=== PATIENT | female | born 1945 | race Caucasian/White ===

== ENCOUNTER 2017-06-24 16:26 | Inpatient (IN) | payer MEDICARE, MEDICAID ==
--- OUTSIDE RECORDS SUMMARY | 2017-06-24 16:28 | XMS | Clinical Summary ---
:1945 Author Organization [facility] Address [address] [place] [address] Phone Care Team Providers Name Role Phone , Primary Care Provider Unavailable Allergies Not on File Current Medications Not on file Active Problems Not on file Social History Tobacco Use Types Packs/Day Years Used Date Never Assessed Sex Assigned at Date Recorded Not on file Last Filed Vital Signs Not on file Plan of Treatment Not on file Results Not on filefrom Last 3 Months
--- NOTE | 2017-06-24 17:13 | CT ---
CT OF HEAD NONCONTRAST: Indication: Fall with headache, pain. FINDINGS: There is parenchymal atrophy. No intracranial hemorrhage, mass effect, or midline shift. There is mi ld mucosal thickening of the paranasal sinuses. IMPRESSION: 1. No acute intracranial hemorrhage or mass effect. 2. Parenchymal volume loss. 3. No significant interval change from 02-15-11. POS: [facility]
--- NOTE | 2017-06-24 17:15 | CT ---
CERVICAL SPINE CT NONCONTRAST 06/24/17 INDICATION: Fall with neck injury and pain. FINDINGS: There is multilevel anterior metallic fusion spanning C4 through C7 segments. There is slight separa tion of the anterior metal plate from the anterior aspect of the vertebral column at the C4 and C5 l evels. No acute fracture or significant subluxation. No acute facet malalignment or craniocervical d istraction. Prominent degenerative change at the atlantodental articulation is present. IMPRESSION: Postoperative cervical spine with degenerative change. There is no acute fracture or subluxation dodie dent. POS: [facility]
[2017-06-24] MEDS ORDERED: Albuterol Sulfate 2.5 mg/0.5 ml Neb ONE (18:39)
[2017-06-24 19:03] LABS: #Lymphocytes 0.7 thou/uL (1.20-3.40); #Monocytes 0.3 thou/uL (0.11-0.59); #Neutrophils 7.8 thou/uL (1.40-6.50); %Basophils 0.4 % (0.0-1.0); %Eosinophils 0.3 % (0.0-10.0); %Lymphocytes 8.3 % (21.0-51.0); %Monocytes 3.1 % (0.0-10.0); Hematocrit 27.1 % (36.0-47.0); Mean Platelet Volume 7.8 fL (7.4-10.4); Red Blood Cell (RBC) Count 2.77 mill/uL (4.20-5.40); White Blood Cell (WBC) Count 8.9 thou/uL (4.8-10.8)
[2017-06-24 19:24] LABS: ALT (SGPT) Less than 7 U/L (8-55); AST (SGOT) 19 U/L (5-34); Alkaline Phosphatase 153 U/L (40-150); Anion Gap 17 mmol/L (10-20); BUN (Urea Nitrogen) 54 mg/dL (9.8-20.1); Bilirubin, Total 0.5 mg/dL (0.2-1.2); CK (CPK) 1004 U/L (29-168); Calc. Creatinine Clearance 0 mL/min (70-130); Calcium 9.1 mg/dL (7.8-10.44); Carbon Dioxide 25 mmol/L (23-31); Chloride 99 mmol/L (98-107); Estimated GFR-MDRD 15; Globulin 3.7 g/dL (2.4-3.5); Protein, Total 7.5 g/dL (6.0-8.3)
[2017-06-24 19:29] LABS: Troponin I 0.014 ng/mL (< 0.028)
--- NOTE | 2017-06-24 20:54 | RAD ---
LUMBAR SPINE THREE VIEWS: 06/24/17 HISTORY: 72-year-old female with fall and low back pain. COMPARISON: 01/15/13. FINDINGS: Extensive disc osteophytosis and facet arthrosis particularly at L2-3 and L1-2. Pedicle screw fixati on changes noted at L3, L4, and S1 with status post laminectomy changes and dorsal column stimulator leads in place. No evidence for an acute fracture. Minimal nonspecific pulmonary parenchymal gordon es in the right lower lobe. IMPRESSION: Extensive spondylosis, particularly at the L1-2 and L2-3. Postoperative pedicle screw placement manning ges at L3, L4, and S1. Little change from prior study other than placement of a dorsal column stimul ator leads. POS: [facility]
--- NOTE | 2017-06-24 20:58 | RAD ---
CHEST ONE VIEW: 06/24/17 HISTORY: 72-year-old female with mechanical fall hitting her head now with low back pain and wheezing. Dorsal column stimulator leads overlie the mid thoracic spine. Increased linear and interstitial mar kings bilaterally, particularly in the right lower lobe but these appear stable from prior study. Ol d granulomatous disease. No overt new process. IMPRESSION: Stable chronic parenchymal changes in the right lower lobe. Bilateral chronic lung changes. No overt new process. No pneumothorax. POS: [facility]
[2017-06-24] MEDS ORDERED: Acetaminophen 325 MG TAB PO PRN (22:47)
[2017-06-24] MEDS ORDERED: Mag-Al 1200 mg/1200 mg/30 ML UDCUP PO PRN (22:47)
[2017-06-24] MEDS: Cepastat Lozenges 1 LOZ PO PRN (23:50)
[2017-06-25 01:25] VITALS: BMI 37.0
--- NOTE | 2017-06-25 02:27 | HP ---
REASON FOR ADMISSION: Acute kidney injury, mild CHF exacerbation with diastolic dysfunction, acute rhabdomyolysis with a history of fall. HISTORY OF PRESENT ILLNESS: The patient was transferred from [facility] after she had a fall while she was trying to get up from her commode. She felt too weak and could not transfer herself to the wheelchair from her commode. She fell and hit her side of her back. She is complaining of back pain as well. No complaints of chest pain, palpitations, or PND. The patient has mild orthopnea. Her lumbar spine x-ray done in the ER shows extensive spondylosis with no acute fractures as such. No complaints of urinary frequency or urgency. No complaints of fever. The patient has shortness of breath and has orthopnea at present. No complaints of chest pain. PAST MEDICAL AND SURGICAL HISTORY: History of Parkinson disease and follows up with Dr. Viridiana Jain; chronic back pain and follows up with Dr. Hodge, pain specialist; diabetes mellitus type 2; hypertension; GERD; dyslipidemia; obesity ; bipolar disorder; irritable bowel syndrome; hysterectomy; multiple spine surgery; tubal ligation; tonsillectomy; cholecystectomy; appendectomy. CURRENT MEDICATIONS: Per the [facility] records, Depakote extended release 250 mg twice daily, Plaquenil 200 mg p.o. twice daily, Percocet p.r.n. for pain, amantadine 100 mg p.o. daily, Lamictal 75 mg p.o. daily, Stalevo 50 mg p.o. daily, Sinemet 25/100 mg p.o. 3 times daily, aspirin 81 mg p.o. daily, Florastor 250 mg p.o. daily, lisinopril 20 mg p.o. daily, hydrochlorothiazide 25 mg p.o. daily, Norvasc 10 mg p.o. daily, Coreg 25 mg p.o. twice daily, Protonix 40 mg p.o. daily, Colace 100 mg p.o. q.a.m., Lasix 20 mg p.o. twice daily, Zanaflex 4 mg p.o. twice daily, Requip 0.5 mg p.o. at bedtime, Neurontin 600 mg p.o. 3 times daily, Abilify 20 mg p.o. daily, Klonopin 0.5 mg half a tablet twice daily. ALLERGIES: LIPITOR, NALBUPHINE, and LYRICA. PERSONAL HISTORY: Quit smoking 10 years ago, prior to which has smoked one pack a day for nearly 20 years. Does not abuse alcohol or drugs. She is a senior care resident. FAMILY HISTORY: Mother of dementia and its complications at the age of 83 years. Father at the age of 68 years and has had a pneumothorax/lung rupture. REVIEW OF SYSTEMS: The following complete review of systems was negative, unless otherwise mentioned in the HPI or below: Constitutional: Weight loss or gain, ability to conduct usual activities. Skin: Rash, itching. Eyes: Double vision, pain. ENT/Mouth: Nose bleeding, neck stiffness, pain, tenderness. Cardiovascular: Palpitations, dyspnea on exertion, orthopnea. Respiratory: Shortness of breath, wheezing, cough, hemoptysis, fever or night sweats. Gastrointestinal: Poor appetite, abdominal pain, heartburn, nausea, vomiting, constipation, or diarrhea. Genitourinary: Urgency, frequency, dysuria, nocturia. Musculoskeletal: Pain, swelling. Neurologic/Psychiatric: Anxiety, depression. Allergy/Immunologic: Skin rash, bleeding tendency. PHYSICAL EXAMINATION: GENERAL: The patient is a 72-year-old female who is currently not in any acute distress. VITAL SIGNS: Blood pressure 154/90, pulse 98 per minute, respiratory rate 20 per minute, temperature 97.4 degrees Fahrenheit, saturating 95% on 2 liters nasal cannula. NECK: Supple. No elevated JVD. HEENT: Extraocular muscles intact. Pupils reacting to light. Oral cavity mucous membranes are moist. No exudates or congestion. CARDIOVASCULAR SYSTEM: S1, S2 heard. Regular rhythm. RESPIRATORY SYSTEM: Air entry 1+ bilateral. Scattered rhonchi plus rales plus in the infra-axillary area. ABDOMEN: Soft, bowel sounds heard. No tenderness, rigidity, or guarding. EXTREMITIES: Mild peripheral edema, no calf tenderness. VASCULAR SYSTEM: Peripheral pulses 1+ bilateral. No ischemic ulcerations or gangrene. CENTRAL NERVOUS SYSTEM: No gross focal deficits seen. The patient has resting tremor. No focal deficit seen. PSYCHIATRIC SYSTEM: The patient appears to be a bit depressed, otherwise, no hallucinations or delusions. LABORATORY DATA AND X-RAY FINDINGS: White count of 8.9, H\T\H 9 and 27, platelet count is 220, MCV is 97, with 87% neutrophils. Electrolytes are stable. BUN 54, creatinine 3.1, glucose 125. BNP is 293. CK level is 1004, CK -MB 7.8, troponin I is 0.01. Albumin is 3.8. EKG done shows normal sinus rhythm at 91 beats per minute. There are old Q-waves seen in inferior wall leads and overall has low voltage. Chest x-ray done shows chronic parenchymal changes in the right lower lobe, otherwise, no acute new process seen. Lumbar spine x-ray done shows extensive spondylosis, particularly at the L1-2 and L2-3 postop pedicle screw placement changes at the L3-4 and S1. There is also dorsal column stimulator leads seen. Cervical spine CAT scan done shows postop C-spine with degenerative changes seen, no acute fracture or subluxation seen. CT brain shows no acute hemorrhage or mass effect. There is parenchymal volume loss seen. CLINICAL IMPRESSION AND PLAN: The patient will be admitted to telemetry for acute kidney injury on top of chronic kidney disease likely stage 3, acute congestive heart failure exacerbation with diastolic dysfunction, generalized weakness from last 2 weeks, which has been progressively getting worse. She has become wheelchair bound from last 2 weeks. Prior to which the patient states she was able to walk with physical therapy for short distances at the senior care. We will continue her Parkinson medications as before including Sinemet and Stalevo. She will also be on aspirin and Protonix. Her Coreg will be reduced to 6.25 mg twice daily for now in view of the shortness of breath. We will place her on Lasix 40 mg IV q. 12 hourly for a total of 4 doses. Her renal function will be closely monitored. We will obtain an echo with 2D Doppler for left ventricular function. We will consult Dr. Cedeño, her manager council, during her stay here. The patient has multiple medical issues. She also has very poor functional status and is essentially wheelchair-bound. The patient had out of hospital DNR signed in 07/2015 and has revoked it at present. She would like to discuss with her son and make a decision about do not resuscitate. For now, she is a full code. Please note I have seen and examined patient on 06/24/2017. ZEE
[2017-06-25] MEDS ORDERED: Furosemide 40 MG/4 ML VIAL SLOW IVP SCH (06:00)
[2017-06-25 06:10] LABS: #Lymphocytes 0.4 thou/uL (1.20-3.40); #Monocytes 0.2 thou/uL (0.11-0.59); #Neutrophils 6.4 thou/uL (1.40-6.50); %Lymphocytes 5.8 % (21.0-51.0); %Monocytes 2.5 % (0.0-10.0); Hematocrit 24.6 % (36.0-47.0); Mean Platelet Volume 7.8 fL (7.4-10.4); Red Blood Cell (RBC) Count 2.52 mill/uL (4.20-5.40)
[2017-06-25 06:36] LABS: Anion Gap 15 mmol/L (10-20); BUN (Urea Nitrogen) 53 mg/dL (9.8-20.1); Calc. Creatinine Clearance 32 mL/min (70-130); Calcium 8.8 mg/dL (7.8-10.44); Carbon Dioxide 25 mmol/L (23-31); Chloride 100 mmol/L (98-107); Estimated GFR-MDRD 17
[2017-06-25] MEDS ORDERED: Carvedilol 6.25 MG TAB PO SCH (08:00)
[2017-06-25] MEDS ORDERED: Epoetin (ESRD) 20,000 UNITS/ML SC SCH (08:30)
[2017-06-25] MEDS ORDERED: FLU VACC TS2017-18 (>65YR) 0.5 ML SYRINGE IM ONE (09:00)
[2017-06-25] MEDS: Aripiprazole 10 MG TAB PO SCH (09:21)
[2017-06-25] MEDS: lamoTRIgine 25 MG TAB PO SCH (09:22)
[2017-06-25] MEDS: tiZANidine HCl 4 MG TAB PO SCH ×2 (09:22→20:59)
[2017-06-25] MEDS: Docusate 100 MG CAP PO SCH ×2 (09:22→20:59)
[2017-06-25] MEDS: Saccharomyces boulardii 250 MG CAP PO SCH (09:22)
[2017-06-25] MEDS: Famotidine 20 MG TAB PO SCH (09:22)
[2017-06-25] MEDS: Divalproex Sodium 250 MG (DR) TAB PO SCH ×2 (09:22→20:59)
[2017-06-25] MEDS: Calcium Carbonate 500 MG ChewTAB PO SCH ×2 (09:23→15:58)
[2017-06-25] MEDS: Polyethylene Glycol OPTH DROP 15 ML BOT EA EYE SCH ×2 (09:23→21:00)
[2017-06-25] MEDS: Amantadine HCl 100 mg Capsule PO SCH (09:23)
[2017-06-25] MEDS: Heparin 5,000 UNITS/ML VIAL SC SCH ×2 (09:23→21:00)
[2017-06-25] MEDS: Carbidopa/Levodopa CR 50-200 mg Tablet PO SCH ×3 (09:32→20:59)
--- NOTE | 2017-06-25 13:00 | PDOC.PN ---
- Subjective Encounter Start Date: 06/25/17 Encounter Start Time: 12:49 sleepy pain well controlled no f/c no n/v - Objective Resuscitation Status: Resuscitation Status FULL:Full Resuscitation MAR Reviewed: Yes Vital Signs & Weight: Vital Signs (12 hours) Temp Pulse Resp BP Pulse Ox 06/25/17 11:43 99.1 F 84 18 151/68 H 96 06/25/17 09:23 99 06/25/17 08:00 98.8 F 99 16 174/75 H 92 L 06/25/17 07:27 93 L 06/25/17 06:50 81 24 H 95 06/25/17 05:05 97.6 F 93 21 H 153/74 H Weight Weight 232 lb 9.6 oz I&O: 06/24/17 06/25/17 06/26/17 06:59 06:59 06:59 Intake Total 240 Balance 240 Result Diagrams: 06/25/17 05:27 06/25/17 05:27 Additional Labs: Accuchecks 06/25/17 04:01 POC Glucose 219 H Phys Exam - Physical Examination Constitutional: NAD HEENT: PERRLA Neck: no JVD Respiratory: no wheezing Cardiovascular: no significant murmur Gastrointestinal: soft, non-tender Musculoskeletal: pulses present Neurological: moves all 4 limbs Psychiatric: A&O x 3 Dx/Plan (1) Diastolic CHF Code(s): I50.30 - UNSPECIFIED DIASTOLIC (CONGESTIVE) HEART FAILURE Status: Acute Comment: ef 60% acute on chronic (2) Fall Code(s): W19.XXXA - UNSPECIFIED FALL, INITIAL ENCOUNTER Status: Acute (3) Rhabdomyolysis Code(s): M62.82 - RHABDOMYOLYSIS Status: Acute Comment: f/u ck (4) Renal failure (ARF), acute on chronic Code(s): N17.9 - ACUTE KIDNEY FAILURE, UNSPECIFIED; N18.9 - CHRONIC KIDNEY DISEASE, UNSPECIFIED Status: Acute (5) Obesity (BMI 35.0-39.9 without comorbidity) Code(s): E66.9 - OBESITY, UNSPECIFIED Status: Acute (6) Bipolar 1 disorder, depressed Status: Chronic (7) Chronic pain disorder Code(s): G89.4 - CHRONIC PAIN SYNDROME Status: Chronic (8) DM2 (diabetes mellitus, type 2) Status: Chronic Qualifiers: Diabetes mellitus complication status: with hyperglycemia Diabetes mellitus [facility] insulin use: without adjunct faculty for medical terminology use Qualified Code(s): E11.65 - Type 2 diabetes mellitus with hyperglycemia (9) GERD (gastroesophageal reflux disease) Code(s): K21.9 - GASTRO-ESOPHAGEAL REFLUX DISEASE WITHOUT ESOPHAGITIS Status: Chronic (10) Hypertension Code(s): I10 - ESSENTIAL (PRIMARY) HYPERTENSION Status: Chronic Qualifiers: Hypertension type: essential hypertension Qualified Code(s): I10 - Essential (primary) hypertension (11) Parkinson disease Code(s): G20 - PARKINSON'S DISEASE Status: Chronic - Plan * f/u renal plan * monitor labs * pt eval
--- NOTE | 2017-06-25 13:16 | CON ---
DATE OF CONSULTATION: 06/25/2017 RENAL MEDICINE HISTORY OF PRESENT ILLNESS: Ms. Holt is a 72-year-old white female who was admitted for a fall. S he was noted to have an elevated creatinine. She has an acute kidney injury on top of her chronic r enal failure. We are here to evaluate her acute kidney injury. I did review the lab work in last 2 4 hours and there is slight improvement with the kidney function. In addition, the chest x-ray did not show overt CHF. She has increased lung markings. She may have underlying COPD. In addition, a previous cardiac echo showed a normal EF. She has history of diastolic dysfunction. REVIEW OF SYSTEMS: Chronic low back pain. Positive for chronic resting tremors. No nausea, no vom iting, no syncopal episode, no diarrhea or constipation, no gross hematuria, no abdominal pain. No fever or chills. No new skin rash. No diplopia, no sore throat, no melena, no hematemesis, no guilherme s hematuria, no dysuria, no urinary frequency. MEDICATIONS: Currently on Lasix 40 mg IV q.12, [place] 5/325 q.4, DuoNeb q.6, Symmetrel 100 mg daily, Norvasc 10 mg daily, Abilify 20 mg daily, aspirin 81 mg tab once a day, Tums 1000 mg p.o. b.i.d., S inemet-CR 50/200 half a tablet 3 times a day, Coreg 6.25 mg b.i.d., Depakote 250 mg p.o. b.i.d., fam otidine 20 mg daily, Lamictal 75 mg once a day, morphine sulfate 2 mg IV q.4 p.r.n., tizanidine 4 mg p.o. b.i.d. PAST MEDICAL HISTORY: 1. COPD. 2. Chronic renal failure, status post acute kidney injury. 3. Parkinson's disease. 4. Morbid obesity. 5. Hypertension. 6. GERD. 7. Hyperlipidemia. 8. Irritable bowel syndrome. 9. Chronic low back pain/ DJD. 10. Status post CHF. 11. Diabetic nephropathy. 12. Type 2 diabetes mellitus? PAST SURGICAL HISTORY: Status post bilateral tubal ligation, status post appendectomy, status post cataract surgery, status post hysterectomy, status post diskectomy C4-C6, status post tonsillectomy, and status post appendectomy with cholecystectomy. FAMILY HISTORY: No family history of ESRD. SOCIAL HISTORY: Patient currently in a long-term at [facility] in [place]. She used to live in [place]. She has 2 children. She is a retired nurse, one daughter living in [place] and one son living in [place]. Education, nursing school. Smoked for 40 years, 1 pack a day. No I V drug abuse. Denies any blood transfusion. ALLERGIES: None. TRAUMA: None. IMMUNIZATIONS: Up to date. HOSPITALIZATIONS: Please see past medical history. PHYSICAL EXAMINATION: VITAL SIGNS: Blood pressure is 153/74, heart rate 81, respiratory rate 24, pulse ox 95% and tempera ture 97.6. GENERAL: She is noted to be awake, supine, comfortable, obese. SKIN: Adequate turgor. HEENT: Slightly pale conjunctivae, anicteric sclerae. NECK: No neck mass, no carotid bruits, no JVD. CHEST: No deformities. LUNGS: Decreased breath sounds. No wheezing, no crackles. HEART: Normal sinus rhythm. No murmur, no gallops or rubs. ABDOMEN: Globular, soft, nontender, no masses. EXTREMITIES: Trace edema. NEUROLOGIC: Awake and oriented to 3 spheres. Positive for resting tremors. LABORATORY DATA: Laboratories of 06/25/2017, white count 7, hemoglobin 8.2. Sodium 135, potassium 4.9, chloride 100, carbon dioxide 25. BUN 53, creatinine 2.72, glucose 173, calcium 8.8. Troponin I 0.014. On 06/24/2017, creatinine is 3.1. On 05/19/2017, creatinine 2.05. Urinalysis of 02/03/2017 showed protein. ASSESSMENT AND PLAN: 1. Acute kidney injury over chronic renal failure, superimposed prerenal azotemia. Please note the patient was on diuretics as part of her home medications. The plan is simply to continue to observ e her. There is already a slight improvement in the renal function. Please note she was also at [facility] lisinopril. Agreed to hold off the lisinopril temporarily. In addition, we could consider decre asing furosemide to once a day if renal function does not significantly improve or it worsens. For the moment, agree with current management. No indication for any dialytic intervention. 2. Shortness of breath - chest x-ray does not suggest overt congestive heart failure. This is more consistent with someone with chronic obstructive pulmonary disease. Please note she is currently o n DuoNeb q.6. 3. Anemia. Start weekly Epogen and ferrous sulfate 325 mg p.o. b.i.d. 4. Status post fall - stable. X-rays of the lumbar spine and cervical spine did not show any acute fracture. In addition, CT scan of the brain showed no acute intracranial abnormality. I agree with current management. Recheck basic metabolic panel and CBC in a.m.
[2017-06-25] MEDS: Furosemide 40 MG/4 ML VIAL SLOW IVP SCH (14:59)
[2017-06-25] MEDS: Ferrous Sulfate 325 MG TAB PO SCH (15:58)
[2017-06-25] MEDS: Carvedilol 25 MG TAB PO SCH (15:58)
[2017-06-25] MEDS: HYDROcodone/Acetaminophen 5/325 mg Tablet PO PRN ×2 (15:59→20:59)
[2017-06-25] MEDS: Guaifenesin DM 100-10/5 ML UDCUP PO PRN (21:11)
[2017-06-26] MEDS: HYDROcodone/Acetaminophen 5/325 mg Tablet PO PRN ×5 (01:01→20:17)
[2017-06-26] MEDS: Guaifenesin DM 100-10/5 ML UDCUP PO PRN ×3 (03:38→15:08)
[2017-06-26] MEDS: Furosemide 40 MG/4 ML VIAL SLOW IVP SCH ×2 (05:09→15:01)
[2017-06-26 05:32] LABS: #Lymphocytes 0.8 thou/uL (1.20-3.40); #Monocytes 0.8 thou/uL (0.11-0.59); #Neutrophils 6.8 thou/uL (1.40-6.50); %Basophils 0.1 % (0.0-1.0); %Eosinophils 0.4 % (0.0-10.0); %Lymphocytes 9.9 % (21.0-51.0); %Monocytes 9.2 % (0.0-10.0); Mean Platelet Volume 7.8 fL (7.4-10.4); Red Blood Cell (RBC) Count 2.66 mill/uL (4.20-5.40); White Blood Cell (WBC) Count 8.4 thou/uL (4.8-10.8)
[2017-06-26 05:52] LABS: Anion Gap 15 mmol/L (10-20); BUN (Urea Nitrogen) 51 mg/dL (9.8-20.1); CK (CPK) 479 U/L (29-168); Calc. Creatinine Clearance 36 mL/min (70-130); Calcium 9.1 mg/dL (7.8-10.44); Carbon Dioxide 28 mmol/L (23-31); Chloride 97 mmol/L (98-107); Estimated GFR-MDRD 20; Phosphorus 3.2 mg/dL (2.3-4.7)
[2017-06-26] MEDS: lamoTRIgine 25 MG TAB PO SCH (08:31)
[2017-06-26] MEDS: Polyethylene Glycol OPTH DROP 15 ML BOT EA EYE SCH ×2 (08:32→20:16)
[2017-06-26] MEDS: Divalproex Sodium 250 MG (DR) TAB PO SCH ×2 (08:32→20:16)
[2017-06-26] MEDS: Aripiprazole 10 MG TAB PO SCH (08:35)
[2017-06-26] MEDS: Carbidopa/Levodopa CR 50-200 mg Tablet PO SCH ×3 (08:35→20:16)
[2017-06-26] MEDS: Ferrous Sulfate 325 MG TAB PO SCH ×2 (08:35→17:26)
[2017-06-26] MEDS: Cepastat Lozenges 1 LOZ PO PRN ×3 (08:35→22:46)
[2017-06-26] MEDS: Calcium Carbonate 500 MG ChewTAB PO SCH ×2 (08:35→17:26)
[2017-06-26] MEDS: Docusate 100 MG CAP PO SCH ×2 (08:36→20:16)
[2017-06-26] MEDS: Amantadine HCl 100 mg Capsule PO SCH (08:36)
[2017-06-26] MEDS: tiZANidine HCl 4 MG TAB PO SCH ×2 (08:36→20:16)
[2017-06-26] MEDS: Heparin 5,000 UNITS/ML VIAL SC SCH ×2 (08:36→20:16)
[2017-06-26] MEDS: Carvedilol 25 MG TAB PO SCH ×2 (08:37→17:26)
[2017-06-26] MEDS: Saccharomyces boulardii 250 MG CAP PO SCH (08:37)
[2017-06-26] MEDS: Famotidine 20 MG TAB PO SCH (08:37)
--- NOTE | 2017-06-26 09:02 | PRG ---
DATE OF SERVICE: 06/26/2017 SUBJECTIVE: Ms. Holt is a 72-year-old white female, who was seen by the Renal Service for her acut e kidney injury on top of chronic renal failure. Please note, she was on TAWANA inhibitors outside the hospital. She has been started on a diuretic for the shortness of breath. She has had history of diastolic dysfunction in the past. Creatinine is slightly improved today. Denies any worsening kwesi rtness of breath. She continues to receive her DuoNeb q.i.d. The patient denies any chest pain. PHYSICAL EXAMINATION: VITAL SIGNS: Blood pressure is 173/79, heart rate 95, respiratory rate 22, and temperature 99.2, pu lse ox 93%. GENERAL: Awake, obese, sitting comfortable, not in distress. SKIN: Adequate turgor. HEENT: Slightly pale conjunctivae, anicteric sclerae. NECK: No neck mass, no carotid bruits, no JVD. CHEST: No deformities. LUNGS: Positive for wheezing. No crackles. HEART: Normal sinus rhythm. No murmur, no gallops, no rubs. ABDOMEN: Globular, soft, nontender. No masses. EXTREMITIES: Positive for edema, but no deformities. MEDICATIONS: 06/26/2017, reviewed. LABORATORY DATA: 06/26/2017, white count 8.4, hemoglobin 8.4, sodium 136, potassium 4.2, chloride 9 7, carbon dioxide 28, BUN 51, creatinine 2.4, glucose 247, phosphorus 3.2, magnesium 2.0, and CK 479 . ASSESSMENT AND PLAN: 1. Acute kidney injury on top of chronic renal failure -- superimposed hemodynamically mediated robyn al dysfunction, slowly improving renal function. Please note, she is off her TAWANA inhibitors/ARB. C urrently, on a diuretic regimen. Adjust diuretics as needed depending what the renal function is. Continue current management. There is no indication for any dialytic intervention. 2. Anemia -- stable. Continue weekly Epogen. The patient has been started yesterday. In addition , she is on iron supplementation. 3. Shortness of breath/chronic obstructive pulmonary disease, on DuoNeb. Continue supportive care.
--- NOTE | 2017-06-26 13:13 | PDOC.PN ---
- Subjective Encounter Start Date: 06/26/17 Encounter Start Time: 13:12 Patient seen and examined. No new complaints. No overnight events - Objective Resuscitation Status: Resuscitation Status FULL:Full Resuscitation MAR Reviewed: Yes Vital Signs & Weight: Vital Signs (12 hours) Temp Pulse Pulse Pulse Resp BP BP 06/26/17 09:40 83 89 144/67 H 06/26/17 08:36 95 173/79 H 06/26/17 07:15 99.2 F 95 22 H 06/26/17 06:37 90 18 06/26/17 04:00 99.3 F 87 22 H BP BP Pulse Ox Pulse Ox Pulse Ox 06/26/17 09:40 144/73 H 93 L 96 06/26/17 08:36 06/26/17 07:15 173/79 H 93 L 06/26/17 06:37 96 06/26/17 04:00 165/76 H 94 L Weight Weight 232 lb I&O: 06/25/17 06/26/17 06/27/17 06:59 06:59 06:59 Intake Total 240 1440 Balance 240 1440 Result Diagrams: 06/26/17 05:08 06/26/17 05:08 Phys Exam - Physical Examination Constitutional: NAD HEENT: PERRLA Neck: no JVD Respiratory: no wheezing Cardiovascular: no significant murmur Gastrointestinal: non-tender Musculoskeletal: pulses present Neurological: moves all 4 limbs Psychiatric: A&O x 3 Dx/Plan (1) Diastolic CHF Code(s): I50.30 - UNSPECIFIED DIASTOLIC (CONGESTIVE) HEART FAILURE Status: Acute Comment: ef 60% acute on chronic (2) Fall Code(s): W19.XXXA - UNSPECIFIED FALL, INITIAL ENCOUNTER Status: Acute (3) Rhabdomyolysis Code(s): M62.82 - RHABDOMYOLYSIS Status: Acute Comment: f/u ck (4) Renal failure (ARF), acute on chronic Code(s): N17.9 - ACUTE KIDNEY FAILURE, UNSPECIFIED; N18.9 - CHRONIC KIDNEY DISEASE, UNSPECIFIED Status: Acute (5) Obesity (BMI 35.0-39.9 without comorbidity) Code(s): E66.9 - OBESITY, UNSPECIFIED Status: Acute (6) Bipolar 1 disorder, depressed Status: Chronic (7) Chronic pain disorder Code(s): G89.4 - CHRONIC PAIN SYNDROME Status: Chronic (8) DM2 (diabetes mellitus, type 2) Status: Chronic Qualifiers: Diabetes mellitus complication status: with hyperglycemia Diabetes mellitus [facility] insulin use: without intermediate manager use Qualified Code(s): E11.65 - Type 2 diabetes mellitus with hyperglycemia (9) GERD (gastroesophageal reflux disease) Code(s): K21.9 - GASTRO-ESOPHAGEAL REFLUX DISEASE WITHOUT ESOPHAGITIS Status: Chronic (10) Hypertension Code(s): I10 - ESSENTIAL (PRIMARY) HYPERTENSION Status: Chronic Qualifiers: Hypertension type: essential hypertension Qualified Code(s): I10 - Essential (primary) hypertension (11) Parkinson disease Code(s): G20 - PARKINSON'S DISEASE Status: Chronic - Plan * monitor labs * f/u dr rock plan * pt/ot eval
[2017-06-26] MEDS ORDERED: HumaLOG 300 UNITS/3 ML VIAL SC PRN (13:14)
[2017-06-26] MEDS ORDERED: Dextrose 50% Abboject 50 ML SYRINGE SLOW IVP PRN (13:14)
[2017-06-26] MEDS ORDERED: Dextrose 5% in Water 1,000 ML IV PRN (13:14)
[2017-06-26] MEDS ORDERED: Entacapone 200 mg Tablet PO SCH (14:00)
[2017-06-26] MEDS ORDERED: Carbidopa/Levodopa 25-100 mg Tablet PO SCH (14:00)
[2017-06-26] MEDS: LEVODOPA PO SCH ×2 (15:25→15:26)
[2017-06-26] MEDS: CARBIDOPA PO SCH ×2 (15:25→15:26)
[2017-06-26] MEDS: ENTACAPONE PO SCH ×2 (15:25→15:26)
[2017-06-27] MEDS: HYDROcodone/Acetaminophen 5/325 mg Tablet PO PRN ×2 (00:20→09:19)
[2017-06-27 05:33] LABS: Anion Gap 15 mmol/L (10-20); BUN (Urea Nitrogen) 47 mg/dL (9.8-20.1); CK (CPK) 244 U/L (29-168); Calc. Creatinine Clearance 39 mL/min (70-130); Calcium 8.9 mg/dL (7.8-10.44); Carbon Dioxide 30 mmol/L (23-31); Chloride 92 mmol/L (98-107); Estimated GFR-MDRD 22; Magnesium 1.9 mg/dL (1.6-2.6); Phosphorus 3.5 mg/dL (2.3-4.7)
[2017-06-27] MEDS ORDERED: Carbidopa/Levodopa 25-100 mg Tablet PO SCH (09:00)
[2017-06-27] MEDS ORDERED: Entacapone 200 mg Tablet PO SCH (09:00)
[2017-06-27] MEDS: Polyethylene Glycol OPTH DROP 15 ML BOT EA EYE SCH (09:16)
[2017-06-27] MEDS: Calcium Carbonate 500 MG ChewTAB PO SCH (09:17)
[2017-06-27] MEDS: Aripiprazole 10 MG TAB PO SCH (09:17)
[2017-06-27] MEDS: Cepastat Lozenges 1 LOZ PO PRN (09:17)
[2017-06-27] MEDS: Divalproex Sodium 250 MG (DR) TAB PO SCH (09:18)
[2017-06-27] MEDS: lamoTRIgine 25 MG TAB PO SCH (09:18)
[2017-06-27] MEDS: Ferrous Sulfate 325 MG TAB PO SCH (09:18)
[2017-06-27] MEDS: Saccharomyces boulardii 250 MG CAP PO SCH (09:19)
[2017-06-27] MEDS: Famotidine 20 MG TAB PO SCH (09:19)
[2017-06-27] MEDS: Carvedilol 25 MG TAB PO SCH (09:19)
[2017-06-27] MEDS: Amantadine HCl 100 mg Capsule PO SCH (09:19)
[2017-06-27] MEDS: tiZANidine HCl 4 MG TAB PO SCH (09:19)
[2017-06-27] MEDS: Carbidopa/Levodopa CR 50-200 mg Tablet PO SCH (09:21)
[2017-06-27] MEDS: Heparin 5,000 UNITS/ML VIAL SC SCH (09:22)
[2017-06-27] MEDS: Docusate 100 MG CAP PO SCH (09:23)
--- NOTE | 2017-06-27 09:49 | PRG ---
DATE OF SERVICE: 06/27/2017 SERVICE: Renal Medicine. SUBJECTIVE: Ms. Holt is a 72-year-old white female, who was seen for an acute kidney injury on top of her chronic renal failure. Adjustment with her medication was done. Please note, she is off AC E inhibitors/ARB. The patient used to be on a diuretic regimen and this has been discontinued. Slade al function is slowly improving. The acute kidney injury was most likely a hemodynamically mediated renal dysfunction. The patient h as no new complaints today. She still have some occasional shortness of breath. OBJECTIVE: VITAL SIGNS: Blood pressure is 173/81, heart rate 93, respiratory rate 18, temperature 99.9, pulse ox 93%. GENERAL: Noted to be awake, alert, comfortable, not in distress. SKIN: Adequate turgor. HEENT: Pinkish conjunctivae, anicteric sclerae. NECK: No neck mass, no carotid bruits, no JVD. CHEST: No deformities. LUNGS: Decreased breath sounds. Occasional wheezing. HEART: Normal sinus rhythm. No murmur, no gallops or rubs. ABDOMEN: Globular, soft, nontender, no masses. EXTREMITIES: No edema, no deformities. MEDICATIONS: Of 06/27/2017 was reviewed. LABORATORY DATA: Of 06/26/2017, hemoglobin 8.4. On 06/27/2017, sodium 133, potassium 3.9, chloride 92, carbon dioxide 30, BUN 47, creatinine 2.22, glucose 147, phosphorus 3.5, magnesium 1.9, calcium 8.9. ASSESSMENT AND PLAN: 1. Acute kidney injury on top of her chronic renal failure, much improved creatinine with adjustmen t of the medications. No indication for any dialytic intervention. I agree to hold off diuretics. 2. Shortness of breath most likely chronic obstructive pulmonary disease exacerbation. 3. Anemia - currently on weekly Epogen and iron supplementation. Overall, I agree with current man agement.
--- NOTE | 2017-06-27 10:12 | PDOC.PN ---
- Subjective Encounter Start Date: 06/27/17 Encounter Start Time: 10:07 Patient seen and examined. No new complaints. No overnight events - Objective Resuscitation Status: Resuscitation Status FULL:Full Resuscitation MAR Reviewed: Yes Vital Signs & Weight: Vital Signs (12 hours) Temp Pulse Resp BP Pulse Ox 06/27/17 07:29 99.9 F H 93 18 173/81 H 93 L 06/27/17 07:10 99.9 F H 93 18 93 L 06/27/17 06:11 93 18 94 L 06/27/17 04:05 98.3 F 85 20 176/83 H 93 L 06/27/17 00:50 96 Weight Weight 225 lb 3.2 oz I&O: 06/26/17 06/27/17 06/28/17 06:59 06:59 06:59 Intake Total 1440 1060 Balance 1440 1060 Result Diagrams: 06/26/17 05:08 06/27/17 04:08 Additional Labs: Accuchecks 06/26/17 06/26/17 20:43 18:05 POC Glucose 224 H 166 H Phys Exam - Physical Examination Constitutional: NAD HEENT: PERRLA Neck: no JVD Respiratory: no rales Cardiovascular: no significant murmur Gastrointestinal: non-tender Musculoskeletal: pulses present Neurological: moves all 4 limbs Psychiatric: A&O x 3 Dx/Plan (1) Diastolic CHF Code(s): I50.30 - UNSPECIFIED DIASTOLIC (CONGESTIVE) HEART FAILURE Status: Resolved Comment: ef 60% acute on chronic (2) Fall Code(s): W19.XXXA - UNSPECIFIED FALL, INITIAL ENCOUNTER Status: Acute (3) Rhabdomyolysis Code(s): M62.82 - RHABDOMYOLYSIS Status: Resolved (4) Renal failure (ARF), acute on chronic Code(s): N17.9 - ACUTE KIDNEY FAILURE, UNSPECIFIED; N18.9 - CHRONIC KIDNEY DISEASE, UNSPECIFIED Status: Acute (5) Obesity (BMI 35.0-39.9 without comorbidity) Code(s): E66.9 - OBESITY, UNSPECIFIED Status: Acute (6) Bipolar 1 disorder, depressed Status: Chronic (7) Chronic pain disorder Code(s): G89.4 - CHRONIC PAIN SYNDROME Status: Chronic (8) DM2 (diabetes mellitus, type 2) Status: Chronic Qualifiers: Diabetes mellitus complication status: with hyperglycemia Diabetes mellitus correction insulin use: without extermination supervisor use Qualified Code(s): E11.65 - Type 2 diabetes mellitus with hyperglycemia (9) GERD (gastroesophageal reflux disease) Code(s): K21.9 - GASTRO-ESOPHAGEAL REFLUX DISEASE WITHOUT ESOPHAGITIS Status: Chronic (10) Hypertension Code(s): I10 - ESSENTIAL (PRIMARY) HYPERTENSION Status: Chronic Qualifiers: Hypertension type: essential hypertension Qualified Code(s): I10 - Essential (primary) hypertension (11) Parkinson disease Code(s): G20 - PARKINSON'S DISEASE Status: Chronic - Plan * . add hydralazine prn d/w renal-- ok for d/c and out pt f/u with dr rock
--- NOTE | 2017-06-27 13:36 | DIS ---
DATE OF ADMISSION: 06/24/2017 DATE OF DISCHARGE: 06/27/2017 DISCHARGE DIAGNOSES: Acute on chronic diastolic congestive heart failure with an ejection fraction of 60%, resolved. History of fall, stable. Rhabdomyolysis, resolved. Renal failure, acute on [place], stable, improving. Obesity with a BMI between 35 and 39, stable. Bipolar 1 disorder, stable. Chronic pain disorder, stable. Diabetes, stable. Gastroesophageal reflux disease, stable. Hypert ension, stable. Parkinson disease, stable. DISCHARGE MEDICATIONS: Include all home medications except TAWANA inhibitor has been discontinued and Lasix dose has been changed to 40 mg p.o. daily and hydralazine 25 mg p.o. 4 times a day has been ad ded for systolic greater than 160. CONSULTANTS: The patient's application security consultant on the case is Dr. Cedeño. BRIEF HOSPITAL COURSE: Studies done this hospital stay was a brain CT, which showed no acute intrac ranial hemorrhage or mass. Cervical spine CT, which showed postoperative cervical spine with degene rative changes. No fracture or subluxation. Lumbar spine x-ray, which showed extensive spondylosis , particularly in the L1-L2, L2-L3 area. Postoperative pedicle screw placement changes in L3-L4 and S1 were seen too. BRIEF HOSPITAL COURSE: This is a 72-year-old pleasant lady who was apparently in usual state of [facility], came into the hospital and was admitted to the hospital with acute kidney injury, CHF exacerbat ion and acute rhabdomyolysis secondary to history of fall. The patient was transferred from [facility] after she had a fall when she was trying to go to the commode. Please refer to t he admitting physician's H\T\P for further details. As mentioned above, all the x-rays and imaging were all negative for any acute abnormalities. Patient was given IV Lasix for the treatment of acut e on chronic diastolic congestive heart failure. With this treatment, the patient improved. The pa danielle's kidney functions also improved. TAWANA inhibitor and potassium were stopped by Dr. Cedeño. At th e time of discharge, he changed the Lasix to 40 mg p.o. daily. The patient right now is breathing m uch better. Although, has recommended p.r.n. oxygen to keep her sats over 92. She is doing much be tter. She also did well with physical therapy and she right now is medically stable to be transferr ed back to the halfway with outpatient followup with Dr. Cedeño. We will further optimize the diu retic therapy for the congestive heart failure after following the kidney functions. As mentioned a jadon, echocardiogram was 60%. Her rhabdomyolysis improved with conservative management. She is med ically stable to be discharged with outpatient follow up with PCP and Dr. Cedeño. She is asked to come back to the emergency room in case symptoms recur. Total time for this discharge took 35 minutes.
[2017-06-27 15:11] VITALS: BP 148/70; TEMP 98.7
== END 2017-06-27 15:40 | DRG 291 ==
LOC: ERS 16:26 → 2NO 21:33 → OBSVTOIN 22:37
PROVIDERS: ADMIT Internal Medicine; ATTEND Internal Medicine
DX: I13.0 Hypertensive heart and chronic kidney disease with heart failure and stage 1 through stage 4 chronic kidney disease, or unspecified chronic kidney disease (principal); I50.33 Acute on chronic diastolic (congestive) heart failure; N17.9 Acute kidney failure, unspecified; E11.22 Type 2 diabetes mellitus with diabetic chronic kidney disease; E11.65 Type 2 diabetes mellitus with hyperglycemia; G20 Parkinson's disease; J44.9 Chronic obstructive pulmonary disease, unspecified; T79.6XXA Traumatic ischemia of muscle, initial encounter; D64.9 Anemia, unspecified; E66.9 Obesity, unspecified; M47.896 Other spondylosis, lumbar region; Z87.891 Personal history of nicotine dependence; N18.3 Chronic kidney disease, stage 3 (moderate); Z91.81 History of falling; Z90.710 Acquired absence of both cervix and uterus; Z90.49 Acquired absence of other specified parts of digestive tract; Z98.51 Tubal ligation status; Z98.49 Cataract extraction status, unspecified eye; Z99.3 Dependence on wheelchair; Z66 Do not resuscitate; Z68.36 Body mass index [BMI] 36.0-36.9, adult; F31.9 Bipolar disorder, unspecified; G89.4 Chronic pain syndrome; K21.9 Gastro-esophageal reflux disease without esophagitis; R09.02 Hypoxemia; Z88.6 Allergy status to analgesic agent; Z88.8 Allergy status to other drugs, medicaments and biological substances
CPT/HCPCS: 36415; 36416; 70450; 71010; 72100; 72125; 80048; 80053; 82550; 82553; 83735; 83880; 84100; 84484; 85025; 90471; 90682; 90732; 93005; 93306; 93798; 94640; 96361; 96374; G0008; G0009; G8981-GP-CL; G8982-GP-CJ; G8987-GO-CL; G8988-GO-CJ; J1644; J1940; J2270; J7611; J7620; Q2036; Q4081

== ENCOUNTER 2017-07-12 00:56 | Inpatient (IN) | payer MEDICARE, MEDICAID ==
[2017-07-12 02:54] LABS: #Eosinphils 0.1 thou/uL (0.0-0.7); #Lymphocytes 0.7 thou/uL (1.20-3.40); #Monocytes 0.8 thou/uL (0.11-0.59); #Neutrophils 5.5 thou/uL (1.40-6.50); %Basophils 0.4 % (0.0-1.0); %Eosinophils 1.3 % (0.0-10.0); %Monocytes 11.2 % (0.0-10.0); Mean Platelet Volume 6.5 fL (7.4-10.4); Red Blood Cell (RBC) Count 2.38 mill/uL (4.20-5.40); White Blood Cell (WBC) Count 7.2 thou/uL (4.8-10.8)
[2017-07-12 03:35] LABS: ALT (SGPT) Less than 7 U/L (8-55); AST (SGOT) 5 U/L (5-34); Alkaline Phosphatase 117 U/L (40-150); Anion Gap 11 mmol/L (10-20); BUN (Urea Nitrogen) 26 mg/dL (9.8-20.1); Bilirubin, Total 0.3 mg/dL (0.2-1.2); Calc. Creatinine Clearance 0 mL/min (70-130); Calcium 8.7 mg/dL (7.8-10.44); Carbon Dioxide 33 mmol/L (23-31); Chloride 103 mmol/L (98-107); Estimated GFR-MDRD 30; Globulin 3.7 g/dL (2.4-3.5); Protein, Total 6.9 g/dL (6.0-8.3)
[2017-07-12 03:37] LABS: Troponin I Less than 0.010 ng/mL (< 0.028)
[2017-07-12] MEDS ORDERED: Furosemide 40 MG/4 ML VIAL ONE (03:38)
[2017-07-12 04:14] LABS: Modified Allen's Test POSITIVE; Oxyhemoglobin 95.6 % (94.0-97.0); Sodium 142 mmol/L (135-148)
[2017-07-12 04:15] LABS: Mode BIPAP S/T; PIP 12 cmH2O; Vent YES
[2017-07-12] MEDS ORDERED: Ondansetron HCl/PF 4 MG/2 ML Vial IVP PRN (05:07)
[2017-07-12] MEDS ORDERED: hydrALAZINE 20 MG/ML VIAL SLOW IVP PRN (05:07)
[2017-07-12] MEDS ORDERED: Senokot 8.6 MG TAB PO PRN ×2 (05:07)
[2017-07-12] MEDS ORDERED: cloNIDine 0.1 MG TAB PO PRN (05:07)
[2017-07-12] MEDS ORDERED: Loratadine 10 MG TAB PO PRN (05:07)
[2017-07-12] MEDS ORDERED: Bisacodyl 5 MG TAB PO PRN ×2 (05:07)
[2017-07-12] MEDS ORDERED: Nitroglycerin 0.4 MG TAB (25 Tab Bottle) SL PRN (05:07)
[2017-07-12] MEDS ORDERED: Calcium Carbonate 500 MG ChewTAB PO PRN (05:07)
[2017-07-12] MEDS ORDERED: Benzonatate 100 MG CAP PO PRN (05:07)
[2017-07-12] MEDS ORDERED: Mag-Al 1200 mg/1200 mg/30 ML UDCUP PO PRN (05:07)
[2017-07-12] MEDS ORDERED: Dextrose 5% in Water 1,000 ML IV PRN (05:35)
[2017-07-12] MEDS ORDERED: Insulin Regular 300 UNITS/3 ML VIAL SC PRN ×2 (05:35)
[2017-07-12] MEDS ORDERED: Dextrose 50% Abboject 50 ML SYRINGE SLOW IVP PRN (05:35)
[2017-07-12 06:09] LABS: Troponin I Less than 0.010 ng/mL (< 0.028)
[2017-07-12 08:00] VITALS: BMI 37.6
[2017-07-12] MEDS ORDERED: Furosemide 40 MG/4 ML VIAL SLOW IVP SCH (09:00)
[2017-07-12 09:06] LABS: Troponin I Less than 0.010 ng/mL (< 0.028)
--- NOTE | 2017-07-12 09:32 | RAD ---
CHEST 1 VIEW: HISTORY: Shortness of breath and hypoxic. COMPARISON: Chest 1 view 06/24/17. FINDINGS: There are worsening peripheral opacities in the right middle lobe lingula as well as lower lobes. L ayering effusions are noted bilaterally. Heart size is enlarged. IMPRESSION: New small effusions and peripheral airspace opacity as well as prominence of the cardiac silhouette may represent decompensating congestive heart failure. Pneumonia is within the differential. POS: CHRISTINA
[2017-07-12] MEDS: Amantadine HCl 100 mg Capsule PO SCH (09:41)
[2017-07-12] MEDS: Amlodipine 10 MG TAB PO SCH (09:41)
[2017-07-12] MEDS: Aripiprazole 10 MG TAB PO SCH (09:48)
[2017-07-12] MEDS: Divalproex Sodium 250 MG (DR) TAB PO SCH ×2 (09:49→21:00)
[2017-07-12] MEDS: Carbidopa/Levodopa CR 50-200 mg Tablet PO SCH ×3 (09:49→21:00)
[2017-07-12] MEDS: guaiFENesin ER 600 MG TAB PO SCH ×2 (09:50→21:00)
[2017-07-12] MEDS: Famotidine 20 MG TAB PO SCH ×2 (09:50→21:00)
[2017-07-12] MEDS: Gabapentin 300 MG CAP PO SCH ×3 (09:50→21:00)
[2017-07-12] MEDS: lamoTRIgine 25 MG TAB PO SCH (09:52)
[2017-07-12] MEDS: Hydroxychloroquine Sulfate 200 MG TAB PO SCH ×2 (09:52→21:00)
[2017-07-12] MEDS: Saccharomyces boulardii 250 MG CAP PO SCH (09:53)
--- NOTE | 2017-07-12 09:56 | HP ---
DATE OF ADMISSION: 07/12/2017 PRIMARY CARE PHYSICIAN: Gurvinder Diop M.D. CHIEF COMPLAINT: Difficulty breathing. HISTORY OF PRESENT ILLNESS: Ms. Holt is a 72-year-old female with past medical history o f chronic congestive diastolic heart failure with recent hospitalization earlier this month follows acute kidney injury and rhabdomyolysis, who presented to the emergency room with the above-mentioned complaints. History is mainly obtained by the record review and discussion with the ER physician. The patient has a BiPAP mask on and is a difficult historian as it is hard to understand what she i s saying. She is also somewhat somnolent and is not able to provide accurate history. The patient is a resident at [facility] and was brought in for complaints of difficul ty breathing. prison reported the patient was very weak and was unable to catch her breath an d was incontinent. Reportedly, the patient uses 4 liters of oxygen at home, but her oxygen saturati on remained in the low 80s at [facility] despite supplemental oxygen. She does report some chills without fevers. She was brought into the emergency room where she was severely hypoxic despite oxy gen supplementation and an oxygen saturation went down to 69% according to the ER records. She was started on a nonrebreather mask, but her oxygen saturation did not improve and eventually she was pu t on a BiPAP machine. She reportedly has a DNR in the past which was resented. She told the emerge ncy room physician that she does not want to be intubated, but would like to undergo CPR if there is necessity. However, on my examination and asking the question again; the patient is unsure and vag ue. When I asked the patient the question again about the resuscitation status: She is awake and d oes not deny the intubation. I have asked her multiple times and she ultimately said that she can b e intubated if necessary, but at this time she would like to get the mask off. In the emergency room, a chest x-ray was done, which was consistent with fluid overload. She has re ceived 20 mg of Lasix IV x1 and is currently doing a little bit better. She was very obtunded when she was brought in but her mentation has much improved along with her oxygen saturation. ABG was do ne after her being on BiPAP for a few minutes, which showed a pH of 7.3, pCO2 of 64, and pO2 of 111. She is now being admitted to CCU for acute respiratory failure likely secondary to acute diastolic CHF. PAST MEDICAL HISTORY: 1. Parkinson's disease. 2. Back pain. 3. Diabetes mellitus. 4. Hypertension. 5. GERD. 6. Dyslipidemia. 7. Bipolar disorder. 8. Irritable bowel syndrome. PAST SURGICAL HISTORY: Hysterectomy, spinal surgery, tubal ligation, tonsillectomy, cholecystectomy , and appendectomy. ALLERGIES: Include LIPITOR, IBUPROFEN and LYRICA. PERSONAL HISTORY: Quit smoking 10 years ago, smoked 1 pack of cigarettes for nearly 20 years. No h istory of drug, tobacco or alcohol abuse. She is a permanent resident at the [facility]. FAMILY HISTORY: Mother at age of 83 and had dementia. Father at the age of 68 and had pn eumothorax/lung rupture. CURRENT MEDICATIONS: The patient was discharged earlier this month on the following medications: Z anaflex 4 mg p.o. b.i.d., Requip 0.5 mg at bedtime, Percocet as needed, Lamictal 75 mg a day, hydral azine 25 mg. Restart the home medication as listed in the ER records include Depakote 250 mg b.i.d. , Plaquenil 200 mg b.i.d., Percocet 10/325 one tablet every 3-5 hours, amantadine 100 mg daily, Lami ctal 75 mg daily, Stalevo 50 12.5/50/200 mg 1 tablet daily, aspirin 81 mg daily, Florastor 250 mg da margret, docusate sodium as needed daily, Lasix 20 mg b.i.d., Requip 0.5 mg daily, hydrochlorothiazide 2 5 mg daily, Norvasc 10 mg daily, carvedilol 25 mg b.i.d., Protonix 40 mg daily, Neurontin 600 mg 3 t imes a day, Sinemet 25/100 mg 3 times a day, Abilify 20 mg daily, Klonopin 0.5 mg b.i.d., Lisinopril 20 mg daily. Medications need to be confirmed. REVIEW OF SYSTEMS: Limited review of systems is unobtainable from the patient as she is on BiPAP an d still somewhat somnolent. She, however, reports improvement in her symptoms, but still feels very weak and short of breath with the conversation. She denies any chest pain but reported chills sher ier along with some cough. LABORATORY DATA: CBC shows WBCs 7.2 with 77% neutrophils, hemoglobin 7.5, and platelet count of 346 . ABG shows pH 7.3, pCO2 of 64, pO2 of 111. Serum chemistries show BUN 26, creatinine 1.70, otherw ise, unremarkable. Chest x-ray shows congestive heart failure findings by my review. Twelve-lead E KG shows normal sinus rhythm at 76 beats per minute with left axis deviation without any acute ST or T-wave changes. PHYSICAL EXAMINATION: VITAL SIGNS: Upon presentation include blood pressure 112/82 with a pulse of 78, oxygen saturation 97% on nonrebreather, respirations 24, temperature 98.6. GENERAL: She is currently on BiPAP and sitting upright in bed. She appears ill and uncomfortable. She is somnolent, but is awake, alert, and oriented x3 on discussion. HEENT: Mucous membrane is moist. Pupils equal, reactive to light. Head is normocephalic, atraumat ic. Oral examination cannot be done in detail due to the BiPAP mask. NECK: Supple without any lymphadenopathy, JVD or bruit. CHEST: Evaluation shows few bibasilar wheezes without any rales or rhonchi. Decreased breath sound s at bases. CARDIOVASCULAR: Rate and rhythm is regular without any murmurs, rubs, or gallops. GASTROINTESTINAL: Abdomen is obese, soft, nontender, nondistended with positive bowel sounds. No g uarding, rebound or rigidity. EXTREMITIES: Show edema to bilateral lower extremities. The patient reports that the edema has imp roved since the last time she was here. NEUROLOGIC: Somewhat somnolent but otherwise unremarkable and nonfocal. SKIN: Free of any rashes or bruises. Feels warm and dry to touch. VASCULAR: +2 pedal pulses felt bilaterally. IMPRESSION AND PLAN: 1. Acute respiratory failure. It is likely multifactorial but mostly due to acute diastolic conges tive heart failure exacerbation at this time. She has received 20 mg of Lasix in the emergency room and we will continue to diurese her with 40 mg of IV Lasix daily. She will be on a fluid restricte d diet with strict I's and O's monitoring. She will be admitted to intermediate care unit on BiPAP. We will also consult Pulmonary Medicine for further evaluation and recommendations in the morning. Heart Failure Clinic will be consulted at the time of discharge. We will continue to trend serial cardiac enzymes. The first set is negative at this time. She does not appear to have any pneumoni a or COPD component at this time. We will defer the antibiotics to the morning team. Blood culture s have been obtained. We will start her on nebulizers and add inhaled steroids as well. 2. Acute on chronic diastolic congestive heart failure exacerbation. Her last echocardiogram was d one earlier this month, which showed diastolic dysfunction with EF of 55-60%. We will resume her ho me medications as dictated above. 3. History of chronic kidney disease. Her kidney function has improved since her last hospitalizat ion. We will continue to monitor closely as the patient will be diuresed. Avoid any other nephroto xic medications at this time. 4. Code status. This will further need to be rediscussed with the patient once she is off of BiPAP and more awake. At this time, she will be a full code until further clarified. 5. Parkinson's. Continue with her home medication of Sinemet level. 6. Hypertension, currently controlled. We will resume her home medications once confirmed. 7. Diabetes mellitus type 2. We will start her insulin sliding scale and provide her with a diabet ic diet. 8. History of chronic normocytic anemia. We will continue her on ferrous sulfate on a daily basis. 9. Deep venous thrombosis and gastrointestinal prophylaxis. DISPOSITION: The patient is admitted to IM for acute respiratory distress, likely secondary to ac [place] congestive heart failure exacerbation. Further management will depend upon her clinical course. Estimated length of stay at this time is more than 2-3 midnights.
[2017-07-12] MEDS ORDERED: FLU VACC TS2017-18 (>65YR) 0.5 ML SYRINGE IM ONE (10:00)
[2017-07-12] MEDS: Mometasone/Formoterol 120 PUFF INHALER INH SCH ×2 (10:16→19:25)
[2017-07-12] MEDS: Heparin 5,000 UNITS/ML VIAL SC SCH ×2 (11:05→21:00)
[2017-07-12] MEDS ORDERED: cefTRIAXone\\ROCEPHIN 1 GM in Sodium Chloride 0.9% 100 ML IVPB SCH (12:00)
--- NOTE | 2017-07-12 12:03 | PDOC.PN ---
- Subjective Encounter Start Date: 07/12/17 Encounter Start Time: 11:00 Subjective: lethargic, awakens easily to touch, is on bipap - Objective Resuscitation Status: Resuscitation Status FULL:Full Resuscitation MAR Reviewed: Yes Vital Signs & Weight: Vital Signs (12 hours) Temp Pulse Resp BP Pulse Ox 07/12/17 11:39 98.6 F 87 24 H 159/71 H 91 L 07/12/17 09:41 84 07/12/17 07:59 99.3 F 84 20 110/63 100 Weight Weight 240 lb 4.8 oz Result Diagrams: 07/12/17 02:40 07/12/17 02:40 Additional Labs: Accuchecks 07/12/17 08:08 POC Glucose 125 H Phys Exam - Physical Examination HEENT: PERRLA, moist MMs Neck: no JVD, supple Respiratory: no wheezing rales++ Cardiovascular: RRR, gallop Gastrointestinal: soft, non-tender, positive bowel sounds Musculoskeletal: no edema, pulses present Neurological: non-focal, moves all 4 limbs Dx/Plan (1) Acute respiratory failure with hypoxia and hypercapnia Code(s): J96.01 - ACUTE RESPIRATORY FAILURE WITH HYPOXIA; J96.02 - ACUTE RESPIRATORY FAILURE WITH HYPERCAPNIA Status: Acute (2) CHF exacerbation Code(s): I50.9 - HEART FAILURE, UNSPECIFIED Status: Acute Qualifiers: Congestive heart failure type: diastolic Qualified Code(s): I50.33 - Acute on chronic diastolic (congestive) heart failure (3) ANNA (acute kidney injury) Code(s): N17.9 - ACUTE KIDNEY FAILURE, UNSPECIFIED Status: Acute (4) Anemia Code(s): D64.9 - ANEMIA, UNSPECIFIED Status: Chronic Qualifiers: Anemia type: unspecified type Qualified Code(s): D64.9 - Anemia, unspecified (5) Bipolar 1 disorder, depressed Status: Chronic (6) Chronic pain disorder Code(s): G89.4 - CHRONIC PAIN SYNDROME Status: Chronic (7) DM2 (diabetes mellitus, type 2) Status: Chronic Qualifiers: Diabetes mellitus complication status: with unspecified complications Diabetes mellitus predatory animal exterminator insulin use: with predatory animal exterminator use Qualified Code(s) : E11.8 - Type 2 diabetes mellitus with unspecified complications; Z79.4 - watermaster (current) use of insulin; Z79.4 - penitentiary (current) use of insulin; Z79.4 - watermaster (current) use of insulin; Z79.4 - watermaster (current) use of insulin (8) GERD (gastroesophageal reflux disease) Code(s): K21.9 - GASTRO-ESOPHAGEAL REFLUX DISEASE WITHOUT ESOPHAGITIS Status: Chronic (9) Hypertension Code(s): I10 - ESSENTIAL (PRIMARY) HYPERTENSION Status: Chronic Qualifiers: Hypertension type: essential hypertension (10) Parkinson disease Code(s): G20 - PARKINSON'S DISEASE Status: Chronic - Plan continue iv diuresis -: pulm consult -: watch for fatigue on bipap -: labs in am, transfuse 1 unit prbc if Hb is less than 7g -: serum hco3 is 33 likely has chronic compensation to resp acidosis * . Review of Systems - Medications/Allergies Allergies/Adverse Reactions: Allergies Allergy/AdvReac Type Severity Reaction Status Date / Time atorvastatin [From Lipitor] Allergy Verified 07/12/17 08:36 nalbuphine Allergy Verified 07/12/17 08:36 pregabalin [From Lyrica] Allergy Verified 07/12/17 08:36 Medications: Current Medications Acetaminophen (Tylenol) 650 mg PO Q4H PRN PRN Reason: Headache/Fever or Pain Al Hydroxide/Mg Hydroxide (Maalox) 30 ml PO Q6H PRN PRN Reason: Heartburn or Indigestion Albuterol/Ipratropium (Duoneb) 3 ml NEB Q6H PRN PRN Reason: SOB &/or Wheezing Albuterol/Ipratropium (Duoneb) 3 ml NEB [id number] [facility] Last Admin: 07/12/17 10:16 Dose: Not Given Amantadine HCl (Symmetrel) 100 mg PO DAILY [facility] Last Admin: 07/12/17 09:41 Dose: Not Given Amlodipine Besylate (Norvasc) 10 mg PO DAILY [facility] Last Admin: 07/12/17 09:41 Dose: Not Given Aripiprazole (Abilify) 20 mg PO DAILY [facility] Last Admin: 07/12/17 09:48 Dose: Not Given Aspirin (Aspirin Chewable) 81 mg PO DAILY [facility] Last Admin: 07/12/17 09:49 Dose: Not Given Benzonatate (Tessalon) 100 mg PO Q4H PRN PRN Reason: Cough Bisacodyl (Dulcolax) 10 mg PO DAILYPRN PRN PRN Reason: Constipation Bisacodyl (Dulcolax) 10 mg PO DAILYPRN PRN PRN Reason: Constipation Calcium Carbonate (Tums) 1,000 mg PO Q4H PRN PRN Reason: Heartburn or Indigestion Carbidopa/Levodopa (Sinemet Cr 50/200) 1 tab PO TID [facility] Last Admin: 07/12/17 09:49 Dose: Not Given Clonidine HCl (Catapres) 0.1 mg PO Q4H PRN PRN Reason: Systolic BP > 160 Dextrose/Water (Dextrose 50%) 25 gm SLOW IVP PRN PRN PRN Reason: Hypoglycemia Divalproex Sodium (Depakote) 250 mg PO BID [facility] Last Admin: 07/12/17 09:49 Dose: Not Given Famotidine (Pepcid) 20 mg PO BID [facility] Last Admin: 07/12/17 09:50 Dose: Not Given Furosemide (Lasix) 40 mg SLOW IVP 0600,1400 [facility] Gabapentin (Neurontin) 600 mg PO TID [facility] Last Admin: 07/12/17 09:50 Dose: Not Given Glucagon (Glucagon) 1 mg IM PRN PRN PRN Reason: Hypoglycemia Guaifenesin (Robitussin Sf) 200 mg PO Q4H PRN PRN Reason: Cough Guaifenesin (Mucinex) 600 mg PO Q12HR [facility] Last Admin: 07/12/17 09:50 Dose: Not Given Heparin Sodium (Porcine) (Heparin) 5,000 units SC BID [facility] Last Admin: 07/12/17 11:05 Dose: 5,000 units Hydralazine HCl (Apresoline) 10 mg SLOW IVP Q4H PRN PRN Reason: Systolic BP > 170 Hydroxychloroquine Sulfate (Plaquenil) 200 mg PO BID [facility] Last Admin: 07/12/17 09:52 Dose: Not Given Dextrose/Water (D5w) 1,000 mls @ 0 mls/hr IV .Q0M PRN; As Directed PRN Reason: Hypoglycemia Ceftriaxone Sodium 1 gm/Miscellaneous Medication 1 units/ Sodium Chloride 100 mls @ 200 mls/hr IVPB 1200 [place] Insulin Human Regular (Humulin R) 0 units SC .MODERATE SLIDING SC PRN PRN Reason: Moderate Correctional Scale Insulin Human Regular (Humulin R) 0 units SC .BEDTIME SLIDING SC PRN PRN Reason: Bedtime Correctional Scale Lamotrigine (Lamictal) 75 mg PO DAILY [facility] Last Admin: 07/12/17 09:52 Dose: Not Given Loratadine (Claritin) 10 mg PO DAILYPRN PRN PRN Reason: Sinus Symptoms Mometasone Furoate/Formoterol Fumar (Dulera 200 Mcg/5 Mcg Inhaler) 1 puff INH BID-RT [facility] Last Admin: 07/12/17 10:16 Dose: Not Given Nitroglycerin (Nitrostat) 0.4 mg SL Q5MIN PRN PRN Reason: Chest Pain Ondansetron HCl (Zofran) 4 mg IVP Q6H PRN PRN Reason: Nausea/Vomiting Pantoprazole Sodium (Protonix) 40 mg PO DAILY [facility] Last Admin: 07/12/17 09:52 Dose: Not Given Ropinirole HCl (Requip) 0.5 mg PO QPM [facility] Saccharomyces Boulardii (Florastor) 250 mg PO DAILY [facility] Last Admin: 07/12/17 09:53 Dose: Not Given Senna (Senokot) 2 tab PO HSPRN PRN PRN Reason: Constipation Senna (Senokot) 2 tab PO HSPRN PRN PRN Reason: Constipation
[2017-07-12] MEDS: cefTRIAXone\\ROCEPHIN 1 GM, IV Admixture Fee-Chemo 1 UNITS in Sodium Chloride 0.9% 100 ML IVPB SCH (12:05)
[2017-07-12] MEDS: Furosemide 40 MG/4 ML VIAL SLOW IVP SCH (15:10)
[2017-07-12] MEDS: Acetaminophen 325 MG TAB PO PRN (18:12)
[2017-07-12] MEDS: rOPINIRole HCl 0.5 MG TAB PO SCH (21:00)
--- NOTE | 2017-07-12 21:53 | CON ---
DATE OF CONSULTATION: 07/12/2017 REASON FOR CONSULTATION: Heart failure. HISTORY OF PRESENT ILLNESS: Ms. Holt is a 72-year-old white female who comes to the hospital for i ncreased shortness of breath. She is a resident at [facility] and was brought in as her difficulty breathing which is chronic suddenly became worse. She was brought in and ER records state that her O2 sats on admission were 69%. She was placed on BiPAP briefly and started diuresing . She is doing much better. She is currently on nasal cannula satting in the mid 90s. She has a h istory of diastolic dysfunction chronically. She has seen Dr. Day one time in the office. She has been compliant with the medications, she gets them in the long term, but she states that her blo od pressure has been a little bit higher than normal in the 150s-160s. Currently, she is better wit h diuresis. PAST MEDICAL HISTORY: 1. Diastolic dysfunction. 2. Parkinson's disease. 3. Back pain. 4. Type 2 diabetes. 5. Hypertension. 6. Gastroesophageal reflux disease. 7. Dyslipidemia. 8. Bipolar disorder. 9. Irritable bowel syndrome. PAST SURGICAL HISTORY: 1. Hysterectomy. 2. Spinal surgery. 3. Tubal ligation. 4. Tonsillectomy. 5. Cholecystectomy. 6. Appendectomy. OUTPATIENT MEDICATIONS: Include, 1. Zanaflex. 2. Requip. 3. Percocet as needed. 4. Lamictal. 5. Hydralazine 25 mg b.i.d. 6. Depakote 250 mg b.i.d. 7. Plaquenil. 8. Amantadine. 9. Stalevo. 10. Aspirin 81 daily. 11. Florastor. 12. Docusate. 13. Lasix 20 mg b.i.d. 14. Hydrochlorothiazide 25 mg a day. 15. Norvasc 10 mg a day. 16. Carvedilol 25 mg b.i.d. 17. Protonix 40 mg a day. 18. Neurontin. 19. Sinemet. 20. Abilify. 21. Klonopin. 22. Lisinopril 20 mg a day. ALLERGIES: 1. ATORVASTATIN. 2. IBUPROFEN. 3. LYRICA. SOCIAL HISTORY: Quit smoking 10 years ago. She was a pack a day smoker for about 20 years. No alc ohol or drug use. FAMILY HISTORY: No early coronary artery disease. REVIEW OF SYSTEMS: Twelve point review of systems was done and is all negative unless stated in the history of present illness. PHYSICAL EXAMINATION: VITAL SIGNS: Temperature 98.9, pulse 91, respiratory rate 26, satting 91% on 4 liters, blood pressu re 160/66. GENERAL: Awake, alert, oriented x3, in mild respiratory distress. HEENT: Normocephalic, atraumatic. NECK: Supple. LUNGS: Coarse bilateral with crackles at the bases CARDIOVASCULAR: S1, S2, no S3 or S4. No murmurs or rubs. ABDOMEN: Soft, positive bowel sounds. EXTREMITIES: 2+ edema. SKIN: Warm and dry. LABORATORY WORK: Reviewed. White count of 7.2, hemoglobin of 7.5, hematocrit 24, platelet count of 346. Coags were reviewed. ABG was reviewed, hypercapnic. Chemistries were reviewed. Troponin is negative x3. On admission, creatinine was 1.7 which is better than what it was the last time just a few weeks ago at 2.2, BUN of 26. GFR was 30. BNP was 565. Glucose 125, albumin of 3.2. UA was unremarkable. Toxicology: Valproic acid level was normal last check earlier this month. EKG was reviewed. ASSESSMENT AND PLAN: 1. Acute on chronic diastolic dysfunction. Last echocardiogram was done just 2 weeks ago showed an ejection fraction of 55-60% with grade 1 diastolic dysfunction and mild mitral regurgitation and mi ld tricuspid regurgitation. Continue IV diuresis. 2. Hypertensive and hypertensive cardiomyopathy. We will hold off on TAWANA inhibitor at this time gi awa her mild renal dysfunction. We will try to avoid blood pressure above 170 with p.r.n. clonidine . Continue p.r.n. for now. We will up titrate some of her medications in the next few days once sh e is more euvolemic. Thank you for care of your patient. We will follow.
--- NOTE | 2017-07-12 22:31 | CON ---
DATE OF CONSULTATION: 07/12/2017 The patient is a 72-year-old morbidly obese female, was in BiPAP last night for respiratory failure secondary to diffuse pulmonary infiltrates, probably from diastolic dysfunction. She has been here numerous times. In fact, she was here in January and saw Dr. Conde. The BiPAP was taken off this morning. She is still having difficulty breathing, but she is arousabl e, awake, more responsive. Denies any chest pain. Difficult to get significant history at this stage. PAST MEDICAL HISTORY: Pertinent for Parkinson's disease, chronic pain, diabetes, hypertension, refl ux, lipidemia, , obesity, apparently schizophrenia. PAST SURGICAL HISTORY: Include multiple, gallbladder, tonsil, tubal, spinal, hysterectomy, appendix . ALLERGIES: GABAPENTIN. MEDICATIONS: A list of medications from home includes Zanaflex, ReQuip 0.5, 75, Klonopin 0.2 5, Norvasc, lisinopril 20, magnesium, DuoNeb, insulin, Lasix 20, Depakote 250 mg, Zyrtec, carbidopa, amantadine. SOCIAL HISTORY: Remains to be apparently nonsmoker. REVIEW OF SYSTEMS: Otherwise negative. PHYSICAL EXAMINATION: GENERAL: Lethargic, arousable, whose code status apparently was revoked and replenished, supposed t o be a full code. She does not want to be intubated. During the last admission, she apparently was a DNR. VITAL SIGNS: Blood pressure 110/60, sats are 96%-97%, respirations 20, temperature is 99.3. CHEST: Bilateral crackles. CARDIAC: Normal S1, S2. No gallops. ABDOMEN: Soft, no masses. EXTREMITIES: A 2+ edema. LABORATORY DATA: White count 10,000, H\T\H is 7.5 and 24, platelet count 346, pO2 was 111, pCO2 was 64, pH 7.31 on BiPAP, creatinine 1.7. IMPRESSION: Multiorgan failure, respiratory failure, bilateral pleural effusion, pneumonia, congest ernestina heart failure, severe deconditioning, schizophrenia, renal failure. PLAN: I agree with increased doses of Lasix, neb treatments, supportive care, noninvasive ventilati on as needed. We will follow.
[2017-07-13 04:58] LABS: Anion Gap 12 mmol/L (10-20); BUN (Urea Nitrogen) 25 mg/dL (9.8-20.1); Calc. Creatinine Clearance 56 mL/min (70-130); Calcium 8.6 mg/dL (7.8-10.44); Carbon Dioxide 33 mmol/L (23-31); Chloride 100 mmol/L (98-107); Estimated GFR-MDRD 32
[2017-07-13] MEDS: Furosemide 40 MG/4 ML VIAL SLOW IVP SCH ×2 (05:02→14:43)
[2017-07-13 05:24] LABS: Hematocrit 20.6 % (36.0-47.0); Hypochromia SLIGHT = 6-15 cells (100X) (0-5/hpf); Mean Platelet Volume 6.7 fL (7.4-10.4); Neutrophil 71 % (42-75); Polychromasia SLIGHT = 2-3 cells (100X) (0-2/hpf); Reactive Lymphocytes 2 % (0-10); Red Blood Cell (RBC) Count 2.07 mill/uL (4.20-5.40); White Blood Cell (WBC) Count 5.5 thou/uL (4.8-10.8)
[2017-07-13] MEDS: Mometasone/Formoterol 120 PUFF INHALER INH SCH ×2 (06:13→18:59)
[2017-07-13] MEDS: Hydroxychloroquine Sulfate 200 MG TAB PO SCH ×2 (08:57→21:01)
[2017-07-13] MEDS: Divalproex Sodium 250 MG (DR) TAB PO SCH ×2 (08:58→21:01)
[2017-07-13] MEDS: Aripiprazole 10 MG TAB PO SCH (08:59)
[2017-07-13] MEDS: Saccharomyces boulardii 250 MG CAP PO SCH (08:59)
[2017-07-13] MEDS: guaiFENesin ER 600 MG TAB PO SCH ×2 (09:00→21:01)
[2017-07-13] MEDS: Famotidine 20 MG TAB PO SCH ×2 (09:00→21:01)
[2017-07-13] MEDS: Amlodipine 10 MG TAB PO SCH (09:00)
[2017-07-13] MEDS: Heparin 5,000 UNITS/ML VIAL SC SCH ×2 (09:01→21:02)
[2017-07-13] MEDS: Gabapentin 300 MG CAP PO SCH (09:01)
[2017-07-13] MEDS: Carbidopa/Levodopa CR 50-200 mg Tablet PO SCH ×4 (09:01→21:01)
[2017-07-13] MEDS: Amantadine HCl 100 mg Capsule PO SCH (10:12)
[2017-07-13] MEDS: lamoTRIgine 25 MG TAB PO SCH (10:12)
--- NOTE | 2017-07-13 10:22 | PDOC.PN ---
- Subjective Encounter Start Date: 07/13/17 Encounter Start Time: 10:10 Subjective: no sob, is sitting -: feels better -: no rectal bleeding, prior colonoscopy was yrs ago, no h/o peptic ulcers - Objective Resuscitation Status: Resuscitation Status DNI:No Intubation MAR Reviewed: Yes Vital Signs & Weight: Vital Signs (12 hours) Temp Pulse Pulse Resp BP BP BP 07/13/17 09:06 99.0 F 98 20 137/64 07/13/17 09:00 101 H 158/68 H 07/13/17 08:40 99.4 F 101 H 20 158/68 H 07/13/17 07:14 98.3 F 91 20 07/13/17 06:11 90 24 H 07/13/17 00:50 85 07/13/17 00:48 85 22 H 07/13/17 00:00 98.7 F 92 18 149/66 H BP Pulse Ox 07/13/17 09:06 94 L 07/13/17 09:00 07/13/17 08:40 93 L 07/13/17 07:14 135/56 L 96 07/13/17 06:11 96 07/13/17 00:50 07/13/17 00:48 100 07/13/17 00:00 100 Weight Weight 241 lb 9.6 oz I&O: 07/12/17 07/13/17 07/14/17 06:59 06:59 06:59 Intake Total 725 0 Output Total 2800 Balance -2075 0 Result Diagrams: 07/13/17 04:25 07/13/17 04:25 Additional Labs: Accuchecks 07/13/17 07/12/17 07/12/17 05:15 20:48 16:43 POC Glucose 89 162 H 121 H 07/12/17 11:21 POC Glucose 119 H Phys Exam - Physical Examination HEENT: PERRLA, moist MMs Neck: no JVD, supple Respiratory: no wheezing, no rales rhonchi+ Cardiovascular: RRR, no significant murmur Gastrointestinal: soft, non-tender, positive bowel sounds Musculoskeletal: pulses present Neurological: non-focal, moves all 4 limbs Dx/Plan (1) Acute respiratory failure with hypoxia and hypercapnia Code(s): J96.01 - ACUTE RESPIRATORY FAILURE WITH HYPOXIA; J96.02 - ACUTE RESPIRATORY FAILURE WITH HYPERCAPNIA Status: Acute (2) CHF exacerbation Code(s): I50.9 - HEART FAILURE, UNSPECIFIED Status: Acute Qualifiers: Congestive heart failure type: diastolic Qualified Code(s): I50.33 - Acute on chronic diastolic (congestive) heart failure (3) ANNA (acute kidney injury) Code(s): N17.9 - ACUTE KIDNEY FAILURE, UNSPECIFIED Status: Acute (4) Anemia Code(s): D64.9 - ANEMIA, UNSPECIFIED Status: Chronic Qualifiers: Anemia type: unspecified type Qualified Code(s): D64.9 - Anemia, unspecified (5) Bipolar 1 disorder, depressed Status: Chronic (6) Chronic pain disorder Code(s): G89.4 - CHRONIC PAIN SYNDROME Status: Chronic (7) DM2 (diabetes mellitus, type 2) Status: Chronic Qualifiers: Diabetes mellitus complication status: with unspecified complications Diabetes mellitus ornamental plasterer helper insulin use: with ornamental plasterer helper use Qualified Code(s) : E11.8 - Type 2 diabetes mellitus with unspecified complications; Z79.4 - corrective therapy aide teacher (current) use of insulin; Z79.4 - corrective therapy aide teacher (current) use of insulin; Z79.4 - corrective therapy aide teacher (current) use of insulin; Z79.4 - [facility] (current) use of insulin (8) GERD (gastroesophageal reflux disease) Code(s): K21.9 - GASTRO-ESOPHAGEAL REFLUX DISEASE WITHOUT ESOPHAGITIS Status: Chronic Qualifiers: Esophagitis presence: esophagitis presence not specified Qualified Code(s) : K21.9 - Gastro-esophageal reflux disease without esophagitis (9) Hypertension Code(s): I10 - ESSENTIAL (PRIMARY) HYPERTENSION Status: Chronic Qualifiers: Hypertension type: essential hypertension (10) Parkinson disease Code(s): G20 - PARKINSON'S DISEASE Status: Chronic - Plan continue lasix -: give one unit prbc, watch for overload -: gi consult -: still is sob, is off bipap, will need close monitoring -: hold aspirin, to amb in hallway * . Review of Systems - Medications/Allergies Allergies/Adverse Reactions: Allergies Allergy/AdvReac Type Severity Reaction Status Date / Time atorvastatin [From Lipitor] Allergy Verified 07/12/17 08:36 nalbuphine Allergy Verified 07/12/17 08:36 pregabalin [From Lyrica] Allergy Verified 07/12/17 08:36 Medications: Current Medications Acetaminophen (Tylenol) 650 mg PO Q4H PRN PRN Reason: Headache/Fever or Pain Last Admin: 07/12/17 18:12 Dose: 650 mg Al Hydroxide/Mg Hydroxide (Maalox) 30 ml PO Q6H PRN PRN Reason: Heartburn or Indigestion Albuterol/Ipratropium (Duoneb) 3 ml NEB Q6H PRN PRN Reason: SOB &/or Wheezing Albuterol/Ipratropium (Duoneb) 3 ml NEB [id number] [facility] Last Admin: 07/13/17 06:11 Dose: 3 ml Amantadine HCl (Symmetrel) 100 mg PO DAILY [facility] Last Admin: 07/13/17 10:12 Dose: 100 mg Amlodipine Besylate (Norvasc) 10 mg PO DAILY [facility] Last Admin: 07/13/17 09:00 Dose: 10 mg Aripiprazole (Abilify) 20 mg PO DAILY [facility] Last Admin: 07/13/17 08:59 Dose: 20 mg Aspirin (Aspirin Chewable) 81 mg PO DAILY [facility] Last Admin: 07/13/17 09:00 Dose: 81 mg Benzonatate (Tessalon) 100 mg PO Q4H PRN PRN Reason: Cough Bisacodyl (Dulcolax) 10 mg PO DAILYPRN PRN PRN Reason: Constipation Bisacodyl (Dulcolax) 10 mg PO DAILYPRN PRN PRN Reason: Constipation Calcium Carbonate (Tums) 1,000 mg PO Q4H PRN PRN Reason: Heartburn or Indigestion Carbidopa/Levodopa (Sinemet Cr 50/200) 0.5 tab PO TID [facility] Last Admin: 07/13/17 09:03 Dose: 0.5 tab Clonidine HCl (Catapres) 0.1 mg PO Q4H PRN PRN Reason: Systolic BP > 160 Dextrose/Water (Dextrose 50%) 25 gm SLOW IVP PRN PRN PRN Reason: Hypoglycemia Divalproex Sodium (Depakote) 250 mg PO BID [facility] Last Admin: 07/13/17 08:58 Dose: 250 mg Famotidine (Pepcid) 20 mg PO BID [facility] Last Admin: 07/13/17 09:00 Dose: 20 mg Furosemide (Lasix) 40 mg SLOW IVP 0600,1400 [facility] Last Admin: 07/13/17 05:02 Dose: 40 mg Gabapentin (Neurontin) 600 mg PO TID [facility] Last Admin: 07/13/17 09:01 Dose: Not Given Glucagon (Glucagon) 1 mg IM PRN PRN PRN Reason: Hypoglycemia Guaifenesin (Robitussin Sf) 200 mg PO Q4H PRN PRN Reason: Cough Guaifenesin (Mucinex) 600 mg PO Q12HR [facility] Last Admin: 07/13/17 09:00 Dose: 600 mg Heparin Sodium (Porcine) (Heparin) 5,000 units SC BID [facility] Last Admin: 07/13/17 09:01 Dose: Not Given Hydralazine HCl (Apresoline) 10 mg SLOW IVP Q4H PRN PRN Reason: Systolic BP > 170 Hydroxychloroquine Sulfate (Plaquenil) 200 mg PO BID [facility] Last Admin: 07/13/17 08:57 Dose: 200 mg Dextrose/Water (D5w) 1,000 mls @ 0 mls/hr IV .Q0M PRN; As Directed PRN Reason: Hypoglycemia Ceftriaxone Sodium 1 gm/Miscellaneous Medication 1 units/ Sodium Chloride 100 mls @ 200 mls/hr IVPB 1200 [facility] Last Admin: 07/12/17 12:05 Dose: 100 mls Insulin Human Regular (Humulin R) 0 units SC .MODERATE SLIDING SC PRN PRN Reason: Moderate Correctional Scale Insulin Human Regular (Humulin R) 0 units SC .BEDTIME SLIDING SC PRN PRN Reason: Bedtime Correctional Scale Lamotrigine (Lamictal) 75 mg PO DAILY [facility] Last Admin: 07/13/17 10:12 Dose: 75 mg Loratadine (Claritin) 10 mg PO DAILYPRN PRN PRN Reason: Sinus Symptoms Mometasone Furoate/Formoterol Fumar (Dulera 200 Mcg/5 Mcg Inhaler) 1 puff INH BID-RT [facility] Last Admin: 07/13/17 06:13 Dose: 1 puff Nitroglycerin (Nitrostat) 0.4 mg SL Q5MIN PRN PRN Reason: Chest Pain Ondansetron HCl (Zofran) 4 mg IVP Q6H PRN PRN Reason: Nausea/Vomiting Pantoprazole Sodium (Protonix) 40 mg PO DAILY [facility] Last Admin: 07/13/17 09:00 Dose: 40 mg Ropinirole HCl (Requip) 0.5 mg PO QPM [facility] Last Admin: 07/12/17 21:00 Dose: Not Given Saccharomyces Boulardii (Florastor) 250 mg PO DAILY [facility] Last Admin: 07/13/17 08:59 Dose: 250 mg Senna (Senokot) 2 tab PO HSPRN PRN PRN Reason: Constipation Senna (Senokot) 2 tab PO HSPRN PRN PRN Reason: Constipation Sodium Chloride (Flush - Normal Saline) 10 ml IVF PRN PRN PRN Reason: Saline Flush
[2017-07-13] MEDS: cefTRIAXone\\ROCEPHIN 1 GM, IV Admixture Fee-Chemo 1 UNITS in Sodium Chloride 0.9% 100 ML IVPB SCH (12:32)
--- NOTE | 2017-07-13 12:55 | PRG ---
DATE OF SERVICE: 07/13/2017 SUBJECTIVE: This morning, she is awake, alert, responsive. She looks better. She is less short of breath. H\T\H is 6.8 and 20. She received a unit of packed cells. PHYSICAL EXAMINATION: VITAL SIGNS: Blood pressure 137/64, pulse 101, temperature 99. I's and O's are 725 in and 28 out. CHEST: Bilateral rhonchi and crackles. CARDIAC: Normal S1, S2. ABDOMEN: Soft. No masses. LABORATORY DATA: Creatinine 1.6. X-ray yesterday shows extensive bilateral infiltrates. IMPRESSION: 1. Respiratory failure. 2. Bipolar. 3. Congestive heart failure. 4. Pneumonia. PLAN: She does not want to be intubated. Continue antibiotics, nebulizer treatments, supportive ca re. We will follow.
--- NOTE | 2017-07-13 16:59 | PDOC.CTH ---
Cardiology Progress Note - Subjective Her breathing is better. No other issues. - Objective Vital Signs Temp Pulse Pulse Resp BP BP BP 07/13/17 15:12 98.6 F 88 18 154/66 H 07/13/17 13:11 84 20 07/13/17 12:20 99.0 F 92 20 129/59 L 07/13/17 11:08 97.4 F L 95 20 137/64 07/13/17 09:06 99.0 F 98 20 137/64 07/13/17 09:00 101 H 158/68 H 07/13/17 08:40 99.4 F 101 H 20 158/68 H 07/13/17 08:00 98.3 F 91 20 07/13/17 07:14 98.3 F 91 20 135/56 L 07/13/17 06:11 90 24 H Pulse Ox 07/13/17 15:12 94 L 07/13/17 13:11 94 L 07/13/17 12:20 96 07/13/17 11:08 94 L 07/13/17 09:06 94 L 07/13/17 09:00 07/13/17 08:40 93 L 07/13/17 08:00 96 07/13/17 07:14 96 07/13/17 06:11 96 Weight 241 lb 9.6 oz 07/12/17 07/13/17 07/14/17 06:59 06:59 06:59 Intake Total 725 450 Output Total 2800 Balance -2075 450 - Physical Examination General/Neuro: alert & oriented x3, NAD Neck: no JVD present Lungs: unlabored respirations Heart: RRR Abdomen: NT/ND Extremities: + edema B (1+) - Telemetry Telemetry Rhythm: NSR - Labs Result Diagrams: 07/13/17 04:25 07/13/17 04:25 Troponin/CKMB CK-MB (CK-2) 1.2 ng/mL (0-6.6) 07/12/17 02:40 Troponin I Less than 0.010 ng/mL (< 0.028) 07/12/17 08:33 - Assessment/Plan 1. Acute on chronic diastolic heart failure. 2. Hypertensive cardiomyopathy. PLAN: - Continue IV lasix. - BP control.
[2017-07-13] MEDS: Acetaminophen 325 MG TAB PO PRN (17:15)
[2017-07-13] MEDS: rOPINIRole HCl 0.5 MG TAB PO SCH (21:01)
--- NOTE | 2017-07-13 23:37 | CON ---
DATE OF CONSULTATION: 07/13/2017 REFERRING PHYSICIAN: Fara Erickson M.D. REASON FOR CONSULTATION: Anemia with recent drop in blood count. HISTORY OF PRESENT ILLNESS: Ms. Nila Holt is a very pleasant 72-year-old female hospita lized with dyspnea and was found to be in heart failure. [facility] had [facility] Her regular travel cota is Dr. Gagandeep Day and he saw her a couple of month s ago. The patient lives in a long-term. The patient developed dyspnea which has been progressi ve for the last 2-3 days. Since she has been diuresed, she is actually feeling better at the presen t time. On admission, she was found to have anemia. Yesterday, her CBC showed WBC 7200, hemoglobin 7.5, hematocrit 24. Today, the hemoglobin was dropping down to 6.8, hematocrit 20.6. Going over t [facility] 05/04/2017, she had also anemia. At that time, her hemoglobin was 9.5, hematocrit 30.3. This has been drifting down slowly. On 06/25/2017, her hemoglobin was dropping to 8.2. The patie nt has no prior history of any ulcer disease. No history of any rectal bleeding, any melena. No hi story of hematuria, bleeding from the gums, or epistaxis. Her bowel movements are fairly regular. The anemia appears to be chronic in nature. Going on the [place], even in 2013, she had mild anemi a. In 01/2014, her blood count was 8.8, hematocrit 27.6. Apparently, the anemia has been going off upfront. The patient has no abdominal pain. There is no nausea or vomiting. No odynophagia or dys phagia. The patient had seen me in 2007, 9 years ago. At that time, she had an EGD which revealed hiatal hernia and also two small ulcers in the duodenal bulb. She had a colonoscopy and was found t o have sigmoid diverticulosis and also a small rectal polyp. The patient was [facility]. One of the admission, this was in 2014, was seen by Dr. Piotr Kebede and he performed EGD and colonoscopy. EGD was completely normal. The colonoscopy again was completely normal except fo r sigmoid diverticulosis. The anemia actually appears chronic than acute. She has no relevant hist ory. MEDICAL ILLNESSES: 1. Parkinson disease. 2. Chronic back pain. 3. Diabetes mellitus. 4. Hypertension. 5. Chronic acid reflux. 6. Dyslipidemia. 7. Bipolar disorder. 8. Irritable bowel syndrome. 9. Sigmoid diverticular disease. 10. Hiatal hernia. SURGERIES: 1. Status post hysterectomy. 2. Spinal surgery. 3. Tubal ligation. 4. Tonsillectomy. 5. Cholecystectomy. 6. Appendectomy. ALLERGIES: LIPITOR, IBUPROFEN, and LYRICA. SOCIAL HISTORY: The patient is a long-term resident. She quit smoking more than 10 years ago. No history of alcohol abuse. FAMILY HISTORY: Mother of dementia at age 83. Father had at the age of 68 and pneumothor ax, lung rupture. MEDICATIONS: List reviewed which includes multiple Zanaflex, Requip, Percocet, Lamictal, hydralazin e. She is also on Depakote, Plaquenil, Percocet, amantadine, Stalevo for Parkinson's. She is on as pirin, Florastor, Coreg, Sinemet, Abilify, Klonopin, Protonix, Neurontin. REVIEW OF SYSTEMS: Systems review is not accomplished. He is not a very good historian. Central N ervous System: Parkinson disease, impaired mobility, arthritis, and tremors. No chronic head ache, no syncope, no TIA. Respiratory System: History of cough and shortness of breath. Cardiovas cular System: Shortness of breath. No chest pain, no palpitation, no orthopnea or PND. Gastrointe stinal: No abdominal pain, nausea, vomiting, hematochezia, or melena. Genitourinary: No dysuria, hematuria, or frequency of urination. PHYSICAL EXAMINATION: GENERAL: The patient is awake. She is mildly short of breath. She is in no distress. VITAL SIGNS: Afebrile, pulse is 84, blood pressure 129/59. HEENT: Conjunctivae clear. NECK: Supple. No adenitis or thyromegaly noted. CARDIOVASCULAR SYSTEM: First and second heart sounds normal. LUNGS: Actually clear to auscultation. ABDOMEN: Soft and nontender. No organomegaly or masses. EXTREMITIES: Reveal no edema. LABORATORY DATA: Shows anemia as mentioned earlier. The anemia appears to be chronic. She has had the anemia over the last several years. The most recent WBC is 5500, hemoglobin 6.8, hematocrit 20 .6, MCV 99.7, platelet count is 289,000, polymorphs 71, lymphocytes 15, and monocytes 11. Serum parth mistries: Sodium 140, potassium 4.7, chloride 100, bicarb 33, BUN is 25, creatinine 1.61, glucose 8 2. CLINICAL IMPRESSION: A 72-year-old female with heart failure, anemia which appears chroni c. She did drop in blood count recently. However, she has no history of hematochezia or melena. S he had a colonoscopy and EGD in 05/18/2015 and both were negative except for sigmoid diverticular di sease. RECOMMENDATIONS: 1. Serial H\T\H. 2. Transfuse p.r.n. 3. Obtain stool for occult blood. If the stool comes positive for occult blood, we may consider do ing an EGD. She had a colonoscopy two years ago, I see no reason for a repeat colonoscopy.
[2017-07-14 05:23] LABS: #Eosinphils 0.2 thou/uL (0.0-0.7); #Lymphocytes 0.8 thou/uL (1.20-3.40); #Monocytes 0.7 thou/uL (0.11-0.59); #Neutrophils 5.5 thou/uL (1.40-6.50); %Basophils 0.2 % (0.0-1.0); %Eosinophils 2.3 % (0.0-10.0); %Lymphocytes 11.2 % (21.0-51.0); %Monocytes 9.6 % (0.0-10.0); Hematocrit 25.2 % (36.0-47.0); Mean Platelet Volume 6.6 fL (7.4-10.4); Red Blood Cell (RBC) Count 2.59 mill/uL (4.20-5.40); White Blood Cell (WBC) Count 7.2 thou/uL (4.8-10.8)
[2017-07-14 05:35] LABS: Anion Gap 11 mmol/L (10-20); BUN (Urea Nitrogen) 19 mg/dL (9.8-20.1); Calc. Creatinine Clearance 53 mL/min (70-130); Calcium 8.7 mg/dL (7.8-10.44); Carbon Dioxide 31 mmol/L (23-31); Chloride 100 mmol/L (98-107); Estimated GFR-MDRD 30
[2017-07-14] MEDS: Acetaminophen 325 MG TAB PO PRN (05:44)
[2017-07-14] MEDS: Furosemide 40 MG/4 ML VIAL SLOW IVP SCH ×2 (05:44→14:07)
[2017-07-14] MEDS: Mometasone/Formoterol 120 PUFF INHALER INH SCH ×2 (07:06→18:20)
[2017-07-14] MEDS: Aripiprazole 10 MG TAB PO SCH (08:17)
[2017-07-14] MEDS: Famotidine 20 MG TAB PO SCH ×2 (08:18→21:13)
[2017-07-14] MEDS: Amlodipine 10 MG TAB PO SCH (08:18)
[2017-07-14] MEDS: Saccharomyces boulardii 250 MG CAP PO SCH (08:18)
[2017-07-14] MEDS: Carbidopa/Levodopa CR 50-200 mg Tablet PO SCH ×3 (08:19→21:12)
[2017-07-14] MEDS: guaiFENesin ER 600 MG TAB PO SCH ×2 (08:19→21:13)
[2017-07-14] MEDS: Amantadine HCl 100 mg Capsule PO SCH (08:19)
[2017-07-14] MEDS: Heparin 5,000 UNITS/ML VIAL SC SCH ×2 (08:19→21:13)
[2017-07-14] MEDS: lamoTRIgine 25 MG TAB PO SCH (08:20)
[2017-07-14] MEDS: Hydroxychloroquine Sulfate 200 MG TAB PO SCH ×2 (08:20→21:14)
[2017-07-14] MEDS: Divalproex Sodium 250 MG (DR) TAB PO SCH ×2 (08:24→21:12)
--- NOTE | 2017-07-14 08:56 | PRG ---
DATE OF SERVICE: 07/14/2017 The patient is feeling a little better. PHYSICAL EXAMINATION: VITAL SIGNS: Temperature is 98.0, pulse 86, respirations 16, O2 97% on 3 liters, blood pressure 149 /74. HEENT: Unremarkable. NECK: No JVD. LUNGS: She has diffuse crackles over the lower 1/2 in both lung kang anteriorly and posteriorly. CARDIAC: S1 and S2 regular. ABDOMEN: Soft, nontender. EXTREMITIES: No clubbing, cyanosis, or edema. LABORATORY DATA: White blood cell count 7.2, hemoglobin 8, hematocrit 25, platelet count 327. [place] um 137, potassium 4.6, chloride 100, CO2 31, BUN 19, creatinine 1.7, glucose 149. ASSESSMENT: 1. Congestive heart failure. 2. Acute respiratory failure relating to congestive heart failure. 3. Anemia. 4. Bipolar disorder. 5. Question of concurrent pneumonia. PLAN: 1. I would continue diuresis. 2. Increase activity as tolerated. 3. Following with you.
--- NOTE | 2017-07-14 10:44 | PDOC.PN ---
- Subjective Encounter Start Date: 07/14/17 Encounter Start Time: 10:30 Subjective: still sob, no chest pain or palp -: says she is wheel chair bound at snf from several months now - Objective Resuscitation Status: Resuscitation Status DNI:No Intubation MAR Reviewed: Yes Vital Signs & Weight: Vital Signs (12 hours) Temp Pulse Pulse Resp BP BP BP 07/14/17 09:22 89 161/69 H 07/14/17 08:18 94 149/74 H 07/14/17 08:00 98 F 94 18 07/14/17 07:07 07/14/17 07:05 86 16 07/14/17 06:57 98.0 F 92 20 07/14/17 04:00 98.7 F 90 18 160/69 H 07/14/17 00:31 91 16 07/14/17 00:00 98.9 F 86 12 135/55 L BP Pulse Ox Pulse Ox 07/14/17 09:22 96 07/14/17 08:18 07/14/17 08:00 94 L 07/14/17 07:07 97 07/14/17 07:05 97 07/14/17 06:57 149/74 H 97 07/14/17 04:00 95 07/14/17 00:31 92 L 07/14/17 00:00 93 L Weight Weight 235 lb 3.2 oz I&O: 07/13/17 07/14/17 07/15/17 06:59 06:59 06:59 Intake Total 725 1614 Output Total 2800 3025 Balance -4032 -7253 Result Diagrams: 07/14/17 04:34 07/14/17 04:34 Additional Labs: Accuchecks 07/14/17 07/13/17 07/13/17 05:47 19:59 16:10 POC Glucose 161 H 252 H 229 H 07/13/17 10:49 POC Glucose 265 H Phys Exam - Physical Examination HEENT: PERRLA, moist MMs Neck: no JVD, supple Respiratory: wheezing present rhonchi++ Cardiovascular: RRR, no significant murmur Gastrointestinal: soft, no distention, positive bowel sounds Musculoskeletal: no edema, pulses present Neurological: non-focal, moves all 4 limbs Psychiatric: A&O x 3 Dx/Plan (1) Acute respiratory failure with hypoxia and hypercapnia Code(s): J96.01 - ACUTE RESPIRATORY FAILURE WITH HYPOXIA; J96.02 - ACUTE RESPIRATORY FAILURE WITH HYPERCAPNIA Status: Acute Comment: off bipap, on nasal canula (2) CHF exacerbation Code(s): I50.9 - HEART FAILURE, UNSPECIFIED Status: Acute Qualifiers: Congestive heart failure type: diastolic Qualified Code(s): I50.33 - Acute on chronic diastolic (congestive) heart failure (3) ANNA (acute kidney injury) Code(s): N17.9 - ACUTE KIDNEY FAILURE, UNSPECIFIED Status: Resolved (4) Anemia Code(s): D64.9 - ANEMIA, UNSPECIFIED Status: Chronic Qualifiers: Anemia type: unspecified type Qualified Code(s): D64.9 - Anemia, unspecified (5) Bipolar 1 disorder, depressed Status: Chronic (6) Chronic pain disorder Code(s): G89.4 - CHRONIC PAIN SYNDROME Status: Chronic (7) DM2 (diabetes mellitus, type 2) Status: Chronic Qualifiers: Diabetes mellitus complication status: with unspecified complications Diabetes mellitus prison insulin use: with prison use Qualified Code(s) : E11.8 - Type 2 diabetes mellitus with unspecified complications; Z79.4 - detention (current) use of insulin; Z79.4 - detention (current) use of insulin; Z79.4 - detention (current) use of insulin; Z79.4 - termite technician (current) use of insulin (8) GERD (gastroesophageal reflux disease) Code(s): K21.9 - GASTRO-ESOPHAGEAL REFLUX DISEASE WITHOUT ESOPHAGITIS Status: Chronic Qualifiers: Esophagitis presence: esophagitis presence not specified Qualified Code(s) : K21.9 - Gastro-esophageal reflux disease without esophagitis (9) Hypertension Code(s): I10 - ESSENTIAL (PRIMARY) HYPERTENSION Status: Chronic Qualifiers: Hypertension type: essential hypertension (10) Parkinson disease Code(s): G20 - PARKINSON'S DISEASE Status: Chronic (11) CKD (chronic kidney disease) stage 3, GFR 30-59 ml/min Code(s): N18.3 - CHRONIC KIDNEY DISEASE, STAGE 3 (MODERATE) Status: Chronic - Plan likely has ckd -: gentle diuresis, last 24hr urine output around 3liters -: Hb has come up to 8g after 1 unit prbc -: on empiric rocephin -: PT/OT to ambulate/oob to chair as adalgisa, I.spirometer * . Review of Systems - Medications/Allergies Allergies/Adverse Reactions: Allergies Allergy/AdvReac Type Severity Reaction Status Date / Time atorvastatin [From Lipitor] Allergy Verified 07/12/17 08:36 nalbuphine Allergy Verified 07/12/17 08:36 pregabalin [From Lyrica] Allergy Verified 07/12/17 08:36 Medications: Current Medications Acetaminophen (Tylenol) 650 mg PO Q4H PRN PRN Reason: Headache/Fever or Pain Last Admin: 07/14/17 05:44 Dose: 650 mg Al Hydroxide/Mg Hydroxide (Maalox) 30 ml PO Q6H PRN PRN Reason: Heartburn or Indigestion Albuterol/Ipratropium (Duoneb) 3 ml NEB Q6H PRN PRN Reason: SOB &/or Wheezing Albuterol/Ipratropium (Duoneb) 3 ml NEB M4ST-OF [facility] Last Admin: 07/14/17 07:05 Dose: 3 ml Amantadine HCl (Symmetrel) 100 mg PO DAILY [facility] Last Admin: 07/14/17 08:19 Dose: 100 mg Amlodipine Besylate (Norvasc) 10 mg PO DAILY [facility] Last Admin: 07/14/17 08:18 Dose: 10 mg Aripiprazole (Abilify) 20 mg PO DAILY [facility] Last Admin: 07/14/17 08:17 Dose: 20 mg Benzonatate (Tessalon) 100 mg PO Q4H PRN PRN Reason: Cough Bisacodyl (Dulcolax) 10 mg PO DAILYPRN PRN PRN Reason: Constipation Bisacodyl (Dulcolax) 10 mg PO DAILYPRN PRN PRN Reason: Constipation Calcium Carbonate (Tums) 1,000 mg PO Q4H PRN PRN Reason: Heartburn or Indigestion Carbidopa/Levodopa (Sinemet Cr 50/200) 0.5 tab PO TID [facility] Last Admin: 07/14/17 08:19 Dose: 0.5 tab Clonidine HCl (Catapres) 0.1 mg PO Q4H PRN PRN Reason: Systolic BP > 160 Dextrose/Water (Dextrose 50%) 25 gm SLOW IVP PRN PRN PRN Reason: Hypoglycemia Divalproex Sodium (Depakote) 250 mg PO BID [facility] Last Admin: 07/14/17 08:24 Dose: 250 mg Famotidine (Pepcid) 20 mg PO BID [facility] Last Admin: 07/14/17 08:18 Dose: 20 mg Furosemide (Lasix) 40 mg SLOW IVP 0600,1400 [facility] Last Admin: 07/14/17 05:44 Dose: 40 mg Glucagon (Glucagon) 1 mg IM PRN PRN PRN Reason: Hypoglycemia Guaifenesin (Robitussin Sf) 200 mg PO Q4H PRN PRN Reason: Cough Guaifenesin (Mucinex) 600 mg PO Q12HR [facility] Last Admin: 07/14/17 08:19 Dose: 600 mg Heparin Sodium (Porcine) (Heparin) 5,000 units SC BID [facility] Last Admin: 07/14/17 08:19 Dose: 5,000 units Hydralazine HCl (Apresoline) 10 mg SLOW IVP Q4H PRN PRN Reason: Systolic BP > 170 Hydroxychloroquine Sulfate (Plaquenil) 200 mg PO BID [facility] Last Admin: 07/14/17 08:20 Dose: 200 mg Dextrose/Water (D5w) 1,000 mls @ 0 mls/hr IV .Q0M PRN; As Directed PRN Reason: Hypoglycemia Ceftriaxone Sodium 1 gm/Miscellaneous Medication 1 units/ Sodium Chloride 100 mls @ 200 mls/hr IVPB 1200 [facility] Last Admin: 07/13/17 12:32 Dose: 100 mls Insulin Human Regular (Humulin R) 0 units SC .MODERATE SLIDING SC PRN PRN Reason: Moderate Correctional Scale Insulin Human Regular (Humulin R) 0 units SC .BEDTIME SLIDING SC PRN PRN Reason: Bedtime Correctional Scale Lamotrigine (Lamictal) 75 mg PO DAILY [facility] Last Admin: 07/14/17 08:20 Dose: 75 mg Loratadine (Claritin) 10 mg PO DAILYPRN PRN PRN Reason: Sinus Symptoms Mometasone Furoate/Formoterol Fumar (Dulera 200 Mcg/5 Mcg Inhaler) 1 puff INH BID-RT [facility] Last Admin: 07/14/17 07:06 Dose: 1 puff Nitroglycerin (Nitrostat) 0.4 mg SL Q5MIN PRN PRN Reason: Chest Pain Ondansetron HCl (Zofran) 4 mg IVP Q6H PRN PRN Reason: Nausea/Vomiting Pantoprazole Sodium (Protonix) 40 mg PO DAILY [facility] Last Admin: 07/14/17 08:19 Dose: 40 mg Ropinirole HCl (Requip) 0.5 mg PO QPM [facility] Last Admin: 07/13/17 21:01 Dose: 0.5 mg Saccharomyces Boulardii (Florastor) 250 mg PO DAILY [facility] Last Admin: 07/14/17 08:18 Dose: 250 mg Senna (Senokot) 2 tab PO HSPRN PRN PRN Reason: Constipation Senna (Senokot) 2 tab PO HSPRN PRN PRN Reason: Constipation Sodium Chloride (Flush - Normal Saline) 10 ml IVF PRN PRN PRN Reason: Saline Flush Last Admin: 07/13/17 21:02 Dose: 10 ml
[2017-07-14] MEDS ORDERED: Lidocaine Patch Removal 1 EACH TOP SCH (11:15)
--- NOTE | 2017-07-14 12:14 | PQF ---
DATE: 07-14-17 ATTN: DR. DIVYA KIRKLAND Please exercise your independent, professional judgment in responding to the clarification form. Clinical indicators are provided on the bottom of this form for your review Please check appropriate box(s): [ x ] Acute On Chronic Respiratory Failure: [ x ] with Hypoxia [ ] with Hypercapnia [ ] Chronic Respiratory Failure [ ] with Hypoxia [ ] with Hypercapnia [ ] Other diagnosis [ ] Unable to determine In addition, please specify: Present on Admission (POA): [ x ] Yes [ ] No [ ] Unable to determine For continuity of documentation, please document condition throughout progress notes and discharge summary. Thank You. CLINICAL INDICATORS - SIGNS / SYMPTOMS / LABS ER DOCUMENTATION: ON NON REBREATHER, BIPAP, NURSE REPORTS SHE WAS UNABLE TO GET HER O2 SATS ABOVE 84% AT THE NM. H&P: *THE PATIENT USES 4 L OR OXYGEN AT HOME, *SHE WAS BROUGHT INTO THE ER WHERE SHE WAS SEVERELY HYPOXIC DESPITE OXYGEN SUPPLEMENTATION AND ON OXYGEN SAT WENT DOWN TO 69% ACCORDING TO ER RECORDS. RISK FACTORS: H&P: *THE PATIENT USES 4 L OR OXYGEN AT HOME, HX OF COPD TREATMENTS: BIPAP, O2 USE MONITORING SATS PULMONARY CONSULT (This form is maintained as a part of the permanent medical record) 2015 [employer]. All Rights Reserved BRIA [email or web address] Office: [phone] ZEE
[2017-07-14] MEDS: cefTRIAXone\\ROCEPHIN 1 GM, IV Admixture Fee-Chemo 1 UNITS in Sodium Chloride 0.9% 100 ML IVPB SCH (12:19)
[2017-07-14] MEDS ORDERED: Lidocaine 5% Patch TD SCH (12:30)
[2017-07-14] MEDS: oxyCODONE/Acetaminophen 5 mg/325 mg Tablet PO PRN ×2 (16:14→22:12)
[2017-07-14] MEDS: rOPINIRole HCl 0.5 MG TAB PO SCH (21:14)
[2017-07-15] MEDS: oxyCODONE/Acetaminophen 5 mg/325 mg Tablet PO PRN ×4 (04:08→21:58)
[2017-07-15 05:02] LABS: #Eosinphils 0.2 thou/uL (0.0-0.7); #Lymphocytes 0.8 thou/uL (1.20-3.40); #Monocytes 0.7 thou/uL (0.11-0.59); %Basophils 0.4 % (0.0-1.0); %Eosinophils 3.2 % (0.0-10.0); %Lymphocytes 14.6 % (21.0-51.0); %Monocytes 11.6 % (0.0-10.0); Hematocrit 24.9 % (36.0-47.0); Mean Platelet Volume 6.4 fL (7.4-10.4); Red Blood Cell (RBC) Count 2.64 mill/uL (4.20-5.40); White Blood Cell (WBC) Count 5.7 thou/uL (4.8-10.8)
[2017-07-15 05:19] LABS: Anion Gap 13 mmol/L (10-20); BUN (Urea Nitrogen) 18 mg/dL (9.8-20.1); Calc. Creatinine Clearance 51 mL/min (70-130); Calcium 8.6 mg/dL (7.8-10.44); Carbon Dioxide 30 mmol/L (23-31); Chloride 98 mmol/L (98-107); Estimated GFR-MDRD 29
[2017-07-15] MEDS: Furosemide 40 MG/4 ML VIAL SLOW IVP SCH ×2 (05:51→14:27)
[2017-07-15] MEDS: Mometasone/Formoterol 120 PUFF INHALER INH SCH ×2 (07:32→18:49)
--- NOTE | 2017-07-15 07:51 | PRG ---
DATE OF SERVICE: 07/15/2017 She feels better this morning. PHYSICAL EXAMINATION: VITAL SIGNS: Temperature 99.2, pulse 86, respirations 20, O2 sat 93% on 2 liters, blood pressure 16 9/72. HEENT: Unremarkable. NECK: No JVD. LUNGS: Fairly clear with a few crackles in the bases. CARDIAC: S1 and S2 regular. ABDOMEN: Soft, nontender. EXTREMITIES: No edema. LABORATORY DATA: White blood cell count 5.7, hematocrit 24.9, platelet count 357. Sodium 136, pota ssium 4.6, chloride 98, CO2 30, BUN 18, creatinine 1.7, glucose 132. ASSESSMENT: 1. Acute respiratory failure related to congestive heart failure. 2. Question of concurrent pneumonia. 3. Renal insufficiency. 4. Anemia. PLAN: This patient can be transferred to the medical floor. I will convert her antibiotics to oral medication. She is requesting some Robitussin. Increase physical activity as tolerated.
[2017-07-15] MEDS: Amantadine HCl 100 mg Capsule PO SCH (08:17)
[2017-07-15] MEDS: Docusate 100 MG CAP PO SCH (08:17)
[2017-07-15] MEDS: Lidocaine 5% Patch TD SCH (08:18)
[2017-07-15] MEDS: Aripiprazole 10 MG TAB PO SCH (08:20)
[2017-07-15] MEDS: guaiFENesin ER 600 MG TAB PO SCH ×2 (08:20→19:57)
[2017-07-15] MEDS: Saccharomyces boulardii 250 MG CAP PO SCH (08:20)
[2017-07-15] MEDS: Famotidine 20 MG TAB PO SCH ×2 (08:20→19:57)
[2017-07-15] MEDS: Carbidopa/Levodopa CR 50-200 mg Tablet PO SCH ×3 (08:21→19:58)
[2017-07-15] MEDS: Heparin 5,000 UNITS/ML VIAL SC SCH ×2 (08:21→19:56)
[2017-07-15] MEDS: lamoTRIgine 25 MG TAB PO SCH (08:22)
[2017-07-15] MEDS: Hydroxychloroquine Sulfate 200 MG TAB PO SCH ×2 (08:22→19:59)
[2017-07-15] MEDS: Divalproex Sodium 250 MG (DR) TAB PO SCH ×2 (08:23→19:57)
[2017-07-15] MEDS: Amlodipine 10 MG TAB PO SCH (08:27)
[2017-07-15] MEDS ORDERED: Non-Formulary Item 1 EACH (Docusate Sodium [Docusate Sodium] 100 MG) PO SCH (09:00)
[2017-07-15] MEDS: Diabetic Tussin 200 MG/10 ML UDCUP PO PRN ×2 (10:55→22:12)
--- NOTE | 2017-07-15 11:14 | PDOC.PN ---
- Subjective Encounter Start Date: 07/15/17 Encounter Start Time: 07:35 Subjective: breathing better -: has been oob to chair yesterday - Objective Resuscitation Status: Resuscitation Status DNI:No Intubation MAR Reviewed: Yes Vital Signs & Weight: Vital Signs (12 hours) Temp Pulse Resp BP BP Pulse Ox 07/15/17 08:30 98.9 F 93 24 H 92 L 07/15/17 08:27 93 169/72 H 07/15/17 08:21 98.9 F 90 20 169/72 H 90 L 07/15/17 07:35 93 L 07/15/17 07:33 88 20 93 L 07/15/17 03:32 99.2 F 86 20 169/72 H 93 L 07/15/17 00:08 92 20 92 L Weight Weight 234 lb I&O: 07/14/17 07/15/17 07/16/17 06:59 06:59 06:59 Intake Total 1614 690 Output Total 3025 2400 Balance -1411 -3890 Result Diagrams: 07/15/17 04:27 07/15/17 04:27 Additional Labs: Accuchecks 07/15/17 07/14/17 07/14/17 05:32 20:27 17:19 POC Glucose 154 H 193 H 165 H Phys Exam - Physical Examination HEENT: PERRLA, moist MMs Neck: no JVD, supple Respiratory: no wheezing, no rales rhonchi+ Cardiovascular: RRR, no significant murmur Gastrointestinal: soft, no distention, positive bowel sounds Musculoskeletal: no edema, pulses present Neurological: non-focal, moves all 4 limbs tremor+ Psychiatric: A&O x 3 Dx/Plan (1) Acute respiratory failure with hypoxia and hypercapnia Code(s): J96.01 - ACUTE RESPIRATORY FAILURE WITH HYPOXIA; J96.02 - ACUTE RESPIRATORY FAILURE WITH HYPERCAPNIA Status: Acute Comment: off bipap, on nasal canula (2) CHF exacerbation Code(s): I50.9 - HEART FAILURE, UNSPECIFIED Status: Acute Qualifiers: Congestive heart failure type: diastolic Qualified Code(s): I50.33 - Acute on chronic diastolic (congestive) heart failure (3) ANNA (acute kidney injury) Code(s): N17.9 - ACUTE KIDNEY FAILURE, UNSPECIFIED Status: Resolved (4) Anemia Code(s): D64.9 - ANEMIA, UNSPECIFIED Status: Chronic Qualifiers: Anemia type: unspecified type Qualified Code(s): D64.9 - Anemia, unspecified (5) Bipolar 1 disorder, depressed Status: Chronic (6) Chronic pain disorder Code(s): G89.4 - CHRONIC PAIN SYNDROME Status: Chronic (7) DM2 (diabetes mellitus, type 2) Status: Chronic Qualifiers: Diabetes mellitus complication status: with unspecified complications Diabetes mellitus custodial insulin use: with termite renewal inspector use Qualified Code(s) : E11.8 - Type 2 diabetes mellitus with unspecified complications; Z79.4 - long term care phlebotomist (current) use of insulin; Z79.4 - [facility] (current) use of insulin; Z79.4 - [facility] (current) use of insulin; Z79.4 - long term care phlebotomist (current) use of insulin (8) GERD (gastroesophageal reflux disease) Code(s): K21.9 - GASTRO-ESOPHAGEAL REFLUX DISEASE WITHOUT ESOPHAGITIS Status: Chronic Qualifiers: Esophagitis presence: esophagitis presence not specified Qualified Code(s) : K21.9 - Gastro-esophageal reflux disease without esophagitis (9) Hypertension Code(s): I10 - ESSENTIAL (PRIMARY) HYPERTENSION Status: Chronic Qualifiers: Hypertension type: essential hypertension (10) Parkinson disease Code(s): G20 - PARKINSON'S DISEASE Status: Chronic (11) CKD (chronic kidney disease) stage 3, GFR 30-59 ml/min Code(s): N18.3 - CHRONIC KIDNEY DISEASE, STAGE 3 (MODERATE) Status: Chronic - Plan has chronic deconditioning, needs to mobilize herself better with PT -: is on lasix -: urine output of 2400ml/24hrs -: Hb holding up around 8g -: renal function stable, may tx to med floor * . Review of Systems - Medications/Allergies Allergies/Adverse Reactions: Allergies Allergy/AdvReac Type Severity Reaction Status Date / Time atorvastatin [From Lipitor] Allergy Verified 07/12/17 08:36 nalbuphine Allergy Verified 07/12/17 08:36 pregabalin [From Lyrica] Allergy Verified 07/12/17 08:36 Medications: Current Medications Acetaminophen (Tylenol) 650 mg PO Q4H PRN PRN Reason: Headache/Fever or Pain Last Admin: 07/14/17 05:44 Dose: 650 mg Al Hydroxide/Mg Hydroxide (Maalox) 30 ml PO Q6H PRN PRN Reason: Heartburn or Indigestion Albuterol/Ipratropium (Duoneb) 3 ml NEB Q6H PRN PRN Reason: SOB &/or Wheezing Albuterol/Ipratropium (Duoneb) 3 ml NEB [id number]-DP [facility] Last Admin: 07/15/17 07:33 Dose: 3 ml Amantadine HCl (Symmetrel) 100 mg PO DAILY [facility] Last Admin: 07/15/17 08:17 Dose: 100 mg Amlodipine Besylate (Norvasc) 10 mg PO DAILY [facility] Last Admin: 07/15/17 08:27 Dose: 10 mg Aripiprazole (Abilify) 20 mg PO DAILY [facility] Last Admin: 07/15/17 08:20 Dose: 20 mg Benzonatate (Tessalon) 100 mg PO Q4H PRN PRN Reason: Cough Last Admin: 07/15/17 05:51 Dose: 100 mg Bisacodyl (Dulcolax) 10 mg PO DAILYPRN PRN PRN Reason: Constipation Bisacodyl (Dulcolax) 10 mg PO DAILYPRN PRN PRN Reason: Constipation Calcium Carbonate (Tums) 1,000 mg PO Q4H PRN PRN Reason: Heartburn or Indigestion Carbidopa/Levodopa (Sinemet Cr 50/200) 0.5 tab PO TID [facility] Last Admin: 07/15/17 08:21 Dose: 0.5 tab Clonidine HCl (Catapres) 0.1 mg PO Q4H PRN PRN Reason: Systolic BP > 160 Dextrose/Water (Dextrose 50%) 25 gm SLOW IVP PRN PRN PRN Reason: Hypoglycemia Divalproex Sodium (Depakote) 250 mg PO BID [facility] Last Admin: 07/15/17 08:23 Dose: 250 mg Docusate Sodium (Colace) 100 mg PO DAILY [facility] Last Admin: 07/15/17 08:17 Dose: Not Given Famotidine (Pepcid) 20 mg PO BID [facility] Last Admin: 07/15/17 08:20 Dose: 20 mg Furosemide (Lasix) 40 mg SLOW IVP 0600,1400 [facility] Last Admin: 07/15/17 05:51 Dose: 40 mg Glucagon (Glucagon) 1 mg IM PRN PRN PRN Reason: Hypoglycemia Guaifenesin (Robitussin Sf) 200 mg PO Q4H PRN PRN Reason: Cough Last Admin: 07/15/17 10:55 Dose: 200 mg Guaifenesin (Mucinex) 600 mg PO Q12HR [facility] Last Admin: 07/15/17 08:20 Dose: 600 mg Heparin Sodium (Porcine) (Heparin) 5,000 units SC BID [facility] Last Admin: 07/15/17 08:21 Dose: 5,000 units Hydralazine HCl (Apresoline) 10 mg SLOW IVP Q4H PRN PRN Reason: Systolic BP > 170 Hydroxychloroquine Sulfate (Plaquenil) 200 mg PO BID [facility] Last Admin: 07/15/17 08:22 Dose: 200 mg Dextrose/Water (D5w) 1,000 mls @ 0 mls/hr IV .Q0M PRN; As Directed PRN Reason: Hypoglycemia Ceftriaxone Sodium 1 gm/Miscellaneous Medication 1 units/ Sodium Chloride 100 mls @ 200 mls/hr IVPB 1200 [facility] Last Admin: 07/14/17 12:19 Dose: 100 mls Insulin Human Regular (Humulin R) 0 units SC .MODERATE SLIDING SC PRN PRN Reason: Moderate Correctional Scale Insulin Human Regular (Humulin R) 0 units SC .BEDTIME SLIDING SC PRN PRN Reason: Bedtime Correctional Scale Lamotrigine (Lamictal) 75 mg PO DAILY [facility] Last Admin: 07/15/17 08:22 Dose: 75 mg Lidocaine (Lidoderm 5% Patch) 1 patch TD DAILY [facility] Last Admin: 07/15/17 08:18 Dose: Not Given Loratadine (Claritin) 10 mg PO DAILYPRN PRN PRN Reason: Sinus Symptoms Miscellaneous Medication (Lidocaine Patch Removal) 1 each TOP ASDIR [facility] Mometasone Furoate/Formoterol Fumar (Dulera 200 Mcg/5 Mcg Inhaler) 1 puff INH BID-RT [facility] Last Admin: 07/15/17 07:32 Dose: 1 puff Nitroglycerin (Nitrostat) 0.4 mg SL Q5MIN PRN PRN Reason: Chest Pain Ondansetron HCl (Zofran) 4 mg IVP Q6H PRN PRN Reason: Nausea/Vomiting Oxycodone/Acetaminophen (Percocet 5/325) 1 tab PO Q6H PRN PRN Reason: Moderate to Severe Pain (6-10) Last Admin: 07/15/17 09:59 Dose: 1 tab Pantoprazole Sodium (Protonix) 40 mg PO DAILY [facility] Last Admin: 07/15/17 08:20 Dose: 40 mg Ropinirole HCl (Requip) 0.5 mg PO QPM [facility] Last Admin: 07/14/17 21:14 Dose: 0.5 mg Saccharomyces Boulardii (Florastor) 250 mg PO DAILY [facility] Last Admin: 07/15/17 08:20 Dose: 250 mg Senna (Senokot) 2 tab PO HSPRN PRN PRN Reason: Constipation Senna (Senokot) 2 tab PO HSPRN PRN PRN Reason: Constipation Sodium Chloride (Flush - Normal Saline) 10 ml IVF PRN PRN PRN Reason: Saline Flush Last Admin: 07/15/17 08:34 Dose: 10 ml
[2017-07-15] MEDS ORDERED: Cefdinir 300 MG CAP PO SCH ×2 (13:14→14:00)
[2017-07-15] MEDS: cefTRIAXone\\ROCEPHIN 1 GM, IV Admixture Fee-Chemo 1 UNITS in Sodium Chloride 0.9% 100 ML IVPB SCH (14:41)
[2017-07-15] MEDS: rOPINIRole HCl 0.5 MG TAB PO SCH (19:59)
[2017-07-16] MEDS: oxyCODONE/Acetaminophen 5 mg/325 mg Tablet PO PRN ×4 (04:18→22:12)
[2017-07-16] MEDS: Furosemide 40 MG/4 ML VIAL SLOW IVP SCH ×2 (05:47→14:21)
[2017-07-16] MEDS: Mometasone/Formoterol 120 PUFF INHALER INH SCH ×2 (06:34→18:57)
[2017-07-16] MEDS: Saccharomyces boulardii 250 MG CAP PO SCH (09:32)
[2017-07-16] MEDS: Amlodipine 10 MG TAB PO SCH (09:32)
[2017-07-16] MEDS: guaiFENesin ER 600 MG TAB PO SCH ×2 (09:32→21:13)
[2017-07-16] MEDS: Cefdinir 300 MG CAP PO SCH (09:32)
[2017-07-16] MEDS: Docusate 100 MG CAP PO SCH (09:32)
--- NOTE | 2017-07-16 09:32 | PRG ---
DATE OF SERVICE: 07/16/2017 The patient is doing better. She [facility] to [facility]. PHYSICAL EXAMINATION: VITAL SIGNS: Temperature 98.0, pulse 87, respiration 18, O2 sat 93%, blood pressure 164/87. HEENT: Unremarkable. NECK: No JVD. LUNGS: Fairly clear with a few crackles at the bases. CARDIOVASCULAR: S1, S2 regular. ABDOMEN: Soft. EXTREMITIES: No edema. ASSESSMENT: 1. Acute respiratory failure related to congestive heart failure. 2. Question of concurrent pneumonia. 3. Renal insufficiency. 4. Anemia. PLAN: The patient is ready for discharge tomorrow. I believe the antibiotics can be stopped after 7 days of total therapy. Discussed with Dr. Erickson.
[2017-07-16] MEDS: Aripiprazole 10 MG TAB PO SCH (09:33)
[2017-07-16] MEDS: Amantadine HCl 100 mg Capsule PO SCH (09:33)
[2017-07-16] MEDS: Famotidine 20 MG TAB PO SCH ×2 (09:33→21:13)
--- OUTSIDE RECORDS SUMMARY | 2017-07-16 09:33 | XMS | Clinical Summary ---
:1945 Author Organization [facility] Address [address] [place] [address] Phone Care Team Providers Name Role Phone [...]
[2017-07-16] MEDS: Divalproex Sodium 250 MG (DR) TAB PO SCH ×2 (09:34→21:16)
[2017-07-16] MEDS: Hydroxychloroquine Sulfate 200 MG TAB PO SCH ×2 (09:34→21:16)
[2017-07-16] MEDS: lamoTRIgine 25 MG TAB PO SCH (09:35)
[2017-07-16] MEDS: Lidocaine 5% Patch TD SCH (09:36)
[2017-07-16] MEDS: Carbidopa/Levodopa CR 50-200 mg Tablet PO SCH ×3 (09:36→21:13)
[2017-07-16] MEDS: Heparin 5,000 UNITS/ML VIAL SC SCH ×2 (09:43→21:12)
--- NOTE | 2017-07-16 10:08 | PDOC.PN ---
- Subjective Encounter Start Date: 07/16/17 Encounter Start Time: 08:15 Subjective: breathing better -: no chest pain - Objective Resuscitation Status: Resuscitation Status DNI:No Intubation MAR Reviewed: Yes Vital Signs & Weight: Vital Signs (12 hours) Temp Pulse Resp BP Pulse Ox 07/16/17 09:32 87 07/16/17 07:50 98 F 87 18 164/87 H 92 L 07/16/17 06:33 98 20 95 07/16/17 03:00 98 F 80 20 161/72 H 94 L 07/16/17 00:10 100 22 H 94 L 07/16/17 00:00 98.2 F 92 20 193/74 H 92 L Weight Weight 223 lb I&O: 07/15/17 07/16/17 07/17/17 06:59 06:59 06:59 Intake Total 690 1420 Output Total 2400 3075 Balance -8834 -7987 Result Diagrams: 07/15/17 04:27 07/15/17 04:27 Additional Labs: Accuchecks 07/16/17 07/15/17 07/15/17 05:14 19:53 15:56 POC Glucose 120 H 172 H 153 H 07/15/17 11:53 POC Glucose 181 H Phys Exam - Physical Examination HEENT: PERRLA, moist MMs Neck: no JVD, supple Respiratory: no wheezing, no rales rhonchi+ Cardiovascular: RRR, no significant murmur Gastrointestinal: soft, non-tender, positive bowel sounds Musculoskeletal: no edema, pulses present Neurological: non-focal, moves all 4 limbs Psychiatric: A&O x 3 Dx/Plan (1) Acute respiratory failure with hypoxia and hypercapnia Code(s): J96.01 - ACUTE RESPIRATORY FAILURE WITH HYPOXIA; J96.02 - ACUTE RESPIRATORY FAILURE WITH HYPERCAPNIA Status: Resolved Comment: off bipap, on nasal canula (2) CHF exacerbation Code(s): I50.9 - HEART FAILURE, UNSPECIFIED Status: Acute Qualifiers: Congestive heart failure type: diastolic Qualified Code(s): I50.33 - Acute on chronic diastolic (congestive) heart failure Comment: resolving (3) ANNA (acute kidney injury) Code(s): N17.9 - ACUTE KIDNEY FAILURE, UNSPECIFIED Status: Resolved (4) Anemia Code(s): D64.9 - ANEMIA, UNSPECIFIED Status: Chronic Qualifiers: Anemia type: unspecified type Qualified Code(s): D64.9 - Anemia, unspecified (5) Bipolar 1 disorder, depressed Status: Chronic (6) Chronic pain disorder Code(s): G89.4 - CHRONIC PAIN SYNDROME Status: Chronic (7) DM2 (diabetes mellitus, type 2) Status: Chronic Qualifiers: Diabetes mellitus complication status: with unspecified complications Diabetes mellitus manager terminal insulin use: with manager terminal use Qualified Code(s) : E11.8 - Type 2 diabetes mellitus with unspecified complications; Z79.4 - exterminator (current) use of insulin; Z79.4 - shelter (current) use of insulin; Z79.4 - exterminator (current) use of insulin; Z79.4 - exterminator (current) use of insulin (8) GERD (gastroesophageal reflux disease) Code(s): K21.9 - GASTRO-ESOPHAGEAL REFLUX DISEASE WITHOUT ESOPHAGITIS Status: Chronic Qualifiers: Esophagitis presence: esophagitis presence not specified Qualified Code(s) : K21.9 - Gastro-esophageal reflux disease without esophagitis (9) Hypertension Code(s): I10 - ESSENTIAL (PRIMARY) HYPERTENSION Status: Chronic Qualifiers: Hypertension type: essential hypertension (10) Parkinson disease Code(s): G20 - PARKINSON'S DISEASE Status: Chronic (11) CKD (chronic kidney disease) stage 3, GFR 30-59 ml/min Code(s): N18.3 - CHRONIC KIDNEY DISEASE, STAGE 3 (MODERATE) Status: Chronic - Plan is on lasix q12h, switch to po in am -: omnicef for 4 more days, continue I.spirometry -: dc plan in am to [facility] -: PT to mobilize as tolerated, took 4-5 steps yesterday -: has been chronically bed bound at [facility] * . Review of Systems - Medications/Allergies Allergies/Adverse Reactions: Allergies Allergy/AdvReac Type Severity Reaction Status Date / Time atorvastatin [From Lipitor] Allergy Verified 07/12/17 08:36 nalbuphine Allergy Verified 07/12/17 08:36 pregabalin [From Lyrica] Allergy Verified 07/12/17 08:36 Medications: Current Medications Acetaminophen (Tylenol) 650 mg PO Q4H PRN PRN Reason: Headache/Fever or Pain Last Admin: 07/14/17 05:44 Dose: 650 mg Al Hydroxide/Mg Hydroxide (Maalox) 30 ml PO Q6H PRN PRN Reason: Heartburn or Indigestion Albuterol/Ipratropium (Duoneb) 3 ml NEB [id number] [facility] Last Admin: 07/16/17 06:33 Dose: 3 ml Amantadine HCl (Symmetrel) 100 mg PO DAILY [facility] Last Admin: 07/16/17 09:33 Dose: 100 mg Amlodipine Besylate (Norvasc) 10 mg PO DAILY [facility] Last Admin: 07/16/17 09:32 Dose: 10 mg Aripiprazole (Abilify) 20 mg PO DAILY [facility] Last Admin: 07/16/17 09:33 Dose: 20 mg Bisacodyl (Dulcolax) 10 mg PO DAILYPRN PRN PRN Reason: Constipation Bisacodyl (Dulcolax) 10 mg PO DAILYPRN PRN PRN Reason: Constipation Calcium Carbonate (Tums) 1,000 mg PO Q4H PRN PRN Reason: Heartburn or Indigestion Carbidopa/Levodopa (Sinemet Cr 50/200) 0.5 tab PO TID [facility] Last Admin: 07/16/17 09:36 Dose: 0.5 tab Cefdinir (Omnicef) 600 mg PO DAILY [facility] Last Admin: 07/16/17 09:32 Dose: 600 mg Clonidine HCl (Catapres) 0.1 mg PO Q4H PRN PRN Reason: Systolic BP > 160 Dextrose/Water (Dextrose 50%) 25 gm SLOW IVP PRN PRN PRN Reason: Hypoglycemia Divalproex Sodium (Depakote) 250 mg PO BID [facility] Last Admin: 07/16/17 09:34 Dose: 250 mg Docusate Sodium (Colace) 100 mg PO DAILY [facility] Last Admin: 07/16/17 09:32 Dose: 100 mg Famotidine (Pepcid) 20 mg PO BID [facility] Last Admin: 07/16/17 09:33 Dose: 20 mg Furosemide (Lasix) 40 mg SLOW IVP 0600,1400 [facility] Last Admin: 07/16/17 05:47 Dose: 40 mg Glucagon (Glucagon) 1 mg IM PRN PRN PRN Reason: Hypoglycemia Guaifenesin (Robitussin Sf) 200 mg PO Q4H PRN PRN Reason: Cough Last Admin: 07/15/17 22:12 Dose: 200 mg Guaifenesin (Mucinex) 600 mg PO Q12HR [facility] Last Admin: 07/16/17 09:32 Dose: 600 mg Heparin Sodium (Porcine) (Heparin) 5,000 units SC BID [facility] Last Admin: 07/16/17 09:43 Dose: 5,000 units Hydralazine HCl (Apresoline) 10 mg SLOW IVP Q4H PRN PRN Reason: Systolic BP > 170 Hydroxychloroquine Sulfate (Plaquenil) 200 mg PO BID [facility] Last Admin: 07/16/17 09:34 Dose: 200 mg Dextrose/Water (D5w) 1,000 mls @ 0 mls/hr IV .Q0M PRN; As Directed PRN Reason: Hypoglycemia Insulin Human Regular (Humulin R) 0 units SC .MODERATE SLIDING SC PRN PRN Reason: Moderate Correctional Scale Insulin Human Regular (Humulin R) 0 units SC .BEDTIME SLIDING SC PRN PRN Reason: Bedtime Correctional Scale Lamotrigine (Lamictal) 75 mg PO DAILY [facility] Last Admin: 07/16/17 09:35 Dose: 75 mg Lidocaine (Lidoderm 5% Patch) 1 patch TD DAILY [facility] Last Admin: 07/16/17 09:36 Dose: Not Given Loratadine (Claritin) 10 mg PO DAILYPRN PRN PRN Reason: Sinus Symptoms Miscellaneous Medication (Lidocaine Patch Removal) 1 each TOP ASDIR [facility] Mometasone Furoate/Formoterol Fumar (Dulera 200 Mcg/5 Mcg Inhaler) 1 puff INH BID-RT [facility] Last Admin: 07/16/17 06:34 Dose: 1 puff Nitroglycerin (Nitrostat) 0.4 mg SL Q5MIN PRN PRN Reason: Chest Pain Ondansetron HCl (Zofran) 4 mg IVP Q6H PRN PRN Reason: Nausea/Vomiting Oxycodone/Acetaminophen (Percocet 5/325) 1 tab PO Q6H PRN PRN Reason: Moderate to Severe Pain (6-10) Last Admin: 07/16/17 09:45 Dose: 1 tab Pantoprazole Sodium (Protonix) 40 mg PO DAILY [facility] Last Admin: 07/16/17 09:33 Dose: 40 mg Ropinirole HCl (Requip) 0.5 mg PO QPM [facility] Last Admin: 07/15/17 19:59 Dose: 0.5 mg Saccharomyces Boulardii (Florastor) 250 mg PO DAILY [facility] Last Admin: 07/16/17 09:32 Dose: 250 mg Senna (Senokot) 2 tab PO HSPRN PRN PRN Reason: Constipation Senna (Senokot) 2 tab PO HSPRN PRN PRN Reason: Constipation Sodium Chloride (Flush - Normal Saline) 10 ml IVF PRN PRN PRN Reason: Saline Flush Last Admin: 07/16/17 05:47 Dose: 10 ml
[2017-07-16] MEDS: rOPINIRole HCl 0.5 MG TAB PO SCH (21:14)
[2017-07-17] MEDS: oxyCODONE/Acetaminophen 5 mg/325 mg Tablet PO PRN ×3 (04:16→15:59)
[2017-07-17] MEDS: Furosemide 40 MG/4 ML VIAL SLOW IVP SCH ×2 (05:48→14:18)
[2017-07-17] MEDS: Mometasone/Formoterol 120 PUFF INHALER INH SCH (07:52)
[2017-07-17 07:54] VITALS: BP 167/74; TEMP 98
[2017-07-17] MEDS: Famotidine 20 MG TAB PO SCH (08:51)
[2017-07-17] MEDS: Cefdinir 300 MG CAP PO SCH (08:51)
[2017-07-17] MEDS: Aripiprazole 10 MG TAB PO SCH (08:52)
[2017-07-17] MEDS: guaiFENesin ER 600 MG TAB PO SCH (08:52)
[2017-07-17] MEDS: Saccharomyces boulardii 250 MG CAP PO SCH (08:52)
[2017-07-17] MEDS: Docusate 100 MG CAP PO SCH (08:52)
[2017-07-17] MEDS: Amlodipine 10 MG TAB PO SCH (08:52)
[2017-07-17] MEDS: lamoTRIgine 25 MG TAB PO SCH (08:54)
[2017-07-17] MEDS: Carbidopa/Levodopa CR 50-200 mg Tablet PO SCH ×2 (08:54→14:26)
[2017-07-17] MEDS: Hydroxychloroquine Sulfate 200 MG TAB PO SCH (08:55)
[2017-07-17] MEDS: Lidocaine 5% Patch TD SCH (08:56)
[2017-07-17] MEDS: Amantadine HCl 100 mg Capsule PO SCH (08:56)
[2017-07-17] MEDS: Divalproex Sodium 250 MG (DR) TAB PO SCH (08:56)
[2017-07-17] MEDS: Heparin 5,000 UNITS/ML VIAL SC SCH (08:57)
--- NOTE | 2017-07-17 09:48 | PDOC.PN ---
- Subjective Encounter Start Date: 07/17/17 Encounter Start Time: 08:00 Subjective: no sob, feels better -: has taken a few steps with PT - Objective Resuscitation Status: Resuscitation Status DNI:No Intubation MAR Reviewed: Yes Vital Signs & Weight: Vital Signs (12 hours) Temp Pulse Resp BP Pulse Ox 07/17/17 08:52 89 07/17/17 07:53 98 F 89 18 167/74 H 98 07/17/17 07:52 88 20 93 L 07/17/17 07:32 93 L 07/17/17 07:29 88 20 93 L 07/17/17 03:32 98.0 F 87 16 156/67 H 92 L 07/16/17 23:31 98.1 F 92 16 138/61 98 Weight Weight 217 lb 6.4 oz I&O: 07/16/17 07/17/17 07/18/17 06:59 06:59 06:59 Intake Total 1420 480 Output Total 3075 2950 Balance -1804 -3933 Result Diagrams: 07/15/17 04:27 07/15/17 04:27 Additional Labs: Accuchecks 07/17/17 07/16/17 07/16/17 05:47 20:28 16:00 POC Glucose 116 H 196 H 123 H 07/16/17 11:41 POC Glucose 124 H Phys Exam - Physical Examination HEENT: PERRLA, moist MMs Neck: no JVD, supple Respiratory: no wheezing, no rales Cardiovascular: RRR, no significant murmur Gastrointestinal: soft, non-tender, positive bowel sounds Musculoskeletal: no edema, pulses present Neurological: non-focal, moves all 4 limbs Psychiatric: A&O x 3 Dx/Plan (1) Acute respiratory failure with hypoxia and hypercapnia Code(s): J96.01 - ACUTE RESPIRATORY FAILURE WITH HYPOXIA; J96.02 - ACUTE RESPIRATORY FAILURE WITH HYPERCAPNIA Status: Resolved Comment: off bipap, on nasal canula (2) CHF exacerbation Code(s): I50.9 - HEART FAILURE, UNSPECIFIED Status: Acute Qualifiers: Congestive heart failure type: diastolic Qualified Code(s): I50.33 - Acute on chronic diastolic (congestive) heart failure Comment: resolving (3) ANNA (acute kidney injury) Code(s): N17.9 - ACUTE KIDNEY FAILURE, UNSPECIFIED Status: Resolved (4) Anemia Code(s): D64.9 - ANEMIA, UNSPECIFIED Status: Chronic Qualifiers: Anemia type: unspecified type Qualified Code(s): D64.9 - Anemia, unspecified (5) Bipolar 1 disorder, depressed Status: Chronic (6) Chronic pain disorder Code(s): G89.4 - CHRONIC PAIN SYNDROME Status: Chronic (7) DM2 (diabetes mellitus, type 2) Status: Chronic Qualifiers: Diabetes mellitus complication status: with unspecified complications Diabetes mellitus vermin exterminator insulin use: with vermin exterminator use Qualified Code(s) : E11.8 - Type 2 diabetes mellitus with unspecified complications; Z79.4 - half-way (current) use of insulin; Z79.4 - half-way (current) use of insulin; Z79.4 - half-way (current) use of insulin; Z79.4 - buttermilk drier operator (current) use of insulin (8) GERD (gastroesophageal reflux disease) Code(s): K21.9 - GASTRO-ESOPHAGEAL REFLUX DISEASE WITHOUT ESOPHAGITIS Status: Chronic Qualifiers: Esophagitis presence: esophagitis presence not specified Qualified Code(s) : K21.9 - Gastro-esophageal reflux disease without esophagitis (9) Hypertension Code(s): I10 - ESSENTIAL (PRIMARY) HYPERTENSION Status: Chronic Qualifiers: Hypertension type: essential hypertension (10) Parkinson disease Code(s): G20 - PARKINSON'S DISEASE Status: Chronic (11) CKD (chronic kidney disease) stage 3, GFR 30-59 ml/min Code(s): N18.3 - CHRONIC KIDNEY DISEASE, STAGE 3 (MODERATE) Status: Chronic - Plan hemostable -: dc pt to snf -: counselled to work with PT at [facility] -: continue to use I.spirometry, to f/u with for Parkinson's * .
--- NOTE | 2017-07-17 10:57 | PRG ---
DATE OF SERVICE: 07/17/2017 SUBJECTIVE: The patient states she had one episode of shortness of breath last night, which resolve d on its own. PHYSICAL EXAMINATION: VITAL SIGNS: Temperature 98.0, pulse 89, respirations 18, O2 saturation 98% on 3 liters, and blood pressure 167/74. HEENT: Unremarkable. NECK: No JVD. LUNGS: Without crackles or wheezes. CARDIAC: S1 and S2 regular. ABDOMEN: Soft. EXTREMITIES: Trace edema. ASSESSMENT: 1. Acute respiratory failure secondary to congestive heart failure. 2. There was a question of concurrent pneumonia. 3. Renal insufficiency. 4. Anemia. PLAN: I think she is stable for discharge. Antibiotics should be stopped after 7 days.
--- NOTE | 2017-07-17 19:42 | DIS ---
DATE OF ADMISSION: 07/12/2017 DATE OF DISCHARGE: 07/17/2017 DISCHARGE DISPOSITION: To senior living at [facility]. PRIMARY DISCHARGE DIAGNOSES: Acute respiratory failure with hypoxia and hypercapnia secondary to co ngestive heart failure exacerbation, resolved, acute kidney injury, resolved, chronic anemia, bipola r disorder, chronic pain syndrome, diabetes mellitus type 2, GERD, hypertension, Parkinson's disease with patient's progressive decline in her physical condition from last 1 year or so, chronic kidney disease stage 3. PROCEDURES DONE DURING HOSPITALIZATION: The patient has had a chest x-ray done on the day of admiss ion, which showed pulmonary vascular congestion with cardiomegaly. Blood cultures x2 no growth. In fluenza A and B antigens were negative. Urine culture no growth. Stool occult blood x1 was negativ e. H\T\H 8 and 24; on the day of discharge it had dropped down to 6.8 and 20. The patient received 1 unit of packed cell transfusion. Initial blood gas done showed a pH of 7.31, pCO2 64, pO2 111. Discharge BUN and creatinine is 18 and 1.7. Cardiac enzymes x3 were negative. BNP 565. DISCHARGE MEDICATIONS: Amantadine 100 mg p.o. daily, Norvasc 10 mg p.o. daily, aspirin 81 mg p.o. d aily, Sinemet 25/100 mg extended release 1 tab p.o. 3 times daily, Coreg 12.5 mg p.o. twice daily, O mnicef 600 mg p.o. daily for another 5 days and Depakote 250 mg p.o. twice daily, Colace 100 mg p.o. daily, Lasix 40 mg p.o. daily, Plaquenil 200 mg p.o. twice daily, Lantus 10 units subcu q.p.m., Duo Nebs q.i.d. p.r.n., lisinopril 10 mg p.o. daily, Protonix 40 mg p.o. daily, Florastor 250 mg p.o. da margret, clonazepam 0.25 mg p.o. twice daily, Lamictal 75 mg p.o. daily, ropinirole 0.5 mg p.o. q.p.m. ALLERGIES: ATORVASTATIN, NALBUPHINE, and LYRICA. INPATIENT CONSULTS: Dr. Mancia for Cardiology and Dr. Jamison for Gastroenterology, Dr. Purvis for Pulmonology. BRIEF COURSE DURING HOSPITALIZATION: Patient initially got admitted on the after she was sent from senior living for complaints of shortness of breath. She was placed on BiPAP due to hypoxia and hypercarbia with initial saturations of 69 per ER records. She was aggressively diuresed and has r esponded well. She came off BiPAP. She was later downgraded to medical floor. The patient has had history of diastolic dysfunction. There was also initial suspicion of possible underlying pneumoni a and she was on IV antibiotics, which has been transitioned to Omnicef. Patient is also severely d econditioned prior to arrival and had mentioned that she had not ambulated for almost a year now. S he has known history of Parkinson's and follows up with Dr. Viridiana Jain. She has ambulated nearly 8- 10 steps with a rolling walker and physical therapy prior to discharge. She is also eating well and has been counseled to participate with physical therapy, which she states she gets daily at the [employer] [employer] [facility]. She is otherwise hemodynamically stable and has been cleared by Dr. Conde for discharg e. Please see a face to face documentation on [facility] for the day of discharge. Total of 35 minutes was spent on discharge plan.
== END 2017-07-17 17:39 | DRG 291 ==
LOC: ERS 00:56 → IMCU/EMU 03:38 → ONC 07-15 12:56
PROVIDERS: ADMIT Internal Medicine; ATTEND Internal Medicine
PROC: 5A09357 Assistance with Respiratory Ventilation, Less than 24 Consecutive Hours, Continuous Positive Airway Pressure (ICD-10-PCS; principal; 2017-07-12)
PROC: 5A09357 Assistance with Respiratory Ventilation, Less than 24 Consecutive Hours, Continuous Positive Airway Pressure (ICD-10-PCS; 2017-07-13)
PROC: 30233N1 Transfusion of Nonautologous Red Blood Cells into Peripheral Vein, Percutaneous Approach (ICD-10-PCS; 2017-07-13)
DX: I13.0 Hypertensive heart and chronic kidney disease with heart failure and stage 1 through stage 4 chronic kidney disease, or unspecified chronic kidney disease (principal); I50.33 Acute on chronic diastolic (congestive) heart failure; J96.21 Acute and chronic respiratory failure with hypoxia; J96.02 Acute respiratory failure with hypercapnia; N17.9 Acute kidney failure, unspecified; J18.9 Pneumonia, unspecified organism; E87.2 Acidosis; E11.22 Type 2 diabetes mellitus with diabetic chronic kidney disease; N18.3 Chronic kidney disease, stage 3 (moderate); G20 Parkinson's disease; Z99.81 Dependence on supplemental oxygen; D64.9 Anemia, unspecified; Z66 Do not resuscitate; E66.01 Morbid (severe) obesity due to excess calories; Z68.37 Body mass index [BMI] 37.0-37.9, adult; F31.9 Bipolar disorder, unspecified; K21.9 Gastro-esophageal reflux disease without esophagitis; Z99.3 Dependence on wheelchair; G89.4 Chronic pain syndrome; R32 Unspecified urinary incontinence; Z87.891 Personal history of nicotine dependence; K57.30 Diverticulosis of large intestine without perforation or abscess without bleeding; K58.9 Irritable bowel syndrome, unspecified
CPT/HCPCS: 36415; 36416; 36430; 71010; 80048; 80053; 82274; 82553; 82805; 83880; 84484; 85025; 86850; 86900; 86901; 87040; 87086; 93005; 94640; 94660; 94760; 96374; G8978-GP-CL; G8979-GP-CJ; G8987-GO-CK; G8988-GO-CJ; J0696; J1644; J1940; J7050; J7620; P9016

== ENCOUNTER 2017-10-18 06:07 | Inpatient (IN) | payer MEDICARE, MEDICAID ==
[2017-10-18 06:25] LABS: CO2 Tension 49.6 mmHg (35.0-45.0); O2 Tension (PaO2) 74.9 mmHg (80.0-100.0)
[2017-10-18 06:26] LABS: Base Excess (BEa) -2.3 mEq/L (0 (+/-) 2.5); Hemoglobin (Hb) 7.5 g/dL (12.0-16.0)
[2017-10-18 06:27] LABS: Analyzer IN Cardio ER; Calcium, Ionized 1.2 mmol/L (1.12-1.30); Puncture Site LRA
[2017-10-18 07:20] LABS: #Eosinphils 0.1 thou/uL (0.0-0.7); #Lymphocytes 0.8 thou/uL (1.20-3.40); #Monocytes 0.6 thou/uL (0.11-0.59); #Neutrophils 10.1 thou/uL (1.40-6.50); %Basophils 0.2 % (0.0-1.0); %Eosinophils 0.9 % (0.0-10.0); %Lymphocytes 7.1 % (21.0-51.0); %Monocytes 5.1 % (0.0-10.0); %Neutrophils 86.8 % (42.0-75.0); Hemoglobin 7.7 g/dL (12.0-16.0); Mean Corpuscular HGB CONC 32.6 g/dL (32.0-36.0); Mean Corpuscular Hemoglobin 31.8 pg (27.0-31.0); Mean Corpuscular Volume 97.4 fl (81.0-99.0); Mean Platelet Volume 7.8 fL (7.4-10.4); Platelet Count 239 thou/uL (130-400); RBC Distribution Width 13.2 % (11.5-14.5); Red Blood Cell (RBC) Count 2.41 mill/uL (4.20-5.40); White Blood Cell (WBC) Count 11.7 thou/uL (4.8-10.8)
[2017-10-18 07:29] LABS: INR-International Normal Ratio 1.1; PTT 32.2 SEC (22.9-36.1); Prothrombin Time 14.4 SEC (12.0-14.7)
[2017-10-18 07:36] LABS: ALT (SGPT) 7 U/L (8-55); AST (SGOT) 9 U/L (5-34); Albumin 3.9 g/dL (3.4-4.8); Alkaline Phosphatase 130 U/L (40-150); Anion Gap 13 mmol/L (10-20); BUN (Urea Nitrogen) 42 mg/dL (9.8-20.1); Bilirubin, Total 0.4 mg/dL (0.2-1.2); CK (CPK) 91 U/L (29-168); Calc. Creatinine Clearance 0 mL/min (70-130); Calcium 8.8 mg/dL (7.8-10.44); Carbon Dioxide 25 mmol/L (23-31); Chloride 105 mmol/L (98-107); Estimated GFR-MDRD 17; Globulin 3.5 g/dL (2.4-3.5); Glucose 111 mg/dL (80-115); Potassium 5.6 mmol/L (3.5-5.1); Protein, Total 7.4 g/dL (6.0-8.3); Sodium 137 mmol/L (136-145)
[2017-10-18 07:41] LABS: CKMB 2.6 ng/mL (0-6.6); Troponin I 0.024 ng/mL (< 0.028)
[2017-10-18 08:02] LABS: Bilirubin Small (Negative); Blood, Urine Negative (Negative); Clarity CLEAR (Clear); Glucose, Urine (Dipstick) Negative (Negative); Leukocyte Negative (Negative); Nitrite Negative (Negative); Protein, Urine (Dipstick) 100 mg/dL (Neg-Trace); Specific Gravity, Urine 1.015 (1.002-1.036); Urobilinogen 0.2 mg/dL (0.2-1.0)
[2017-10-18 08:05] LABS: Bacteria/HPF None Seen HPF (None Seen); Hyaline Casts/LPF 0-3 HYALINE CAST LPF (0-3 Hyaline); RBC/HPF 0-3 HPF (0-3); Squamous Epithelial None Seen HPF (0-3); WBC/HPF None Seen HPF (0-3)
--- NOTE | 2017-10-18 08:35 | RAD ---
CHEST 1 VIEW: Date: 10/18/17 HISTORY: Dyspnea. COMPARISON: Chest 1 view dated 07/12/17. FINDINGS: Small effusions. Pulmonary venous congestion and mild edema. No pneumothorax. Cardiac silhouette and mediastinal contours are similar. IMPRESSION: Mild cardiomegaly with small effusions and pulmonary edema suggesting congestive heart failure. Follo w-up recommended. POS: [facility]
[2017-10-18 08:56] LABS: Actual Bicarbonate (HCO3a) 23.5 mEq/L (22-26); Base Excess (BEa) -3.3 mEq/L (0 (+/-) 2.5); CO2 Tension 52.4 mmHg (35.0-45.0); Hemoglobin (Hb) 7.4 g/dL (12.0-16.0); pH, Arterial 7.27 (7.35-7.45)
[2017-10-18 08:57] LABS: Analyzer IN Cardio ER; Calcium, Ionized 1.2 mmol/L (1.12-1.30); Puncture Site RRA
[2017-10-18] MEDS ORDERED: Fentanyl 100 MCG/2 ML VIAL ONE (09:13)
[2017-10-18 10:01] LABS: Troponin I 0.029 ng/mL (< 0.028)
[2017-10-18] MEDS ORDERED: Ondansetron HCl/PF 4 MG/2 ML Vial IVP PRN (10:54)
[2017-10-18] MEDS ORDERED: Albuterol Sulfate 2.5 mg/3 ml Neb NEB PRN (11:02)
--- NOTE | 2017-10-18 11:48 | HP ---
DATE OF ADMISSION: 10/18/2017 CHIEF COMPLAINT: Shortness of breath. HPI: This is a 72-year-old white female, morbidly obese. [facility] [place] She presented with acute onset of shortness of breath, it is worsening on sleeping flat, not feeling chest pain, no nausea, no vomiting, and she has been having this shortness of breath for the past 3-4 days, which progressively got worsened to this extent. The patient has a known past medical history of congestive heart failure and she sees a classics teacher in town. The patient was seen by the ER physician today and she was started on BiPAP, unable to get her off of the BiPAP. The patient was continued on the BiPAP. She has a persistent CO2 retention. It was decided to admit the patient to the IMCU. Patient denied having any chest pain, but she clearly stated she do not want to be intubated, but CPR was okay. PAST MEDICAL HISTORY: 1. Parkinson's disease. 2. Back pain. 3. Type 2 diabetes mellitus. 4. Hypertension. 5. GERD. 6. Dyslipidemia. 7. Bipolar disorder. 8. Irritable bowel syndrome. PAST SURGICAL HISTORY: 1. Hysterectomy. 2. Spinal surgery. 3. Tubal ligation. 4. Tonsillectomy. 5. Cholecystectomy. 6. Appendectomy. ALLERGIES: LIPITOR, IBUPROFEN, LYRICA, AND CIPRO. FAMILY HISTORY: Mother at age of 83 and dementia. Father at the age of 68. SOCIAL HISTORY: The patient is a previous smoker. No history of alcohol, no history of illicit drug use. REVIEW OF SYSTEMS: All 12 systems are reviewed with the patient thoroughly and found to be negative at this time except ones described in HPI. The following complete review of systems was negative, unless otherwise mentioned in the HPI or below: Constitutional: Weight loss or gain, sense of well-being, ability to conduct usual activities, exercise tolerance. Skin/Breast: Rash, itching, changes in hair growth or loss, nail changes, breast lumps, tenderness, swelling, nipple discharge. Eyes: Vision, double vision, tearing, blind spots, pain. ENT/Mouth : Headaches (location, time of onset, duration, precipitating factors), vertigo , lightheadedness, injury. Vision, double vision, tearing, blind spots, pain, nose bleeding, colds, obstruction, discharge, dental difficulties, gingival bleeding, dentures, neck stiffness, pain, tenderness, masses in thyroid or other areas. Cardiovascular: Precordial pain, substernal distress, palpitations, syncope, dyspnea on exertion, orthopnea, nocturnal paroxysmal dyspnea, edema, cyanosis, hypertension, heart murmurs, varicosities, phlebitis, claudication. Respiratory: Pain, shortness of breath, wheezing, stridor, cough , hemoptysis, fever or night sweats. Gastrointestinal: Poor appetite, dysphagia, indigestion, abdominal pain, heartburn, eructation, nausea, vomiting , hematemesis, jaundice, constipation, or diarrhea, abnormal stools (mayra- colored, tarry, bloody, greasy, foul smelling), flatulence, hemorrhoids, recent changes in bowel habits. Genitourinary: Urgency, frequency, dysuria, nocturia , hematuria, polyuria, oliguria, unusual (or change in) color of urine, stones, hesitancy, change in size of stream, dribbling, acute retention or incontinence , libido, potency. Musculoskeletal: Pain, swelling, redness or heat of muscles or joints, limitation, of motion, muscular weakness, atrophy, cramps. Neurologic/Psychiatric: Convulsions, paralyses, tremor, incoordination, paresthesias, difficulties with memory of speech, sensory or motor disturbances , or muscular coordination (ataxia, tremor), emotional problems, anxiety, depression, previous psychiatric care, unusual perceptions, hallucinations. Allergy/Immunologic: Skin rash, anemia, bleeding tendency, polydipsia, polyuria , intolerance to heat or cold. HOME MEDICATIONS: Home medications have been reconciled. Please see the medication list. PHYSICAL EXAMINATION: VITAL SIGNS: Blood pressures are 156/80, heart rate is 88, respirations 20, saturation is 93% on BiPAP 30% FiO2. GENERAL: The patient is seen sitting on the bed with severe respiratory distress. HEENT: Atraumatic, normocephalic. PERRLA. Extraocular movements were intact. Oral mucosa pink and moist. CARDIOVASCULAR: S1, S2 normal. No murmurs, rubs or gallops. LUNGS: Bilateral air entry was equal. Wheezing and crackles were noted in the lower bases. ABDOMEN: Distended, nontender, no guarding, no rebound tenderness. Bowel sounds are normal. MUSCULOSKELETAL: No calf tenderness. No pedal edema. EXTREMITIES: No joint redness, no joint swelling. SKIN: No cyanosis, no erythema, no rash, no pallor. NEUROLOGIC: Cranial nerve examination II-XII intact. No focal deficits were noted. LABORATORY DATA: WBC 11.7, hemoglobin 7.7, hematocrit 23.5, platelets are 239. Sodium 137, potassium 5.7, chloride is 105, bicarbonate is 25, BUN is 42, creatinine is 2.78. Troponin 0.029. UA. Negative for any urinary tract infection. Chest x-ray was seen showing evidence of bilateral infiltrate and bilateral pleural effusions with signs suggestive of congestive heart failure. ASSESSMENT AND PLAN: 1. Acute hypoxic and hypercapnic respiratory failure. 2. Acute chronic obstructive pulmonary disease exacerbation. 3. Acute congestive heart failure, likely diastolic dysfunction. 4. Acute hyperkalemia. 5. Acute kidney injury on chronic kidney disease. 6. Msk-UP-uneeesylh myocardial infarction. 7. Type 2 diabetes mellitus. 8. Hypertension. 9. Morbid obesity. PLAN: 1. The plan is to admit this patient to [facility]. We will continue the patient on the BiPAP at the current settings and will consult the Pulmonology. The patient has clear retention of the CO2 and will benefit from the BiPAP and the patient does not want to be intubated. She stated that very clearly. So we will closely monitor and continue with DuoNebs and albuterol nebulizer treatments. 2. The patient has evidence of congestive heart failure with elevated BNP and with the fluid on the chest x-ray, we will continue the Lasix 40 mg IV b.i.d. and start the patient on TAWANA inhibitors 2.5 mg lisinopril and spironolactone 12.5 mg daily and we will hold off of the Coreg at this time as the patient is acutely wheezing with the COPD. 3. The patient has elevated troponins were closely monitored. Most likely this could be related to her demand ischemia. We will consult Cardiology because of the new onset of congestive heart failure and will follow up with a 2D echo. 4. The patient has hypertension, well controlled. We will restart her home medications as needed. The patient has history of type 2 diabetes mellitus. We will restart the patient on her home medications and with sliding scale insulin. 5. Morbid obesity. Encouraged the patient to lose weight. 6. DVT prophylaxis. Lovenox 40 mg subcu daily. I spent 70 minutes with this patient. Of this, one hour is critical care time. DAVIDD
[2017-10-18 12:08] VITALS: BMI 36.8
[2017-10-18 13:45] LABS: Troponin I 0.032 ng/mL (< 0.028)
[2017-10-18] MEDS: Furosemide 40 MG/4 ML VIAL SLOW IVP SCH (15:37)
--- NOTE | 2017-10-18 15:55 | CON ---
DATE OF CONSULTATION: 10/18/2017 CONSULTING PHYSICIAN: Hospitalist group. REASON FOR CONSULTATION: Shortness of breath and respiratory failure. HISTORY OF PRESENT ILLNESS: Ms. Holt is a 72-year-old female who presented to the hospital earlier today with shortness of breath which started acutely this morning, but has been progressing over the last 3-4 days. She has a known history of congestive heart failure and has been hospitalized for similar reasons here in the past. She is currently on BiPAP and cannot give me much in the way of history. What I have is obtained from speaking with the patient, reviewing notes, and reviewing old records. PAST MEDICAL HISTORY: 1. Chronic diastolic heart failure. 2. Parkinson disease. 3. Back pain. 4. Diabetes mellitus type 2. 5. Obesity. 6. Hypertension. 7. Hyperlipidemia. 8. Irritable bowel syndrome. PAST SURGICAL HISTORY: 1. Hysterectomy. 2. Spinal surgery. 3. Appendectomy. 4. Cholecystectomy. 5. Lumbar laminectomy for cervical neck fusion. 6. Tonsillectomy. 7. Tubal ligation. 8. Cataract surgery. FAMILY MEDICAL HISTORY: Remarkable for supranuclear palsy in her father as well as colon cancer, dementia and hypertension. SOCIAL HISTORY: She quit smoking over 10 years ago. Does not use illicit drugs , does not consume alcohol. MEDICATIONS PRIOR TO ADMISSION: 1. Carbidopa/levodopa/entacapone. 2. Neurontin 600 mg t.i.d. 3. Lantus insulin 10 units q.p.m. 4. Plaquenil 200 mg b.i.d. 5. Requip 0.5 mg every evening. 6. Amantadine 100 mg daily. 7. Lamictal 75 mg daily. 8. Klonopin 0.25 mg b.i.d. 9. Propylene glycol eyedrops. 10. Flovent Diskus 50 mcg 1 puff daily. 11. Docusate sodium 100 mg daily. 12. Phenergan 50 mg every 6 hours as needed. 13. Percocet 5/325 one 5 times daily. 14. Protonix 40 mg daily. 15. Lasix 40 mg daily. 16. Florastor 250 mg daily. 17. Tums twice daily. 18. Zanaflex 4 mg b.i.d. 19. Carvedilol 12.5 mg b.i.d. 20. Loperamide 2 mg as needed. 21. Amlodipine 10 mg daily. 22. Breo one puff daily. 23. DuoNeb 4 times daily as needed. 24. Aspirin 81 mg daily. 25. Depakote 250 mg b.i.d. 26. Benadryl 25 mg every 6 hours. 27. Zyrtec 10 mg daily. ALLERGIES: ATORVASTATIN, NALBUPHINE, and LYRICA. REVIEW OF SYSTEMS: Twelve point review of systems otherwise negative. PHYSICAL EXAMINATION: VITAL SIGNS: Temperature 99.4, pulse 111, respirations 23, O2 sat 97%, and blood pressure 129/95. HEENT: Unremarkable for abnormalities. NECK: No JVD. LUNGS: Coarse breath sounds bilaterally. CARDIOVASCULAR: S1, S2 regular. ABDOMEN: Obese, soft, nontender, nondistended. EXTREMITIES: Trace edema. NEUROLOGIC: Moves all four extremities. PSYCHIATRIC: Alert but not oriented. SKIN: No rashes, bruising or jaundice. LABORATORY DATA: White blood cell count 11.7, hematocrit 23.5, platelet count 239. INR 1.1. pH 7.27, pCO2 of 52, pO2 of 101 on BiPAP 12/6. Sodium 137, potassium 5.6, chloride 105, CO2 of 25, BUN 42, creatinine 2.7, glucose 111. BNP is 334. A chest x-ray reviewed by myself shows diffuse bilateral infiltrates, predominantly at the bases. ASSESSMENT: 1. Acute respiratory failure related to acute diastolic congestive heart failure. 2. Renal insufficiency with elevated BUN and creatinine and hyperkalemia. 3. Acute respiratory failure requiring mechanical ventilation. 4. Medical noncompliance. 5. Chronic pain. RECOMMENDATIONS: 1. Continue BiPAP. 2. Diurese. 3. Monitor renal function. 4. Nebulization treatments. 5. Equivocal on steroids. We will follow with you. 50 minutes consult time. Of those 50 minutes, greater than 50% of time was spent on counseling and coordination of care. ZEE
[2017-10-18] MEDS: Famotidine/PF 20 mg/2ml Vial SLOW IVP SCH (20:03)
--- NOTE | 2017-10-18 20:50 | CON ---
DATE OF ADMISSION: 10/18/2017 DATE OF CONSULTATION: 10/18/2017 INDICATION FOR CONSULTATION: A 72-year-old female with CHF, diastolic dysfunction exacerbation and a lso COPD exacerbation. HISTORY OF PRESENT ILLNESS: This lady who [facility] in a prison, who has been complaining of inc reased shortness of breath for the last 3-4 days. She eventually was brought to the emergency room a nd required intubation and now she is on the CPAP mask, but has had long history of diastolic dysfunc tion as well as COPD. She has had history also of Parkinson's disease. Her O2 saturations were decr eased, she is now somewhat improved, O2 saturations have improved, they are now up to 95% with CPAP m ask. She also has a low grade temperature. She denies any chest pain. Her EKG does not show any ac pilot station changes. She has a sinus rhythm with no acute changes, indicate ischemia. Her BNP was slightly elevated at 334, which is more indicative for pulmonary problems and for cardiac, but she does have a history of diastolic dysfunction, also she was noted to be anemic with hemoglobin of 7.7. At this t linda, she denies any chest pain and appears to be relatively comfortable. PAST MEDICAL HISTORY: Significant for diastolic dysfunction, type 2 diabetes, hypertension, Parkinso n's disease, gastroesophageal reflux disease, bipolar disorder, dyslipidemia, irritable bowel syndrom e, chronic back pain. She has had a hysterectomy, tubal ligation, spinal surgery, tonsillectomy, rush endectomy and cholecystectomy. MEDICATIONS: Her medications prior to admission included Zanaflex, Requip, Lamictal, Percocet as nee ded, hydralazine, Depakote, Plaquenil, Stalevo, amantadine, aspirin, Florastor, docusate sodium, Lasi x, hydrochlorothiazide, carvedilol, Norvasc, Protonix, Neurontin, Abilify, Sinemet, Klonopin and mary nopril. ALLERGIES: She is allergic to LYRICA, ATORVASTATIN and IBUPROFEN. SOCIAL HISTORY: She smoked in the past, but stopped about 10 years ago. Previously, she smoked a pa ck a day for about 20 years. She denies any alcohol or drug use. FAMILY HISTORY: Noncontributory for any early heart disease. REVIEW OF SYSTEMS: Please refer to the notes already dictated, but the review of systems is somewhat difficult to obtain due to her being on the CPAP mask, but she denies anything except for the shortn ess of breath. She denies any chest pain. No GI or complaints. PHYSICAL EXAMINATION: GENERAL: Reveals an elderly female who is on a BiPAP mask. VITAL SIGNS: Blood pressure is 126/57, respiratory rate 16, O2 saturation 95%, heart rate is 100, te mperature is 100.2. HEENT: Shows head to be normocephalic, atraumatic. Carotid pulses are present. I do not hear any b ruits. There is increased airway noise. CARDIOVASCULAR: Reveals a regular rate and rhythm. Heart sounds are somewhat distant. I did not he ar any significant murmurs, heaves, thrills, bruits or rubs. ABDOMEN: Obese with positive bowel sounds. EXTREMITIES: Show 1-2+ lower extremity edema. Pedal pulses are difficult to palpate. SKIN: Warm and dry. NEUROLOGIC: She appears to be intact. LABORATORY DATA: As noted above and also with a creatinine of 2.78. Her baseline is usually less th an 2. Her potassium is 5.6, BUN was 42, blood sugar was 141. Her troponin I was 0.024 on admission, has now increased up to 0.032 with a BNP of 334. Her hemoglobin was 7.7 with hematocrit of 23.5. IMPRESSION: 1. Acute chronic obstructive pulmonary disease exacerbation, most likely also associated with her ch ronic diastolic dysfunction. She did have an echocardiogram last year, which showed an ejection frac tion of 55-60% with mild diastolic dysfunction with mitral valve regurgitation and mild tricuspid estrellita ve regurgitation with mild mitral and tricuspid valve regurgitation. At this time, I would agree wit h her present management with medications with IV diuretics. We will need to be careful not to over diurese this lady. Since being in the hospital, she has had no listing of her I's and O's thus far, but has been given IV Lasix. We will need to follow this tomorrow and see how she adapts to the diur etics. Her daughter actually admitted that the patient drinks unlimited amounts of diet cokes and boothe s not been monitoring her fluid intake. 2. History of hypertension. This is under good control at this time. 3. History of mild diastolic dysfunction. She will continue her medications at that time. There is no indication the patient has had any coronary artery disease in the past and she denies any chest p ain. 4. Diabetes, which will be dealt with by the primary care service. 5. Gastroesophageal reflux disease. She appears to be comfortable at this time. We will be more th an happy to continue to follow the patient with you.
--- NOTE | 2017-10-19 00:33 | ADD-CON ---
ADDENDUM Please note that her EKG shows a sinus tachycardia with decreased R-wave progression in V1 through V6 with what appears to be a left anterior fascicular block, but no acute ST segment changes were noted . Please note that her cardiac enzymes are still indeterminate, and do not appear to be due to ischemia . This may be demand ischemia, but does not appear to be due to a non-ST segment elevation myocardia l infarction with continued follow up.
[2017-10-19 04:33] LABS: #Lymphocytes 0.6 thou/uL (1.20-3.40); #Monocytes 0.3 thou/uL (0.11-0.59); #Neutrophils 10.1 thou/uL (1.40-6.50); %Lymphocytes 5.3 % (21.0-51.0); %Monocytes 2.9 % (0.0-10.0); %Neutrophils 91.8 % (42.0-75.0); Hemoglobin 6.6 g/dL (12.0-16.0); Mean Corpuscular HGB CONC 33.2 g/dL (32.0-36.0); Mean Corpuscular Hemoglobin 32.7 pg (27.0-31.0); Mean Corpuscular Volume 98.2 fl (81.0-99.0); Mean Platelet Volume 8.2 fL (7.4-10.4); Platelet Count 203 thou/uL (130-400); RBC Distribution Width 12.8 % (11.5-14.5); Red Blood Cell (RBC) Count 2.01 mill/uL (4.20-5.40)
[2017-10-19 04:47] LABS: Anion Gap 15 mmol/L (10-20); BUN (Urea Nitrogen) 48 mg/dL (9.8-20.1); Calc. Creatinine Clearance 33 mL/min (70-130); Calcium 8.6 mg/dL (7.8-10.44); Carbon Dioxide 21 mmol/L (23-31); Chloride 106 mmol/L (98-107); Estimated GFR-MDRD 17; Glucose 177 mg/dL (80-115); Potassium 5.3 mmol/L (3.5-5.1); Sodium 137 mmol/L (136-145)
[2017-10-19] MEDS: Furosemide 40 MG/4 ML VIAL SLOW IVP SCH ×2 (05:13→14:47)
[2017-10-19] MEDS ORDERED: Lisinopril 2.5 MG TAB PO SCH (09:00)
[2017-10-19] MEDS ORDERED: Spironolactone 25 MG TAB PO SCH (09:00)
[2017-10-19] MEDS ORDERED: Enoxaparin Sodium 40 MG/0.4 ML SYRINGE SC SCH ×2 (09:00)
[2017-10-19] MEDS: Enoxaparin Sodium 30 MG/0.3 ML SYRINGE SC SCH (09:29)
[2017-10-19] MEDS: Acetaminophen 325 MG TAB PO PRN (09:30)
[2017-10-19] MEDS: HYDROcodone/Acetaminophen 5/325 mg Tablet PO PRN ×2 (11:30→15:42)
--- NOTE | 2017-10-19 11:58 | PRG ---
DATE OF SERVICE: 10/19/2017 SUBJECTIVE: The patient is doing better. She has been off the BiPAP since early this morning. OBJECTIVE: VITAL SIGNS: Temperature is 98.5, pulse 100, respirations 17, O2 sat 99% on 2 liters and blood press ure 153/74. HEENT: Unremarkable. NECK: Without adenopathy or JVD. LUNGS: Coarse breath sounds. CARDIAC: S1, S2 regular. ABDOMEN: Soft. EXTREMITIES: No edema. LABORATORY DATA: White blood cell count 11, hematocrit 19.8 and platelet count 203. Sodium 137, pot assium 5.3, chloride 106, CO2 of 20, BUN 40, creatinine 2.7, glucose 177 and BNP 888. ASSESSMENT: 1. Congestive heart failure. 2. Status post acute respiratory failure. 3. Renal dysfunction. 4. Severe anemia. PLAN: The patient probably needs to be transfused 1 unit of blood and she should continue on IV Lasi x.
--- NOTE | 2017-10-19 14:55 | PDOC.PN ---
- Subjective Encounter Start Date: 10/19/17 Encounter Start Time: 14:00 Alysia is seen today, alert and oriented. She has h/o parkinson disease, Will restart her Home meds. No other concern noted. - Objective MAR Reviewed: Yes Vital Signs & Weight: Vital Signs (12 hours) Temp Pulse Pulse Pulse Pulse Resp BP 10/19/17 14:20 97.8 F 99 22 H 10/19/17 12:31 100 103 H 152/73 H 10/19/17 11:41 98.6 F 102 H 18 10/19/17 11:04 100 17 10/19/17 08:21 98.5 F 96 15 10/19/17 07:45 98.5 F 96 15 10/19/17 07:30 94 10/19/17 07:29 95 17 10/19/17 04:00 99.0 F 95 20 BP BP BP Pulse Ox Pulse Ox Pulse Ox 10/19/17 14:20 178/74 H 94 L 10/19/17 12:31 172/66 H 99 98 10/19/17 11:41 178/74 H 100 10/19/17 11:04 99 10/19/17 08:21 99 10/19/17 07:45 153/74 H 98 10/19/17 07:30 10/19/17 07:29 99 10/19/17 04:00 156/61 H 97 Weight Weight 230 lb 3.201 oz I&O: 10/18/17 10/19/17 10/20/17 06:59 06:59 06:59 Intake Total 0 Output Total 1705 Balance -1705 0 Result Diagrams: 10/19/17 03:53 10/19/17 03:53 Additional Labs: Accuchecks 10/19/17 10/19/17 10/18/17 11:12 05:30 20:23 POC Glucose 292 H 192 H 171 H 10/18/17 15:36 POC Glucose 141 H Radiology Reviewed by me: Yes EKG Reviewed by me: Yes Phys Exam - Physical Examination HEENT: PERRLA, moist MMs Neck: no nodes, no JVD Respiratory: no wheezing, no rales Cardiovascular: RRR, no significant murmur Gastrointestinal: soft, non-tender Musculoskeletal: no edema, pulses present Dx/Plan (1) CHF, acute Code(s): I50.9 - HEART FAILURE, UNSPECIFIED Status: Acute Qualifiers: Congestive heart failure type: diastolic Qualified Code(s): I50.31 - Acute diastolic (congestive) heart failure Comment: Will continue with IV diuresis. ACEI and spironlactone is held because of hyperkalemia, improvijg, Cardiology Following. Pt has Cardiorenal syndrome, Will need to continue to Diuresis with some renal dysfucntion. (2) Acute kidney failure Status: Acute Qualifiers: Acute renal failure type: unspecified Qualified Code(s): N17.9 - Acute kidney failure, unspecified Comment: Worsening Renal failure with CKD stage 3, will consult Dr. amezquita. (3) CKD (chronic kidney disease) stage 3, GFR 30-59 ml/min Code(s): N18.3 - CHRONIC KIDNEY DISEASE, STAGE 3 (MODERATE) Status: Chronic Comment: plan as above. (4) DM2 (diabetes mellitus, type 2) Status: Chronic Qualifiers: Diabetes mellitus complication status: with unspecified complications Diabetes mellitus terminologist insulin use: with long-term use Qualified Code(s) : E11.8 - Type 2 diabetes mellitus with unspecified complications; Z79.4 - prison (current) use of insulin; Z79.4 - prison (current) use of insulin; Z79.4 - prison (current) use of insulin; Z79.4 - prison (current) use of insulin Comment: Will restart her home emds. Will continue wiTH SSI. keep BG 140-180 (5) Hypertension Code(s): I10 - ESSENTIAL (PRIMARY) HYPERTENSION Status: Chronic Qualifiers: Hypertension type: essential hypertension (6) Parkinson disease Code(s): G20 - PARKINSON'S DISEASE Status: Chronic Comment: Restrt her home meds. (7) Acute respiratory failure with hypoxia and hypercapnia Code(s): J96.01 - ACUTE RESPIRATORY FAILURE WITH HYPOXIA; J96.02 - ACUTE RESPIRATORY FAILURE WITH HYPERCAPNIA Status: Resolved Comment: off bipap, on nasal canula - Plan cont current plan of care, plan discussed w/ family, respiratory therapy, incentive spirometry, DVT proph w/lovenox * . - Discharge Day Encounter end time: 14:35 Review of Systems - Review of Systems Constitutional: weakness Eyes: negative: Pain, Vision Change, Conjunctivae Inflammation, Eyelid Inflammation, Redness, Other ENT: negative: Ear Pain, Ear Discharge, Nose Pain, Nose Discharge, Nose Congestion, Mouth Pain, Mouth Swelling, Throat Pain, Throat Swelling, Other Respiratory: Cough, Shortness of Breath, Wheezing. negative: Dry, Hemoptysis, SOB with Excertion, Pleuritic Pain, Sputum Cardiovascular: orthopnea. negative: chest pain, palpitations, paroxysmal nocturnal dyspnea, edema, light headedness, other Gastrointestinal: negative: Nausea, Vomiting, Abdominal Pain, Diarrhea, Constipation, Melena, Hematochezia, Other Genitourinary: negative: Dysuria, Frequency, Incontinence, Hematuria, Retention , Other Neurological: Weakness, Numbness - Medications/Allergies Allergies/Adverse Reactions: Allergies Allergy/AdvReac Type Severity Reaction Status Date / Time atorvastatin [From Lipitor] Allergy Verified 07/12/17 08:36 nalbuphine Allergy Verified 07/12/17 08:36 pregabalin [From Lyrica] Allergy Verified 07/12/17 08:36 Medications: Current Medications Acetaminophen (Tylenol) 650 mg PO Q4H PRN PRN Reason: Headache/Fever or MILD Pain Last Admin: 10/19/17 09:30 Dose: 650 mg Hydrocodone Bitart/Acetaminophen ([place] 5/325) 1 tab PO Q4H PRN PRN Reason: Moderate Pain (4-6) Last Admin: 10/19/17 11:30 Dose: 1 tab Albuterol Sulfate (Ventolin) 2.5 mg NEB Q2H PRN PRN Reason: Wheezing Albuterol/Ipratropium (Duoneb) 3 ml NEB [id number] COUNTS INCLUDE 234 BEDS AT THE [facility] Last Admin: 10/19/17 11:04 Dose: 3 ml Aspirin (Aspirin Chewable) 81 mg PO DAILY COUNTS INCLUDE 234 BEDS AT THE [facility] Last Admin: 10/19/17 09:29 Dose: 81 mg Clonazepam (Klonopin) 0.25 mg PO BID COUNTS INCLUDE 234 BEDS AT THE [facility] Divalproex Sodium (Depakote) 250 mg PO BID COUNTS INCLUDE 234 BEDS AT THE [facility] Enoxaparin Sodium (Lovenox) 30 mg SC 0900 COUNTS INCLUDE 234 BEDS AT THE [facility] Last Admin: 10/19/17 09:29 Dose: 30 mg Famotidine (Pepcid) 20 mg SLOW IVP 2100 COUNTS INCLUDE 234 BEDS AT THE [facility] Last Admin: 10/18/17 20:03 Dose: 20 mg Furosemide (Lasix) 40 mg SLOW IVP 0600,1400 COUNTS INCLUDE 234 BEDS AT THE [facility] Last Admin: 10/19/17 14:47 Dose: 40 mg Hydroxychloroquine Sulfate (Plaquenil) 200 mg PO BID COUNTS INCLUDE 234 BEDS AT THE [facility] Lamotrigine (Lamictal) 75 mg PO DAILY COUNTS INCLUDE 234 BEDS AT THE [facility] Methylprednisolone Sodium Succinate (Solu-Medrol) 40 mg IVP 0400,1200,2000 COUNTS INCLUDE 234 BEDS AT THE [facility] Last Admin: 10/19/17 11:30 Dose: 40 mg Non-Formulary Medication (Amantadine Hcl [Amantadine]) 100 mg PO DAILY COUNTS INCLUDE 234 BEDS AT THE [facility] Non-Formulary Medication (Carbidopa/Levodopa/Entacapone [Stalevo 50]) 1 tablet PO TID COUNTS INCLUDE 234 BEDS AT THE [facility] Non-Formulary Medication (Docusate Sodium [Docusate Sodium]) 100 mg PO DAILY PRN PRN Reason: Constipation Non-Formulary Medication (Fluticasone Propionate [Flovent Diskus]) 50 mcg IH DAILY COUNTS INCLUDE 234 BEDS AT THE [facility] Non-Formulary Medication (Fluticasone/Vilanterol [Breo Ellipta]) 1 inh IH DAILY COUNTS INCLUDE 234 BEDS AT THE [facility] Non-Formulary Medication (Gabapentin [Neurontin]) 600 mg PO TID COUNTS INCLUDE 234 BEDS AT THE [facility] Non-Formulary Medication (Insulin Glargine,Hum.Rec.Anlog) 10 unit SQ QPM COUNTS INCLUDE 234 BEDS AT THE [facility] Non-Formulary Medication (Magnesium Oxide [Magnesium]) 400 mg PO DAILY COUNTS INCLUDE 234 BEDS AT THE [facility] Ondansetron HCl (Zofran) 4 mg IVP Q6H PRN PRN Reason: Nausea/Vomiting Ropinirole HCl (Requip) 0.5 mg PO QPM COUNTS INCLUDE 234 BEDS AT THE [facility] Tizanidine HCl (Zanaflex) 4 mg PO BID COUNTS INCLUDE 234 BEDS AT THE [facility]
[2017-10-19] MEDS: Entacapone 200 mg Tablet PO SCH ×2 (15:40→20:56)
[2017-10-19] MEDS: Carbidopa/Levodopa 25-100 mg Tablet PO SCH ×2 (15:40→20:54)
[2017-10-19] MEDS: Mometasone/Formoterol 120 PUFF INHALER INH SCH (19:22)
[2017-10-19] MEDS: Mometasone Furoate 120 PUFF 220 MCG INH SCH (19:23)
[2017-10-19] MEDS: Gabapentin 300 MG CAP PO SCH (20:53)
[2017-10-19] MEDS: Famotidine/PF 20 mg/2ml Vial SLOW IVP SCH (20:53)
[2017-10-19] MEDS: clonazePAM 0.5 MG TAB PO SCH (20:54)
[2017-10-19] MEDS: Hydroxychloroquine Sulfate 200 MG TAB PO SCH (20:55)
[2017-10-19] MEDS: tiZANidine HCl 4 MG TAB PO SCH (20:55)
[2017-10-19] MEDS: rOPINIRole HCl 0.5 MG TAB PO SCH (20:55)
[2017-10-19] MEDS: Divalproex Sodium 250 MG (DR) TAB PO SCH (20:56)
[2017-10-19] MEDS ORDERED: Non-Formulary Item 1 EACH (Insulin Glargine,Hum.Rec.Anlog 10 UNIT) SQ SCH (21:00)
[2017-10-19] MEDS: Insulin Detemir 100 UNITS/ML 10 UNITS in Pre-Filled Syringe 1 EACH SC SCH (21:00)
[2017-10-19] MEDS: oxyCODONE/Acetaminophen 5 mg/325 mg Tablet PO PRN (21:03)
--- NOTE | 2017-10-19 21:53 | CON ---
DATE OF CONSULTATION: 10/19/2017 CONSULTING PHYSICIAN: Samy Khanna MD REASON FOR CONSULTATION: Acute kidney injury. REASON FOR ADMISSION: Shortness of breath. HISTORY OF PRESENT ILLNESS: A 72-year-old female with history of Parkinson's disease, type 2 diabete s, CKD, CHF, came to the hospital with shortness of breath. No fever or chills. No nausea or vomiti ng. The patient is still having shortness of breath, being treated, with cardiorenal syndrome. No nausea or vomiting reported. PAST MEDICAL HISTORY: Positive for heart disease, type 2 diabetes, hypertension, GERD, hyperlipidemi a, bipolar disorder, irritable bowel syndrome. PAST SURGICAL HISTORY: Hysterectomy, spinal surgery, tubal ligation, tonsillectomy, cholecystectomy. HOME MEDICATIONS: , Stalevo, Neurontin, magnesium, Lantus, Plaquenil, amantadine, Lamictal, Klo nopin, , Flovent, docusate, Phenergan, Percocet, Protonix, Lasix, Prilosec, , Zanaflex, Imo dium, Breo, DuoNeb, aspirin, Depakote, . ALLERGIES: ATORVASTATIN, NALBUPHINE, and PREGABALIN. SOCIAL HISTORY: Previous smoker. No alcohol or illicit drug abuse. FAMILY HISTORY: Positive for heart disease and dementia. REVIEW OF SYSTEMS: The following complete review of systems was negative, unless otherwise mentioned in the HPI or below: Constitutional: Weight loss or gain, ability to conduct usual activities. Skin: Rash, itching. Eyes: Double vision, pain. ENT/Mouth: Nose bleeding, neck stiffness, pain, tenderness. Cardiovascular: Palpitations, dyspnea on exertion, orthopnea. Respiratory: Shortness of breath, wheezing, cough, hemoptysis, fever or night sweats. Gastrointestinal: Poor appetite, abdominal pain, heartburn, nausea, vomiting, constipation, or diarr hea. Genitourinary: Urgency, frequency, dysuria, nocturia. Musculoskeletal: Pain, swelling. Neurologic/Psychiatric: Anxiety, depression. Allergy/Immunologic: Skin rash, bleeding tendency. PHYSICAL EXAMINATION: GENERAL: This is an obese female, in mild distress. VITAL SIGNS: Temperature 98.2, pulse 100, respiratory rate 18, blood pressure 187/90. HEENT: Atraumatic, normocephalic. Oral mucosa is moist. NECK: Supple, no masses. CARDIOVASCULAR: S1 and S2 heard. Rate and rhythm regular. RESPIRATORY: Clear. MUSCULOSKELETAL: 1+ edema. DERMATOLOGIC: No skin rash. NEUROLOGIC: Alert and awake. PSYCHIATRIC: Mood and affect normal. LABORATORY DATA: Hemoglobin is 6.6, potassium is 5.3, BUN is 48, creatinine is 2.7. ASSESSMENT AND PLAN: 1. Acute kidney injury. Renal function is stable. No significant urine output. Agree with current management. No acute indication for dialysis. Mild hyperkalemia. 2. Anemia, rule out any bleed. 3. Edema. 4. Hypertension. 5. Continue on Lasix. If no significant urine output with worsening renal function, might need stephie l replacement therapy. No urgent indication currently. We will follow with you. Thank you for the consult.
[2017-10-20 03:44] LABS: #Lymphocytes 0.4 thou/uL (1.20-3.40); #Monocytes 0.3 thou/uL (0.11-0.59); %Eosinophils 0.2 % (0.0-10.0); %Lymphocytes 5.5 % (21.0-51.0); %Monocytes 3.5 % (0.0-10.0); %Neutrophils 90.8 % (42.0-75.0); Hemoglobin 7.8 g/dL (12.0-16.0); Mean Corpuscular HGB CONC 33.1 g/dL (32.0-36.0); Mean Corpuscular Hemoglobin 31.7 pg (27.0-31.0); Mean Corpuscular Volume 95.8 fl (81.0-99.0); Mean Platelet Volume 7.6 fL (7.4-10.4); Platelet Count 217 thou/uL (130-400); RBC Distribution Width 13.4 % (11.5-14.5); Red Blood Cell (RBC) Count 2.47 mill/uL (4.20-5.40); White Blood Cell (WBC) Count 7.7 thou/uL (4.8-10.8)
[2017-10-20 04:04] LABS: Anion Gap 12 mmol/L (10-20); BUN (Urea Nitrogen) 51 mg/dL (9.8-20.1); Calc. Creatinine Clearance 35 mL/min (70-130); Calcium 8.7 mg/dL (7.8-10.44); Carbon Dioxide 25 mmol/L (23-31); Chloride 103 mmol/L (98-107); Estimated GFR-MDRD 19; Glucose 263 mg/dL (80-115); Potassium 5.2 mmol/L (3.5-5.1); Sodium 135 mmol/L (136-145)
[2017-10-20] MEDS: oxyCODONE/Acetaminophen 5 mg/325 mg Tablet PO PRN ×4 (04:21→18:08)
[2017-10-20] MEDS: Furosemide 40 MG/4 ML VIAL SLOW IVP SCH ×2 (04:24→13:15)
[2017-10-20] MEDS: Mometasone/Formoterol 120 PUFF INHALER INH SCH ×2 (08:35→19:45)
[2017-10-20] MEDS: lamoTRIgine 25 MG TAB PO SCH (08:49)
[2017-10-20] MEDS: Entacapone 200 mg Tablet PO SCH ×3 (08:50→20:28)
[2017-10-20] MEDS: Amantadine HCl 100 mg Capsule PO SCH (08:50)
[2017-10-20] MEDS: Enoxaparin Sodium 30 MG/0.3 ML SYRINGE SC SCH (08:50)
[2017-10-20] MEDS: Hydroxychloroquine Sulfate 200 MG TAB PO SCH ×2 (08:50→20:28)
[2017-10-20] MEDS: clonazePAM 0.5 MG TAB PO SCH ×2 (08:50→20:27)
[2017-10-20] MEDS: Divalproex Sodium 250 MG (DR) TAB PO SCH ×2 (08:50→20:28)
[2017-10-20] MEDS: Gabapentin 300 MG CAP PO SCH ×3 (08:51→20:26)
[2017-10-20] MEDS: tiZANidine HCl 4 MG TAB PO SCH ×2 (08:51→20:27)
[2017-10-20] MEDS: Carbidopa/Levodopa 25-100 mg Tablet PO SCH ×3 (08:51→20:26)
[2017-10-20] MEDS: Magnesium Oxide 400 MG TAB PO SCH (08:51)
[2017-10-20] MEDS ORDERED: Docusate 100 MG CAP PO PRN (09:00)
--- NOTE | 2017-10-20 09:10 | PRG ---
DATE OF SERVICE: 10/20/2017 The patient is doing better, did not require BiPAP last night. PHYSICAL EXAMINATION: VITAL SIGNS: Temperature 98.0, pulse 99, respirations 20, O2 sat 100% on 3 liters, blood pressure wa s 107/84. HEENT: Unremarkable. NECK: No JVD. LUNGS: Mild expiratory wheezing. CARDIAC: S1 and S2 regular. ABDOMEN: Soft. EXTREMITIES: Tremor. LABORATORY DATA: White blood cell count 7.7, hematocrit 23.7, platelet count 217. Sodium 135, potas sium 5.2, chloride 103, CO2 25, BUN 51, creatinine 2.4, glucose 272. ASSESSMENT: 1. Congestive heart failure. 2. Status post acute respiratory failure requiring mechanical ventilation. 3. Renal dysfunction. 4. Anemia. PLAN: Transfer to the telemetry floor, continue diuresis, repeat labs tomorrow and watch potassium l evel closely.
[2017-10-20] MEDS ORDERED: Dextrose 5% in Water 1,000 ML IV PRN (12:25)
[2017-10-20] MEDS ORDERED: Dextrose 50% Abboject 50 ML SYRINGE SLOW IVP PRN (12:25)
--- NOTE | 2017-10-20 12:26 | PDOC.PN ---
- Subjective Encounter Start Date: 10/20/17 Encounter Start Time: 11:00 -: old records requested/rev Pt seen and examined, chart reviewed in its entirety, this is my first visit with this patient 10 point ROS performed and neg for all systems except as above - Objective MAR Reviewed: Yes Vital Signs & Weight: Vital Signs (12 hours) Temp Pulse Pulse Pulse Resp BP BP 10/20/17 11:27 97.7 F 84 20 10/20/17 11:22 85 20 10/20/17 09:16 98 96 178/75 H 178/81 H 10/20/17 08:35 99 20 10/20/17 08:06 98.0 F 91 18 10/20/17 08:00 97.6 F 91 20 10/20/17 04:20 98.0 F 91 18 10/20/17 02:28 91 16 10/20/17 02:02 90 18 BP Pulse Ox Pulse Ox Pulse Ox 10/20/17 11:27 161/75 H 98 10/20/17 11:22 98 10/20/17 09:16 96 98 10/20/17 08:35 100 10/20/17 08:06 98 10/20/17 08:00 171/84 H 100 10/20/17 04:20 157/72 H 99 10/20/17 02:28 99 10/20/17 02:02 172/75 H 99 Weight Weight 235 lb 1 oz I&O: 10/19/17 10/20/17 10/21/17 06:59 06:59 06:59 Intake Total 750 Output Total 1705 2400 Balance -1705 -1650 Result Diagrams: 10/20/17 03:21 10/20/17 03:21 Additional Labs: Accuchecks 10/20/17 10/20/17 10/19/17 10:56 05:25 21:01 POC Glucose 325 H 272 H 267 H 10/19/17 15:23 POC Glucose 255 H Radiology Reviewed by me: Yes EKG Reviewed by me: Yes Phys Exam - Physical Examination Constitutional: NAD HEENT: PERRLA, moist MMs, sclera anicteric, oral pharynx no lesions Neck: no nodes, no JVD, supple, full ROM Respiratory: no wheezing, no rhonchi bilateral fine crackles Cardiovascular: RRR, no rub 3/6 MARSHA RUSB Gastrointestinal: soft, non-tender, no distention, positive bowel sounds Musculoskeletal: pulses present, edema present Neurological: non-focal, normal sensation, moves all 4 limbs Lymphatic: no nodes Psychiatric: normal affect, A&O x 3 Skin: no rash, normal turgor, cap refill <2 seconds Dx/Plan (1) CHF exacerbation Code(s): I50.9 - HEART FAILURE, UNSPECIFIED Status: Acute Qualifiers: Congestive heart failure type: diastolic Qualified Code(s): I50.33 - Acute on chronic diastolic (congestive) heart failure Comment: acut altagracia chornic diastolic CHF: improved. continue diuresis. (2) DM2 (diabetes mellitus, type 2) Status: Chronic Qualifiers: Diabetes mellitus complication status: with unspecified complications Diabetes mellitus terminal supervisor insulin use: with terminal supervisor use Qualified Code(s) : E11.8 - Type 2 diabetes mellitus with unspecified complications; Z79.4 - prison (current) use of insulin; Z79.4 - prison (current) use of insulin; Z79.4 - buttermaker (current) use of insulin; Z79.4 - prison (current) use of insulin Comment: Will restart her home emds. Will continue wiTH SSI. keep BG 140-180 (3) Hypertension Code(s): I10 - ESSENTIAL (PRIMARY) HYPERTENSION Status: Chronic Qualifiers: Hypertension type: essential hypertension (4) Parkinson disease Code(s): G20 - PARKINSON'S DISEASE Status: Chronic Comment: Restrt her home meds. (5) Diastolic CHF Code(s): I50.30 - UNSPECIFIED DIASTOLIC (CONGESTIVE) HEART FAILURE Status: Resolved Qualifiers: Congestive heart failure chronicity: chronic Qualified Code(s): I50.32 - Chronic diastolic (congestive) heart failure Comment: ef 60-65% acute on chronic - Plan cont current plan of care, out of bed/ambulate, DVT proph w/lovenox * .
[2017-10-20] MEDS: HumaLOG 300 UNITS/3 ML VIAL SC PRN ×2 (13:15→20:21)
--- NOTE | 2017-10-20 14:02 | PRG ---
DATE OF SERVICE: 10/20/2017 SUBJECTIVE: This is a 72-year-old female being seen for acute kidney injury. The patient denies any nausea, vomiting or chest pain. PHYSICAL EXAMINATION: GENERAL: Patient is awake, alert. VITAL SIGNS: Afebrile, pulse 91, breathing at 18, blood pressure 157/72. HEAD/NECK: Normocephalic. Atraumatic. EYES: EOMI. No deformity. EARS: Clear. No ulcers. NOSE: Intact. No lesions. MOUTH: Clear. No discharge. THROAT: Clear. No exudate. LUNGS: Clear. No crackles. CARDIAC: S1, S2. No rub. ABDOMEN: Benign. BS+. GENITALIA/RECTUM: Benavidez absent. BACK/EXTREMITIES: Edema 0+ Ulcer- NEUROLOGICAL: Alert and motor intact. SKIN: Rash- Bruise- LYMPHATICS: Edema- Ulcer- LABORATORY DATA: Show hemoglobin 7.8 and creatinine 2.45. ASSESSMENT AND RECOMMENDATIONS: 1. Chronic kidney disease stage 4 with acute kidney injury, improved. 2. Hypertension, stable. 3. Anemia, stable. 4. Medications based on glomerular filtration rate are appropriate. Indication for dialysis at this time.
--- NOTE | 2017-10-20 17:04 | PDOC.CTH ---
Cardiology Progress Note - Subjective Her breathing is better than yesterday. No chest pain. - Objective Vital Signs Temp Pulse Pulse Pulse Resp BP BP 10/20/17 16:00 97.6 F 88 20 10/20/17 14:46 83 16 10/20/17 11:27 97.7 F 84 20 10/20/17 11:22 85 20 10/20/17 10:09 90 161/75 H 10/20/17 09:16 98 96 178/75 H 178/81 H 10/20/17 08:35 99 20 10/20/17 08:06 98.0 F 91 18 10/20/17 08:00 97.6 F 91 20 BP Pulse Ox Pulse Ox Pulse Ox 10/20/17 16:00 187/89 H 100 10/20/17 14:46 95 10/20/17 11:27 161/75 H 98 10/20/17 11:22 98 10/20/17 10:09 97 10/20/17 09:16 96 98 10/20/17 08:35 100 10/20/17 08:06 98 10/20/17 08:00 171/84 H 100 Weight 235 lb 1 oz 10/19/17 10/20/17 10/21/17 06:59 06:59 06:59 Intake Total 750 Output Total 1705 2400 Balance -1705 -1650 - Physical Examination General/Neuro: alert & oriented x3, NAD Neck: no JVD present Lungs: other: (Crackles at bases.) Heart: RRR Abdomen: NT/ND Extremities: + edema B (trace) - Telemetry Telemetry Rhythm: NSR - Labs Result Diagrams: 10/20/17 03:21 10/20/17 03:21 Troponin/CKMB CK-MB (CK-2) 2.6 ng/mL (0-6.6) 10/18/17 06:34 Troponin I 0.032 ng/mL (< 0.028) H 10/18/17 13:08 - Assessment/Plan 1. Acute on chronic diastolic heart failure 2. COPD exacerbation 3. HTN 4. Hyperkalemia. PLAN: - Continue IV lasix for now. - Will re start amlodipine.
[2017-10-20] MEDS ORDERED: Amlodipine 5 MG TAB PO SCH (17:15)
[2017-10-20] MEDS: Mometasone Furoate 120 PUFF 220 MCG INH SCH (19:45)
[2017-10-20] MEDS: Insulin Detemir 100 UNITS/ML 10 UNITS in Pre-Filled Syringe 1 EACH SC SCH (20:21)
[2017-10-20] MEDS: Famotidine/PF 20 mg/2ml Vial SLOW IVP SCH (20:23)
[2017-10-20] MEDS: rOPINIRole HCl 0.5 MG TAB PO SCH (20:27)
[2017-10-21] MEDS: Acetaminophen 325 MG TAB PO PRN (00:26)
[2017-10-21 04:47] LABS: #Lymphocytes 0.4 thou/uL (1.20-3.40); #Monocytes 0.3 thou/uL (0.11-0.59); #Neutrophils 6.2 thou/uL (1.40-6.50); %Eosinophils 0.3 % (0.0-10.0); %Lymphocytes 5.4 % (21.0-51.0); %Monocytes 4.8 % (0.0-10.0); %Neutrophils 89.5 % (42.0-75.0); Hemoglobin 9.9 g/dL (12.0-16.0); Mean Corpuscular HGB CONC 29.3 g/dL (32.0-36.0); Mean Corpuscular Hemoglobin 28.4 pg (27.0-31.0); Mean Corpuscular Volume 96.8 fl (81.0-99.0); Mean Platelet Volume 8.2 fL (7.4-10.4); Platelet Count 207 thou/uL (130-400); RBC Distribution Width 13.5 % (11.5-14.5); White Blood Cell (WBC) Count 6.9 thou/uL (4.8-10.8)
[2017-10-21 05:00] LABS: Anion Gap 14 mmol/L (10-20); BUN (Urea Nitrogen) 49 mg/dL (9.8-20.1); Calc. Creatinine Clearance 38 mL/min (70-130); Calcium 8.6 mg/dL (7.8-10.44); Carbon Dioxide 25 mmol/L (23-31); Chloride 102 mmol/L (98-107); Estimated GFR-MDRD 21; Glucose 251 mg/dL (80-115); Potassium 5.7 mmol/L (3.5-5.1); Sodium 135 mmol/L (136-145)
[2017-10-21] MEDS: Furosemide 40 MG/4 ML VIAL SLOW IVP SCH ×2 (05:16→15:55)
[2017-10-21] MEDS: HumaLOG 300 UNITS/3 ML VIAL SC PRN ×3 (05:20→17:03)
[2017-10-21] MEDS: Enoxaparin Sodium 30 MG/0.3 ML SYRINGE SC SCH (08:49)
[2017-10-21] MEDS: Gabapentin 300 MG CAP PO SCH ×3 (08:50→20:39)
[2017-10-21] MEDS: Carbidopa/Levodopa 25-100 mg Tablet PO SCH ×3 (08:50→20:38)
[2017-10-21] MEDS: Amantadine HCl 100 mg Capsule PO SCH (08:50)
[2017-10-21] MEDS: Amlodipine 10 MG TAB PO SCH (08:51)
[2017-10-21] MEDS: Magnesium Oxide 400 MG TAB PO SCH (08:51)
[2017-10-21] MEDS: Entacapone 200 mg Tablet PO SCH ×3 (08:52→20:38)
[2017-10-21] MEDS: clonazePAM 0.5 MG TAB PO SCH ×2 (08:52→20:38)
[2017-10-21] MEDS: lamoTRIgine 25 MG TAB PO SCH (08:52)
[2017-10-21] MEDS: Hydroxychloroquine Sulfate 200 MG TAB PO SCH ×2 (08:53→20:39)
[2017-10-21] MEDS: Divalproex Sodium 250 MG (DR) TAB PO SCH ×2 (08:53→20:39)
[2017-10-21] MEDS: tiZANidine HCl 4 MG TAB PO SCH ×2 (08:54→20:39)
[2017-10-21] MEDS: oxyCODONE/Acetaminophen 5 mg/325 mg Tablet PO PRN ×3 (08:54→20:56)
--- NOTE | 2017-10-21 09:55 | PRG ---
DATE OF SERVICE: 10/21/2017 SUBJECTIVE: The patient is feeling better and had no acute complaints. OBJECTIVE: VITAL SIGNS: Temperature 97.8, pulse 79, blood pressure 196/91, O2 sats 99% on 3 liters. HEENT: Unremarkable. NECK: No JVD. CHEST: Fairly clear. CARDIOVASCULAR: S1, S2 regular. ABDOMEN: Soft. EXTREMITIES: No edema. LABORATORY DATA: White blood cell count 6.9, hematocrit 33.8, platelet count 207. Sodium 135, potas sium 5.7, CO2 25, BUN 49, creatinine 2.3, glucose 251. ASSESSMENT: 1. Congestive heart failure with fluid overload, which is improved. 2. Hyperkalemia of unknown significance. PLAN: I believe Nephrology has been consulted for the hyperkalemia. She no longer needs BiPAP and I think can be transferred out to the floor.
[2017-10-21] MEDS: Mometasone/Formoterol 120 PUFF INHALER INH SCH ×2 (10:49→19:59)
[2017-10-21] MEDS: HYDROcodone/Acetaminophen 5/325 mg Tablet PO PRN (11:59)
--- NOTE | 2017-10-21 12:46 | PDOC.CTH ---
Cardiology Progress Note - Subjective No new issues or concerns. BP still high. Breathing is not at baseline . - Objective Vital Signs Temp Pulse Resp BP BP Pulse Ox 10/21/17 12:00 98.2 F 83 18 163/76 H 98 10/21/17 10:48 80 20 96 10/21/17 08:51 79 196/91 H 10/21/17 08:00 97.8 F 80 20 100 10/21/17 07:35 97.8 F 79 20 175/88 H 99 10/21/17 04:03 97.6 F 87 18 164/58 H 97 10/21/17 02:42 88 16 98 10/21/17 02:09 83 18 165/76 H 98 Weight 228 lb 9 oz 10/20/17 10/21/17 10/22/17 06:59 06:59 06:59 Intake Total 750 1420 Output Total 2400 3350 Balance -1650 -1930 - Physical Examination General/Neuro: alert & oriented x3, NAD Neck: no JVD present Lungs: other: (crackles at bases.) Heart: RRR Abdomen: NT/ND Extremities: + edema B (1+) - Telemetry Telemetry Rhythm: NSR - Labs Result Diagrams: 10/21/17 03:53 10/21/17 03:53 Troponin/CKMB CK-MB (CK-2) 2.6 ng/mL (0-6.6) 10/18/17 06:34 Troponin I 0.032 ng/mL (< 0.028) H 10/18/17 13:08 - Assessment/Plan 1. Acute on chronic diastolic heart failure 2. COPD exacerbation 3. HTN, poorly controlled. 4. Hyperkalemia. PLAN: - Continue IV Lasix. Likely to PO in the next 24 to 48 hrs . - Continue amlodipine. - Will restart Carvedilol. - A lot of her HTN is likely form steroids. I spoke with Dr. Conde and we will plan on stopping steroids today.
--- NOTE | 2017-10-21 14:24 | PDOC.PN ---
- Subjective Encounter Start Date: 10/21/17 Encounter Start Time: 10:00 Pt states she feels a little better, breathing is easier. No F/c, no n/V/d/c. Cr coming down, Cardiology hasn't seen today, notes from yestrday reviewed. Appreciate Renal and Cardiology input 10 point ROs performed and neg for all systems except as per hPI - Objective MAR Reviewed: Yes Vital Signs & Weight: Vital Signs (12 hours) Temp Pulse Pulse Pulse Resp BP BP 10/21/17 12:00 98.2 F 83 18 10/21/17 11:07 88 84 171/87 H 10/21/17 10:48 80 20 10/21/17 08:51 79 196/91 H 10/21/17 08:00 97.8 F 80 20 10/21/17 07:35 97.8 F 79 20 10/21/17 04:03 97.6 F 87 18 10/21/17 02:42 88 16 BP BP Pulse Ox Pulse Ox Pulse Ox 10/21/17 12:00 163/76 H 98 10/21/17 11:07 163/76 H 94 L 100 10/21/17 10:48 96 10/21/17 08:51 10/21/17 08:00 100 10/21/17 07:35 175/88 H 99 10/21/17 04:03 164/58 H 97 10/21/17 02:42 98 Weight Weight 228 lb 9 oz I&O: 10/20/17 10/21/17 10/22/17 06:59 06:59 06:59 Intake Total 750 1420 Output Total 2400 3350 Balance -1650 -1930 Result Diagrams: 10/21/17 03:53 10/21/17 03:53 Additional Labs: Accuchecks 10/21/17 10/21/17 10/20/17 11:18 05:21 20:22 POC Glucose 297 H 253 H 328 H 10/20/17 17:08 POC Glucose 241 H Radiology Reviewed by me: Yes EKG Reviewed by me: Yes Phys Exam - Physical Examination Constitutional: NAD HEENT: PERRLA, moist MMs, sclera anicteric, oral pharynx no lesions Neck: no nodes, no JVD, supple, full ROM coarse bibasilar crackles, no wheezes, no rhonchi Cardiovascular: RRR, no significant murmur, no rub Gastrointestinal: soft, non-tender, no distention, positive bowel sounds Musculoskeletal: pulses present, edema present trace pedal, improved Neurological: non-focal, normal sensation, moves all 4 limbs Lymphatic: no nodes Psychiatric: normal affect, A&O x 3 Skin: no rash, normal turgor, cap refill <2 seconds Dx/Plan (1) CHF exacerbation Code(s): I50.9 - HEART FAILURE, UNSPECIFIED Status: Acute Qualifiers: Congestive heart failure type: diastolic Qualified Code(s): I50.33 - Acute on chronic diastolic (congestive) heart failure Comment: acute on chronic diastolic CHF: improved. continue diuresis. (2) DM2 (diabetes mellitus, type 2) Status: Chronic Qualifiers: Diabetes mellitus complication status: with unspecified complications Diabetes mellitus buttermaker insulin use: with buttermaker use Qualified Code(s) : E11.8 - Type 2 diabetes mellitus with unspecified complications; Z79.4 - prison (current) use of insulin; Z79.4 - prison (current) use of insulin; Z79.4 - long term (current) use of insulin; Z79.4 - prison (current) use of insulin Comment: Will restart her home meds. Will continue with SSI. keep BG 140-180 (3) Hypertension Code(s): I10 - ESSENTIAL (PRIMARY) HYPERTENSION Status: Chronic Qualifiers: Hypertension type: essential hypertension (4) Parkinson disease Code(s): G20 - PARKINSON'S DISEASE Status: Chronic Comment: Restart her home meds. (5) Diastolic CHF Code(s): I50.30 - UNSPECIFIED DIASTOLIC (CONGESTIVE) HEART FAILURE Status: Resolved Qualifiers: Congestive heart failure chronicity: chronic Qualified Code(s): I50.32 - Chronic diastolic (congestive) heart failure Comment: ef 60-65% acute on chronic - Plan * . transfer to tele
[2017-10-21 14:52] LABS: Potassium 5.1 mmol/L (3.5-5.1)
[2017-10-21] MEDS ORDERED: Gabapentin 100 MG CAP PO SCH (15:00)
--- NOTE | 2017-10-21 15:04 | PRG ---
DATE OF SERVICE: 10/21/2017 SUBJECTIVE: A 72-year-old female being seen for acute kidney injury. The patient denies any nausea, vomiting or chest pain. PHYSICAL EXAMINATION: GENERAL: The patient is awake, alert. VITAL SIGNS: Pulse 79, breathing at 20, blood pressure 175/88. GENERAL APPEARANCE AND MENTAL STATUS: Fair. HEAD/NECK: Normocephalic. Atraumatic. EYES: EOMI. No deformity. EARS: Clear. No ulcers. NOSE: Intact. No lesions. MOUTH: Clear. No discharge. THROAT: Clear. No exudate. LUNGS: Clear. No crackles. CARDIAC: S1, S2. No rub. ABDOMEN: Benign. BS+. GENITALIA/RECTUM: Benavidez absent. BACK/EXTREMITIES: Edema 0+ Ulcer- NEUROLOGICAL: Alert and motor intact. SKIN: Rash- Bruise- LYMPHATICS: Edema- Ulcer- LABORATORY DATA: Hemoglobin 9.9, potassium is 5.7. ASSESSMENT AND RECOMMENDATIONS: 1. Acute kidney injury with chronic kidney disease, multifactorial. Renal function has improved. N o indication for dialysis. 2. Hyperkalemia. We will give Kayexalate and continue diuresis. If the potassium does not improve, we will consider dialysis. 3. Medications based on glomerular filtration rate: Decrease gabapenti n to 300 t.i.d. from 600 t.i.d. 4. Medications based on glomerular filtration rate: Stop the Lovenox as this can cause hyperkalemia . I would also stop magnesium. 5. We would recommend a low potassium diet.
[2017-10-21] MEDS: Mometasone Furoate 120 PUFF 220 MCG INH SCH (19:57)
[2017-10-21] MEDS: rOPINIRole HCl 0.5 MG TAB PO SCH (20:39)
[2017-10-21] MEDS: Insulin Detemir 100 UNITS/ML 10 UNITS in Pre-Filled Syringe 1 EACH SC SCH (20:39)
[2017-10-21] MEDS: Famotidine/PF 20 mg/2ml Vial SLOW IVP SCH (20:40)
[2017-10-22] MEDS: oxyCODONE/Acetaminophen 5 mg/325 mg Tablet PO PRN ×3 (00:58→11:28)
[2017-10-22] MEDS: Furosemide 40 MG/4 ML VIAL SLOW IVP SCH ×2 (07:12→14:38)
[2017-10-22] MEDS: Guaifenesin DM 100-10/5 ML UDCUP PO PRN ×2 (07:13→15:13)
[2017-10-22] MEDS: HumaLOG 300 UNITS/3 ML VIAL SC PRN ×2 (07:24→11:33)
[2017-10-22] MEDS: clonazePAM 0.5 MG TAB PO SCH (08:27)
[2017-10-22] MEDS: Carbidopa/Levodopa 25-100 mg Tablet PO SCH ×2 (08:27→14:38)
[2017-10-22] MEDS: Gabapentin 300 MG CAP PO SCH ×2 (08:27→14:38)
[2017-10-22] MEDS: Amlodipine 10 MG TAB PO SCH (08:27)
[2017-10-22] MEDS: lamoTRIgine 25 MG TAB PO SCH (08:27)
[2017-10-22] MEDS: Amantadine HCl 100 mg Capsule PO SCH (08:28)
[2017-10-22] MEDS: tiZANidine HCl 4 MG TAB PO SCH (08:28)
[2017-10-22] MEDS: Entacapone 200 mg Tablet PO SCH ×2 (08:28→14:38)
[2017-10-22] MEDS: Divalproex Sodium 250 MG (DR) TAB PO SCH (08:29)
[2017-10-22] MEDS: Hydroxychloroquine Sulfate 200 MG TAB PO SCH (08:29)
--- NOTE | 2017-10-22 08:37 | PDOC.PULPN ---
Progress Note: Subj/Obj - Subjective Date: 10/22/17 Time: 08:36 Narrative: c/o headache - Objective Allergies/Adverse Reactions: Allergies Allergy/AdvReac Type Severity Reaction Status Date / Time atorvastatin [From Lipitor] Allergy Verified 07/12/17 08:36 nalbuphine Allergy Verified 07/12/17 08:36 pregabalin [From Lyrica] Allergy Verified 07/12/17 08:36 Medications: Current Medications Acetaminophen (Tylenol) 650 mg PO Q4H PRN PRN Reason: Headache/Fever or MILD Pain Last Admin: 10/21/17 00:26 Dose: 650 mg Hydrocodone Bitart/Acetaminophen (Hext 5/325) 1 tab PO Q4H PRN PRN Reason: Moderate Pain (4-6) Last Admin: 10/21/17 11:59 Dose: 1 tab Albuterol Sulfate (Ventolin) 2.5 mg NEB Q2H PRN PRN Reason: Wheezing Albuterol/Ipratropium (Duoneb) 3 ml NEB [id number] Last Admin: 10/22/17 02:45 Dose: 3 ml Amantadine HCl (Symmetrel) 100 mg PO DAILY [facility] Last Admin: 10/22/17 08:28 Dose: 100 mg Amlodipine Besylate (Norvasc) 10 mg PO DAILY [facility] Last Admin: 10/22/17 08:27 Dose: 10 mg Aspirin (Aspirin Chewable) 81 mg PO DAILY [facility] Last Admin: 10/22/17 08:27 Dose: 81 mg Carbidopa/Levodopa (Sinemet 25-100) 0.5 tab PO TID [facility] Last Admin: 10/22/17 08:27 Dose: 0.5 tab Clonazepam (Klonopin) 0.25 mg PO BID [facility] Last Admin: 10/22/17 08:27 Dose: 0.25 mg Dextrose/Water (Dextrose 50%) 25 gm SLOW IVP PRN PRN PRN Reason: Hypoglycemia Divalproex Sodium (Depakote) 250 mg PO BID [facility] Last Admin: 10/22/17 08:29 Dose: 250 mg Docusate Sodium (Colace) 100 mg PO DAILY PRN PRN Reason: Constipation Entacapone (Comtan) 200 mg PO TID [facility] Last Admin: 10/22/17 08:28 Dose: 200 mg Famotidine (Pepcid) 20 mg SLOW IVP 2100 [facility] Last Admin: 10/21/17 20:40 Dose: 20 mg Furosemide (Lasix) 40 mg SLOW IVP 0600,1400 [facility] Last Admin: 10/22/17 07:12 Dose: 40 mg Gabapentin (Neurontin) 300 mg PO TID [facility] Last Admin: 10/22/17 08:27 Dose: 300 mg Glucagon (Glucagon) 1 mg IM PRN PRN PRN Reason: Hypoglycemia Guaifenesin/Dextromethorphan (Robitussin Dm) 15 ml PO Q4H PRN PRN Reason: Cough Last Admin: 10/22/17 07:13 Dose: 15 ml Hydroxychloroquine Sulfate (Plaquenil) 200 mg PO BID [facility] Last Admin: 10/22/17 08:29 Dose: 200 mg Insulin Detemir 10 units/ (Miscellaneous Medication) 0.1 mls @ 0 mls/hr SC HS [facility] Last Admin: 10/21/17 20:39 Dose: 0.1 mls Dextrose/Water (D5w) 1,000 mls @ 0 mls/hr IV .Q0M PRN; As Directed PRN Reason: Hypoglycemia Insulin Human Lispro (Humalog) 0 units SC .MODERATE SLIDING SC PRN PRN Reason: Moderate Correctional Scale Last Admin: 10/22/17 07:24 Dose: 2 unit Lamotrigine (Lamictal) 75 mg PO DAILY [facility] Last Admin: 10/22/17 08:27 Dose: 75 mg Mometasone Furoate (Asmanex Twisthaler) 1 puff INH 1830 [facility] Last Admin: 10/21/17 19:57 Dose: Not Given Mometasone Furoate/Formoterol Fumar (Dulera 100 Mcg/5 Mcg Inhaler) 2 puff INH BID-RT [facility] Last Admin: 10/21/17 19:59 Dose: 2 puff Ondansetron HCl (Zofran) 4 mg IVP Q6H PRN PRN Reason: Nausea/Vomiting Oxycodone/Acetaminophen (Percocet 5/325) 1 tab PO Q4H PRN PRN Reason: Pain Last Admin: 10/22/17 07:12 Dose: 1 tab Ropinirole HCl (Requip) 0.5 mg PO QPM [facility] Last Admin: 10/21/17 20:39 Dose: 0.5 mg Tizanidine HCl (Zanaflex) 4 mg PO BID [place] Last Admin: 10/22/17 08:28 Dose: 4 mg MAR Reviewed: Yes Vital Signs: Vital Signs Temp 97.6 F 10/22/17 07:00 Pulse 89 10/22/17 08:27 Resp 20 10/22/17 07:00 BP 166/71 H 10/22/17 08:27 Pulse Ox 99 10/22/17 07:00 Intake & Output 10/21/17 10/22/17 10/22/17 18:59 06:59 18:59 Intake Total 860 300 Output Total 1600 1750 Balance -740 -1450 Weight 228 lb 1.6 oz Intake: Oral 860 300 Output: Output, Benavidez 1600 1750 Other: Voiding Method Indwelling Catheter Indwelling Catheter # Bowel Movements 1 Progress Note: Exam - Physical Exam Constitutional: NAD HEENT: PERRLA, sclera anicteric Cardiovascular: RRR Respiratory: clear to auscultation bilaterally Gastrointestinal: soft, non-tender Musculoskeletal: no edema Neurological: non-focal, moves all 4 limbs Lymphatic: no nodes Psychiatric: normal affect, A&O x 3 Skin: no rash Progress Note: Data - Labs Result Diagrams: 10/21/17 03:53 10/21/17 14:04 Lab results: Laboratory Results 10/20/17 10/20/17 10/20/17 10:56 17:08 20:22 WBC RBC Hgb Hct MCV MCH MCHC RDW Plt Count MPV Neutrophils % Neutrophils % (Manual) Lymphocytes % Monocytes % Eosinophils % Basophils % Neutrophils # Lymphocytes # Monocytes # Eosinophils # Basophils # Sodium Potassium Chloride Carbon Dioxide Anion Gap BUN Creatinine Estimated GFR (MDRD) Glucose POC Glucose 325 H 241 H 328 H Calcium B-Natriuretic Peptide 10/21/17 10/21/17 10/21/17 03:53 03:53 03:53 WBC 6.9 RBC 3.50 L Hgb 9.9 L Hct 33.8 L MCV 96.8 MCH 28.4 MCHC 29.3 L RDW 13.5 Plt Count 207 MPV 8.2 Neutrophils % 89.5 H Neutrophils % (Manual) Not Reportable Lymphocytes % 5.4 L Monocytes % 4.8 Eosinophils % 0.3 Basophils % 0.0 Neutrophils # 6.2 Lymphocytes # 0.4 L Monocytes # 0.3 Eosinophils # 0.0 Basophils # 0.0 Sodium 135 L Potassium 5.7 H Chloride 102 Carbon Dioxide 25 Anion Gap 14 BUN 49 H Creatinine 2.27 H Estimated GFR (MDRD) 21 Glucose 251 H POC Glucose Calcium 8.6 B-Natriuretic Peptide 728.1 H 10/21/17 10/21/17 10/21/17 05:21 11:18 14:04 WBC RBC Hgb Hct MCV MCH MCHC RDW Plt Count MPV Neutrophils % Neutrophils % (Manual) Lymphocytes % Monocytes % Eosinophils % Basophils % Neutrophils # Lymphocytes # Monocytes # Eosinophils # Basophils # Sodium Potassium 5.1 Chloride Carbon Dioxide Anion Gap BUN Creatinine Estimated GFR (MDRD) Glucose POC Glucose 253 H 297 H Calcium B-Natriuretic Peptide 10/21/17 10/21/17 10/22/17 17:02 20:36 07:19 WBC RBC Hgb Hct MCV MCH MCHC RDW Plt Count MPV Neutrophils % Neutrophils % (Manual) Lymphocytes % Monocytes % Eosinophils % Basophils % Neutrophils # Lymphocytes # Monocytes # Eosinophils # Basophils # Sodium Potassium Chloride Carbon Dioxide Anion Gap BUN Creatinine Estimated GFR (MDRD) Glucose POC Glucose 318 H 365 H 172 H Calcium B-Natriuretic Peptide Progress Note: A/P - Problems (1) CHF exacerbation Current Visit: No Status: Acute Code(s): I50.9 - HEART FAILURE, UNSPECIFIED Qualifiers: Congestive heart failure type: diastolic Qualified Code(s): I50.33 - Acute on chronic diastolic (congestive) heart failure (2) Acute respiratory failure with hypoxia and hypercapnia Current Visit: No Status: Resolved Code(s): J96.01 - ACUTE RESPIRATORY FAILURE WITH HYPOXIA; J96.02 - ACUTE RESPIRATORY FAILURE WITH HYPERCAPNIA - Plan Plan: back to baseline steroids stopped yesterday should be close to discharge
[2017-10-22] MEDS: Mometasone/Formoterol 120 PUFF INHALER INH SCH (08:50)
[2017-10-22 09:32] LABS: Anion Gap 11 mmol/L (10-20); BUN (Urea Nitrogen) 40 mg/dL (9.8-20.1); Calc. Creatinine Clearance 45 mL/min (70-130); Calcium 8.3 mg/dL (7.8-10.44); Carbon Dioxide 29 mmol/L (23-31); Chloride 100 mmol/L (98-107); Estimated GFR-MDRD 26; Glucose 212 mg/dL (80-115); Potassium 4.2 mmol/L (3.5-5.1); Sodium 136 mmol/L (136-145)
[2017-10-22 09:33] LABS: Anion Gap 12 mmol/L (10-20); BUN (Urea Nitrogen) 40 mg/dL (9.8-20.1); Calc. Creatinine Clearance 44 mL/min (70-130); Calcium 8.6 mg/dL (7.8-10.44); Carbon Dioxide 28 mmol/L (23-31); Chloride 100 mmol/L (98-107); Estimated GFR-MDRD 25; Glucose 216 mg/dL (80-115); Magnesium 1.8 mg/dL (1.6-2.6); Potassium 4.1 mmol/L (3.5-5.1); Sodium 136 mmol/L (136-145)
--- NOTE | 2017-10-22 10:07 | PRG ---
DATE OF SERVICE: 10/22/2017 SUBJECTIVE: This is a 72-year-old female being seen for acute kidney injury. The patient denies any nausea, vomiting, or chest pain. PHYSICAL EXAMINATION: GENERAL: Patient is awake, alert. VITAL SIGNS: Afebrile, pulse 80, breathing at 16, blood pressure 160/70. HEAD/NECK: Normocephalic. Atraumatic. EYES: EOMI. No deformity. EARS: Clear. No ulcers. NOSE: Intact. No lesions. MOUTH: Clear. No discharge. THROAT: Clear. No exudate. LUNGS: Clear. No crackles. CARDIAC: S1, S2. No rub. ABDOMEN: Benign. BS+. GENITALIA/RECTUM: Benavidez absent. BACK/EXTREMITIES: Edema 0+ Ulcer- NEUROLOGICAL: Alert and motor intact. SKIN: Rash- Bruise- LYMPHATICS: Edema- Ulcer- LABORATORY DATA: Show hemoglobin 9.9, creatinine 1.8, potassium 4.2. ASSESSMENT AND RECOMMENDATIONS: 1. Acute kidney injury, improved. 2. Hypertension, stable. 3. Anemia, stable. 4. Hyperkalemia, stable. No indication for dialysis at this time.
[2017-10-22] MEDS: HYDROcodone/Acetaminophen 5/325 mg Tablet PO PRN (14:37)
[2017-10-22 15:30] VITALS: BP 135/82; TEMP 96.2
== END 2017-10-22 17:43 | DRG 291 ==
LOC: ERS 06:07 → IMCU/EMU 11:13
PROVIDERS: ADMIT Family Medicine; ATTEND Family Medicine
PROC: 5A09457 Assistance with Respiratory Ventilation, 24-96 Consecutive Hours, Continuous Positive Airway Pressure (ICD-10-PCS; 2017-10-18)
PROC: 30233N1 Transfusion of Nonautologous Red Blood Cells into Peripheral Vein, Percutaneous Approach (ICD-10-PCS; principal; 2017-10-19)
DX: I13.0 Hypertensive heart and chronic kidney disease with heart failure and stage 1 through stage 4 chronic kidney disease, or unspecified chronic kidney disease (principal); I50.33 Acute on chronic diastolic (congestive) heart failure; J96.01 Acute respiratory failure with hypoxia; J96.02 Acute respiratory failure with hypercapnia; N17.9 Acute kidney failure, unspecified; N18.4 Chronic kidney disease, stage 4 (severe); E66.01 Morbid (severe) obesity due to excess calories; E11.22 Type 2 diabetes mellitus with diabetic chronic kidney disease; I08.1 Rheumatic disorders of both mitral and tricuspid valves; I24.8 Other forms of acute ischemic heart disease; J44.1 Chronic obstructive pulmonary disease with (acute) exacerbation; E87.5 Hyperkalemia; G20 Parkinson's disease; Z68.35 Body mass index [BMI] 35.0-35.9, adult; M54.9 Dorsalgia, unspecified; K21.9 Gastro-esophageal reflux disease without esophagitis; E78.5 Hyperlipidemia, unspecified; F31.9 Bipolar disorder, unspecified; K58.9 Irritable bowel syndrome, unspecified; Z88.6 Allergy status to analgesic agent; Z88.1 Allergy status to other antibiotic agents; Z88.8 Allergy status to other drugs, medicaments and biological substances; Z87.891 Personal history of nicotine dependence; D63.1 Anemia in chronic kidney disease; Z79.82 Long term (current) use of aspirin; Z79.4 Long term (current) use of insulin; I44.4 Left anterior fascicular block; R00.0 Tachycardia, unspecified; Z91.19 Patient's noncompliance with other medical treatment and regimen; T38.0X5A Adverse effect of glucocorticoids and synthetic analogues, initial encounter
CPT/HCPCS: 36415; 36416; 36430; 51702; 71045; 80048; 80053; 81003; 81015; 82553; 82805; 83735; 83880; 84484; 85025; 85610; 85730; 86850; 86900; 86901; 93005; 93306; 93798; 94640; 94660; 94760; 96374; G8978-GP-CM; G8979-GP-CK; G8987-GO-CM; G8988-GO-CM; G8989-GO-CM; J1815; J2920; J3010; J7620; P9016

== ENCOUNTER 2017-10-31 16:28 | Inpatient (IN) | payer MEDICARE, MEDICAID ==
[2017-10-31] MEDS ORDERED: methylPREDNISolone Sod Succ/PF 125 MG/2 ML VIAL ONE (16:51)
[2017-10-31 17:17] LABS: Actual Bicarbonate (HCO3a) 28.5 mEq/L (22-26); Base Excess (BEa) 1.8 mEq/L (0 (+/-) 2.5); Hematocrit-ABG 25.5 % (36.0-47.0); Hemoglobin (Hb) 7.7 g/dL (12.0-16.0); O2 Tension (PaO2) 199.8 mmHg (80.0-100.0); pH, Arterial 7.31 (7.35-7.45)
[2017-10-31 17:18] LABS: Analyzer IN Cardio ER; Calcium, Ionized 1.1 mmol/L (1.12-1.30); Puncture Site RRA
--- NOTE | 2017-10-31 17:31 | RAD ---
PORTABLE CHEST: 10/31/17 HISTORY: Shortness of breath. COMPARISON: 10/18/17 exam. Heart size is enlarged. Pulmonary vessels are engorged. Slightly less prominent than on prior exam. T here is suggestion of some right sided effusion. IMPRESSION: Cardiomegaly with mild pulmonary edema changes. POS: [facility]
[2017-10-31 17:54] LABS: #Lymphocytes 1.3 thou/uL (1.20-3.40); #Monocytes 1.2 thou/uL (0.11-0.59); #Neutrophils 14.4 thou/uL (1.40-6.50); %Basophils 0.1 % (0.0-1.0); %Eosinophils 0.2 % (0.0-10.0); %Lymphocytes 7.8 % (21.0-51.0); %Monocytes 6.8 % (0.0-10.0); %Neutrophils 85.1 % (42.0-75.0); Hemoglobin 8.1 g/dL (12.0-16.0); Mean Corpuscular HGB CONC 32.1 g/dL (32.0-36.0); Mean Corpuscular Hemoglobin 31.6 pg (27.0-31.0); Mean Corpuscular Volume 98.4 fl (81.0-99.0); Mean Platelet Volume 7.6 fL (7.4-10.4); Platelet Count 263 thou/uL (130-400); RBC Distribution Width 12.5 % (11.5-14.5); Red Blood Cell (RBC) Count 2.57 mill/uL (4.20-5.40); White Blood Cell (WBC) Count 16.9 thou/uL (4.8-10.8)
[2017-10-31 18:18] LABS: ALT (SGPT) Less than 7 U/L (8-55); AST (SGOT) 9 U/L (5-34); Albumin 3.2 g/dL (3.4-4.8); Alkaline Phosphatase 103 U/L (40-150); Anion Gap 15 mmol/L (10-20); BUN (Urea Nitrogen) 26 mg/dL (9.8-20.1); Bilirubin, Total 0.5 mg/dL (0.2-1.2); Calc. Creatinine Clearance 0 mL/min (70-130); Calcium 8.6 mg/dL (7.8-10.44); Carbon Dioxide 26 mmol/L (23-31); Chloride 104 mmol/L (98-107); Estimated GFR-MDRD 21; Globulin 3.4 g/dL (2.4-3.5); Potassium 4.7 mmol/L (3.5-5.1); Protein, Total 6.6 g/dL (6.0-8.3); Sodium 140 mmol/L (136-145)
[2017-10-31 18:22] LABS: CKMB 0.8 ng/mL (0-6.6); Glucose 57 mg/dL (80-115); Troponin I 0.037 ng/mL (< 0.028)
[2017-10-31] MEDS ORDERED: Dextrose 50% Abboject 50 ML SYRINGE ONE (18:29)
[2017-10-31] MEDS ORDERED: Furosemide 100 MG/10 ML VIAL ONE (18:30)
[2017-10-31 18:46] LABS: Bilirubin Small (Negative); Blood, Urine Negative (Negative); Clarity CLOUDY (Clear); Glucose, Urine (Dipstick) 100 mg/dL (Negative); Leukocyte Negative (Negative); Nitrite Negative (Negative); Protein, Urine (Dipstick) 300 mg/dL (Neg-Trace); Specific Gravity, Urine 1.019 (1.002-1.036); Urobilinogen 0.2 mg/dL (0.2-1.0)
[2017-10-31 18:49] LABS: Bacteria/HPF None Seen HPF (None Seen); Pathc Cast-AUWi Flag 0.81 (0-2.49); Squamous Epithelial 0-3 HPF (0-3); WBC/HPF 0-3 HPF (0-3)
[2017-10-31 19:03] LABS: Hyaline Casts/LPF 0-3 HYALINE CAST LPF (0-3 Hyaline); Renal Epithelial None Seen HPF (0-3); Transitional Epithelial NONE SEEN HPF (0-3)
[2017-10-31] MEDS ORDERED: Acetaminophen 650 MG Suppository PR PRN (19:38)
[2017-10-31] MEDS ORDERED: Bisacodyl 5 MG TAB PO PRN (19:38)
[2017-10-31] MEDS ORDERED: Acetaminophen 325 MG TAB PO PRN (19:38)
[2017-10-31] MEDS ORDERED: cefTRIAXone\\ROCEPHIN 1 GM in Sodium Chloride 0.9% 100 ML IVPB SCH (19:45)
[2017-10-31] MEDS ORDERED: Furosemide 40 MG/4 ML VIAL SLOW IVP SCH (20:00)
--- NOTE | 2017-10-31 20:30 | HP ---
PRIMARY CARE PHYSICIAN: Dr. Micheal Diop. CHIEF COMPLAINT: Shortness of breath. HISTORY OF PRESENT ILLNESS: Ms. Holt is a pleasant 72-year-old lady who was seen at [facility] on 10/31/2017. She is a resident of [facility]. She was hospitali zed at this facility from 10/18/2017 to 10/22/2017 of this year for congestive heart failure exacerba tion. She developed shortness of breath yesterday. It has been progressively worsening. She also reported ly had altered mental status, although she appears to have improved here. Today, she also had a temp erature of 102 degrees Fahrenheit at the intermediate. She was therefore sent to the emergency room. Currently, she is awake, alert, and oriented x3. She reports having cough that is productive of whit priscilla sputum. She reports shortness of breath with exertion. She reports chills. She denies any naus ea, vomiting, diarrhea, or abdominal pain. She denies any dysuria, but reports increased frequency o f urination. REVIEW OF SYSTEMS: The following complete review of systems was negative, unless otherwise mentioned in the HPI or below: Constitutional: Weight loss or gain, ability to conduct usual activities. Sk in: Rash, itching. Eyes: Double vision, pain. ENT/Mouth: Nose bleeding, neck stiffness, pain, te nderness. Cardiovascular: Palpitations, dyspnea on exertion, orthopnea. Respiratory: Shortness of breath, wheezing, cough, hemoptysis, fever, or night sweats. Gastrointestinal: Poor appetite, abdo morgan pain, heartburn, nausea, vomiting, constipation, or diarrhea. Genitourinary: Urgency, frequen cy, dysuria, nocturia. Musculoskeletal: Pain, swelling. Neurologic/Psychiatric: Anxiety, depressi on. Allergy/Immunologic: Skin rash, bleeding tendency. PAST MEDICAL HISTORY: Significant for Parkinson's disease, back pain, diabetes mellitus, hypertensio n, gastroesophageal reflux disease, dyslipidemia, bipolar disorder, irritable bowel syndrome, and shereen stolic dysfunction. PAST SURGICAL HISTORY: Hysterectomy, spinal surgery, tubal ligation, tonsillectomy, cholecystectomy, and appendectomy. ALLERGIES: LIPITOR, IBUPROFEN, LYRICA. SOCIAL HISTORY: Patient is an ex-smoker. She denies any current tobacco use, alcohol use, or recrea tional drug use. She lives at the intermediate. FAMILY HISTORY: Significant for dementia in mother and pneumothorax/lung rupture in father. CODE STATUS: I discussed her code status. She is DNI. CURRENT MEDICATIONS: These need to be reviewed, but appear to include Ventolin, amantadine, amlodipi ne, aspirin, calcium carbonate, carbidopa/levodopa, carvedilol, cetirizine, clonazepam, diphenhydrami ne, divalproex, docusate, entacapone, fluticasone propionate, Breo, Lasix 40 mg daily, gabapentin 600 mg daily, hydroxychloroquine, Lantus insulin, DuoNebs, lamotrigine, loperamide, magnesium oxide, oxy codone, Protonix, Phenergan, propylene glycol, ropinirole, Saccharomyces boulardii, and Zanaflex. PHYSICAL EXAMINATION: GENERAL: Ms. Holt is awake and alert, not in acute distress. VITAL SIGNS: Blood pressure is 149/77, pulse is 87. She is breathing at rate of 22 and saturating 9 5% on 2 liters of oxygen. She has a temperature of 99.1 degrees Fahrenheit. EYES: No scleral icterus, no conjunctival pallor. ENT: Moist mucosal membranes, no oropharyngeal erythema or exudates. NECK: Supple, nontender, normal range of movement, trachea is midline. RESPIRATORY: Accessory muscles of breathing are not active. Chest wall movements are symmetric bila terally. Lungs are clear to auscultation without wheeze, rhonchi, or crepitations. CARDIOVASCULAR: S1 and S2 are heard, regular. Peripheral pulses palpable. No carotid bruit, no per icardial rub. ABDOMEN: Soft, nontender, bowel sounds heard, no hepatomegaly, no splenomegaly. NEUROLOGIC: Cranial nerves II-XII are intact. Deep tendon reflexes are 2+. MUSCULOSKELETAL: Power is 5/5 in all 4 extremities. Normal range of movement at all major extremity joints. She has pitting edema to both legs. LYMPHATIC: No cervical lymphadenopathy. PSYCHIATRIC: Normal mood, normal affect, patient is oriented to person, place, and time. LABORATORY DATA: Ms. Holt's labs and investigations were reviewed. I reviewed her electrocardiogra m, which shows normal sinus rhythm, no ST changes to suggest an acute coronary syndrome. I also revi ewed her chest x-ray, which shows pulmonary vascular congestion and cardiomegaly, no pulmonary infilt rates. She has leukocytosis with 16,900 white cells, of which 85% are neutrophils, normocytic anemia with hemoglobin of 8.1, normal platelet count, normal electrolytes, elevated blood urea nitrogen of 26, elevated creatinine of 2.26, last known creatinine 1.88 on 10/22/2017, decreased glucose of 57, d ecreased albumin of 3.2, otherwise unremarkable liver profile, indeterminate troponin I of 0.037, yari vated BNP of 779.7, urinalysis is positive for protein, glucose and small amount of bilirubin, and ar terial blood gases with pH of 7.31, pCO2 of 58, and pO2 of 199.8 on FIO2 of 24. ASSESSMENT AND PLAN: Ms. Holt is a pleasant 72-year-old lady who was seen at [facility] on 10/31/2017. Her problem list includes: 1. Shortness of breath: Appears to be a combination of congestive heart failure exacerbation as wel l as bronchitis/chronic obstructive pulmonary disease exacerbation. She will be admitted to the [facility] for further management. 2. Congestive heart failure exacerbation: She will be treated with intravenous diuretics. Cardiolo gy Service is being consulted for opinion and help with further management. 3. Bronchitis: We will treat patient with ceftriaxone and azithromycin, DuoNebs p.r.n., and steroid s. 4. Diabetes mellitus: Patient had an episode of hypoglycemia. We will monitor her blood sugars and start her on insulin sliding scale as needed. 5. Acute on chronic renal insufficiency: Monitor creatinine and electrolytes closely, since she tutu l be receiving IV diuretics. 6. Dyslipidemia: Continue home medications once verified. 7. Hypertension: Monitor vital signs, titrate antihypertensives as needed. Many thanks for allowing me to participate in your patient's care. Please feel free to contact me wi th any questions or concerns. LEVEL OF RISK: High. LEVEL OF COMPLEXITY: High.
--- NOTE | 2017-10-31 20:35 | CON ---
DATE OF SERVICE: 10/31/2017 REASON FOR CONSULTATION: Diastolic heart failure. HISTORY OF PRESENT ILLNESS: Mrs. Holt is a pleasant 72-year-old white female who comes to the [facility] for shortness of breath. She has a history of COPD. She came to the hospital, she was increasin gly more short of breath. She was found to have a fever of 101.0 and she had history of 101.0 and sh e had severe shortness of breath, so she was placed on BiPAP and admitted. Cardiology is being consu lted for history of diastolic heart failure. She has got a mildly elevated BNP, as she has had it in the past. On my evaluation, she is doing a little bit better. She already got 1 dose of IV Lasix a nd has diuresed a little bit and feels already better. PAST MEDICAL HISTORY: 1. Diastolic heart failure. 2. Type 2 diabetes. 3. Parkinson's disease. 4. Gastroesophageal reflux disease. 5. Bipolar disorder. 6. Hyperlipidemia. 7. Irritable bowel syndrome. 8. Chronic back pain. 9. COPD. PAST SURGICAL HISTORY: 1. Hysterectomy. 2. Tubal ligation. 3. Spinal surgery. 4. Tonsillectomy. 5. Appendectomy. 6. Cholecystectomy. OUTPATIENT MEDICATIONS: Include: 1. Zanaflex. 2. Requip. 3. Lamictal. 4. Percocet as needed. 5. Hydralazine. 6. Depakote. 7. Plaquenil. 8. Stalevo. 9. Amantadine. 10. Aspirin. 11. Florastor. 12. Docusate. 13. Lasix. 14. Hydrochlorothiazide. 15. Carvedilol. 16. Norvasc. 17. Protonix. 18. Neurontin. 19. Abilify. 20. Sinemet. 21. Klonopin. 22. Lisinopril. ALLERGIES: LYRICA, ATORVASTATIN, and IBUPROFEN. SOCIAL HISTORY: Smoked in the past, quit 10 years ago. No alcohol or drugs. FAMILY HISTORY: Noncontributory. REVIEW OF SYSTEMS: A 12-point review of systems was done and is all negative unless stated in the hi story of present illness. PHYSICAL EXAMINATION: VITAL SIGNS: Temperature 99.2. However, she had a temperature of 102 recorded, blood pressure 136/7 1, pulse 85, respiration rate 24, satting 100% on 50 % BiPAP. GENERAL: Awake, alert, oriented x3, in no distress. HEENT: Normocephalic, atraumatic. NECK: Supple. LUNGS: Have significantly reduced breath sounds with very soft expiratory wheezes, and no crackles. CARDIOVASCULAR: S1, S2. No S3 or S4. No murmurs. ABDOMEN: Soft, positive bowel sounds. EXTREMITIES: 1+ edema. SKIN: Warm and dry. LABORATORY WORK: Reviewed and shows CBC with a white count of 16, hemoglobin of 8.1, hematocrit of 2 5, platelet count 263. ABG was reviewed. Chemistries were reviewed. BUN of 26, creatinine of 2.26, GFR of 21, glucose of 57. Troponin 0.03 with a normal CK-MB. BNP was 780, albumin of 3.2. UA was betina cloudy with 300 protein, 100 glucose, small amount of bilirubin. IMAGING: Chest x-ray was reviewed, mild pulmonary vascular congestion. EKG was reviewed. ASSESSMENT AND PLAN: 1. Acute on chronic diastolic heart failure. This is mild in nature. I would recommend giving her just one dose of IV Lasix and then reevaluate in the morning. 2. Acute chronic obstructive pulmonary disease exacerbation. 3. Fever, most likely acute bronchitis. 4. Normal LV function. PLAN: 1. Continue antibiotics per primary team. 2. Pulmonary toilet. 3. As above 1 dose of IV Lasix and then reevaluate tomorrow to see where her fluid status is. I thi nk hear diastolic dysfunction is mild. Thank you for letting us to participate in the care of your patient. We will follow.
[2017-10-31] MEDS: cefTRIAXone\\ROCEPHIN 1 GM, Syringe 0.4 ML in Sterile Water 9.6 ML SLOW IVP SCH (21:15)
[2017-10-31] MEDS: Azithromycin 500 MG in Sodium Chloride 0.9% 250 ML 250 ML IVPB SCH (21:15)
[2017-11-01 04:48] LABS: #Lymphocytes 0.4 thou/uL (1.20-3.40); #Monocytes 0.1 thou/uL (0.11-0.59); #Neutrophils 10.7 thou/uL (1.40-6.50); %Eosinophils 0.1 % (0.0-10.0); %Lymphocytes 3.6 % (21.0-51.0); %Neutrophils 95.3 % (42.0-75.0); Hemoglobin 7.5 g/dL (12.0-16.0); Mean Corpuscular Hemoglobin 31.5 pg (27.0-31.0); Mean Corpuscular Volume 98.5 fl (81.0-99.0); Platelet Count 228 thou/uL (130-400); RBC Distribution Width 12.4 % (11.5-14.5); Red Blood Cell (RBC) Count 2.38 mill/uL (4.20-5.40); White Blood Cell (WBC) Count 11.3 thou/uL (4.8-10.8)
[2017-11-01 04:54] LABS: Anion Gap 11 mmol/L (10-20); BUN (Urea Nitrogen) 34 mg/dL (9.8-20.1); Calc. Creatinine Clearance 35 mL/min (70-130); Calcium 8.5 mg/dL (7.8-10.44); Carbon Dioxide 30 mmol/L (23-31); Chloride 102 mmol/L (98-107); Estimated GFR-MDRD 19; Glucose 365 mg/dL (80-115); Potassium 5.3 mmol/L (3.5-5.1); Sodium 138 mmol/L (136-145)
[2017-11-01] MEDS ORDERED: Furosemide 40 MG/4 ML VIAL SLOW IVP SCH (06:00)
[2017-11-01] MEDS ORDERED: Dextrose 5% in Water 1,000 ML IV PRN (06:51)
[2017-11-01] MEDS ORDERED: Dextrose 50% Abboject 50 ML SYRINGE IVP PRN (06:51)
[2017-11-01] MEDS: HumaLOG 300 UNITS/3 ML VIAL SC PRN ×4 (07:19→22:19)
[2017-11-01] MEDS ORDERED: Enoxaparin Sodium 40 MG/0.4 ML SYRINGE SC SCH (09:00)
[2017-11-01] MEDS ORDERED: diphenhydrAMINE 25 MG CAP PO PRN (10:34)
[2017-11-01] MEDS ORDERED: Docusate 100 MG CAP PO PRN (10:34)
[2017-11-01] MEDS ORDERED: Polyethylene Glycol 3350 17 GM Packet PO PRN (10:34)
[2017-11-01] MEDS ORDERED: Loperamide HCl 2 MG CAP PO PRN (10:34)
[2017-11-01] MEDS ORDERED: Promethazine 25 MG TAB PO PRN (10:34)
--- NOTE | 2017-11-01 10:49 | PDOC.CTH ---
Cardiology Progress Note - Subjective No new issues. Remains somnolent but easily arousable. - Objective Vital Signs Temp Pulse Resp BP Pulse Ox 11/01/17 08:00 97.3 F L 78 16 96 11/01/17 07:16 97.3 F L 78 16 132/58 L 96 11/01/17 06:58 80 20 97 11/01/17 04:00 97.2 F L 83 18 124/56 L 94 L 10/31/17 23:51 97.6 F 83 20 109/44 L 93 L Weight 233 lb 14.4 oz 10/31/17 11/01/17 11/02/17 06:59 06:59 06:59 Intake Total 520 Output Total 1050 100 Balance -530 -100 - Physical Examination General/Neuro: NAD Neck: no JVD present Lungs: other: (Reduced breath sounds but better than yesterday. ) Heart: RRR Abdomen: NT/ND Extremities: + edema B (1+) - Telemetry Telemetry Rhythm: NSR - Labs Result Diagrams: 11/01/17 03:35 11/01/17 03:35 Troponin/CKMB CK-MB (CK-2) 0.8 ng/mL (0-6.6) 10/31/17 17:49 Troponin I 0.037 ng/mL (< 0.028) H 10/31/17 17:49 - Assessment/Plan 1. COPD exacerbation. 2. Possible bronchitis. 3. Acute diastolic heart failure, mild. 4. Acute on chronic Kidney injury PLAN: - Would hold any more diuresis for now. May need some fluid back if creatinine continues to rise. - Continue pulmonary toilet per primary team.
[2017-11-01] MEDS ORDERED: SYSTANE GEL EYE DROP 10 ML 10 GM BOT EA EYE PRN (11:00)
[2017-11-01 11:58] LABS: Anion Gap 12 mmol/L (10-20); BUN (Urea Nitrogen) 36 mg/dL (9.8-20.1); Calc. Creatinine Clearance 36 mL/min (70-130); Calcium 8.6 mg/dL (7.8-10.44); Carbon Dioxide 29 mmol/L (23-31); Chloride 102 mmol/L (98-107); Estimated GFR-MDRD 20; Glucose 353 mg/dL (80-115); Potassium 5.3 mmol/L (3.5-5.1); Sodium 138 mmol/L (136-145)
[2017-11-01] MEDS: oxyCODONE/Acetaminophen 5 mg/325 mg Tablet PO SCH ×5 (12:00→23:09)
[2017-11-01] MEDS: Entacapone 200 mg Tablet PO SCH ×2 (15:53→21:31)
[2017-11-01] MEDS: Gabapentin 300 MG CAP PO SCH ×2 (15:53→21:24)
[2017-11-01] MEDS: Benzonatate 100 MG CAP PO PRN (15:53)
[2017-11-01] MEDS: Carbidopa/Levodopa 25-100 mg Tablet PO SCH ×2 (15:53→21:25)
--- NOTE | 2017-11-01 17:17 | CON ---
DATE OF CONSULTATION: 11/01/2017 A 72-year-old female, who was recently discharged from the hospital, congestive heart failure, presen ts last night to the hospital, mental status change, cough, shortness of breath. She had fever up to 102. We put her on CPAP this morning, she was sitting on the side of the bed, qu ite congested, but denies any chills or sweats. PAST MEDICAL HISTORY: Extensive previous history is well-outlined on medical records. Congestive he art failure, obesity, hyperlipidemia, high cholesterol, high triglycerides, and irritable bowel syndr ome, diastolic dysfunction. PAST SURGICAL HISTORY: Multiple. Hysterectomy, tubal, spinal, tonsils, appendix, cholecystectomy. MEDICATIONS: A long list of medicine from home, amantadine, aspirin, Norvasc 10, carbidopa, Coreg 12 .5, Depakote 250, Plaquenil 200, Neurontin 600, Lasix 40, insulin, Lamictal 75, oxycodone, Requip 0.5 , tizanidine 0.4 mg. ALLERGIES: LIPITOR, LYRICA. SOCIAL/FAMILY HISTORY: No alcohol or tobacco abuse. REVIEW OF SYSTEMS: Otherwise, 10-point negative. PHYSICAL EXAMINATION: GENERAL: She appears to be in no acute distress, complains of cough, sitting on her bedside. VITAL SIGNS: Sats are 96 on 2 liters, respiratory rate 18, temperature 97, blood pressure 113/58. CHEST: Bilateral rhonchi and crackles. CARDIAC: Normal S1, S2. ABDOMEN: Soft, no masses. IMAGING: X-ray shows cardiomegaly. Small bilateral infiltrates and effusion. LABORATORY DATA: White count 11,000, H and H 7 and 28, platelet count 228. Creatinine is 2.4. IMPRESSION: BNP sensitive, diastolic dysfunction, renal failure, cough, possibly pneumonia, sepsis, polypharmacy, bipolar, restless legs, probably sleep apnea. PLAN: Continue empiric antibiotics outlined, neb treatments, and supportive care. We will follow. Please note this is a consultation note of 75 minutes of which 50% of the time was direct patient car e on the floor.
[2017-11-01] MEDS: Carvedilol 25 MG TAB PO SCH (17:19)
[2017-11-01] MEDS: Calcium Carbonate 500 MG ChewTAB PO SCH (17:19)
--- NOTE | 2017-11-01 18:22 | PDOC.PN ---
- Subjective Encounter Start Date: 11/01/17 Encounter Start Time: 09:40 Pt seen for followup re: acute respiratory failure. Reports feeling better. SOBOE still +, cough+. - Objective MAR Reviewed: Yes Vital Signs & Weight: Vital Signs (12 hours) Temp Pulse Pulse Pulse Resp BP BP 11/01/17 17:46 85 89 151/77 H 149/61 H 11/01/17 15:18 97.2 F L 84 18 11/01/17 13:34 84 18 11/01/17 11:11 97.6 F 82 19 11/01/17 08:00 97.3 F L 78 16 11/01/17 07:16 97.3 F L 78 16 11/01/17 06:58 80 20 BP Pulse Ox Pulse Ox Pulse Ox 11/01/17 17:46 98 98 11/01/17 15:18 134/73 98 11/01/17 13:34 98 11/01/17 11:11 126/55 L 96 11/01/17 08:00 96 11/01/17 07:16 132/58 L 96 11/01/17 06:58 97 Weight Admit Weight 233 lb Weight 233 lb 14.4 oz I&O: 10/31/17 11/01/17 11/02/17 06:59 06:59 06:59 Intake Total 520 360 Output Total 1050 750 Balance -530 -390 Result Diagrams: 11/01/17 03:35 11/01/17 11:21 Additional Labs: Accuchecks 11/01/17 11/01/17 11/01/17 16:47 10:50 07:07 POC Glucose 324 H 367 H 337 H 10/31/17 20:35 POC Glucose 155 H EKG Reviewed by me: Yes (Tele: NSR) Phys Exam - Physical Examination Constitutional: NAD HEENT: PERRLA, moist MMs, sclera anicteric, oral pharynx no lesions Neck: supple Respiratory: no wheezing, no rales, no rhonchi, clear to auscultation bilateral Cardiovascular: RRR, no rub Gastrointestinal: soft, non-tender, no distention, positive bowel sounds Neurological: moves all 4 limbs Psychiatric: normal affect Dx/Plan (1) Acute respiratory failure Code(s): J96.00 - ACUTE RESPIRATORY FAILURE, UNSP W HYPOXIA OR HYPERCAPNIA Status: Acute (2) CHF exacerbation Code(s): I50.9 - HEART FAILURE, UNSPECIFIED Status: Acute (3) Bronchitis Code(s): J40 - BRONCHITIS, NOT SPECIFIED ACUTE OR CHRONIC Status: Acute (4) DM2 (diabetes mellitus, type 2) Status: Chronic Qualifiers: Diabetes mellitus complication status: with unspecified complications Diabetes mellitus care home insulin use: with adjunct faculty for medical terminology use Qualified Code(s) : E11.8 - Type 2 diabetes mellitus with unspecified complications; Z79.4 - intermediate designer (current) use of insulin; Z79.4 - residential (current) use of insulin; Z79.4 - intermediate designer (current) use of insulin; Z79.4 - residential (current) use of insulin Comment: Will restart her home meds. Will continue with SSI. keep BG 140-180 (5) GERD (gastroesophageal reflux disease) Code(s): K21.9 - GASTRO-ESOPHAGEAL REFLUX DISEASE WITHOUT ESOPHAGITIS Status: Chronic Qualifiers: Esophagitis presence: esophagitis presence not specified Qualified Code(s) : K21.9 - Gastro-esophageal reflux disease without esophagitis (6) Hypertension Code(s): I10 - ESSENTIAL (PRIMARY) HYPERTENSION Status: Chronic Qualifiers: Hypertension type: essential hypertension (7) Parkinson disease Code(s): G20 - PARKINSON'S DISEASE Status: Chronic (8) ANNA (acute kidney injury) Code(s): N17.9 - ACUTE KIDNEY FAILURE, UNSPECIFIED Status: Resolved (9) Obesity (BMI 30.0-34.9) Code(s): E66.9 - OBESITY, UNSPECIFIED Status: Chronic - Plan continue antibiotics, out of bed/ambulate * . Diuretics on hold , follow creatinine. Continue oxygen, steroids, bronchodilators. Continue accuchecks, insulin sliding scale. Administer kayexalate for hyperkalemia. Monitor vital signs, titrate antihypertensives as needed. Review of Systems - Review of Systems Constitutional: negative: fever, chills, sweats, weakness, malaise Respiratory: Cough, SOB with Excertion, Sputum. negative: Dry, Shortness of Breath, Hemoptysis, Pleuritic Pain, Wheezing Cardiovascular: negative: chest pain, palpitations, orthopnea, paroxysmal nocturnal dyspnea, edema, light headedness Gastrointestinal: negative: Nausea, Vomiting, Abdominal Pain, Diarrhea, Constipation, Melena, Hematochezia Genitourinary: negative: Dysuria, Frequency, Incontinence, Hematuria, Retention - Medications/Allergies Allergies/Adverse Reactions: Allergies Allergy/AdvReac Type Severity Reaction Status Date / Time atorvastatin [From Lipitor] Allergy Verified 07/12/17 08:36 nalbuphine Allergy Verified 07/12/17 08:36 pregabalin [From Lyrica] Allergy Verified 07/12/17 08:36 Medications: Current Medications Acetaminophen (Tylenol) 650 mg PO Q4H PRN PRN Reason: Headache/Fever or Pain Acetaminophen (Tylenol) 650 mg PA Q4H PRN PRN Reason: Headache/Fever or Pain Albuterol/Ipratropium (Duoneb) 3 ml NEB [id number] PRN PRN Reason: SOB &/or Wheezing Albuterol/Ipratropium (Duoneb) 3 ml NEB [id number] [facility] Last Admin: 11/01/17 13:34 Dose: 3 ml Amantadine HCl (Symmetrel) 100 mg PO DAILY [facility] Amlodipine Besylate (Norvasc) 10 mg PO DAILY [facility] Aspirin (Aspirin Chewable) 81 mg PO DAILY [facility] Benzonatate (Tessalon) 100 mg PO TID PRN PRN Reason: Cough Last Admin: 11/01/17 15:53 Dose: 100 mg Bisacodyl (Dulcolax) 10 mg PO DAILYPRN PRN PRN Reason: Constipation Calcium Carbonate (Tums) 1,000 mg PO BID-[facility] Last Admin: 11/01/17 17:19 Dose: 1,000 mg Carbidopa/Levodopa (Sinemet 25-100) 0.5 tab PO TID [facility] Last Admin: 11/01/17 15:53 Dose: 0.5 tab Carvedilol (Coreg) 12.5 mg PO BID-[facility] Last Admin: 11/01/17 17:19 Dose: 12.5 mg Clonazepam (Klonopin) 0.25 mg PO BID [facility] Dextrose/Water (Dextrose 50%) 25 gm IVP PRN PRN PRN Reason: HYPOGLYCEMIA PROTOCOL Diphenhydramine HCl (Benadryl) 25 mg PO Q6HR PRN PRN Reason: Itching Divalproex Sodium (Depakote) 250 mg PO BID [facility] Docusate Sodium (Colace) 100 mg PO DAILY PRN PRN Reason: Constipation Entacapone (Comtan) 200 mg PO TID [facility] Last Admin: 11/01/17 15:53 Dose: 200 mg Gabapentin (Neurontin) 600 mg PO TID [facility] Last Admin: 11/01/17 15:53 Dose: 600 mg Glucagon (Glucagon) 1 mg IM PRN PRN PRN Reason: HYPOGLYCEMIA PROTOCOL Heparin Sodium (Porcine) (Heparin) 5,000 units SC BID [facility] Hydroxychloroquine Sulfate (Plaquenil) 200 mg PO BID [facility] Hypromellose (Systane Gel) 0 gm EA EYE DAILYPRN PRN PRN Reason: DRY EYES Azithromycin 500 mg/ Sodium (Chloride) 250 mls @ 250 mls/hr IVPB Q24HR@2000 [facility] Last Admin: 10/31/17 21:15 Dose: 250 mls Ceftriaxone Sodium 1 gm/ (Syringe 0.4 ml/ Sterile Water) 10 mls @ 120 mls/hr SLOW IVP Q24HR@2100 [facility] Last Admin: 10/31/17 21:15 Dose: 10 mls Dextrose/Water (D5w) 1,000 mls @ 0 mls/hr IV INF PRN; As Directed PRN Reason: HYPOGLYCEMIA PROTOCOL Insulin Detemir 20 units/ (Miscellaneous Medication) 0.2 mls @ 0 mls/hr SC HS [facility] Insulin Human Lispro (Humalog) 0 units SC .MODERATE SLIDING SC PRN; Protocol PRN Reason: MODERATE SLIDING SCALE Last Admin: 11/01/17 17:20 Dose: 8 unit Lamotrigine (Lamictal) 75 mg PO DAILY [facility] Loperamide HCl (Imodium) 2 mg PO ASDIR PRN PRN Reason: Diarrhea/Loose Stools Loratadine (Claritin) 10 mg PO DAILY [facility] Magnesium Oxide (Magnesium Oxide) 400 mg PO DAILY [facility] Methylprednisolone Sodium Succinate (Solu-Medrol) 40 mg IVP Q6HR [facility] Last Admin: 11/01/17 17:20 Dose: 40 mg Mometasone Furoate (Asmanex Twisthaler) 1 puff INH 1830 [facility] Oxycodone/Acetaminophen (Percocet 5/325) 1 tab PO 5XD [facility] Last Admin: 11/01/17 16:22 Dose: Not Given Pantoprazole Sodium (Protonix) 40 mg PO 2100 [facility] Polyethylene Glycol (Miralax) 17 gm PO DAILY PRN PRN Reason: Constipation Promethazine HCl (Phenergan) 50 mg PO Q6HR PRN PRN Reason: Nausea Ropinirole HCl (Requip) 0.5 mg PO QPM [facility] Saccharomyces Boulardii (Florastor) 250 mg PO DAILY [facility] Tizanidine HCl (Zanaflex) 4 mg PO BID [facility]
[2017-11-01] MEDS: Mometasone Furoate 120 PUFF 220 MCG INH SCH (18:23)
[2017-11-01] MEDS ORDERED: Non-Formulary Item 1 EACH (Insulin Glargine,Hum.Rec.Anlog 10 UNIT) SQ SCH (21:00)
[2017-11-01] MEDS ORDERED: Insulin Detemir 100 UNITS/ML 20 UNITS in Pre-Filled Syringe 1 EACH SC SCH (21:00)
[2017-11-01] MEDS: Azithromycin 500 MG in Sodium Chloride 0.9% 250 ML 250 ML IVPB SCH (21:23)
[2017-11-01] MEDS: Heparin 5,000 UNITS/ML VIAL SC SCH (21:24)
[2017-11-01] MEDS: clonazePAM 0.5 MG TAB PO SCH (21:26)
[2017-11-01] MEDS: cefTRIAXone\\ROCEPHIN 1 GM, Syringe 0.4 ML in Sterile Water 9.6 ML SLOW IVP SCH (21:27)
[2017-11-01] MEDS: tiZANidine HCl 4 MG TAB PO SCH (21:28)
[2017-11-01] MEDS: Hydroxychloroquine Sulfate 200 MG TAB PO SCH (21:29)
[2017-11-01] MEDS: rOPINIRole HCl 0.5 MG TAB PO SCH (21:32)
[2017-11-01] MEDS: Divalproex Sodium 250 MG (DR) TAB PO SCH (23:08)
[2017-11-02 05:13] LABS: Anion Gap 12 mmol/L (10-20); BUN (Urea Nitrogen) 36 mg/dL (9.8-20.1); Calc. Creatinine Clearance 39 mL/min (70-130); Calcium 8.6 mg/dL (7.8-10.44); Carbon Dioxide 27 mmol/L (23-31); Chloride 104 mmol/L (98-107); Estimated GFR-MDRD 21; Glucose 339 mg/dL (80-115); Potassium 4.8 mmol/L (3.5-5.1); Sodium 138 mmol/L (136-145)
[2017-11-02 05:14] LABS: #Lymphocytes 0.4 thou/uL (1.20-3.40); #Monocytes 0.2 thou/uL (0.11-0.59); #Neutrophils 8.5 thou/uL (1.40-6.50); %Eosinophils 0.1 % (0.0-10.0); %Lymphocytes 4.4 % (21.0-51.0); %Monocytes 2.2 % (0.0-10.0); %Neutrophils 93.3 % (42.0-75.0); Hemoglobin 7.4 g/dL (12.0-16.0); Mean Corpuscular HGB CONC 32.6 g/dL (32.0-36.0); Mean Corpuscular Hemoglobin 31.7 pg (27.0-31.0); Mean Corpuscular Volume 97.5 fl (81.0-99.0); Platelet Count 256 thou/uL (130-400); RBC Distribution Width 12.3 % (11.5-14.5); Red Blood Cell (RBC) Count 2.33 mill/uL (4.20-5.40); White Blood Cell (WBC) Count 9.1 thou/uL (4.8-10.8)
[2017-11-02] MEDS: HumaLOG 300 UNITS/3 ML VIAL SC PRN ×3 (06:17→17:58)
[2017-11-02] MEDS: Gabapentin 300 MG CAP PO SCH ×3 (08:45→22:18)
[2017-11-02] MEDS: Calcium Carbonate 500 MG ChewTAB PO SCH ×2 (08:45→17:41)
[2017-11-02] MEDS: Amantadine HCl 100 mg Capsule PO SCH (08:46)
[2017-11-02] MEDS: Saccharomyces boulardii 250 MG CAP PO SCH (08:46)
[2017-11-02] MEDS: lamoTRIgine 25 MG TAB PO SCH (08:46)
[2017-11-02] MEDS: Hydroxychloroquine Sulfate 200 MG TAB PO SCH ×2 (08:46→22:22)
[2017-11-02] MEDS: oxyCODONE/Acetaminophen 5 mg/325 mg Tablet PO SCH ×4 (08:47→22:16)
[2017-11-02] MEDS: clonazePAM 0.5 MG TAB PO SCH ×2 (08:47→22:19)
--- NOTE | 2017-11-02 08:47 | PRG ---
DATE OF SERVICE: 11/02/2017 SUBJECTIVE: The patient is seen and examined at the bedside. She just had big bowel movements. She is feeling somewhat better. Her shortness of breath improved. Appetite is fair. She complains abo ut severe back pain, which is chronic. She is a custodial resident. OBJECTIVE: VITAL SIGNS: Blood pressure is 135/65, respiratory rate is 24, O2 saturation is 96% on 2 liters, pul se is 80, temperature is 97.9. GENERAL: She is an obese lady. BMI is 34. HEENT: Her head is atraumatic, normocephalic. Eyes, PERRLA. Sclerae nonicteric. NECK: Supple. LUNGS: Bilateral rales and crackles, especially at both bases present. HEART: S1 and S2, somewhat distant. No S3 and no S4. ABDOMEN: Obese, nontender, nondistended. Bowel sounds are present. EXTREMITIES: No clubbing, cyanosis, or edema. NEUROLOGICAL EXAMINATION: She is alert and oriented x3. There are not any sensory or motor deficits present. Cranial nerves are intact. LABORATORY DATA: Showed white count of 9.1, hemoglobin 7.4, hematocrit 22.7, platelet count is 256,0 00. Sodium of 138, potassium 4.8, chloride 104, CO2 of 27, BUN 36, creatinine 2.27. Glycemia is ran ging from 287-367, calcium 8.6. Microbiology: Urine culture negative in 24 hours. Influenza type A and B direct, EIA final is negative on both. IMPRESSION: 1. Acute respiratory failure, which is hypoxic. 2. Congestive heart failure exacerbation. 3. Diabetes mellitus, uncontrolled. 4. Gastroesophageal reflux disease. 5. Hypertension. 6. Parkinson's disease. 7. Acute kidney injury. 8. Obesity. 9. Chronic back pain. PLAN: To change her insulin sliding scale to aggressive from moderate, go up on her Levemir to 20 un its subcutaneously every 12 hours, change her Solu-Medrol dose to 40 mg IV push every 8 hours. Sylvia nue holding diuretics. Her creatinine improved. She does not need any fluids at this point, but she needs to be watched and diuretics will be introduced later. She will continue her current regimen. As above, her hyperkalemia improved, and her blood pressure seems to be controlled. She should be a ble to go to telemetry floor as soon as the bed is available.
[2017-11-02] MEDS: Magnesium Oxide 400 MG TAB PO SCH (08:48)
[2017-11-02] MEDS: Carbidopa/Levodopa 25-100 mg Tablet PO SCH ×3 (08:48→22:20)
[2017-11-02] MEDS: Carvedilol 25 MG TAB PO SCH ×2 (08:49→17:41)
[2017-11-02] MEDS: Loratadine 10 MG TAB PO SCH (08:49)
[2017-11-02] MEDS: tiZANidine HCl 4 MG TAB PO SCH ×2 (08:49→22:19)
[2017-11-02] MEDS: Amlodipine 10 MG TAB PO SCH (08:49)
[2017-11-02] MEDS: Heparin 5,000 UNITS/ML VIAL SC SCH ×2 (08:50→22:29)
[2017-11-02] MEDS: Insulin Detemir 100 UNITS/ML 20 UNITS in Pre-Filled Syringe 1 EACH SC SCH ×2 (08:50→22:25)
[2017-11-02] MEDS: Benzonatate 100 MG CAP PO PRN ×2 (08:51→22:18)
[2017-11-02] MEDS ORDERED: Furosemide 20 MG TAB PO SCH (09:00)
[2017-11-02] MEDS: Divalproex Sodium 250 MG (DR) TAB PO SCH ×2 (09:20→22:22)
[2017-11-02] MEDS: Entacapone 200 mg Tablet PO SCH ×3 (09:20→22:18)
--- NOTE | 2017-11-02 12:49 | PDOC.CTH ---
Cardiology Progress Note - Subjective She is doing much better today. More awake. breathing slightly better. - Objective Vital Signs Temp Pulse Resp BP BP Pulse Ox 11/02/17 11:16 97.6 F 71 24 H 130/53 L 96 11/02/17 08:49 86 148/57 H 11/02/17 08:00 97.6 F 86 24 H 146/71 H 97 11/02/17 07:30 97.6 F 89 24 H 97 11/02/17 06:11 80 24 H 96 11/02/17 04:00 97.9 F 82 18 135/65 97 Admit Weight 233 lb Weight 233 lb 12.8 oz 11/01/17 11/02/17 11/03/17 06:59 06:59 06:59 Intake Total 520 1082 Output Total 1050 750 Balance -530 332 - Physical Examination General/Neuro: alert & oriented x3 Neck: no JVD present Lungs: unlabored respirations, other: (reduced breath sounds bilat. ) Heart: RRR Abdomen: NT/ND Extremities: + edema B (1+) - Telemetry Telemetry Rhythm: NSR - Labs Result Diagrams: 11/02/17 04:47 11/02/17 04:47 Troponin/CKMB CK-MB (CK-2) 0.8 ng/mL (0-6.6) 10/31/17 17:49 Troponin I 0.037 ng/mL (< 0.028) H 10/31/17 17:49 - Assessment/Plan 1. COPD exacerbation. 2. Possible bronchitis. 3. Acute diastolic heart failure, mild. 4. Acute on chronic Kidney injury PLAN: - Would continue to hold diuresis for now. Creatinine starting to improve now. . - Continue pulmonary toilet per primary team.
--- NOTE | 2017-11-02 13:25 | PRG ---
DATE OF SERVICE: 11/02/2017 SUBJECTIVE: Nila Holt is a morbidly obese female, who said she is somewhat better. Sats are 97 on 2 liters, blood pressure 140/87, temperature 97. She denies any pain. She is still weak, still kwesi rt of breath. I's and O's 1082 in and 750 out. OBJECTIVE: CHEST: Reveals bilateral rhonchi. CARDIAC: Normal S1, S2. EXTREMITIES: Trace edema. LABORATORY DATA: Creatinine is 2.2, glucose 348. IMPRESSION: Bipolar, pneumonia, Parkinson's, reflux, severe deconditioning, morbid obesity. PLAN: Continue neb treatments. Continue antibiotics, steroids, and supportive care. We will follow.
[2017-11-02] MEDS: Mometasone Furoate 120 PUFF 220 MCG INH SCH (19:37)
[2017-11-02] MEDS: rOPINIRole HCl 0.5 MG TAB PO SCH (22:22)
[2017-11-02] MEDS: Azithromycin 500 MG in Sodium Chloride 0.9% 250 ML 250 ML IVPB SCH (22:24)
[2017-11-02] MEDS: cefTRIAXone\\ROCEPHIN 1 GM, Syringe 0.4 ML in Sterile Water 9.6 ML SLOW IVP SCH (22:41)
[2017-11-03] MEDS: oxyCODONE/Acetaminophen 5 mg/325 mg Tablet PO SCH ×6 (01:35→23:55)
[2017-11-03 05:21] LABS: #Lymphocytes 0.6 thou/uL (1.20-3.40); #Monocytes 0.2 thou/uL (0.11-0.59); #Neutrophils 6.8 thou/uL (1.40-6.50); %Basophils 0.1 % (0.0-1.0); %Eosinophils 0.2 % (0.0-10.0); %Lymphocytes 7.4 % (21.0-51.0); %Monocytes 2.4 % (0.0-10.0); %Neutrophils 89.8 % (42.0-75.0); Hemoglobin 8.1 g/dL (12.0-16.0); Mean Corpuscular HGB CONC 31.9 g/dL (32.0-36.0); Mean Corpuscular Hemoglobin 31.1 pg (27.0-31.0); Mean Corpuscular Volume 97.3 fl (81.0-99.0); Mean Platelet Volume 8.1 fL (7.4-10.4); Platelet Count 274 thou/uL (130-400); RBC Distribution Width 12.2 % (11.5-14.5); White Blood Cell (WBC) Count 7.6 thou/uL (4.8-10.8)
[2017-11-03 05:41] LABS: Anion Gap 14 mmol/L (10-20); BUN (Urea Nitrogen) 41 mg/dL (9.8-20.1); Calc. Creatinine Clearance 45 mL/min (70-130); Calcium 8.5 mg/dL (7.8-10.44); Carbon Dioxide 26 mmol/L (23-31); Chloride 102 mmol/L (98-107); Estimated GFR-MDRD 26; Glucose 329 mg/dL (80-115); Potassium 4.5 mmol/L (3.5-5.1); Sodium 137 mmol/L (136-145)
--- NOTE | 2017-11-03 07:43 | PDOC.PULPN ---
Progress Note: Subj/Obj - Subjective Date: 11/03/17 Time: 07:41 Narrative: Says she remains SOB at rest - ROS All systems: reviewed and no additional remarkable complaints except as stated Respiratory: short of breath, wheezing - Objective Allergies/Adverse Reactions: Allergies Allergy/AdvReac Type Severity Reaction Status Date / Time atorvastatin [From Lipitor] Allergy Verified 07/12/17 08:36 nalbuphine Allergy Verified 07/12/17 08:36 pregabalin [From Lyrica] Allergy Verified 07/12/17 08:36 Medications: Current Medications Acetaminophen (Tylenol) 650 mg PO Q4H PRN PRN Reason: Headache/Fever or Pain Acetaminophen (Tylenol) 650 mg DE Q4H PRN PRN Reason: Headache/Fever or Pain Albuterol/Ipratropium (Duoneb) 3 ml NEB [id number] PRN PRN Reason: SOB &/or Wheezing Last Admin: 11/02/17 16:14 Dose: 3 ml Albuterol/Ipratropium (Duoneb) 3 ml NEB [id number] [facility] Last Admin: 11/03/17 07:24 Dose: 3 ml Amantadine HCl (Symmetrel) 100 mg PO DAILY [facility] Last Admin: 11/02/17 08:46 Dose: 100 mg Amlodipine Besylate (Norvasc) 10 mg PO DAILY [facility] Last Admin: 11/02/17 08:49 Dose: 10 mg Aspirin (Aspirin Chewable) 81 mg PO DAILY [facility] Last Admin: 11/02/17 09:20 Dose: 81 mg Benzonatate (Tessalon) 100 mg PO TID PRN PRN Reason: Cough Last Admin: 11/02/17 22:18 Dose: 100 mg Bisacodyl (Dulcolax) 10 mg PO DAILYPRN PRN PRN Reason: Constipation Calcium Carbonate (Tums) 1,000 mg PO BID-[facility] Last Admin: 11/02/17 17:41 Dose: 1,000 mg Carbidopa/Levodopa (Sinemet 25-100) 0.5 tab PO TID [facility] Last Admin: 11/02/17 22:20 Dose: 0.5 tab Carvedilol (Coreg) 12.5 mg PO BID-[facility] Last Admin: 11/02/17 17:41 Dose: 12.5 mg Clonazepam (Klonopin) 0.25 mg PO BID [facility] Last Admin: 11/02/17 22:19 Dose: 0.25 mg Dextrose/Water (Dextrose 50%) 25 gm IVP PRN PRN PRN Reason: HYPOGLYCEMIA PROTOCOL Diphenhydramine HCl (Benadryl) 25 mg PO Q6HR PRN PRN Reason: Itching Divalproex Sodium (Depakote) 250 mg PO BID [facility] Last Admin: 11/02/17 22:22 Dose: 250 mg Docusate Sodium (Colace) 100 mg PO DAILY PRN PRN Reason: Constipation Entacapone (Comtan) 200 mg PO TID [facility] Last Admin: 11/02/17 22:18 Dose: 200 mg Gabapentin (Neurontin) 600 mg PO TID [facility] Last Admin: 11/02/17 22:18 Dose: 600 mg Glucagon (Glucagon) 1 mg IM PRN PRN PRN Reason: HYPOGLYCEMIA PROTOCOL Heparin Sodium (Porcine) (Heparin) 5,000 units SC BID [facility] Last Admin: 11/02/17 22:29 Dose: 5,000 units Hydroxychloroquine Sulfate (Plaquenil) 200 mg PO BID [facility] Last Admin: 11/02/17 22:22 Dose: 200 mg Hypromellose (Systane Gel) 0 gm EA EYE DAILYPRN PRN PRN Reason: DRY EYES Azithromycin 500 mg/ Sodium (Chloride) 250 mls @ 250 mls/hr IVPB Q24HR@2000 [facility] Last Admin: 11/02/17 22:24 Dose: 250 mls Ceftriaxone Sodium 1 gm/ (Syringe 0.4 ml/ Sterile Water) 10 mls @ 120 mls/hr SLOW IVP Q24HR@2100 [facility] Last Admin: 11/02/17 22:41 Dose: 10 mls Dextrose/Water (D5w) 1,000 mls @ 0 mls/hr IV INF PRN; As Directed PRN Reason: HYPOGLYCEMIA PROTOCOL Insulin Detemir 20 units/ (Miscellaneous Medication) 0.2 mls @ 0 mls/hr SC BID [facility] Last Admin: 11/02/17 22:25 Dose: 0.2 mls Insulin Human Lispro (Humalog) 0 units SC .AGGRESSIVE SLIDING PRN; Protocol PRN Reason: AGGRESSIVE SLIDING SCALE Last Admin: 11/02/17 17:58 Dose: 11 unit Lamotrigine (Lamictal) 75 mg PO DAILY [facility] Last Admin: 11/02/17 08:46 Dose: 75 mg Loperamide HCl (Imodium) 2 mg PO ASDIR PRN PRN Reason: Diarrhea/Loose Stools Loratadine (Claritin) 10 mg PO DAILY [facility] Last Admin: 11/02/17 08:49 Dose: 10 mg Magnesium Oxide (Magnesium Oxide) 400 mg PO DAILY [facility] Last Admin: 11/02/17 08:48 Dose: 400 mg Methylprednisolone Sodium Succinate (Solu-Medrol) 40 mg IVP Q8HR [facility] Last Admin: 11/03/17 05:09 Dose: 40 mg Mometasone Furoate (Asmanex Twisthaler) 1 puff INH 1830 [facility] Last Admin: 11/02/17 19:37 Dose: 1 puff Oxycodone/Acetaminophen (Percocet 5/325) 1 tab PO 5XD [facility] Last Admin: 11/03/17 01:35 Dose: 1 tab Pantoprazole Sodium (Protonix) 40 mg PO 2100 [facility] Last Admin: 11/02/17 22:22 Dose: 40 mg Polyethylene Glycol (Miralax) 17 gm PO DAILY PRN PRN Reason: Constipation Promethazine HCl (Phenergan) 50 mg PO Q6HR PRN PRN Reason: Nausea Ropinirole HCl (Requip) 0.5 mg PO QPM [facility] Last Admin: 11/02/17 22:22 Dose: 0.5 mg Saccharomyces Boulardii (Florastor) 250 mg PO DAILY [facility] Last Admin: 11/02/17 08:46 Dose: 250 mg Tizanidine HCl (Zanaflex) 4 mg PO BID [facility] Last Admin: 11/02/17 22:19 Dose: 4 mg MAR Reviewed: Yes Vital Signs: Vital Signs Temp 97.9 F 11/03/17 04:00 Pulse 74 11/03/17 07:24 Resp 20 11/03/17 07:24 BP 144/65 H 11/03/17 04:00 Pulse Ox 96 11/03/17 07:24 Intake & Output 11/02/17 11/03/17 11/03/17 18:59 06:59 18:59 Intake Total 240 850 Output Total 750 Balance 240 100 Weight 230 lb 4.8 oz Intake: Intake, IV Amount 250 Oral 240 600 Output: Output, Benavidez 750 Other: Voiding Method Indwelling Catheter Indwelling Catheter Progress Note: Exam - Physical Exam Constitutional: NAD HEENT: PERRLA, moist MMs, sclera anicteric, oral pharynx no lesions Neck: no nodes, no JVD Cardiovascular: RRR, no significant murmur Focused Respiratory Location: wheezes: Right, Left Gastrointestinal: soft, non-tender Musculoskeletal: edema present Neurological: non-focal, moves all 4 limbs Lymphatic: no nodes Psychiatric: normal affect, A&O x 3 Skin: no rash Progress Note: Data - Labs Result Diagrams: 11/03/17 04:14 11/03/17 04:14 Lab results: Laboratory Results 11/01/17 11/01/17 11/01/17 10:50 11:21 16:47 WBC RBC Hgb Hct MCV MCH MCHC RDW Plt Count MPV Neutrophils % Lymphocytes % Monocytes % Eosinophils % Basophils % Neutrophils # Lymphocytes # Monocytes # Eosinophils # Basophils # Sodium 138 Potassium 5.3 H Chloride 102 Carbon Dioxide 29 Anion Gap 12 BUN 36 H Creatinine 2.44 H Estimated GFR (MDRD) 20 Glucose 353 H POC Glucose 367 H 324 H Calcium 8.6 11/01/17 11/02/17 11/02/17 22:18 04:47 04:47 WBC 9.1 RBC 2.33 L Hgb 7.4 L Hct 22.7 L MCV 97.5 MCH 31.7 H MCHC 32.6 RDW 12.3 Plt Count 256 MPV 8.0 Neutrophils % 93.3 H Lymphocytes % 4.4 L Monocytes % 2.2 Eosinophils % 0.1 Basophils % 0.0 Neutrophils # 8.5 H Lymphocytes # 0.4 L Monocytes # 0.2 Eosinophils # 0.0 Basophils # 0.0 Sodium 138 Potassium 4.8 Chloride 104 Carbon Dioxide 27 Anion Gap 12 BUN 36 H Creatinine 2.27 H Estimated GFR (MDRD) 21 Glucose 339 H POC Glucose 287 H Calcium 8.6 18 11/02/17 11/02/17 06:17 10:58 17:48 WBC RBC Hgb Hct MCV MCH MCHC RDW Plt Count MPV Neutrophils % Lymphocytes % Monocytes % Eosinophils % Basophils % Neutrophils # Lymphocytes # Monocytes # Eosinophils # Basophils # Sodium Potassium Chloride Carbon Dioxide Anion Gap BUN Creatinine Estimated GFR (MDRD) Glucose POC Glucose 348 H 368 H 303 H Calcium 11/02/17 11/03/17 11/03/17 19:58 04:14 04:14 WBC 7.6 RBC 2.60 L Hgb 8.1 L Hct 25.3 L MCV 97.3 MCH 31.1 H MCHC 31.9 L RDW 12.2 Plt Count 274 MPV 8.1 Neutrophils % 89.8 H Lymphocytes % 7.4 L Monocytes % 2.4 Eosinophils % 0.2 Basophils % 0.1 Neutrophils # 6.8 H Lymphocytes # 0.6 L Monocytes # 0.2 Eosinophils # 0.0 Basophils # 0.0 Sodium 137 Potassium 4.5 Chloride 102 Carbon Dioxide 26 Anion Gap 14 BUN 41 H Creatinine 1.90 H Estimated GFR (MDRD) 26 Glucose 329 H POC Glucose 323 H Calcium 8.5 11/03/17 05:31 WBC RBC Hgb Hct MCV MCH MCHC RDW Plt Count MPV Neutrophils % Lymphocytes % Monocytes % Eosinophils % Basophils % Neutrophils # Lymphocytes # Monocytes # Eosinophils # Basophils # Sodium Potassium Chloride Carbon Dioxide Anion Gap BUN Creatinine Estimated GFR (MDRD) Glucose POC Glucose 315 H Calcium Progress Note: A/P - Problems (1) Acute respiratory failure Current Visit: Yes Status: Acute Code(s): J96.00 - ACUTE RESPIRATORY FAILURE , UNSP W HYPOXIA OR HYPERCAPNIA (2) CHF exacerbation Current Visit: Yes Status: Acute Code(s): I50.9 - HEART FAILURE, UNSPECIFIED (3) Diastolic CHF Current Visit: Yes Status: Resolved Code(s): I50.30 - UNSPECIFIED DIASTOLIC (CONGESTIVE) HEART FAILURE Qualifiers: Congestive heart failure chronicity: chronic Qualified Code(s): I50.32 - Chronic diastolic (congestive) heart failure (4) Healthcare-associated pneumonia Current Visit: No Status: Acute Code(s): J18.9 - PNEUMONIA, UNSPECIFIED ORGANISM - Plan Plan: Continue IV abx Reduce steroid dose Continue nebs A lot of this may be concurrent pulm edema
[2017-11-03] MEDS: Carvedilol 25 MG TAB PO SCH ×2 (08:33→16:07)
[2017-11-03] MEDS: Calcium Carbonate 500 MG ChewTAB PO SCH ×2 (08:33→16:07)
[2017-11-03] MEDS: Amantadine HCl 100 mg Capsule PO SCH (08:35)
[2017-11-03] MEDS: Amlodipine 10 MG TAB PO SCH (08:36)
[2017-11-03] MEDS: clonazePAM 0.5 MG TAB PO SCH ×2 (08:37→20:38)
[2017-11-03] MEDS: Carbidopa/Levodopa 25-100 mg Tablet PO SCH ×3 (08:37→20:37)
[2017-11-03] MEDS: Entacapone 200 mg Tablet PO SCH ×3 (08:38→20:38)
[2017-11-03] MEDS: Divalproex Sodium 250 MG (DR) TAB PO SCH ×2 (08:38→20:38)
[2017-11-03] MEDS: Gabapentin 300 MG CAP PO SCH ×3 (08:39→20:39)
[2017-11-03] MEDS: Heparin 5,000 UNITS/ML VIAL SC SCH ×2 (08:39→20:39)
[2017-11-03] MEDS: Insulin Detemir 100 UNITS/ML 20 UNITS in Pre-Filled Syringe 1 EACH SC SCH ×2 (08:40→20:39)
[2017-11-03] MEDS: Hydroxychloroquine Sulfate 200 MG TAB PO SCH ×2 (08:40→20:39)
[2017-11-03] MEDS: Magnesium Oxide 400 MG TAB PO SCH (08:41)
[2017-11-03] MEDS: Loratadine 10 MG TAB PO SCH (08:41)
[2017-11-03] MEDS: Saccharomyces boulardii 250 MG CAP PO SCH (08:41)
[2017-11-03] MEDS: lamoTRIgine 25 MG TAB PO SCH (08:41)
[2017-11-03] MEDS: tiZANidine HCl 4 MG TAB PO SCH ×2 (08:42→20:40)
[2017-11-03] MEDS: HumaLOG 300 UNITS/3 ML VIAL SC PRN ×3 (08:43→16:44)
[2017-11-03] MEDS ORDERED: hydrALAZINE 20 MG/ML VIAL SLOW IVP PRN (08:59)
[2017-11-03] MEDS ORDERED: cloNIDine 0.1 MG TAB PO PRN (08:59)
--- NOTE | 2017-11-03 15:06 | PDOC.PN ---
- Subjective Encounter Start Date: 11/03/17 Encounter Start Time: 15:04 Subjective: feels poorly.weak and easily SOB.excessive cough -: no chest pain.no fever/chills - Objective MAR Reviewed: Yes Vital Signs & Weight: Vital Signs (12 hours) Temp Pulse Resp BP BP Pulse Ox 11/03/17 14:02 82 20 96 11/03/17 11:25 97.8 F 74 16 157/70 H 96 11/03/17 08:36 85 182/84 H 11/03/17 08:21 97.8 F 85 18 182/84 H 96 11/03/17 07:24 74 20 96 11/03/17 04:00 97.9 F 97 18 144/65 H 97 Weight Admit Weight 233 lb Weight 230 lb 4.8 oz I&O: 11/02/17 11/03/17 11/04/17 06:59 06:59 06:59 Intake Total 1082 1090 Output Total 750 750 Balance 332 340 Result Diagrams: 11/03/17 04:14 11/03/17 04:14 Additional Labs: Accuchecks 11/03/17 11/03/17 11/02/17 11:10 05:31 19:58 POC Glucose 306 H 315 H 323 H 11/02/17 17:48 POC Glucose 303 H Microbiology 10/31/17 18:21 Urine mcgowan catheter Urine Culture - Final NO GROWTH AT 48 HOURS 10/31/17 17:50 Nasal swab Influenza Types A,B Direct EIA - Final Laboratory Tests 10/31/17 11/01/17 11/01/17 17:49 03:35 11:21 Creatinine 2.26 H 2.47 H 2.44 H 11/02/17 11/03/17 04:47 04:14 Creatinine 2.27 H 1.90 H Radiology Reviewed by me: Yes Phys Exam - Physical Examination Constitutional: NAD weak and tired looking.coughing HEENT: PERRLA, moist MMs, sclera anicteric, oral pharynx no lesions Neck: no JVD Respiratory: no rales, no rhonchi, wheezing present Cardiovascular: RRR, no significant murmur Gastrointestinal: soft, non-tender, no distention, positive bowel sounds Musculoskeletal: no edema, pulses present Neurological: non-focal, normal sensation, moves all 4 limbs Psychiatric: normal affect, A&O x 3 Skin: no rash Dx/Plan (1) Acute respiratory failure Code(s): J96.00 - ACUTE RESPIRATORY FAILURE, UNSP W HYPOXIA OR HYPERCAPNIA Status: Acute Qualifiers: Respiratory failure complication: hypoxia and hypercapnia Qualified Code(s) : J96.01 - Acute respiratory failure with hypoxia; J96.02 - Acute respiratory failure with hypercapnia; J96.02 - Acute respiratory failure with hypercapnia; J96.02 - Acute respiratory failure with hypercapnia (2) CHF exacerbation Code(s): I50.9 - HEART FAILURE, UNSPECIFIED Status: Acute Qualifiers: Congestive heart failure type: diastolic Qualified Code(s): I50.33 - Acute on chronic diastolic (congestive) heart failure (3) Healthcare-associated pneumonia Code(s): J18.9 - PNEUMONIA, UNSPECIFIED ORGANISM Status: Suspected (4) Obesity (BMI 35.0-39.9 without comorbidity) Code(s): E66.9 - OBESITY, UNSPECIFIED Status: Chronic (5) ANNA (acute kidney injury) Code(s): N17.9 - ACUTE KIDNEY FAILURE, UNSPECIFIED Status: Acute (6) Chronic pain disorder Code(s): G89.4 - CHRONIC PAIN SYNDROME Status: Chronic (7) DM2 (diabetes mellitus, type 2) Status: Chronic Qualifiers: Diabetes mellitus complication status: with unspecified complications Diabetes mellitus manager long term care insulin use: with manager long term care use Qualified Code(s) : E11.8 - Type 2 diabetes mellitus with unspecified complications; Z79.4 - bed bug exterminator (current) use of insulin; Z79.4 - MCC (current) use of insulin; Z79.4 - MCC (current) use of insulin; Z79.4 - bed bug exterminator (current) use of insulin Comment: Will restart her home meds. Will continue with SSI. keep BG 140-180 (8) GERD (gastroesophageal reflux disease) Code(s): K21.9 - GASTRO-ESOPHAGEAL REFLUX DISEASE WITHOUT ESOPHAGITIS Status: Chronic Qualifiers: Esophagitis presence: esophagitis presence not specified Qualified Code(s) : K21.9 - Gastro-esophageal reflux disease without esophagitis (9) Hypertension Code(s): I10 - ESSENTIAL (PRIMARY) HYPERTENSION Status: Chronic Qualifiers: Hypertension type: essential hypertension Qualified Code(s): I10 - Essential (primary) hypertension (10) Parkinson disease Code(s): G20 - PARKINSON'S DISEASE Status: Chronic - Plan continue antibiotics, PT/OT, respiratory therapy, incentive spirometry, out of bed/ambulate, DVT proph w/SCDs Lasix on hold d/t ANNA.cardiology following.still mild fluid overload. -: will check CXR in am. -: empiric ABx for PNA.cont nebs,.add Mucinex,IS.PCCM following -: cardiac rehab.pt [facility] bed bound. -: monitor renal Fx.restart lasix if improving * . labs in am DC to [place] in 24-48 hours. Likley Influenza but too far out for treatment worthy.supportive care Cont home meds as below. DC PRN benadryl and Phenrgan.pt on narcotics and muscle relaxants as well from home Review of Systems - Review of Systems Constitutional: weakness, malaise Respiratory: Cough, Dry, Shortness of Breath, SOB with Excertion Cardiovascular: negative: chest pain, palpitations, orthopnea, paroxysmal nocturnal dyspnea, edema, light headedness, other Gastrointestinal: Nausea. negative: Vomiting, Abdominal Pain, Diarrhea, Constipation, Melena, Hematochezia, Other Genitourinary: negative: Dysuria, Frequency, Incontinence, Hematuria, Retention , Other Musculoskeletal: negative: Neck Pain, Shoulder Pain, Arm Pain, Back Pain, Hand Pain, Leg Pain, Foot Pain, Other Neurological: negative: Weakness, Numbness, Incoordination, Change in Speech, Confusion, Seizures, Other - Medications/Allergies Allergies/Adverse Reactions: Allergies Allergy/AdvReac Type Severity Reaction Status Date / Time atorvastatin [From Lipitor] Allergy Verified 07/12/17 08:36 nalbuphine Allergy Verified 07/12/17 08:36 pregabalin [From Lyrica] Allergy Verified 07/12/17 08:36 Medications: Current Medications Acetaminophen (Tylenol) 650 mg PO Q4H PRN PRN Reason: Headache/Fever or Pain Acetaminophen (Tylenol) 650 mg CA Q4H PRN PRN Reason: Headache/Fever or Pain Albuterol/Ipratropium (Duoneb) 3 ml NEB [id number] PRN PRN Reason: SOB &/or Wheezing Last Admin: 11/02/17 16:14 Dose: 3 ml Albuterol/Ipratropium (Duoneb) 3 ml NEB [id number] [facility] Last Admin: 11/03/17 14:02 Dose: 3 ml Amantadine HCl (Symmetrel) 100 mg PO DAILY [facility] Last Admin: 11/03/17 08:35 Dose: 100 mg Amlodipine Besylate (Norvasc) 10 mg PO DAILY [facility] Last Admin: 11/03/17 08:36 Dose: 10 mg Aspirin (Aspirin Chewable) 81 mg PO DAILY [facility] Last Admin: 11/03/17 08:36 Dose: 81 mg Benzonatate (Tessalon) 100 mg PO TID PRN PRN Reason: Cough Last Admin: 11/02/17 22:18 Dose: 100 mg Bisacodyl (Dulcolax) 10 mg PO DAILYPRN PRN PRN Reason: Constipation [facility] Admin: 11/03/17 08:33 Dose: 1,000 mg Carbidopa/Levodopa (Sinemet 25-100) 0.5 tab PO TID [facility] Last Admin: 11/03/17 14:21 Dose: 0.5 tab [facility] ([facility]g) [facility] Last Admin: 11/03/17 08:33 Dose: 12.5 mg Clonazepam (Klonopin) 0.25 mg PO BID [facility] Last Admin: 11/03/17 08:37 Dose: 0.25 mg Clonidine (Catapres) 0.1 mg PO Q4H PRN PRN Reason: SBP>170 Dextrose/Water (Dextrose 50%) 25 gm IVP PRN PRN PRN Reason: HYPOGLYCEMIA PROTOCOL Divalproex Sodium (Depakote) 250 mg PO BID [facility] Last Admin: 11/03/17 08:38 Dose: 250 mg Docusate Sodium (Colace) 100 mg PO DAILY PRN PRN Reason: Constipation Entacapone (Comtan) 200 mg PO TID [facility] Last Admin: 11/03/17 14:21 Dose: 200 mg Gabapentin (Neurontin) 600 mg PO TID [facility] Last Admin: 11/03/17 14:20 Dose: 600 mg Glucagon (Glucagon) 1 mg IM PRN PRN PRN Reason: HYPOGLYCEMIA PROTOCOL Guaifenesin (Mucinex) 1,200 mg PO Q12HR [facility] Guaifenesin/Dextromethorphan (Robitussin Dm) 15 ml PO Q4H PRN PRN Reason: Cough Heparin Sodium (Porcine) (Heparin) 5,000 units SC BID [facility] Last Admin: 11/03/17 08:39 Dose: 5,000 units Hydralazine HCl (Apresoline) 10 mg SLOW IVP Q4H PRN PRN Reason: SBP>180 Hydroxychloroquine Sulfate (Plaquenil) 200 mg PO BID [facility] Last Admin: 11/03/17 08:40 Dose: 200 mg Hypromellose (Systane Gel) 0 gm EA EYE DAILYPRN PRN PRN Reason: DRY EYES Azithromycin 500 mg/ Sodium (Chloride) 250 mls @ 250 mls/hr IVPB Q24HR@2000 [facility] Last Admin: 11/02/17 22:24 Dose: 250 mls Ceftriaxone Sodium 1 gm/ (Syringe 0.4 ml/ Sterile Water) 10 mls @ 120 mls/hr SLOW IVP Q24HR@2100 [facility] Last Admin: 11/02/17 22:41 Dose: 10 mls Dextrose/Water (D5w) 1,000 mls @ 0 mls/hr IV INF PRN; As Directed PRN Reason: HYPOGLYCEMIA PROTOCOL Insulin Detemir 20 units/ (Miscellaneous Medication) 0.2 mls @ 0 mls/hr SC BID [facility] Last Admin: 11/03/17 08:40 Dose: 0.2 mls Insulin Human Lispro (Humalog) 0 units SC .AGGRESSIVE SLIDING PRN; Protocol PRN Reason: AGGRESSIVE SLIDING SCALE Last Admin: 11/03/17 12:01 Dose: 11 unit Lamotrigine (Lamictal) 75 mg PO DAILY [facility] Last Admin: 11/03/17 08:41 Dose: 75 mg Loperamide HCl (Imodium) 2 mg PO ASDIR PRN PRN Reason: Diarrhea/Loose Stools Loratadine (Claritin) 10 mg PO DAILY [facility] Last Admin: 11/03/17 08:41 Dose: 10 mg Magnesium Oxide (Magnesium Oxide) 400 mg PO DAILY [facility] Last Admin: 11/03/17 08:41 Dose: 400 mg Methylprednisolone Sodium Succinate (Solu-Medrol) 40 mg IVP Q8HR [facility] Last Admin: 11/03/17 14:20 Dose: 40 mg Mometasone Furoate (Asmanex Twisthaler) 1 puff INH 1830 [facility] Last Admin: 11/02/17 19:37 Dose: 1 puff Oxycodone/Acetaminophen (Percocet 5/325) 1 tab PO 5XD [facility] Last Admin: 11/03/17 11:28 Dose: 1 tab Pantoprazole Sodium (Protonix) 40 mg PO 2100 [facility] Last Admin: 11/02/17 22:22 Dose: 40 mg Polyethylene Glycol (Miralax) 17 gm PO DAILY PRN PRN Reason: Constipation Ropinirole HCl (Requip) 0.5 mg PO QPM [facility] Last Admin: 11/02/17 22:22 Dose: 0.5 mg Saccharomyces Boulardii (Florastor) 250 mg PO DAILY [facility] Last Admin: 11/03/17 08:41 Dose: 250 mg Tizanidine HCl (Zanaflex) 4 mg PO BID [facility] Last Admin: 11/03/17 08:42 Dose: 4 mg
[2017-11-03] MEDS: Mometasone Furoate 120 PUFF 220 MCG INH SCH (18:54)
[2017-11-03] MEDS: guaiFENesin ER 600 MG TAB PO SCH (20:39)
[2017-11-03] MEDS: rOPINIRole HCl 0.5 MG TAB PO SCH (20:40)
[2017-11-03] MEDS ORDERED: Furosemide 40 MG/4 ML VIAL SLOW IVP SCH (21:00)
--- NOTE | 2017-11-03 21:00 | PDOC.CTH ---
Cardiology Progress Note - Subjective She continues to be SOB but has improved since admission. - Objective Vital Signs Temp Pulse Resp BP Pulse Ox 11/03/17 18:53 86 18 95 11/03/17 16:04 97.7 F 78 19 147/65 H 95 11/03/17 14:02 82 20 96 11/03/17 11:25 97.8 F 74 16 157/70 H 96 Admit Weight 233 lb Weight 230 lb 4.8 oz 11/02/17 11/03/17 11/04/17 06:59 06:59 06:59 Intake Total 1082 1090 720 Output Total 750 750 850 Balance 332 340 -130 - Physical Examination General/Neuro: alert & oriented x3, NAD Neck: no JVD present Lungs: unlabored respirations, other: (reduced breath sounds. ) Heart: RRR Abdomen: NT/ND Extremities: + edema B (1) - Telemetry Telemetry Rhythm: NSR - Labs Result Diagrams: 11/03/17 04:14 11/03/17 04:14 Troponin/CKMB CK-MB (CK-2) 0.8 ng/mL (0-6.6) 10/31/17 17:49 Troponin I 0.037 ng/mL (< 0.028) H 10/31/17 17:49 - Assessment/Plan 1. COPD exacerbation. 2. Possible bronchitis. 3. Acute diastolic heart failure 4. Acute on chronic Kidney injury PLAN: - Will give one dose of IV lasix today. Hopefully her renal function will hold.
[2017-11-03] MEDS: Azithromycin 500 MG in Sodium Chloride 0.9% 250 ML 250 ML IVPB SCH (21:54)
[2017-11-03] MEDS: cefTRIAXone\\ROCEPHIN 1 GM, Syringe 0.4 ML in Sterile Water 9.6 ML SLOW IVP SCH (21:58)
[2017-11-04 05:30] LABS: Anion Gap 12 mmol/L (10-20); BUN (Urea Nitrogen) 39 mg/dL (9.8-20.1); Calc. Creatinine Clearance 50 mL/min (70-130); Calcium 8.5 mg/dL (7.8-10.44); Carbon Dioxide 29 mmol/L (23-31); Chloride 100 mmol/L (98-107); Estimated GFR-MDRD 29; Glucose 218 mg/dL (80-115); Potassium 4.4 mmol/L (3.5-5.1); Sodium 137 mmol/L (136-145)
--- NOTE | 2017-11-04 07:47 | PDOC.PULPN ---
Progress Note: Subj/Obj - Subjective Date: 11/04/17 Time: 07:45 Narrative: C/O chest tightness and wheezing - ROS Constitutional: weakness Respiratory: congestion, cough, short of breath, wheezing - Objective Allergies/Adverse Reactions: Allergies Allergy/AdvReac Type Severity Reaction Status Date / Time atorvastatin [From Lipitor] Allergy Verified 07/12/17 08:36 nalbuphine Allergy Verified 07/12/17 08:36 pregabalin [From Lyrica] Allergy Verified 07/12/17 08:36 Medications: Current Medications Acetaminophen (Tylenol) 650 mg PO Q4H PRN PRN Reason: Headache/Fever or Pain Acetaminophen (Tylenol) 650 mg MO Q4H PRN PRN Reason: Headache/Fever or Pain Albuterol/Ipratropium (Duoneb) 3 ml NEB [id number] PRN PRN Reason: SOB &/or Wheezing Last Admin: 11/02/17 16:14 Dose: 3 ml Albuterol/Ipratropium (Duoneb) 3 ml NEB [id number] [facility] Last Admin: 11/04/17 07:19 Dose: 3 ml Amantadine HCl (Symmetrel) 100 mg PO DAILY [facility] Last Admin: 11/03/17 08:35 Dose: 100 mg Amlodipine Besylate (Norvasc) 10 mg PO DAILY [facility] Last Admin: 11/03/17 08:36 Dose: 10 mg Aspirin (Aspirin Chewable) 81 mg PO DAILY [facility] Last Admin: 11/03/17 08:36 Dose: 81 mg Benzonatate (Tessalon) 100 mg PO TID PRN PRN Reason: Cough Last Admin: 11/02/17 22:18 Dose: 100 mg Bisacodyl (Dulcolax) 10 mg PO DAILYPRN PRN PRN Reason: Constipation Calcium Carbonate (Tums) 1,000 mg PO BID-[facility] Last Admin: 11/03/17 16:07 Dose: 1,000 mg Carbidopa/Levodopa (Sinemet 25-100) 0.5 tab PO TID [facility] Last Admin: 11/03/17 20:37 Dose: 0.5 tab Carvedilol (Coreg) 12.5 mg PO BID-[facility] Last Admin: 11/03/17 16:07 Dose: 12.5 mg Clonazepam (Klonopin) 0.25 mg PO BID [facility] Last Admin: 11/03/17 20:38 Dose: 0.25 mg Clonidine (Catapres) 0.1 mg PO Q4H PRN PRN Reason: SBP>170 Dextrose/Water (Dextrose 50%) 25 gm IVP PRN PRN PRN Reason: HYPOGLYCEMIA PROTOCOL Divalproex Sodium (Depakote) 250 mg PO BID [facility] Last Admin: 11/03/17 20:38 Dose: 250 mg Docusate Sodium (Colace) 100 mg PO DAILY PRN PRN Reason: Constipation Entacapone (Comtan) 200 mg PO TID [facility] Last Admin: 11/03/17 20:38 Dose: 200 mg Furosemide (Lasix) 40 mg SLOW IVP DAILY [facility] Gabapentin (Neurontin) 600 mg PO TID [facility] Last Admin: 11/03/17 20:39 Dose: 600 mg Glucagon (Glucagon) 1 mg IM PRN PRN PRN Reason: HYPOGLYCEMIA PROTOCOL Guaifenesin (Mucinex) 1,200 mg PO Q12HR [facility] Last Admin: 11/03/17 20:39 Dose: 1,200 mg Guaifenesin/Dextromethorphan (Robitussin Dm) 15 ml PO Q4H PRN PRN Reason: Cough Heparin Sodium (Porcine) (Heparin) 5,000 units SC BID [facility] Last Admin: 11/03/17 20:39 Dose: 5,000 units Hydralazine HCl (Apresoline) 10 mg SLOW IVP Q4H PRN PRN Reason: SBP>180 Hydroxychloroquine Sulfate (Plaquenil) 200 mg PO BID [facility] Last Admin: 11/03/17 20:39 Dose: 200 mg Hypromellose (Systane Gel) 0 gm EA EYE DAILYPRN PRN PRN Reason: DRY EYES Azithromycin 500 mg/ Sodium (Chloride) 250 mls @ 250 mls/hr IVPB Q24HR@2000 [facility] Last Admin: 11/03/17 21:54 Dose: 250 mls Ceftriaxone Sodium 1 gm/ (Syringe 0.4 ml/ Sterile Water) 10 mls @ 120 mls/hr SLOW IVP Q24HR@2100 [facility] Last Admin: 11/03/17 21:58 Dose: 10 mls Dextrose/Water (D5w) 1,000 mls @ 0 mls/hr IV INF PRN; As Directed PRN Reason: HYPOGLYCEMIA PROTOCOL Insulin Detemir 20 units/ (Miscellaneous Medication) 0.2 mls @ 0 mls/hr SC BID [facility] Last Admin: 11/03/17 20:39 Dose: 0.2 mls Insulin Human Lispro (Humalog) 0 units SC .AGGRESSIVE SLIDING PRN; Protocol PRN Reason: AGGRESSIVE SLIDING SCALE Last Admin: 11/03/17 16:44 Dose: 11 unit Lamotrigine (Lamictal) 75 mg PO DAILY [facility] Last Admin: 11/03/17 08:41 Dose: 75 mg Loperamide HCl (Imodium) 2 mg PO ASDIR PRN PRN Reason: Diarrhea/Loose Stools Loratadine (Claritin) 10 mg PO DAILY [facility] Last Admin: 11/03/17 08:41 Dose: 10 mg Magnesium Oxide (Magnesium Oxide) 400 mg PO DAILY [facility] Last Admin: 11/03/17 08:41 Dose: 400 mg Methylprednisolone Sodium Succinate (Solu-Medrol) 40 mg IVP Q8HR [facility] Last Admin: 11/04/17 05:20 Dose: 40 mg Mometasone Furoate (Asmanex Twisthaler) 1 puff INH 1830 [facility] Last Admin: 11/03/17 18:54 Dose: 1 puff Oxycodone/Acetaminophen (Percocet 5/325) 1 tab PO 5XD [facility] Last Admin: 11/03/17 23:55 Dose: 1 tab Pantoprazole Sodium (Protonix) 40 mg PO 2100 [facility] Last Admin: 11/03/17 20:40 Dose: 40 mg Polyethylene Glycol (Miralax) 17 gm PO DAILY PRN PRN Reason: Constipation Ropinirole HCl (Requip) 0.5 mg PO QPM [facility] Last Admin: 11/03/17 20:40 Dose: 0.5 mg Saccharomyces Boulardii (Florastor) 250 mg PO DAILY [facility] Last Admin: 11/03/17 08:41 Dose: 250 mg Tizanidine HCl (Zanaflex) 4 mg PO BID [facility] Last Admin: 11/03/17 20:40 Dose: 4 mg MAR Reviewed: Yes Vital Signs: Vital Signs Temp 97.4 F L 11/04/17 03:02 Pulse 78 11/04/17 07:19 Resp 20 11/04/17 07:19 BP 161/72 H 11/04/17 03:02 Pulse Ox 96 11/04/17 07:19 Intake & Output 11/03/17 11/04/17 11/04/17 18:59 06:59 18:59 Intake Total 1210 Output Total 850 1900 Balance -850 -690 Weight 230 lb 14.4 oz Intake: Intake, IV Amount 250 Oral 960 Output: Output, Benavidez 850 1900 Other: Voiding Method Indwelling Catheter Indwelling Catheter Progress Note: Exam - Physical Exam Constitutional: NAD HEENT: PERRLA, sclera anicteric Neck: no nodes Cardiovascular: RRR Respiratory: wheezes Gastrointestinal: soft, non-tender Musculoskeletal: edema present Neurological: non-focal, moves all 4 limbs Lymphatic: no nodes Psychiatric: normal affect, A&O x 3 Skin: no rash Progress Note: Data - Labs Result Diagrams: 11/03/17 04:14 11/04/17 04:00 Lab results: Laboratory Results 11/02/17 11/02/17 11/02/17 10:58 17:48 19:58 WBC RBC Hgb Hct MCV MCH MCHC RDW Plt Count MPV Neutrophils % Lymphocytes % Monocytes % Eosinophils % Basophils % Neutrophils # Lymphocytes # Monocytes # Eosinophils # Basophils # Sodium Potassium Chloride Carbon Dioxide Anion Gap BUN Creatinine Estimated GFR (MDRD) Glucose POC Glucose 368 H 303 H 323 H Calcium 11/03/17 11/03/17 11/03/17 04:14 04:14 05:31 WBC 7.6 RBC 2.60 L Hgb 8.1 L Hct 25.3 L MCV 97.3 MCH 31.1 H MCHC 31.9 L RDW 12.2 Plt Count 274 MPV 8.1 Neutrophils % 89.8 H Lymphocytes % 7.4 L Monocytes % 2.4 Eosinophils % 0.2 Basophils % 0.1 Neutrophils # 6.8 H Lymphocytes # 0.6 L Monocytes # 0.2 Eosinophils # 0.0 Basophils # 0.0 Sodium 137 Potassium 4.5 Chloride 102 Carbon Dioxide 26 Anion Gap 14 BUN 41 H Creatinine 1.90 H Estimated GFR (MDRD) 26 Glucose 329 H POC Glucose 315 H Calcium 8.5 11/03/17 11/03/17 11/03/17 11:10 15:14 19:32 WBC RBC Hgb Hct MCV MCH MCHC RDW Plt Count MPV Neutrophils % Lymphocytes % Monocytes % Eosinophils % Basophils % Neutrophils # Lymphocytes # Monocytes # Eosinophils # Basophils # Sodium Potassium Chloride Carbon Dioxide Anion Gap BUN Creatinine Estimated GFR (MDRD) Glucose POC Glucose 306 H 307 H 270 H Calcium 11/04/17 11/04/17 04:00 05:47 WBC RBC Hgb Hct MCV MCH MCHC RDW Plt Count MPV Neutrophils % Lymphocytes % Monocytes % Eosinophils % Basophils % Neutrophils # Lymphocytes # Monocytes # Eosinophils # Basophils # Sodium 137 Potassium 4.4 Chloride 100 Carbon Dioxide 29 Anion Gap 12 BUN 39 H Creatinine 1.74 H Estimated GFR (MDRD) 29 Glucose 218 H POC Glucose 227 H Calcium 8.5 - Radiology Interpretation Chest x-ray Status: image reviewed by me (no change) Progress Note: A/P - Problems (1) Acute respiratory failure Current Visit: Yes Status: Acute Code(s): J96.00 - ACUTE RESPIRATORY FAILURE , UNSP W HYPOXIA OR HYPERCAPNIA Qualifiers: Respiratory failure complication: hypoxia and hypercapnia Qualified Code(s) : J96.01 - Acute respiratory failure with hypoxia; J96.02 - Acute respiratory failure with hypercapnia; J96.02 - Acute respiratory failure with hypercapnia; J96.02 - Acute respiratory failure with hypercapnia (2) CHF exacerbation Current Visit: Yes Status: Acute Code(s): I50.9 - HEART FAILURE, UNSPECIFIED Qualifiers: Congestive heart failure type: diastolic Qualified Code(s): I50.33 - Acute on chronic diastolic (congestive) heart failure (3) Diastolic CHF Current Visit: Yes Status: Resolved Code(s): I50.30 - UNSPECIFIED DIASTOLIC (CONGESTIVE) HEART FAILURE Qualifiers: Congestive heart failure chronicity: chronic Qualified Code(s): I50.32 - Chronic diastolic (congestive) heart failure (4) Healthcare-associated pneumonia Current Visit: No Status: Suspected Code(s): J18.9 - PNEUMONIA, UNSPECIFIED ORGANISM - Plan Plan: Most of her issue is severe deconditioning I will go ahead and decrease her steroid dose She needs to start getting up rehab?
--- NOTE | 2017-11-04 08:10 | RAD ---
SINGLE VIEW OF THE CHEST: Comparison: 10-31-17 History: Pulmonary edema. Possible pneumonia. FINDINGS: Single view of the chest shows enlarged but stable cardiomediastinal silhouette. There is a calcified granuloma projecting over the left lower lobe. There is no evidence of consolidation, mass, or pleur al effusion. Hardware is seen in the cervical spine. IMPRESSION: Cardiomegaly without evidence of acute cardiopulmonary disease. POS: [facility]
[2017-11-04] MEDS: Calcium Carbonate 500 MG ChewTAB PO SCH ×2 (08:19→15:56)
[2017-11-04] MEDS: Carvedilol 25 MG TAB PO SCH ×2 (08:20→15:55)
[2017-11-04] MEDS: oxyCODONE/Acetaminophen 5 mg/325 mg Tablet PO SCH ×4 (08:20→20:45)
[2017-11-04] MEDS: Amlodipine 10 MG TAB PO SCH (08:21)
[2017-11-04] MEDS: clonazePAM 0.5 MG TAB PO SCH ×2 (08:21→20:47)
[2017-11-04] MEDS: Carbidopa/Levodopa 25-100 mg Tablet PO SCH ×3 (08:21→20:47)
[2017-11-04] MEDS: Amantadine HCl 100 mg Capsule PO SCH (08:21)
[2017-11-04] MEDS: Divalproex Sodium 250 MG (DR) TAB PO SCH ×2 (08:22→20:48)
[2017-11-04] MEDS: Gabapentin 300 MG CAP PO SCH ×3 (08:23→20:46)
[2017-11-04] MEDS: Entacapone 200 mg Tablet PO SCH ×3 (08:23→20:46)
[2017-11-04] MEDS: guaiFENesin ER 600 MG TAB PO SCH ×2 (08:23→20:47)
[2017-11-04] MEDS: Furosemide 40 MG/4 ML VIAL SLOW IVP SCH (08:23)
[2017-11-04] MEDS: Heparin 5,000 UNITS/ML VIAL SC SCH ×2 (08:23→20:45)
[2017-11-04] MEDS: lamoTRIgine 25 MG TAB PO SCH (08:24)
[2017-11-04] MEDS: Hydroxychloroquine Sulfate 200 MG TAB PO SCH ×2 (08:24→20:46)
[2017-11-04] MEDS: Magnesium Oxide 400 MG TAB PO SCH (08:24)
[2017-11-04] MEDS: Loratadine 10 MG TAB PO SCH (08:24)
[2017-11-04] MEDS: Saccharomyces boulardii 250 MG CAP PO SCH (08:24)
[2017-11-04] MEDS: tiZANidine HCl 4 MG TAB PO SCH ×2 (08:25→22:52)
[2017-11-04] MEDS: HumaLOG 300 UNITS/3 ML VIAL SC PRN ×3 (08:25→16:22)
[2017-11-04] MEDS: Guaifenesin DM 100-10/5 ML UDCUP PO PRN (08:36)
[2017-11-04] MEDS: Insulin Detemir 100 UNITS/ML 20 UNITS in Pre-Filled Syringe 1 EACH SC SCH ×2 (09:51→20:48)
--- NOTE | 2017-11-04 12:20 | PDOC.PULPN ---
Progress Note: Subj/Obj - Objective Allergies/Adverse Reactions: Allergies Allergy/AdvReac Type Severity Reaction Status Date / Time atorvastatin [From Lipitor] Allergy Verified 07/12/17 08:36 nalbuphine Allergy Verified 07/12/17 08:36 pregabalin [From Lyrica] Allergy Verified 07/12/17 08:36 Medications: Current Medications Acetaminophen (Tylenol) 650 mg PO Q4H PRN PRN Reason: Headache/Fever or Pain Acetaminophen (Tylenol) 650 mg IA Q4H PRN PRN Reason: Headache/Fever or Pain Albuterol/Ipratropium (Duoneb) 3 ml NEB [id number] PRN PRN Reason: SOB &/or Wheezing Last Admin: 11/02/17 16:14 Dose: 3 ml Albuterol/Ipratropium (Duoneb) 3 ml NEB [id number] [facility] Last Admin: 11/04/17 07:19 Dose: 3 ml Amantadine HCl (Symmetrel) 100 mg PO DAILY [facility] Last Admin: 11/04/17 08:21 Dose: 100 mg Amlodipine Besylate (Norvasc) 10 mg PO DAILY [facility] Last Admin: 11/04/17 08:21 Dose: 10 mg Aspirin (Aspirin Chewable) 81 mg PO DAILY [facility] Last Admin: 11/04/17 08:21 Dose: 81 mg Benzonatate (Tessalon) 100 mg PO TID PRN PRN Reason: Cough Last Admin: 11/02/17 22:18 Dose: 100 mg Bisacodyl (Dulcolax) 10 mg PO DAILYPRN PRN PRN Reason: Constipation Calcium Carbonate (Tums) 1,000 mg PO BID-[facility] Last Admin: 11/04/17 08:19 Dose: 1,000 mg Carbidopa/Levodopa (Sinemet 25-100) 0.5 tab PO TID [facility] Last Admin: 11/04/17 08:21 Dose: 0.5 tab Carvedilol (Coreg) 12.5 mg PO BID-[facility] Last Admin: 11/04/17 08:20 Dose: 12.5 mg Clonazepam (Klonopin) 0.25 mg PO BID [facility] Last Admin: 11/04/17 08:21 Dose: 0.25 mg Clonidine (Catapres) 0.1 mg PO Q4H PRN PRN Reason: SBP>170 Dextrose/Water (Dextrose 50%) 25 gm IVP PRN PRN PRN Reason: HYPOGLYCEMIA PROTOCOL Divalproex Sodium (Depakote) 250 mg PO BID [facility] Last Admin: 11/04/17 08:22 Dose: 250 mg Docusate Sodium (Colace) 100 mg PO DAILY PRN PRN Reason: Constipation Entacapone (Comtan) 200 mg PO TID [facility] Last Admin: 11/04/17 08:23 Dose: 200 mg Furosemide (Lasix) 40 mg SLOW IVP DAILY [facility] Last Admin: 11/04/17 08:23 Dose: 40 mg Gabapentin (Neurontin) 600 mg PO TID [facility] Last Admin: 11/04/17 08:23 Dose: 600 mg Glucagon (Glucagon) 1 mg IM PRN PRN PRN Reason: HYPOGLYCEMIA PROTOCOL Guaifenesin (Mucinex) 1,200 mg PO Q12HR [facility] Last Admin: 11/04/17 08:23 Dose: 1,200 mg Guaifenesin/Dextromethorphan (Robitussin Dm) 15 ml PO Q4H PRN PRN Reason: Cough Last Admin: 11/04/17 08:36 Dose: 15 ml Heparin Sodium (Porcine) (Heparin) 5,000 units SC BID [facility] Last Admin: 11/04/17 08:23 Dose: 5,000 units Hydralazine HCl (Apresoline) 10 mg SLOW IVP Q4H PRN PRN Reason: SBP>180 Hydroxychloroquine Sulfate (Plaquenil) 200 mg PO BID [facility] Last Admin: 11/04/17 08:24 Dose: 200 mg Hypromellose (Systane Gel) 0 gm EA EYE DAILYPRN PRN PRN Reason: DRY EYES Azithromycin 500 mg/ Sodium (Chloride) 250 mls @ 250 mls/hr IVPB Q24HR@2000 [facility] Last Admin: 11/03/17 21:54 Dose: 250 mls Ceftriaxone Sodium 1 gm/ (Syringe 0.4 ml/ Sterile Water) 10 mls @ 120 mls/hr SLOW IVP Q24HR@2100 [facility] Last Admin: 11/03/17 21:58 Dose: 10 mls Dextrose/Water (D5w) 1,000 mls @ 0 mls/hr IV INF PRN; As Directed PRN Reason: HYPOGLYCEMIA PROTOCOL Insulin Detemir 20 units/ (Miscellaneous Medication) 0.2 mls @ 0 mls/hr SC BID [facility] Last Admin: 11/04/17 09:51 Dose: 0.2 mls Insulin Human Lispro (Humalog) 0 units SC .AGGRESSIVE SLIDING PRN; Protocol PRN Reason: AGGRESSIVE SLIDING SCALE Last Admin: 11/04/17 11:38 Dose: 9 unit Lamotrigine (Lamictal) 75 mg PO DAILY [facility] Last Admin: 11/04/17 08:24 Dose: 75 mg Loperamide HCl (Imodium) 2 mg PO ASDIR PRN PRN Reason: Diarrhea/Loose Stools Loratadine (Claritin) 10 mg PO DAILY [facility] Last Admin: 11/04/17 08:24 Dose: 10 mg Magnesium Oxide (Magnesium Oxide) 400 mg PO DAILY [facility] Last Admin: 11/04/17 08:24 Dose: 400 mg Methylprednisolone Sodium Succinate (Solu-Medrol) 20 mg IVP Q8HR [facility] Mometasone Furoate (Asmanex Twisthaler) 1 puff INH 1830 [facility] Last Admin: 11/03/17 18:54 Dose: 1 puff Oxycodone/Acetaminophen (Percocet 5/325) 1 tab PO 5XD [facility] Last Admin: 11/04/17 11:37 Dose: 1 tab Pantoprazole Sodium (Protonix) 40 mg PO 2100 [facility] Last Admin: 11/03/17 20:40 Dose: 40 mg Polyethylene Glycol (Miralax) 17 gm PO DAILY PRN PRN Reason: Constipation Ropinirole HCl (Requip) 0.5 mg PO QPM [facility] Last Admin: 11/03/17 20:40 Dose: 0.5 mg Saccharomyces Boulardii (Florastor) 250 mg PO DAILY [facility] Last Admin: 11/04/17 08:24 Dose: 250 mg Tizanidine HCl (Zanaflex) 4 mg PO BID [facility] Last Admin: 11/04/17 08:25 Dose: 4 mg Vital Signs: Vital Signs Temp 98.8 F 11/04/17 11:29 Pulse 81 11/04/17 11:29 Resp 17 11/04/17 11:29 BP 134/63 11/04/17 11:29 Pulse Ox 94 L 11/04/17 11:29 Intake & Output 11/03/17 11/04/17 11/04/17 18:59 06:59 18:59 Intake Total 1210 Output Total 850 1900 Balance -850 -690 Weight 230 lb 14.4 oz Intake: Intake, IV Amount 250 Oral 960 Output: Output, Benavidez 850 1900 Other: Voiding Method Indwelling Catheter Indwelling Catheter Indwelling Catheter Progress Note: Data - Labs Result Diagrams: 11/03/17 04:14 11/04/17 04:00 Lab results: Laboratory Results 11/02/17 11/02/17 11/03/17 17:48 19:58 04:14 WBC RBC Hgb Hct MCV MCH MCHC RDW Plt Count MPV Neutrophils % Lymphocytes % Monocytes % Eosinophils % Basophils % Neutrophils # Lymphocytes # Monocytes # Eosinophils # Basophils # Sodium 137 Potassium 4.5 Chloride 102 Carbon Dioxide 26 Anion Gap 14 BUN 41 H Creatinine 1.90 H Estimated GFR (MDRD) 26 Glucose 329 H POC Glucose 303 H 323 H Calcium 8.5 11/03/17 11/03/17 11/03/17 04:14 05:31 11:10 WBC 7.6 RBC 2.60 L Hgb 8.1 L Hct 25.3 L MCV 97.3 MCH 31.1 H MCHC 31.9 L RDW 12.2 Plt Count 274 MPV 8.1 Neutrophils % 89.8 H Lymphocytes % 7.4 L Monocytes % 2.4 Eosinophils % 0.2 Basophils % 0.1 Neutrophils # 6.8 H Lymphocytes # 0.6 L Monocytes # 0.2 Eosinophils # 0.0 Basophils # 0.0 Sodium Potassium Chloride Carbon Dioxide Anion Gap BUN Creatinine Estimated GFR (MDRD) Glucose POC Glucose 315 H 306 H Calcium 11/03/17 11/03/17 11/04/17 15:14 19:32 04:00 WBC RBC Hgb Hct MCV MCH MCHC RDW Plt Count MPV Neutrophils % Lymphocytes % Monocytes % Eosinophils % Basophils % Neutrophils # Lymphocytes # Monocytes # Eosinophils # Basophils # Sodium 137 Potassium 4.4 Chloride 100 Carbon Dioxide 29 Anion Gap 12 BUN 39 H Creatinine 1.74 H Estimated GFR (MDRD) 29 Glucose 218 H POC Glucose 307 H 270 H Calcium 8.5 11/04/17 11/04/17 05:47 11:14 WBC RBC Hgb Hct MCV MCH MCHC RDW Plt Count MPV Neutrophils % Lymphocytes % Monocytes % Eosinophils % Basophils % Neutrophils # Lymphocytes # Monocytes # Eosinophils # Basophils # Sodium Potassium Chloride Carbon Dioxide Anion Gap BUN Creatinine Estimated GFR (MDRD) Glucose POC Glucose 227 H 289 H Calcium - Radiology Interpretation Chest x-ray Status: image reviewed by me (no change) Progress Note: A/P - Problems (1) Acute respiratory failure Current Visit: Yes Status: Acute Code(s): J96.00 - ACUTE RESPIRATORY FAILURE , UNSP W HYPOXIA OR HYPERCAPNIA Qualifiers: Respiratory failure complication: hypoxia and hypercapnia Qualified Code(s) : J96.01 - Acute respiratory failure with hypoxia; J96.02 - Acute respiratory failure with hypercapnia; J96.02 - Acute respiratory failure with hypercapnia; J96.02 - Acute respiratory failure with hypercapnia (2) CHF exacerbation Current Visit: Yes Status: Acute Code(s): I50.9 - HEART FAILURE, UNSPECIFIED Qualifiers: Congestive heart failure type: diastolic Qualified Code(s): I50.33 - Acute on chronic diastolic (congestive) heart failure (3) Diastolic CHF Current Visit: Yes Status: Resolved Code(s): I50.30 - UNSPECIFIED DIASTOLIC (CONGESTIVE) HEART FAILURE Qualifiers: Congestive heart failure chronicity: chronic Qualified Code(s): I50.32 - Chronic diastolic (congestive) heart failure (4) Healthcare-associated pneumonia Current Visit: No Status: Suspected Code(s): J18.9 - PNEUMONIA, UNSPECIFIED ORGANISM
--- NOTE | 2017-11-04 14:11 | PDOC.PN ---
- Subjective Encounter Start Date: 11/04/17 Encounter Start Time: 14:09 Subjective: feels better. still not getting OOB much -: c/o hoarseness.HECK,weakness - Objective MAR Reviewed: Yes Vital Signs & Weight: Vital Signs (12 hours) Temp Pulse Resp BP Pulse Ox 11/04/17 13:52 84 20 94 L 11/04/17 11:29 98.8 F 81 17 134/63 94 L 11/04/17 08:21 83 11/04/17 08:15 98.5 F 83 18 179/82 H 94 L 11/04/17 07:19 78 20 96 11/04/17 03:02 97.4 F L 75 21 H 161/72 H 97 Weight Admit Weight 233 lb Weight 230 lb 14.4 oz I&O: 11/03/17 11/04/17 11/05/17 06:59 06:59 06:59 Intake Total 1090 1210 Output Total 750 2750 Balance 340 -1540 Result Diagrams: 11/03/17 04:14 11/04/17 04:00 Additional Labs: Accuchecks 11/04/17 11/04/17 11/03/17 11:14 05:47 19:32 POC Glucose 289 H 227 H 270 H 11/03/17 15:14 POC Glucose 307 H Laboratory Tests 10/31/17 11/01/17 11/01/17 17:49 03:35 11:21 Creatinine 2.26 H 2.47 H 2.44 H 11/02/17 11/03/17 11/04/17 04:47 04:14 04:00 Creatinine 2.27 H 1.90 H 1.74 H Phys Exam - Physical Examination Constitutional: NAD weak ,tired HEENT: PERRLA, moist MMs, sclera anicteric, oral pharynx no lesions Neck: no nodes, no JVD, supple, full ROM Respiratory: no wheezing, no rales, no rhonchi, clear to auscultation bilateral Cardiovascular: RRR, no significant murmur Gastrointestinal: soft, non-tender, no distention, positive bowel sounds Musculoskeletal: no edema, pulses present Neurological: non-focal, normal sensation, moves all 4 limbs Psychiatric: normal affect, A&O x 3 Skin: no rash Dx/Plan (1) Acute respiratory failure Code(s): J96.00 - ACUTE RESPIRATORY FAILURE, UNSP W HYPOXIA OR HYPERCAPNIA Status: Acute Qualifiers: Respiratory failure complication: hypoxia and hypercapnia Qualified Code(s) : J96.01 - Acute respiratory failure with hypoxia; J96.02 - Acute respiratory failure with hypercapnia; J96.02 - Acute respiratory failure with hypercapnia; J96.02 - Acute respiratory failure with hypercapnia Comment: improving. (2) CHF exacerbation Code(s): I50.9 - HEART FAILURE, UNSPECIFIED Status: Acute Qualifiers: Qualified Code(s): I50.33 - Acute on chronic diastolic (congestive) heart failure (3) Healthcare-associated pneumonia Code(s): J18.9 - PNEUMONIA, UNSPECIFIED ORGANISM Status: Suspected (4) Obesity (BMI 35.0-39.9 without comorbidity) Code(s): E66.9 - OBESITY, UNSPECIFIED Status: Chronic (5) ANNA (acute kidney injury) Code(s): N17.9 - ACUTE KIDNEY FAILURE, UNSPECIFIED Status: Acute (6) Chronic pain disorder Code(s): G89.4 - CHRONIC PAIN SYNDROME Status: Chronic (7) DM2 (diabetes mellitus, type 2) Status: Chronic Qualifiers: Diabetes mellitus complication status: with unspecified complications Diabetes mellitus exterminator insulin use: with exterminator use Qualified Code(s) : E11.8 - Type 2 diabetes mellitus with unspecified complications; Z79.4 - superintendent container terminal (current) use of insulin; Z79.4 - shelter (current) use of insulin; Z79.4 - shelter (current) use of insulin; Z79.4 - shelter (current) use of insulin Comment: Will restart her home meds. Will continue with SSI. keep BG 140-180 (8) GERD (gastroesophageal reflux disease) Code(s): K21.9 - GASTRO-ESOPHAGEAL REFLUX DISEASE WITHOUT ESOPHAGITIS Status: Chronic Qualifiers: Esophagitis presence: esophagitis presence not specified Qualified Code(s) : K21.9 - Gastro-esophageal reflux disease without esophagitis (9) Hypertension Code(s): I10 - ESSENTIAL (PRIMARY) HYPERTENSION Status: Chronic Qualifiers: Hypertension type: essential hypertension Qualified Code(s): I10 - Essential (primary) hypertension (10) Parkinson disease Code(s): G20 - PARKINSON'S DISEASE Status: Chronic - Plan continue antibiotics, PT/OT, director of social media marketing, respiratory therapy, incentive spirometry, out of bed/ambulate, DVT proph w/SCDs cont lasix,ABx empirically,nebs,steroids. -: appreciate carduiology & PCCM input. -: clinically better but w limited mobility.refusing rehab. -: brandi DC in next 24-48 hrs to [place] w HH -: monitor renal Fx.improving. -: cardiac rehab.pt maria fernanda bed bound. * Brandi Influenza but too far out for treatment worthy.supportive care Cont home meds as below. DCed PRN benadryl and Phenrgan.pt on narcotics and muscle relaxants as well from home Review of Systems - Review of Systems Constitutional: weakness, malaise Eyes: negative: Pain, Vision Change, Conjunctivae Inflammation, Eyelid Inflammation, Redness, Other ENT: negative: Ear Pain, Ear Discharge, Nose Pain, Nose Discharge, Nose Congestion, Mouth Pain, Mouth Swelling, Throat Pain, Throat Swelling, Other Respiratory: Cough, SOB with Excertion. negative: Dry, Shortness of Breath, Hemoptysis, Pleuritic Pain, Sputum, Wheezing Cardiovascular: negative: chest pain, palpitations, orthopnea, paroxysmal nocturnal dyspnea, edema, light headedness, other Gastrointestinal: negative: Nausea, Vomiting, Abdominal Pain, Diarrhea, Constipation, Melena, Hematochezia, Other Genitourinary: negative: Dysuria, Frequency, Incontinence, Hematuria, Retention , Other Musculoskeletal: negative: Neck Pain, Shoulder Pain, Arm Pain, Back Pain, Hand Pain, Leg Pain, Foot Pain, Other Skin: negative: Rash, Lesions, Gregory, Bruising, Other Neurological: negative: Weakness, Numbness, Incoordination, Change in Speech, Confusion, Seizures, Other - Medications/Allergies Allergies/Adverse Reactions: Allergies Allergy/AdvReac Type Severity Reaction Status Date / Time atorvastatin [From Lipitor] Allergy Verified 07/12/17 08:36 nalbuphine Allergy Verified 07/12/17 08:36 pregabalin [From Lyrica] Allergy Verified 07/12/17 08:36 Medications: Current Medications Acetaminophen (Tylenol) 650 mg PO Q4H PRN PRN Reason: Headache/Fever or Pain Acetaminophen (Tylenol) 650 mg [place] Q4H PRN PRN Reason: Headache/Fever or Pain Albuterol/Ipratropium (Duoneb) 3 ml NEB [id number] PRN PRN Reason: SOB &/or Wheezing Last Admin: 11/02/17 16:14 Dose: 3 ml Albuterol/Ipratropium (Duoneb) 3 ml NEB Q2OX-AJ [facility] Last Admin: 11/04/17 13:52 Dose: 3 ml Amantadine HCl (Symmetrel) 100 mg PO DAILY [facility] Last Admin: 11/04/17 08:21 Dose: 100 mg Amlodipine Besylate (Norvasc) 10 mg PO DAILY [facility] Last Admin: 11/04/17 08:21 Dose: 10 mg Aspirin (Aspirin Chewable) 81 mg PO DAILY [facility] Last Admin: 11/04/17 08:21 Dose: 81 mg Benzonatate (Tessalon) 100 mg PO TID PRN PRN Reason: Cough Last Admin: 11/02/17 22:18 Dose: 100 mg Bisacodyl (Dulcolax) 10 mg PO DAILYPRN PRN PRN Reason: Constipation Calcium Carbonate (Tums) 1,000 mg PO BID-[facility] Last Admin: 11/04/17 08:19 Dose: 1,000 mg Carbidopa/Levodopa (Sinemet 25-100) 0.5 tab PO TID [facility] Last Admin: 11/04/17 08:21 Dose: 0.5 tab Carvedilol (Coreg) 12.5 mg PO BID-[facility] Last Admin: 11/04/17 08:20 Dose: 12.5 mg Clonazepam (Klonopin) 0.25 mg PO BID [facility] Last Admin: 11/04/17 08:21 Dose: 0.25 mg Clonidine (Catapres) 0.1 mg PO Q4H PRN PRN Reason: SBP>170 Dextrose/Water (Dextrose 50%) 25 gm IVP PRN PRN PRN Reason: HYPOGLYCEMIA PROTOCOL Divalproex Sodium (Depakote) 250 mg PO BID [facility] Last Admin: 11/04/17 08:22 Dose: 250 mg Docusate Sodium (Colace) 100 mg PO DAILY PRN PRN Reason: Constipation Entacapone (Comtan) 200 mg PO TID [facility] Last Admin: 11/04/17 08:23 Dose: 200 mg Furosemide (Lasix) 40 mg SLOW IVP DAILY [facility] Last Admin: 11/04/17 08:23 Dose: 40 mg Gabapentin (Neurontin) 600 mg PO TID [facility] Last Admin: 11/04/17 08:23 Dose: 600 mg Glucagon (Glucagon) 1 mg IM PRN PRN PRN Reason: HYPOGLYCEMIA PROTOCOL Guaifenesin (Mucinex) 1,200 mg PO Q12HR [facility] Last Admin: 11/04/17 08:23 Dose: 1,200 mg Guaifenesin/Dextromethorphan (Robitussin Dm) 15 ml PO Q4H PRN PRN Reason: Cough Last Admin: 11/04/17 08:36 Dose: 15 ml Heparin Sodium (Porcine) (Heparin) 5,000 units SC BID [facility] Last Admin: 11/04/17 08:23 Dose: 5,000 units Hydralazine HCl (Apresoline) 10 mg SLOW IVP Q4H PRN PRN Reason: SBP>180 Hydroxychloroquine Sulfate (Plaquenil) 200 mg PO BID [facility] Last Admin: 11/04/17 08:24 Dose: 200 mg Hypromellose (Systane Gel) 0 gm EA EYE DAILYPRN PRN PRN Reason: DRY EYES Azithromycin 500 mg/ Sodium (Chloride) 250 mls @ 250 mls/hr IVPB Q24HR@2000 [facility] Last Admin: 11/03/17 21:54 Dose: 250 mls Ceftriaxone Sodium 1 gm/ (Syringe 0.4 ml/ Sterile Water) 10 mls @ 120 mls/hr SLOW IVP Q24HR@2100 [facility] Last Admin: 11/03/17 21:58 Dose: 10 mls Dextrose/Water (D5w) 1,000 mls @ 0 mls/hr IV INF PRN; As Directed PRN Reason: HYPOGLYCEMIA PROTOCOL Insulin Detemir 20 units/ (Miscellaneous Medication) 0.2 mls @ 0 mls/hr SC BID [facility] Last Admin: 11/04/17 09:51 Dose: 0.2 mls Insulin Human Lispro (Humalog) 0 units SC .AGGRESSIVE SLIDING PRN; Protocol PRN Reason: AGGRESSIVE SLIDING SCALE Last Admin: 11/04/17 11:38 Dose: 9 unit Lamotrigine (Lamictal) 75 mg PO DAILY [facility] Last Admin: 11/04/17 08:24 Dose: 75 mg Loperamide HCl (Imodium) 2 mg PO ASDIR PRN PRN Reason: Diarrhea/Loose Stools Loratadine (Claritin) 10 mg PO DAILY [facility] Last Admin: 11/04/17 08:24 Dose: 10 mg Magnesium Oxide (Magnesium Oxide) 400 mg PO DAILY [facility] Last Admin: 11/04/17 08:24 Dose: 400 mg Methylprednisolone Sodium Succinate (Solu-Medrol) 20 mg IVP Q8HR [facility] Mometasone Furoate (Asmanex Twisthaler) 1 puff INH 1830 [facility] Last Admin: 11/03/17 18:54 Dose: 1 puff Oxycodone/Acetaminophen (Percocet 5/325) 1 tab PO 5XD [facility] Last Admin: 11/04/17 11:37 Dose: 1 tab Pantoprazole Sodium (Protonix) 40 mg PO 2100 [facility] Last Admin: 11/03/17 20:40 Dose: 40 mg Polyethylene Glycol (Miralax) 17 gm PO DAILY PRN PRN Reason: Constipation Ropinirole HCl (Requip) 0.5 mg PO QPM [facility] Last Admin: 11/03/17 20:40 Dose: 0.5 mg Saccharomyces Boulardii (Florastor) 250 mg PO DAILY [facility] Last Admin: 11/04/17 08:24 Dose: 250 mg Tizanidine HCl (Zanaflex) 4 mg PO BID [facility] Last Admin: 11/04/17 08:25 Dose: 4 mg
[2017-11-04] MEDS: Mometasone Furoate 120 PUFF 220 MCG INH SCH (19:24)
[2017-11-04] MEDS: Azithromycin 500 MG in Sodium Chloride 0.9% 250 ML 250 ML IVPB SCH (20:44)
[2017-11-04] MEDS: rOPINIRole HCl 0.5 MG TAB PO SCH (20:48)
[2017-11-04] MEDS: cefTRIAXone\\ROCEPHIN 1 GM, Syringe 0.4 ML in Sterile Water 9.6 ML SLOW IVP SCH (22:52)
--- NOTE | 2017-11-04 23:12 | PDOC.CTH ---
Cardiology Progress Note - Subjective She is feeling better. - Objective Vital Signs Temp Pulse Resp BP Pulse Ox 11/04/17 19:21 81 18 95 11/04/17 15:47 98.5 F 75 17 149/67 H 93 L 11/04/17 13:52 84 20 94 L 11/04/17 11:29 98.8 F 81 17 134/63 94 L Admit Weight 233 lb Weight 230 lb 14.4 oz 11/03/17 11/04/17 11/05/17 06:59 06:59 06:59 Intake Total 1090 1210 960 Output Total 750 2750 1999 Balance 340 -1540 -1040 - Physical Examination General/Neuro: alert & oriented x3, NAD Neck: no JVD present Lungs: unlabored respirations Heart: RRR Abdomen: NT/ND Extremities: + edema B (1+) - Telemetry Telemetry Rhythm: NSR - Labs Result Diagrams: 11/03/17 04:14 11/04/17 04:00 Troponin/CKMB CK-MB (CK-2) 0.8 ng/mL (0-6.6) 10/31/17 17:49 Troponin I 0.037 ng/mL (< 0.028) H 10/31/17 17:49 - Assessment/Plan 1. COPD exacerbation. 2. Possible bronchitis. 3. Acute diastolic heart failure 4. Acute on chronic Kidney injury PLAN: - Continue IV lasix. - BP better controlled.
[2017-11-05] MEDS: oxyCODONE/Acetaminophen 5 mg/325 mg Tablet PO SCH ×6 (00:29→23:58)
[2017-11-05 05:12] LABS: #Lymphocytes 0.6 thou/uL (1.20-3.40); #Monocytes 0.3 thou/uL (0.11-0.59); #Neutrophils 4.7 thou/uL (1.40-6.50); %Eosinophils 0.4 % (0.0-10.0); %Lymphocytes 11.1 % (21.0-51.0); %Monocytes 4.7 % (0.0-10.0); %Neutrophils 83.8 % (42.0-75.0); Hemoglobin 8.2 g/dL (12.0-16.0); Mean Corpuscular HGB CONC 33.9 g/dL (32.0-36.0); Mean Corpuscular Hemoglobin 32.5 pg (27.0-31.0); Mean Corpuscular Volume 95.7 fl (81.0-99.0); Mean Platelet Volume 8.2 fL (7.4-10.4); Platelet Count 263 thou/uL (130-400); RBC Distribution Width 12.3 % (11.5-14.5); Red Blood Cell (RBC) Count 2.52 mill/uL (4.20-5.40); White Blood Cell (WBC) Count 5.6 thou/uL (4.8-10.8)
[2017-11-05 05:34] LABS: Anion Gap 13 mmol/L (10-20); BUN (Urea Nitrogen) 42 mg/dL (9.8-20.1); Calc. Creatinine Clearance 54 mL/min (70-130); Calcium 8.3 mg/dL (7.8-10.44); Carbon Dioxide 28 mmol/L (23-31); Chloride 100 mmol/L (98-107); Estimated GFR-MDRD 32; Glucose 268 mg/dL (80-115); Potassium 4.7 mmol/L (3.5-5.1); Sodium 136 mmol/L (136-145)
[2017-11-05] MEDS: guaiFENesin ER 600 MG TAB PO SCH ×2 (08:08→20:41)
[2017-11-05] MEDS: Calcium Carbonate 500 MG ChewTAB PO SCH ×2 (08:08→16:08)
[2017-11-05] MEDS: Amantadine HCl 100 mg Capsule PO SCH (08:08)
[2017-11-05] MEDS: tiZANidine HCl 4 MG TAB PO SCH ×2 (08:08→20:41)
[2017-11-05] MEDS: Carvedilol 25 MG TAB PO SCH ×2 (08:09→16:08)
[2017-11-05] MEDS: Entacapone 200 mg Tablet PO SCH ×3 (08:09→20:42)
[2017-11-05] MEDS: Magnesium Oxide 400 MG TAB PO SCH (08:09)
[2017-11-05] MEDS: Gabapentin 300 MG CAP PO SCH ×3 (08:09→20:41)
[2017-11-05] MEDS: Amlodipine 10 MG TAB PO SCH (08:09)
[2017-11-05] MEDS: Hydroxychloroquine Sulfate 200 MG TAB PO SCH ×2 (08:09→20:41)
[2017-11-05] MEDS: Carbidopa/Levodopa 25-100 mg Tablet PO SCH ×3 (08:10→20:41)
[2017-11-05] MEDS: Divalproex Sodium 250 MG (DR) TAB PO SCH ×2 (08:10→20:42)
[2017-11-05] MEDS: Saccharomyces boulardii 250 MG CAP PO SCH (08:10)
[2017-11-05] MEDS: Loratadine 10 MG TAB PO SCH (08:10)
[2017-11-05] MEDS: clonazePAM 0.5 MG TAB PO SCH ×2 (08:10→20:41)
[2017-11-05] MEDS: lamoTRIgine 25 MG TAB PO SCH (08:10)
--- NOTE | 2017-11-05 08:32 | PDOC.PULPN ---
Progress Note: Subj/Obj - Subjective Date: 11/05/17 Time: 08:29 Narrative: Feels better - Objective Allergies/Adverse Reactions: Allergies Allergy/AdvReac Type Severity Reaction Status Date / Time atorvastatin [From Lipitor] Allergy Verified 07/12/17 08:36 nalbuphine Allergy Verified 07/12/17 08:36 pregabalin [From Lyrica] Allergy Verified 07/12/17 08:36 MAR Reviewed: Yes Vital Signs: Vital Signs Temp 98.9 F 11/05/17 04:00 Pulse 79 11/05/17 06:19 Resp 18 11/05/17 06:19 BP 165/72 H 11/05/17 04:00 Pulse Ox 95 11/05/17 06:19 Intake & Output 11/04/17 11/05/17 11/05/17 18:59 06:59 18:59 Intake Total 960 610 Output Total 1999 1500 Balance -1040 -890 Weight 232 lb 6.4 oz Intake: Intake, IV Amount 250 Oral 960 360 Output: Urine 1500 Output, Benavidez 2000 Other: Voiding Method Indwelling Catheter Indwelling Catheter Progress Note: Exam - Physical Exam Constitutional: NAD HEENT: PERRLA, sclera anicteric, oral pharynx no lesions Neck: no nodes, no JVD Cardiovascular: RRR Respiratory: clear to auscultation bilaterally Gastrointestinal: soft, non-tender Musculoskeletal: edema present Neurological: non-focal, moves all 4 limbs Lymphatic: no nodes Psychiatric: normal affect, A&O x 3 Skin: no rash Progress Note: Data - Labs Result Diagrams: 11/05/17 03:59 11/05/17 03:59 Progress Note: A/P - Problems (1) Acute respiratory failure Current Visit: Yes Status: Acute Code(s): J96.00 - ACUTE RESPIRATORY FAILURE , UNSP W HYPOXIA OR HYPERCAPNIA Qualifiers: Respiratory failure complication: hypoxia and hypercapnia Qualified Code(s) : J96.01 - Acute respiratory failure with hypoxia; J96.02 - Acute respiratory failure with hypercapnia; J96.02 - Acute respiratory failure with hypercapnia; J96.02 - Acute respiratory failure with hypercapnia (2) CHF exacerbation Current Visit: Yes Status: Acute Code(s): I50.9 - HEART FAILURE, UNSPECIFIED Qualifiers: Qualified Code(s): I50.33 - Acute on chronic diastolic (congestive) heart failure (3) Diastolic CHF Current Visit: Yes Status: Resolved Code(s): I50.30 - UNSPECIFIED DIASTOLIC (CONGESTIVE) HEART FAILURE Qualifiers: Qualified Code(s): I50.32 - Chronic diastolic (congestive) heart failure (4) Healthcare-associated pneumonia Current Visit: No Status: Suspected Code(s): J18.9 - PNEUMONIA, UNSPECIFIED ORGANISM - Plan Plan: Again, deconditioning is the major issue here. I don't think any amount of rehab will help, because she was doing practically nothing in the retirement prior to admit. She is probably near baseline, but remains at continued high risk for readmission. She needs to consider hospice type care.
[2017-11-05] MEDS: Heparin 5,000 UNITS/ML VIAL SC SCH ×2 (09:35→20:40)
[2017-11-05] MEDS: Insulin Detemir 100 UNITS/ML 20 UNITS in Pre-Filled Syringe 1 EACH SC SCH ×2 (09:35→20:40)
[2017-11-05] MEDS: Cefdinir 300 MG CAP PO SCH ×2 (09:37→20:42)
[2017-11-05] MEDS: Furosemide 40 MG/4 ML VIAL SLOW IVP SCH (09:43)
[2017-11-05] MEDS: Guaifenesin DM 100-10/5 ML UDCUP PO PRN ×3 (11:44→20:40)
[2017-11-05] MEDS: HumaLOG 300 UNITS/3 ML VIAL SC PRN ×2 (11:44→17:15)
--- NOTE | 2017-11-05 12:38 | PDOC.PN ---
- Subjective Encounter Start Date: 11/05/17 Encounter Start Time: 12:37 Subjective: feels weak and tired.not getting OOB much - Objective MAR Reviewed: Yes Vital Signs & Weight: Vital Signs (12 hours) Temp Pulse Resp BP Pulse Ox 11/05/17 12:00 97.6 F 73 17 147/73 H 99 11/05/17 08:00 98.2 F 80 18 180/81 H 93 L 11/05/17 06:19 79 18 95 11/05/17 04:40 95 11/05/17 04:00 98.9 F 73 18 165/72 H 95 Weight Admit Weight 233 lb Weight 232 lb 6.4 oz I&O: 11/04/17 11/05/17 11/06/17 06:59 06:59 06:59 Intake Total 1210 1570 Output Total 2750 3500 Balance -1540 -1930 Result Diagrams: 11/05/17 03:59 11/05/17 03:59 Additional Labs: Accuchecks 11/05/17 11/05/17 11/04/17 11:06 06:07 20:36 POC Glucose 314 H 256 H 299 H 11/04/17 16:17 POC Glucose 299 H Laboratory Tests 10/31/17 11/01/17 11/01/17 17:49 03:35 11:21 Creatinine 2.26 H 2.47 H 2.44 H 11/02/17 11/03/17 11/04/17 04:47 04:14 04:00 Creatinine 2.27 H 1.90 H 1.74 H 11/05/17 03:59 Creatinine 1.60 H Phys Exam - Physical Examination Constitutional: NAD pale and weak HEENT: PERRLA, moist MMs, sclera anicteric, oral pharynx no lesions Neck: no nodes, no JVD, supple, full ROM Respiratory: no rales, no rhonchi, wheezing present, clear to auscultation bilateral Cardiovascular: RRR, no significant murmur Gastrointestinal: soft, non-tender, no distention, positive bowel sounds Musculoskeletal: pulses present, edema present Neurological: non-focal, normal sensation, moves all 4 limbs Psychiatric: normal affect, A&O x 3 Skin: no rash Dx/Plan (1) CHF exacerbation Code(s): I50.9 - HEART FAILURE, UNSPECIFIED Status: Acute Qualifiers: Qualified Code(s): I50.33 - Acute on chronic diastolic (congestive) heart failure (2) Healthcare-associated pneumonia Code(s): J18.9 - PNEUMONIA, UNSPECIFIED ORGANISM Status: Suspected (3) ANNA (acute kidney injury) Code(s): N17.9 - ACUTE KIDNEY FAILURE, UNSPECIFIED Status: Acute (4) Obesity (BMI 35.0-39.9 without comorbidity) Code(s): E66.9 - OBESITY, UNSPECIFIED Status: Chronic (5) Chronic pain disorder Code(s): G89.4 - CHRONIC PAIN SYNDROME Status: Chronic (6) DM2 (diabetes mellitus, type 2) Status: Chronic Qualifiers: Diabetes mellitus complication status: with unspecified complications Diabetes mellitus prison insulin use: with prison use Qualified Code(s) : E11.8 - Type 2 diabetes mellitus with unspecified complications; Z79.4 - keno terminal operator (current) use of insulin; Z79.4 - residential (current) use of insulin; Z79.4 - residential (current) use of insulin; Z79.4 - keno terminal operator (current) use of insulin Comment: Will restart her home meds. Will continue with SSI. keep BG 140-180 (7) GERD (gastroesophageal reflux disease) Code(s): K21.9 - GASTRO-ESOPHAGEAL REFLUX DISEASE WITHOUT ESOPHAGITIS Status: Chronic Qualifiers: Esophagitis presence: esophagitis presence not specified Qualified Code(s) : K21.9 - Gastro-esophageal reflux disease without esophagitis (8) Hypertension Code(s): I10 - ESSENTIAL (PRIMARY) HYPERTENSION Status: Chronic Qualifiers: Hypertension type: essential hypertension Qualified Code(s): I10 - Essential (primary) hypertension (9) Parkinson disease Code(s): G20 - PARKINSON'S DISEASE Status: Chronic (10) Acute respiratory failure Code(s): J96.00 - ACUTE RESPIRATORY FAILURE, UNSP W HYPOXIA OR HYPERCAPNIA Status: Resolved Qualifiers: Respiratory failure complication: hypoxia and hypercapnia Qualified Code(s) : J96.01 - Acute respiratory failure with hypoxia; J96.02 - Acute respiratory failure with hypercapnia; J96.02 - Acute respiratory failure with hypercapnia; J96.02 - Acute respiratory failure with hypercapnia Comment: improving. - Plan PT/OT, social professionals, incentive spirometry, DVT proph w/SCDs Clinically better.not very eager to go out of hospital. -: rehab at [facility] when ready. -: cont Lasix.cardiology & PCCM following. -: renal Fx continues to get better. -: cont nebs,steroids,O2 prn. * .likley back to [facility] tomorrow.refusing any other rehab facility * am labs Review of Systems - Review of Systems Constitutional: weakness, malaise ENT: negative: Ear Pain, Ear Discharge, Nose Pain, Nose Discharge, Nose Congestion, Mouth Pain, Mouth Swelling, Throat Pain, Throat Swelling, Other Respiratory: Cough, SOB with Excertion, Wheezing. negative: Dry, Shortness of Breath, Hemoptysis, Pleuritic Pain, Sputum Cardiovascular: negative: chest pain, palpitations, orthopnea, paroxysmal nocturnal dyspnea, edema, light headedness, other Gastrointestinal: negative: Nausea, Vomiting, Abdominal Pain, Diarrhea, Constipation, Melena, Hematochezia, Other Genitourinary: negative: Dysuria, Frequency, Incontinence, Hematuria, Retention , Other Musculoskeletal: negative: Neck Pain, Shoulder Pain, Arm Pain, Back Pain, Hand Pain, Leg Pain, Foot Pain, Other Skin: negative: Rash, Lesions, Gregory, Bruising, Other Neurological: negative: Weakness, Numbness, Incoordination, Change in Speech, Confusion, Seizures, Other - Medications/Allergies Allergies/Adverse Reactions: Allergies Allergy/AdvReac Type Severity Reaction Status Date / Time atorvastatin [From Lipitor] Allergy Verified 07/12/17 08:36 nalbuphine Allergy Verified 07/12/17 08:36 pregabalin [From Lyrica] Allergy Verified 07/12/17 08:36 Medications: Current Medications Acetaminophen (Tylenol) 650 mg PO Q4H PRN PRN Reason: Headache/Fever or Pain Acetaminophen (Tylenol) 650 mg MD Q4H PRN PRN Reason: Headache/Fever or Pain Albuterol/Ipratropium (Duoneb) 3 ml NEB [id number] PRN PRN Reason: SOB &/or Wheezing Last Admin: 11/02/17 16:14 Dose: 3 ml Albuterol/Ipratropium (Duoneb) 3 ml NEB [id number] [place] Last Admin: 11/05/17 06:19 Dose: 3 ml Amantadine HCl (Symmetrel) 100 mg PO DAILY [facility] Last Admin: 11/05/17 08:08 Dose: 100 mg Amlodipine Besylate (Norvasc) 10 mg PO DAILY [facility] Last Admin: 11/05/17 08:09 Dose: 10 mg Aspirin (Aspirin Chewable) 81 mg PO DAILY [facility] Last Admin: 11/05/17 08:10 Dose: 81 mg Benzonatate (Tessalon) 100 mg PO TID PRN PRN Reason: Cough Last Admin: 11/02/17 22:18 Dose: 100 mg Bisacodyl (Dulcolax) 10 mg PO DAILYPRN PRN PRN Reason: Constipation Calcium Carbonate (Tums) 1,000 mg PO BID-[facility] Last Admin: 11/05/17 08:08 Dose: 1,000 mg Carbidopa/Levodopa (Sinemet 25-100) 0.5 tab PO TID [facility] Last Admin: 11/05/17 08:10 Dose: 0.5 tab Carvedilol (Coreg) 12.5 mg PO BID-[facility] Last Admin: 11/05/17 08:09 Dose: 12.5 mg Cefdinir (Omnicef) 300 mg PO BID [facility] Last Admin: 11/05/17 09:37 Dose: 300 mg Clonazepam (Klonopin) 0.25 mg PO BID [facility] Last Admin: 11/05/17 08:10 Dose: 0.25 mg Clonidine (Catapres) 0.1 mg PO Q4H PRN PRN Reason: SBP>170 Dextrose/Water (Dextrose 50%) 25 gm IVP PRN PRN PRN Reason: HYPOGLYCEMIA PROTOCOL Divalproex Sodium (Depakote) 250 mg PO BID [facility] Last Admin: 11/05/17 08:10 Dose: 250 mg Docusate Sodium (Colace) 100 mg PO DAILY PRN PRN Reason: Constipation Entacapone (Comtan) 200 mg PO TID [facility] Last Admin: 11/05/17 08:09 Dose: 200 mg Furosemide (Lasix) 40 mg SLOW IVP DAILY [facility] Last Admin: 11/05/17 09:43 Dose: 40 mg Gabapentin (Neurontin) 600 mg PO TID [facility] Last Admin: 11/05/17 08:09 Dose: 600 mg Glucagon (Glucagon) 1 mg IM PRN PRN PRN Reason: HYPOGLYCEMIA PROTOCOL Guaifenesin (Mucinex) 1,200 mg PO Q12HR [facility] Last Admin: 11/05/17 08:08 Dose: 1,200 mg Guaifenesin/Dextromethorphan (Robitussin Dm) 15 ml PO Q4H PRN PRN Reason: Cough Last Admin: 11/05/17 11:44 Dose: 15 ml Heparin Sodium (Porcine) (Heparin) 5,000 units SC BID [facility] Last Admin: 11/05/17 09:35 Dose: 5,000 units Hydralazine HCl (Apresoline) 10 mg SLOW IVP Q4H PRN PRN Reason: SBP>180 Hydroxychloroquine Sulfate (Plaquenil) 200 mg PO BID [facility] Last Admin: 11/05/17 08:09 Dose: 200 mg Hypromellose (Systane Gel) 0 gm EA EYE DAILYPRN PRN PRN Reason: DRY EYES Dextrose/Water (D5w) 1,000 mls @ 0 mls/hr IV INF PRN; As Directed PRN Reason: HYPOGLYCEMIA PROTOCOL Insulin Detemir 20 units/ (Miscellaneous Medication) 0.2 mls @ 0 mls/hr SC BID [facility] Last Admin: 11/05/17 09:35 Dose: 0.2 mls Insulin Human Lispro (Humalog) 0 units SC .AGGRESSIVE SLIDING PRN; Protocol PRN Reason: AGGRESSIVE SLIDING SCALE Last Admin: 11/05/17 11:44 Dose: 11 unit Lamotrigine (Lamictal) 75 mg PO DAILY [facility] Last Admin: 11/05/17 08:10 Dose: 75 mg Loperamide HCl (Imodium) 2 mg PO ASDIR PRN PRN Reason: Diarrhea/Loose Stools Loratadine (Claritin) 10 mg PO DAILY [facility] Last Admin: 11/05/17 08:10 Dose: 10 mg Magnesium Oxide (Magnesium Oxide) 400 mg PO DAILY [facility] Last Admin: 11/05/17 08:09 Dose: 400 mg Methylprednisolone Sodium Succinate (Solu-Medrol) 20 mg IVP Q8HR [facility] Last Admin: 11/05/17 05:49 Dose: 20 mg Mometasone Furoate (Asmanex Twisthaler) 1 puff INH 1830 [facility] Last Admin: 11/04/17 19:24 Dose: 1 puff Oxycodone/Acetaminophen (Percocet 5/325) 1 tab PO 5XD [facility] Last Admin: 11/05/17 11:44 Dose: 1 tab Pantoprazole Sodium (Protonix) 40 mg PO 2100 [facility] Last Admin: 11/04/17 20:47 Dose: 40 mg Polyethylene Glycol (Miralax) 17 gm PO DAILY PRN PRN Reason: Constipation Ropinirole HCl (Requip) 0.5 mg PO QPM [facility] Last Admin: 11/04/17 20:48 Dose: 0.5 mg Saccharomyces Boulardii (Florastor) 250 mg PO DAILY [facility] Last Admin: 11/05/17 08:10 Dose: 250 mg Sodium Chloride (Flush - Normal Saline) 10 ml IVF Q12HR [facility] Last Admin: 11/05/17 09:37 Dose: 10 ml Sodium Chloride (Flush - Normal Saline) 10 ml IVF PRN PRN PRN Reason: Saline Flush Tizanidine HCl (Zanaflex) 4 mg PO BID [facility] Last Admin: 11/05/17 08:08 Dose: 4 mg
[2017-11-05] MEDS ORDERED: Sterile Water 10 ML ONE (14:03)
--- NOTE | 2017-11-05 18:35 | PDOC.CTH ---
Cardiology Progress Note - Subjective She is doing much better. She feels back to baseline. - Objective Vital Signs Temp Pulse Resp BP Pulse Ox 11/05/17 16:00 98.0 F 80 18 144/64 H 99 11/05/17 13:16 83 18 96 11/05/17 12:00 97.6 F 73 17 147/73 H 99 11/05/17 08:00 98.2 F 80 18 180/81 H 93 L Admit Weight 233 lb Weight 232 lb 6.4 oz 11/04/17 11/05/17 11/06/17 06:59 06:59 06:59 Intake Total 1210 1570 Output Total 2750 3500 Balance -1540 -1930 - Physical Examination General/Neuro: alert & oriented x3, NAD Neck: no JVD present Lungs: unlabored respirations Heart: RRR Abdomen: NT/ND Extremities: + edema B (1+) - Telemetry Telemetry Rhythm: NSR - Labs Result Diagrams: 11/05/17 03:59 11/05/17 03:59 Troponin/CKMB CK-MB (CK-2) 0.8 ng/mL (0-6.6) 10/31/17 17:49 Troponin I 0.037 ng/mL (< 0.028) H 10/31/17 17:49 - Assessment/Plan 1. COPD exacerbation. 2. Possible bronchitis. 3. Acute diastolic heart failure 4. Acute on chronic Kidney injury 5. Severe deconditioning. PLAN: - Switch to PO lasix. - BP still labile but better controlled.
[2017-11-05] MEDS: Mometasone Furoate 120 PUFF 220 MCG INH SCH (18:50)
[2017-11-05] MEDS: rOPINIRole HCl 0.5 MG TAB PO SCH (20:42)
--- NOTE | 2017-11-05 21:33 | CON ---
DATE OF CONSULTATION: 11/05/2017 REASON FOR CONSULTATION: Elevated creatinine. HISTORY OF PRESENT ILLNESS: This 72-year-old female, followed by Dr. Saini, presented to the [facility] for CHF exacerbation. Her creatinine at baseline had been 2s, which is now improved to 1.6. The patient denies fever, chills, headache, numbness, tingling, or weakness. Denies any nausea, vomitin g, or chest pain. PAST MEDICAL HISTORY: Significant for congestive heart failure, diabetes mellitus, hypertension, MOIZ D, bipolar disorder, irritable bowel syndrome. PAST SURGICAL HISTORY: Hysterectomy, tubal ligation, spine surgery, tonsillectomy, appendectomy, cho lecystectomy. HOME MEDICATIONS: Reviewed. HOSPITAL MEDICATIONS: Reviewed. ALLERGIES: Reviewed. SOCIAL HISTORY: No alcohol or drug use. FAMILY HISTORY: Negative for ESRD. REVIEW OF SYSTEMS: A 15-point review of systems was performed and negative except positives noted ab ove. GENERAL: Weakness- HEAD: Headache- NECK: No swelling or lumps. NOSE: No epistaxis or discharge. EYES: No diplopia or pain. RESPIRATORY: Dyspnea- CARDIOVASCULAR: Chest pain- GASTROINTESTINAL: Nausea- /[employer]CH[employer]IC: Hematuria- MUSCULOSKELETAL: No joint pain. NEUROPSYCHIATIC SYSTEMS: No suicidal ideation. No ideation. SKIN: Denies any rash or ulcer. CONSTITUTIONAL: No fever or chills. PHYSICAL EXAMINATION: GENERAL: The patient is awake, alert. VITAL SIGNS: Afebrile, pulse 80, breathing 16, blood pressure 144/64. GENERAL APPEARANCE AND MENTAL STATUS: Fair. HEAD/NECK: Normocephalic. Atraumatic. EYES: EOMI. No deformity. EARS: Clear. No ulcers. NOSE: Intact. No lesions. MOUTH: Clear. No discharge. THROAT: Clear. No exudate. LUNGS: Clear. No crackles. CARDIAC: S1, S2. No rub. ABDOMEN: Benign. BS+. GENITALIA/RECTUM: Benvaidez absent. BACK/EXTREMITIES: Edema 0+ Ulcer- NEUROLOGICAL: Alert and motor intact. SKIN: Rash- Bruise- LYMPHATICS: Edema- Ulcer- LABORATORY DATA: Creatinine 1.6. ASSESSMENT: 1. Chronic kidney disease, stage 3, stable. 2. Hypertension, stable. 3. Anemia, stable. PLAN: The patient will follow up with Dr. Saini. Please reconsult me as needed.
[2017-11-06 04:58] VITALS: BMI 34.2
[2017-11-06] MEDS: Guaifenesin DM 100-10/5 ML UDCUP PO PRN (05:51)
[2017-11-06] MEDS ORDERED: predniSONE 20 MG TAB PO SCH (08:45)
[2017-11-06] MEDS: Furosemide 40 MG TAB PO SCH ×2 (09:00→14:30)
[2017-11-06] MEDS ORDERED: Furosemide 20 MG TAB PO SCH (09:00)
--- NOTE | 2017-11-06 09:28 | PDOC.PULPN ---
Progress Note: Subj/Obj - Subjective Date: 11/06/17 Time: 09:27 Narrative: wants to go home - ROS Respiratory: cough - Objective Allergies/Adverse Reactions: Allergies Allergy/AdvReac Type Severity Reaction Status Date / Time atorvastatin [From Lipitor] Allergy Verified 07/12/17 08:36 nalbuphine Allergy Verified 07/12/17 08:36 pregabalin [From Lyrica] Allergy Verified 07/12/17 08:36 MAR Reviewed: Yes Vital Signs: Vital Signs Temp 97.7 F 11/06/17 04:00 Pulse 90 11/06/17 07:00 Resp 16 11/06/17 07:00 BP 159/67 H 11/06/17 04:00 Pulse Ox 98 11/06/17 04:00 Intake & Output 11/05/17 11/06/17 11/06/17 18:59 06:59 18:59 Intake Total 970 530 Output Total 1150 Balance -180 530 Weight 232 lb 6.4 oz 232 lb Intake: Intake, IV Amount 10 30 Oral 960 500 Output: Output, Benavidez 1150 Other: Voiding Method Diaper Diaper # Unmeasured Voids 2 # Urine Diapers 1 2 # Bowel Movement Diapers 1 Progress Note: Exam - Physical Exam Constitutional: NAD HEENT: PERRLA Cardiovascular: RRR Respiratory: clear to auscultation bilaterally Gastrointestinal: soft, non-tender Musculoskeletal: edema present Neurological: non-focal, normal sensation, moves all 4 limbs Psychiatric: normal affect, A&O x 3 Skin: no rash Progress Note: Data - Labs Result Diagrams: 11/05/17 03:59 11/05/17 03:59 Progress Note: A/P - Problems (1) Acute respiratory failure Current Visit: Yes Status: Resolved Code(s): J96.00 - ACUTE RESPIRATORY FAILURE, UNSP W HYPOXIA OR HYPERCAPNIA Qualifiers: Respiratory failure complication: hypoxia and hypercapnia Qualified Code(s) : J96.01 - Acute respiratory failure with hypoxia; J96.02 - Acute respiratory failure with hypercapnia; J96.02 - Acute respiratory failure with hypercapnia; J96.02 - Acute respiratory failure with hypercapnia (2) CHF exacerbation Current Visit: Yes Status: Acute Code(s): I50.9 - HEART FAILURE, UNSPECIFIED Qualifiers: Qualified Code(s): I50.33 - Acute on chronic diastolic (congestive) heart failure (3) Diastolic CHF Current Visit: Yes Status: Resolved Code(s): I50.30 - UNSPECIFIED DIASTOLIC (CONGESTIVE) HEART FAILURE Qualifiers: Qualified Code(s): I50.32 - Chronic diastolic (congestive) heart failure (4) Healthcare-associated pneumonia Current Visit: No Status: Suspected Code(s): J18.9 - PNEUMONIA, UNSPECIFIED ORGANISM - Plan Plan: Probably back at baseline and can continue treatment at [facility] on oral meds
[2017-11-06] MEDS: Furosemide 40 MG/4 ML VIAL SLOW IVP SCH (10:09)
[2017-11-06] MEDS: HumaLOG 300 UNITS/3 ML VIAL SC PRN ×2 (10:09→18:46)
[2017-11-06] MEDS: Heparin 5,000 UNITS/ML VIAL SC SCH ×2 (10:10→21:11)
[2017-11-06] MEDS: Calcium Carbonate 500 MG ChewTAB PO SCH ×2 (10:10→18:47)
[2017-11-06] MEDS: clonazePAM 0.5 MG TAB PO SCH ×2 (10:10→21:08)
[2017-11-06] MEDS: Magnesium Oxide 400 MG TAB PO SCH (10:11)
[2017-11-06] MEDS: guaiFENesin ER 600 MG TAB PO SCH ×2 (10:11→21:07)
[2017-11-06] MEDS: Loratadine 10 MG TAB PO SCH (10:11)
[2017-11-06] MEDS: Carbidopa/Levodopa 25-100 mg Tablet PO SCH ×3 (10:11→21:09)
[2017-11-06] MEDS: Entacapone 200 mg Tablet PO SCH ×3 (10:11→21:08)
[2017-11-06] MEDS: Amantadine HCl 100 mg Capsule PO SCH (10:12)
[2017-11-06] MEDS: Amlodipine 10 MG TAB PO SCH (10:12)
[2017-11-06] MEDS: Carvedilol 25 MG TAB PO SCH ×2 (10:12→18:47)
[2017-11-06] MEDS: Hydroxychloroquine Sulfate 200 MG TAB PO SCH ×2 (10:12→21:10)
[2017-11-06] MEDS: Gabapentin 300 MG CAP PO SCH ×3 (10:12→21:07)
[2017-11-06] MEDS: tiZANidine HCl 4 MG TAB PO SCH ×2 (10:13→21:09)
[2017-11-06] MEDS: Cefdinir 300 MG CAP PO SCH ×2 (10:13→21:00)
[2017-11-06] MEDS: Saccharomyces boulardii 250 MG CAP PO SCH (10:13)
[2017-11-06] MEDS: lamoTRIgine 25 MG TAB PO SCH (10:50)
[2017-11-06] MEDS: oxyCODONE/Acetaminophen 5 mg/325 mg Tablet PO SCH ×4 (10:51→21:06)
[2017-11-06] MEDS: Divalproex Sodium 250 MG (DR) TAB PO SCH ×2 (10:51→21:06)
[2017-11-06] MEDS: Insulin Detemir 100 UNITS/ML 20 UNITS in Pre-Filled Syringe 1 EACH SC SCH ×2 (10:55→21:16)
--- NOTE | 2017-11-06 12:47 | PDOC.CTH ---
Cardiology Progress Note - Subjective No new issues. - Objective Vital Signs Temp Pulse Pulse Pulse Resp BP BP 11/06/17 10:12 92 199/79 H 11/06/17 09:20 92 84 199/79 H 11/06/17 07:00 90 16 11/06/17 04:00 97.7 F 78 16 BP BP Pulse Ox 11/06/17 10:12 11/06/17 09:20 186/79 H 11/06/17 07:00 11/06/17 04:00 159/67 H 98 Admit Weight 233 lb Weight 232 lb 11/05/17 11/06/17 11/07/17 06:59 06:59 06:59 Intake Total 1570 1500 Output Total 3500 1150 Balance -1930 350 - Physical Examination General/Neuro: alert & oriented x3, NAD Neck: no JVD present Lungs: unlabored respirations Heart: RRR Abdomen: NT/ND Extremities: + edema B (1+, better) - Telemetry Telemetry Rhythm: NSR - Labs Result Diagrams: 11/05/17 03:59 11/05/17 03:59 Troponin/CKMB CK-MB (CK-2) 0.8 ng/mL (0-6.6) 10/31/17 17:49 Troponin I 0.037 ng/mL (< 0.028) H 10/31/17 17:49 - Assessment/Plan 1. COPD exacerbation. 2. Possible bronchitis. 3. Acute diastolic heart failure 4. Acute on chronic Kidney injury 5. Severe deconditioning. PLAN: - On PO lasix. - BP still high. Will start hydralazine.
--- NOTE | 2017-11-06 13:41 | PDOC.PN ---
- Subjective Encounter Start Date: 11/06/17 Encounter Start Time: 13:41 Subjective: feels better.no new issues - Objective MAR Reviewed: Yes Vital Signs & Weight: Vital Signs (12 hours) Temp Pulse Pulse Pulse Resp BP BP 11/06/17 13:32 90 16 11/06/17 10:12 92 199/79 H 11/06/17 09:20 92 84 199/79 H 11/06/17 08:18 74 185/75 H 11/06/17 07:00 90 16 11/06/17 04:00 97.7 F 78 16 BP BP Pulse Ox 11/06/17 13:32 11/06/17 10:12 11/06/17 09:20 186/79 H 11/06/17 08:18 11/06/17 07:00 11/06/17 04:00 159/67 H 98 Weight Admit Weight 233 lb Weight 232 lb I&O: 11/05/17 11/06/17 11/07/17 06:59 06:59 06:59 Intake Total 1570 1500 Output Total 3500 1150 Balance -1930 350 Result Diagrams: 11/05/17 03:59 11/05/17 03:59 Additional Labs: Accuchecks 11/06/17 11/06/17 11/05/17 11:06 06:06 20:17 POC Glucose 206 H 217 H 345 H 11/05/17 16:30 POC Glucose 339 H Microbiology 10/31/17 18:21 Urine mcgowan catheter Urine Culture - Final NO GROWTH AT 48 HOURS 10/31/17 17:50 Nasal swab Influenza Types A,B Direct EIA - Final Laboratory Tests 10/31/17 11/01/17 11/01/17 17:49 03:35 11:21 Creatinine 2.26 H 2.47 H 2.44 H 11/02/17 11/03/17 11/04/17 04:47 04:14 04:00 Creatinine 2.27 H 1.90 H 1.74 H 11/05/17 03:59 Creatinine 1.60 H Phys Exam - Physical Examination Constitutional: NAD plae,weak HEENT: PERRLA, moist MMs, sclera anicteric, oral pharynx no lesions Neck: no nodes, no JVD, supple, full ROM Respiratory: no wheezing, no rales, no rhonchi, clear to auscultation bilateral few basilar crackles Cardiovascular: RRR, no significant murmur Gastrointestinal: soft, non-tender, no distention, positive bowel sounds Musculoskeletal: pulses present, edema present Neurological: non-focal, normal sensation, moves all 4 limbs Psychiatric: normal affect, A&O x 3 Skin: no rash Dx/Plan (1) Hypertensive urgency Code(s): I16.0 - HYPERTENSIVE URGENCY Status: Acute (2) CHF exacerbation Code(s): I50.9 - HEART FAILURE, UNSPECIFIED Status: Acute Qualifiers: Qualified Code(s): I50.33 - Acute on chronic diastolic (congestive) heart failure (3) Healthcare-associated pneumonia Code(s): J18.9 - PNEUMONIA, UNSPECIFIED ORGANISM Status: Suspected (4) ANNA (acute kidney injury) Code(s): N17.9 - ACUTE KIDNEY FAILURE, UNSPECIFIED Status: Acute (5) Obesity (BMI 35.0-39.9 without comorbidity) Code(s): E66.9 - OBESITY, UNSPECIFIED Status: Chronic (6) Chronic pain disorder Code(s): G89.4 - CHRONIC PAIN SYNDROME Status: Chronic (7) DM2 (diabetes mellitus, type 2) Status: Chronic Qualifiers: Diabetes mellitus complication status: with unspecified complications Diabetes mellitus fpc insulin use: with buttermaker helper use Qualified Code(s) : E11.8 - Type 2 diabetes mellitus with unspecified complications; Z79.4 - penitentiary (current) use of insulin; Z79.4 - exterminator helper termite (current) use of insulin; Z79.4 - exterminator helper termite (current) use of insulin; Z79.4 - exterminator helper termite (current) use of insulin Comment: Will restart her home meds. Will continue with SSI. keep BG 140-180 (8) GERD (gastroesophageal reflux disease) Code(s): K21.9 - GASTRO-ESOPHAGEAL REFLUX DISEASE WITHOUT ESOPHAGITIS Status: Chronic Qualifiers: Esophagitis presence: esophagitis presence not specified Qualified Code(s) : K21.9 - Gastro-esophageal reflux disease without esophagitis (9) Hypertension Code(s): I10 - ESSENTIAL (PRIMARY) HYPERTENSION Status: Chronic Qualifiers: Hypertension type: essential hypertension Qualified Code(s): I10 - Essential (primary) hypertension (10) Parkinson disease Code(s): G20 - PARKINSON'S DISEASE Status: Chronic (11) Acute respiratory failure Code(s): J96.00 - ACUTE RESPIRATORY FAILURE, UNSP W HYPOXIA OR HYPERCAPNIA Status: Resolved Qualifiers: Respiratory failure complication: hypoxia and hypercapnia Qualified Code(s) : J96.01 - Acute respiratory failure with hypoxia; J96.02 - Acute respiratory failure with hypercapnia; J96.02 - Acute respiratory failure with hypercapnia; J96.02 - Acute respiratory failure with hypercapnia Comment: improving. - Plan plan discussed w/ family, PT/OT, social economist, respiratory therapy, incentive spirometry, out of bed/ambulate, DVT proph w/SCDs BP very high,started on hydralazine.monitor for now -: Change lasix to Po & monitor for fluid overload. -: recheck renal Fx in am.CKD pt -: Change Steroids to PO.cont nebs,Po ABx -: appreciate cardiology,PCCM input. * .Reasses in am and DC back to [facility] if BP improves. * am labs Review of Systems - Review of Systems Constitutional: weakness, malaise ENT: negative: Ear Pain, Ear Discharge, Nose Pain, Nose Discharge, Nose Congestion, Mouth Pain, Mouth Swelling, Throat Pain, Throat Swelling, Other Respiratory: SOB with Excertion. negative: Cough, Dry, Shortness of Breath, Hemoptysis, Pleuritic Pain, Sputum, Wheezing Cardiovascular: negative: chest pain, palpitations, orthopnea, paroxysmal nocturnal dyspnea, edema, light headedness, other Gastrointestinal: negative: Nausea, Vomiting, Abdominal Pain, Diarrhea, Constipation, Melena, Hematochezia, Other Genitourinary: negative: Dysuria, Frequency, Incontinence, Hematuria, Retention , Other Musculoskeletal: negative: Neck Pain, Shoulder Pain, Arm Pain, Back Pain, Hand Pain, Leg Pain, Foot Pain, Other Neurological: negative: Weakness, Numbness, Incoordination, Change in Speech, Confusion, Seizures, Other - Medications/Allergies Allergies/Adverse Reactions: Allergies Allergy/AdvReac Type Severity Reaction Status Date / Time atorvastatin [From Lipitor] Allergy Verified 07/12/17 08:36 nalbuphine Allergy Verified 07/12/17 08:36 pregabalin [From Lyrica] Allergy Verified 07/12/17 08:36 Medications: Current Medications Acetaminophen (Tylenol) 650 mg PO Q4H PRN PRN Reason: Headache/Fever or Pain Acetaminophen (Tylenol) 650 mg [place] Q4H PRN PRN Reason: Headache/Fever or Pain Albuterol/Ipratropium (Duoneb) 3 ml NEB [id number] PRN PRN Reason: SOB &/or Wheezing Last Admin: 11/02/17 16:14 Dose: 3 ml Albuterol/Ipratropium (Duoneb) 3 ml NEB [id number] [facility] Last Admin: 11/06/17 13:32 Dose: 3 ml Amantadine HCl (Symmetrel) 100 mg PO DAILY [facility] Last Admin: 11/06/17 10:12 Dose: 100 mg Amlodipine Besylate (Norvasc) 10 mg PO DAILY [facility] Last Admin: 11/06/17 10:12 Dose: 10 mg Aspirin (Aspirin Chewable) 81 mg PO DAILY [facility] Last Admin: 11/06/17 10:12 Dose: 81 mg Benzonatate (Tessalon) 100 mg PO TID PRN PRN Reason: Cough Last Admin: 11/02/17 22:18 Dose: 100 mg Bisacodyl (Dulcolax) 10 mg PO DAILYPRN PRN PRN Reason: Constipation [facility] Last Admin: 11/06/17 10:10 Dose: 1,000 mg Carbidopa/Levodopa (Sinemet 25-100) 0.5 tab PO TID [facility] Last Admin: 11/06/17 10:11 Dose: 0.5 tab [facility] Cefdinir (Omnicef) 300 mg PO BID [facility] Last Admin: 11/06/17 10:13 Dose: 300 mg Clonazepam (Klonopin) 0.25 mg PO BID [facility] Last Admin: 11/06/17 10:10 Dose: 0.25 mg Clonidine (Catapres) 0.1 mg PO Q4H PRN PRN Reason: SBP>170 Dextrose/Water (Dextrose 50%) 25 gm IVP PRN PRN PRN Reason: HYPOGLYCEMIA PROTOCOL Divalproex Sodium (Depakote) 250 mg PO BID [facility] Last Admin: 11/06/17 10:51 Dose: 250 mg Docusate Sodium (Colace) 100 mg PO DAILY PRN PRN Reason: Constipation Entacapone (Comtan) 200 mg PO TID [facility] Last Admin: 11/06/17 10:11 Dose: 200 mg Furosemide (Lasix) 40 mg PO 0900,1400 [facility] Last Admin: 11/06/17 09:00 Dose: Not Given Gabapentin (Neurontin) 600 mg PO TID [facility] Last Admin: 11/06/17 10:12 Dose: 600 mg Glucagon (Glucagon) 1 mg IM PRN PRN PRN Reason: HYPOGLYCEMIA PROTOCOL Guaifenesin (Mucinex) 1,200 mg PO Q12HR [facility] Last Admin: 11/06/17 10:11 Dose: 1,200 mg Guaifenesin/Dextromethorphan (Robitussin Dm) 15 ml PO Q4H PRN PRN Reason: Cough Last Admin: 11/06/17 05:51 Dose: 15 ml Heparin Sodium (Porcine) (Heparin) 5,000 units SC BID [facility] Last Admin: 11/06/17 10:10 Dose: 5,000 units Hydralazine HCl (Apresoline) 10 mg SLOW IVP Q4H PRN PRN Reason: SBP>180 Hydralazine HCl (Apresoline) 25 mg PO TID [facility] Hydroxychloroquine Sulfate (Plaquenil) 200 mg PO BID [facility] Last Admin: 11/06/17 10:12 Dose: 200 mg Hypromellose (Systane Gel) 0 gm EA EYE DAILYPRN PRN PRN Reason: DRY EYES Dextrose/Water (D5w) 1,000 mls @ 0 mls/hr IV INF PRN; As Directed PRN Reason: HYPOGLYCEMIA PROTOCOL Insulin Detemir 20 units/ (Miscellaneous Medication) 0.2 mls @ 0 mls/hr SC BID [facility] Last Admin: 11/06/17 10:55 Dose: 0.2 mls Insulin Human Lispro (Humalog) 0 units SC .AGGRESSIVE SLIDING PRN; Protocol PRN Reason: AGGRESSIVE SLIDING SCALE Last Admin: 11/06/17 10:09 Dose: 6 unit Lamotrigine (Lamictal) 75 mg PO DAILY [facility] Last Admin: 11/06/17 10:50 Dose: 75 mg Loperamide HCl (Imodium) 2 mg PO ASDIR PRN PRN Reason: Diarrhea/Loose Stools Last Admin: 11/06/17 10:59 Dose: 2 mg Loratadine (Claritin) 10 mg PO DAILY [facility] Last Admin: 11/06/17 10:11 Dose: 10 mg Magnesium Oxide (Magnesium Oxide) 400 mg PO DAILY [facility] Last Admin: 11/06/17 10:11 Dose: 400 mg Mometasone Furoate (Asmanex Twisthaler) 1 puff INH 1830 [facility] Last Admin: 11/05/17 18:50 Dose: 1 puff Oxycodone/Acetaminophen (Percocet 5/325) 1 tab PO 5XD [facility] Last Admin: 11/06/17 10:51 Dose: 1 tab Pantoprazole Sodium (Protonix) 40 mg PO 2100 [facility] Last Admin: 11/05/17 20:41 Dose: 40 mg Polyethylene Glycol (Miralax) 17 gm PO DAILY PRN PRN Reason: Constipation Prednisone (Prednisone) 40 mg PO QAM-WM [facility] Ropinirole HCl (Requip) 0.5 mg PO QPM [facility] Last Admin: 11/05/17 20:42 Dose: 0.5 mg Saccharomyces Boulardii (Florastor) 250 mg PO DAILY [facility] Last Admin: 11/06/17 10:13 Dose: 250 mg Sodium Chloride (Flush - Normal Saline) 10 ml IVF Q12HR [facility] Last Admin: 11/06/17 10:52 Dose: 10 ml Sodium Chloride (Flush - Normal Saline) 10 ml IVF PRN PRN PRN Reason: Saline Flush Tizanidine HCl (Zanaflex) 4 mg PO BID [facility] Last Admin: 11/06/17 10:13 Dose: 4 mg
[2017-11-06] MEDS: hydrALAZINE 25 MG TAB PO SCH ×2 (16:15→21:09)
[2017-11-06] MEDS: Mometasone Furoate 120 PUFF 220 MCG INH SCH (19:44)
[2017-11-06] MEDS ORDERED: Ondansetron HCl/PF 4 MG/2 ML Vial SLOW IVP PRN (20:40)
[2017-11-06] MEDS: rOPINIRole HCl 0.5 MG TAB PO SCH (21:06)
[2017-11-07] MEDS: oxyCODONE/Acetaminophen 5 mg/325 mg Tablet PO SCH ×3 (00:05→12:07)
[2017-11-07 05:06] LABS: #Eosinphils 0.3 thou/uL (0.0-0.7); #Lymphocytes 1.6 thou/uL (1.20-3.40); #Monocytes 0.6 thou/uL (0.11-0.59); #Neutrophils 3.5 thou/uL (1.40-6.50); %Basophils 0.5 % (0.0-1.0); %Eosinophils 4.5 % (0.0-10.0); %Monocytes 9.8 % (0.0-10.0); %Neutrophils 58.2 % (42.0-75.0); Hemoglobin 9.3 g/dL (12.0-16.0); Mean Corpuscular HGB CONC 32.5 g/dL (32.0-36.0); Mean Corpuscular Hemoglobin 31.4 pg (27.0-31.0); Mean Corpuscular Volume 96.7 fl (81.0-99.0); Mean Platelet Volume 7.9 fL (7.4-10.4); Platelet Count 274 thou/uL (130-400); RBC Distribution Width 12.9 % (11.5-14.5); Red Blood Cell (RBC) Count 2.95 mill/uL (4.20-5.40); White Blood Cell (WBC) Count 6.1 thou/uL (4.8-10.8)
[2017-11-07 06:08] LABS: Anion Gap 12 mmol/L (10-20); BUN (Urea Nitrogen) 42 mg/dL (9.8-20.1); Calc. Creatinine Clearance 55 mL/min (70-130); Carbon Dioxide 30 mmol/L (23-31); Chloride 102 mmol/L (98-107); Estimated GFR-MDRD 33; Potassium 4.5 mmol/L (3.5-5.1); Sodium 139 mmol/L (136-145)
[2017-11-07 06:09] LABS: Calcium 8.2 mg/dL (7.8-10.44); Glucose 105 mg/dL (80-115)
[2017-11-07] MEDS ORDERED: predniSONE 20 MG TAB PO SCH (08:00)
[2017-11-07] MEDS: Calcium Carbonate 500 MG ChewTAB PO SCH (08:44)
[2017-11-07] MEDS: Heparin 5,000 UNITS/ML VIAL SC SCH (08:44)
[2017-11-07] MEDS: Gabapentin 300 MG CAP PO SCH (08:45)
[2017-11-07] MEDS: Saccharomyces boulardii 250 MG CAP PO SCH (08:45)
[2017-11-07] MEDS: hydrALAZINE 25 MG TAB PO SCH (08:45)
[2017-11-07] MEDS: Divalproex Sodium 250 MG (DR) TAB PO SCH (08:45)
[2017-11-07] MEDS: lamoTRIgine 25 MG TAB PO SCH (08:46)
[2017-11-07] MEDS: Magnesium Oxide 400 MG TAB PO SCH (08:46)
[2017-11-07] MEDS: guaiFENesin ER 600 MG TAB PO SCH (08:46)
[2017-11-07] MEDS: Carvedilol 25 MG TAB PO SCH (08:46)
[2017-11-07] MEDS: Carbidopa/Levodopa 25-100 mg Tablet PO SCH (08:47)
[2017-11-07] MEDS: Entacapone 200 mg Tablet PO SCH (08:47)
[2017-11-07] MEDS: tiZANidine HCl 4 MG TAB PO SCH (08:47)
[2017-11-07] MEDS: Cefdinir 300 MG CAP PO SCH (08:47)
[2017-11-07] MEDS: Amantadine HCl 100 mg Capsule PO SCH (08:47)
[2017-11-07] MEDS: Hydroxychloroquine Sulfate 200 MG TAB PO SCH (08:47)
[2017-11-07] MEDS: Amlodipine 10 MG TAB PO SCH (08:48)
[2017-11-07] MEDS: clonazePAM 0.5 MG TAB PO SCH (08:48)
[2017-11-07] MEDS: Furosemide 40 MG TAB PO SCH (08:48)
[2017-11-07] MEDS: Loratadine 10 MG TAB PO SCH (08:49)
[2017-11-07] MEDS: Insulin Detemir 100 UNITS/ML 20 UNITS in Pre-Filled Syringe 1 EACH SC SCH (09:18)
--- NOTE | 2017-11-07 09:23 | PRG ---
DATE OF SERVICE: 11/07/2017 SUBJECTIVE: She feels better and wants to go back to the shelter. OBJECTIVE: VITAL SIGNS: Temperature is 98.9, pulse 76, respirations 18, O2 saturation 98%, blood pressure 171/7 2. HEENT: Unremarkable. NECK: No JVD. CHEST: Clear. CARDIAC: S1 and S2 regular. ABDOMEN: Soft. EXTREMITIES: Edematous. LABORATORY DATA: White blood cell count 6.1, hematocrit 28.5, platelet count 274. Sodium 139, potas sium 4.5, chloride 102, CO2 30, BUN 42, creatinine 1.5, glucose 105. ASSESSMENT: 1. Congestive heart failure. 2. Healthcare associated pneumonia. 3. Status post acute respiratory failure. PLAN: Likely back to baseline and can be discharge to home to finish out her antibiotics and to con tinue her diuretics and other cardiac medications. Please recall if further assistance is needed.
--- NOTE | 2017-11-07 09:23 | PDOC.PN ---
- Subjective Encounter Start Date: 11/07/17 Encounter Start Time: 09:21 Ms. Holt was seen today in follow-up. she says she wants to go home. She feels like she is at her baseline. - Objective MAR Reviewed: Yes Vital Signs & Weight: Vital Signs (12 hours) Temp Pulse Resp BP Pulse Ox 11/07/17 08:36 98.9 F 76 16 171/72 H 11/07/17 07:49 88 16 11/07/17 03:28 97.7 F 76 14 145/65 H 96 11/07/17 03:04 89 16 97 Weight Admit Weight 233 lb Weight 228 lb I&O: 11/06/17 11/07/17 11/08/17 06:59 06:59 06:59 Intake Total 1500 1560 Output Total 1150 Balance 350 1560 Result Diagrams: 11/07/17 03:56 11/07/17 03:56 Additional Labs: Accuchecks 11/07/17 11/06/17 11/06/17 05:45 19:53 16:15 POC Glucose 151 H 189 H 360 H 11/06/17 11:06 POC Glucose 206 H Phys Exam - Physical Examination HEENT: PERRLA Respiratory: no wheezing, no rales, no rhonchi, clear to auscultation bilateral Cardiovascular: RRR, no significant murmur Gastrointestinal: soft, non-tender, positive bowel sounds Musculoskeletal: no edema Dx/Plan (1) Acute on chronic diastolic heart failure Code(s): I50.33 - ACUTE ON CHRONIC DIASTOLIC (CONGESTIVE) HEART FAILURE Status : Acute (2) COPD exacerbation Code(s): J44.1 - CHRONIC OBSTRUCTIVE PULMONARY DISEASE W (ACUTE) EXACERBATION Status: Acute (3) Acute respiratory failure Code(s): J96.00 - ACUTE RESPIRATORY FAILURE, UNSP W HYPOXIA OR HYPERCAPNIA Status: Resolved Qualifiers: Respiratory failure complication: hypoxia and hypercapnia Qualified Code(s) : J96.01 - Acute respiratory failure with hypoxia; J96.02 - Acute respiratory failure with hypercapnia; J96.02 - Acute respiratory failure with hypercapnia; J96.02 - Acute respiratory failure with hypercapnia Comment: improving. (4) Hypertension Code(s): I10 - ESSENTIAL (PRIMARY) HYPERTENSION Status: Chronic Qualifiers: Hypertension type: essential hypertension Qualified Code(s): I10 - Essential (primary) hypertension (5) Obesity (BMI 35.0-39.9 without comorbidity) Code(s): E66.9 - OBESITY, UNSPECIFIED Status: Chronic - Plan * Acute on chronic respiratory failure- resolved * HTN- blood pressure is still a bit labile, but improved- it will likely take a few days or weeks for blood pressure to jessi on the new medication and doses. * Acute on chronic kidney disease- resolved * She is stable for discharge back to [facility].
--- NOTE | 2017-11-07 11:56 | DIS ---
PRIMARY CARE PROVIDER: Gurvinder Diop M.D. DATE OF ADMISSION: 10/31/2017 DATE OF DISCHARGE: 11/07/2017 DISCHARGE DISPOSITION: Home. PRIMARY DISCHARGE DIAGNOSES: 1. Acute on chronic respiratory failure with hypoxemia. 2. Acute on chronic diastolic heart failure. 3. Chronic obstructive pulmonary disease exacerbation. 4. Diabetes mellitus, type 2. 5. Acute on chronic kidney injury, resolved. 6. Hypertension. 7. Diabetes mellitus. DISCHARGE MEDICATIONS: Please note that the patient was started on hydralazine 25 mg p.o. t.i.d., ca rvedilol was increased to 25 mg twice a day. She is also being discharged home on Omnicef 300 mg twi ce a day for 5 days as well as prednisone 40 mg daily for 4 days. Continue Florastor 250 mg daily, R equip 0.5 mg daily, Phenergan 50 mg q.6 as needed, MiraLax 17 grams as needed, Protonix 40 mg daily, oxycodone/acetaminophen 5/325 five times a day as needed, magnesium oxide 400 mg daily, Imodium 2 mg as needed, Lamictal 75 mg daily, hydroxychloroquine (Plaquenil) 200 mg twice a day, Levemir insulin 10 units subcu p.m., Neurontin 600 mg t.i.d., Lasix 40 mg daily, Flovent 50 mcg inhaled daily, Comtan 200 mg 3 times a day, docusate sodium 100 mg as needed, Depakote 250 mg twice a day, Benadryl 25 mg q.6 hours, Klonopin 0.25 mg twice a day, Zyrtec 10 mg daily, Stalevo 50 one tablet 3 times a day, Betty salon Perles as needed, aspirin 81 mg daily, amlodipine 10 mg daily, and amantadine 100 mg daily. CODE STATUS: [id number]. ALLERGIES: ATORVASTATIN, PREGABALIN, and NALBUPHINE. HOSPITAL COURSE: Ms. Chou is a pleasant 72-year-old female who was admitted to the hospital after e xperiencing shortness of breath. She lives at the [facility]. She was also noted to be febrile with a temperature of 102. She was found to have acute respiratory failure with hypoxemia . She was volume overloaded. It was felt that it was due primarily to a combination of chronic obst ructive pulmonary disease exacerbation and acute on chronic diastolic heart failure. She was diurese d with IV Lasix and treated with IV antibiotics and steroids. She improved over the course of the ne xt few days. It was noted that her blood pressure was fairly consistently elevated and adjustments w ere made in her blood pressure medications. Carvedilol was increased and hydralazine was added. At the time of discharge, she was feeling back to her baseline and is being transferred back to the [facility].
[2017-11-07 12:07] VITALS: BP 163/70; TEMP 98.4
== END 2017-11-07 14:23 | DRG 291 ==
LOC: ERS 16:28 → IMCU/EMU 20:15 → 2NO 11-02 14:36
PROVIDERS: ADMIT Internal Medicine; ATTEND Internal Medicine
DX: I13.0 Hypertensive heart and chronic kidney disease with heart failure and stage 1 through stage 4 chronic kidney disease, or unspecified chronic kidney disease (principal); J18.9 Pneumonia, unspecified organism; J96.02 Acute respiratory failure with hypercapnia; N17.9 Acute kidney failure, unspecified; E11.649 Type 2 diabetes mellitus with hypoglycemia without coma; E87.5 Hyperkalemia; N18.3 Chronic kidney disease, stage 3 (moderate); E11.22 Type 2 diabetes mellitus with diabetic chronic kidney disease; J96.21 Acute and chronic respiratory failure with hypoxia; I50.33 Acute on chronic diastolic (congestive) heart failure; J44.1 Chronic obstructive pulmonary disease with (acute) exacerbation; J44.0 Chronic obstructive pulmonary disease with (acute) lower respiratory infection; G20 Parkinson's disease; E66.01 Morbid (severe) obesity due to excess calories; D64.9 Anemia, unspecified; K21.9 Gastro-esophageal reflux disease without esophagitis; E78.5 Hyperlipidemia, unspecified; F31.9 Bipolar disorder, unspecified; K58.9 Irritable bowel syndrome, unspecified; Z88.6 Allergy status to analgesic agent; Z88.8 Allergy status to other drugs, medicaments and biological substances; Z87.891 Personal history of nicotine dependence; Z79.82 Long term (current) use of aspirin; Z79.4 Long term (current) use of insulin; Z79.51 Long term (current) use of inhaled steroids; Y95 Nosocomial condition; Z68.34 Body mass index [BMI] 34.0-34.9, adult; G89.29 Other chronic pain; M54.9 Dorsalgia, unspecified; Z66 Do not resuscitate; G25.81 Restless legs syndrome; I16.0 Hypertensive urgency; F41.9 Anxiety disorder, unspecified; F20.9 Schizophrenia, unspecified
CPT/HCPCS: 36415; 36416; 51702; 71045; 80048; 80053; 81003; 81015; 82553; 82805; 83880; 84484; 85025; 87086; 93005; 93798; 94640; 94660; 96374; 96375; A4216; G8978-GP-CK; G8979-GP-CJ; G8987-GO-CK; G8988-GO-CJ; J0456; J0696; J1644; J1815; J1940; J2405; J2920; J2930; J7050; J7506; J7620

== ENCOUNTER 2017-11-14 09:32 | Inpatient (IN) | payer MEDICARE, MEDICAID ==
[2017-11-14 09:53] LABS: Actual Bicarbonate (HCO3a) 30.3 mEq/L (22-26); Base Excess (BEa) 3.3 mEq/L (0 (+/-) 2.5); CO2 Tension 62.2 mmHg (35.0-45.0); Hemoglobin (Hb) 7.5 g/dL (12.0-16.0); O2 Tension (PaO2) 88.6 mmHg (80.0-100.0)
[2017-11-14 09:54] LABS: Analyzer IN Cardio ER; Calcium, Ionized 1.1 mmol/L (1.12-1.30); Puncture Site LR
[2017-11-14 10:08] LABS: #Eosinphils 0.1 thou/uL (0.0-0.7); #Lymphocytes 0.6 thou/uL (1.20-3.40); #Monocytes 0.8 thou/uL (0.11-0.59); #Neutrophils 10.6 thou/uL (1.40-6.50); %Basophils 0.2 % (0.0-1.0); %Eosinophils 0.7 % (0.0-10.0); %Lymphocytes 5.2 % (21.0-51.0); %Monocytes 6.6 % (0.0-10.0); %Neutrophils 87.4 % (42.0-75.0); Hemoglobin 7.9 g/dL (12.0-16.0); Mean Corpuscular HGB CONC 31.7 g/dL (32.0-36.0); Mean Corpuscular Hemoglobin 31.9 pg (27.0-31.0); Mean Platelet Volume 8.2 fL (7.4-10.4); Platelet Count 235 thou/uL (130-400); RBC Distribution Width 13.8 % (11.5-14.5); Red Blood Cell (RBC) Count 2.47 mill/uL (4.20-5.40); White Blood Cell (WBC) Count 12.2 thou/uL (4.8-10.8)
[2017-11-14 10:24] LABS: ALT (SGPT) Less than 7 U/L (8-55); AST (SGOT) 9 U/L (5-34); Albumin 3.3 g/dL (3.4-4.8); Alkaline Phosphatase 111 U/L (40-150); Anion Gap 13 mmol/L (10-20); BUN (Urea Nitrogen) 41 mg/dL (9.8-20.1); Bilirubin, Total 0.3 mg/dL (0.2-1.2); Calc. Creatinine Clearance 0 mL/min (70-130); Calcium 8.3 mg/dL (7.8-10.44); Carbon Dioxide 28 mmol/L (23-31); Chloride 104 mmol/L (98-107); Estimated GFR-MDRD 24; Globulin 2.9 g/dL (2.4-3.5); Glucose 123 mg/dL (80-115); Magnesium 2.2 mg/dL (1.6-2.6); Potassium 5.7 mmol/L (3.5-5.1); Protein, Total 6.2 g/dL (6.0-8.3); Sodium 139 mmol/L (136-145)
[2017-11-14 10:29] LABS: CKMB 1.4 ng/mL (0-6.6); Troponin I 0.023 ng/mL (< 0.028)
--- NOTE | 2017-11-14 10:54 | RAD ---
PORTABLE CHEST 1 VIEW: DATE: 11/14/17. TIME: 10:16 a.m. HISTORY: Dyspnea. FINDINGS/IMPRESSION: Comparison is made with the exam of 11/04/17. The heart size is enlarged. There is pulmonary vascular congestion and evidence of old granulomatous disease. There are patchy opacities in the right mid and lower lung zones. No pneumothoraces or la rge effusions are seen. POS: [facility]
[2017-11-14 11:38] LABS: Bilirubin Negative (Negative); Blood, Urine Negative (Negative); Clarity CLOUDY (Clear); Glucose, Urine (Dipstick) Negative (Negative); Leukocyte Negative (Negative); Nitrite Negative (Negative); Protein, Urine (Dipstick) 300 mg/dL (Neg-Trace); Specific Gravity, Urine 1.023 (1.002-1.036); Urobilinogen 0.2 mg/dL (0.2-1.0)
[2017-11-14] MEDS ORDERED: methylPREDNISolone Sod Succ/PF 125 MG/2 ML VIAL ONE (11:39)
[2017-11-14 11:40] LABS: Bacteria/HPF None Seen HPF (None Seen); Pathc Cast-AUWi Flag 1.49 (0-2.49); WBC/HPF 0-3 HPF (0-3)
[2017-11-14] MEDS ORDERED: Piperacillin/Tazobactam 3.375 GM in Sodium Chloride 0.9% 100 ML IVPB SCH (11:45)
[2017-11-14 11:49] LABS: Crystals/HPF 2+ AMORPH URATES HPF (Negative); Hyaline Casts/LPF 0-3 HYALINE CAST LPF (0-3 Hyaline); Renal Epithelial None Seen HPF (0-3); Transitional Epithelial NONE SEEN HPF (0-3)
--- NOTE | 2017-11-14 13:22 | CT ---
CT BRAIN WITHOUT CONTRAST: Date: 11/14/17 HISTORY: Altered mental status. FINDINGS: Comparison made with exam of 06/24/17. Changes of cortical atrophy are again seen. The ventricular size is stable and the basilar cisterns a re patent. No evidence of acute infarct, hemorrhage, midline shift, or abnormal extra-axial fluid col lections are seen. The bony calvarium is intact. The visualized paranasal sinuses and mastoid air cherie ls are well aerated. IMPRESSION: No CT evidence of acute intracranial process. POS: [facility]
[2017-11-14] MEDS ORDERED: Diabetic Tussin 200 MG/10 ML UDCUP PO PRN (13:53)
[2017-11-14] MEDS ORDERED: Milk Of Magnesia 30 ML UDCUP PO PRN (13:53)
[2017-11-14] MEDS ORDERED: Dextrose 50% Abboject 50 ML SYRINGE SLOW IVP PRN (13:53)
[2017-11-14] MEDS ORDERED: Chloraseptic Spray 180 ml Bottle PO PRN (13:53)
[2017-11-14] MEDS ORDERED: Dextrose 5% in Water 1,000 ML IV PRN (13:53)
[2017-11-14] MEDS ORDERED: Benzonatate 100 MG CAP PO PRN (13:53)
[2017-11-14] MEDS ORDERED: Ondansetron HCl/PF 4 MG/2 ML Vial IVP PRN (13:53)
[2017-11-14] MEDS ORDERED: Mag-Al 1200 mg/1200 mg/30 ML UDCUP PO PRN (13:53)
[2017-11-14] MEDS ORDERED: hydrALAZINE 20 MG/ML VIAL SLOW IVP PRN (13:53)
[2017-11-14] MEDS ORDERED: Acetaminophen 650 MG Suppository PR PRN (13:53)
[2017-11-14] MEDS ORDERED: Polyethylene Glycol 3350 17 GM Packet PO PRN (13:53)
[2017-11-14] MEDS ORDERED: Sodium Chloride 0.65% Nasal 44 ML BOT EA NARE PRN (13:53)
[2017-11-14] MEDS ORDERED: Acetaminophen 325 MG TAB PO PRN (13:53)
[2017-11-14] MEDS ORDERED: Ondansetron ODT 4 MG TAB PO PRN (13:53)
[2017-11-14] MEDS ORDERED: Senokot 8.6 MG TAB PO PRN (13:53)
[2017-11-14] MEDS ORDERED: Bisacodyl 10 MG SUPP PR PRN (13:53)
[2017-11-14] MEDS ORDERED: Eucerin (Mineral Oil/Petrolatum,White) 30 gm Jar TOP PRN (13:53)
[2017-11-14] MEDS ORDERED: Loperamide HCl 2 MG CAP PO PRN (13:53)
[2017-11-14] MEDS ORDERED: Artificial Tears 18 DROP/0.9 ML EA EYE PRN (13:53)
[2017-11-14] MEDS ORDERED: Nitroglycerin 0.4 MG TAB (25 Tab Bottle) SL PRN (13:53)
[2017-11-14 14:10] VITALS: BMI 40.1
--- NOTE | 2017-11-14 14:13 | HP ---
PRIMARY CARE PHYSICIAN: Dr. Diop. REASON FOR ADMISSION: Acute on chronic diastolic heart failure, acute on chronic respiratory failure with hypoxia and hypercapnia, CO2 narcosis. HISTORY OF PRESENT ILLNESS: A 72-year-old female who lives at [facility]. This patie nt most recently admitted in our hospital on 10/31/2017 and she was discharged to nursing on 11/07/19. She also had another admission in September as well. This patient has underlying multiple medical problem including advanced Parkinson disease, chronic pain disorder, as well as diastolic heart fail ure. The patient is currently not able to provide any history because she is only arousable. She is lethargic. As per report, the patient was in respiratory distress with noisy breathing. She was le thargic. She was somnolent and that is why paramedics was called. Paramedics started on high flow o xygen and after that, the patient had some improvement. In the emergency room, she was again letharg ic. She required BiPAP. This patient has DNR status at group home. Today in the emergency room, patient's chest x-ray showing patchy opacity in the right mid and lower lung zones. She has leukocyt osis. Her ABG showing CO2 retention and hyperkalemia. The patient was not safe for discharge back t o group home and that is why we decided to keep this patient in the hospital for further evaluation and treatment. Currently, she is on BiPAP and that is why we have to admit her on IMCU per protocol . REVIEW OF SYSTEMS: All review of systems tried to review with the patient, but unable to review shyla use of her level of cognitive status at this point and the patient is lethargic and somnolent. ALLERGIES: LIPITOR, ALBUMIN and PREGABALIN. CURRENT HOME MEDICATIONS: Amantadine 100 mg p.o. daily, amlodipine 10 mg daily, aspirin 81 mg p.o. d aily, Tessalon 100 mg t.i.d. p.r.n., Tums 1000 mg p.o. b.i.d., carbidopa and levodopa 1 tablet p.o. t .i.d., Coreg 25 mg p.o. b.i.d., cetirizine 10 mg p.o. daily, clonazepam 0.25 mg p.o. b.i.d., Depakote 250 mg p.o. b.i.d., Colace 100 mg p.o. daily p.r.n., entacapone 200 mg p.o. t.i.d., Flonase nasal sp ray daily, Lasix 40 mg p.o. daily, Neurontin 600 mg p.o. t.i.d., hydralazine 25 mg p.o. t.i.d., Lantu s insulin 10 units subcu in the evening, Humulin R insulin as per sliding scale, Lamictal 75 mg p.o. daily, magnesium oxide 400 mg p.o. daily, Percocet one tablet p.r.n., Protonix 40 mg p.o. daily, Zoya Lax 17 grams p.o. daily, prednisone 40 mg p.o. daily, Phenergan as needed, MiraLax 17 grams p.o. salazar y, ropinirole 0.5 mg p.o. daily, Zanaflex 4 mg p.o. b.i.d. and Florastor 50 mg p.o. daily. PAST MEDICAL HISTORY: Parkinson disease, irritable bowel syndrome, chronic low back pain, diabetes t ype 2, hypertension, morbid obesity, COPD, dyslipidemia, gastroesophageal reflux disease, chronic res piratory acidosis with metabolic compensation. PAST SURGICAL HISTORY: Hysterectomy, spinal surgery x6, cataract surgery, appendicectomy, cholecyste ctomy, lumbar spine surgery, cervical fusion, lumbar laminectomy, tonsillectomy and tubal ligation. PAST PSYCHIATRIC HISTORY: Anxiety, depression, schizophrenia and bipolar disorder. SOCIAL HISTORY: The patient lives at group home. No history of tobacco, alcohol or illicit drug a buse. FAMILY HISTORY: Dementia to mother and pneumothorax and lung rupture to the father. CODE STATUS: The patient is DNR at group home and patient was also DNR during previous admission. EMERGENCY ROOM COURSE: The patient is given vancomycin 1 gram, Zosyn 3.375 gram, albuterol sulfate n ebulization, Levaquin 750 mg, Solu-Medrol 125 mg and DuoNeb therapy. PHYSICAL EXAMINATION: VITAL SIGNS: Currently, blood pressure 152/87, pulse 79, respiratory rate 16, temperature 98.3, satu ration 96% on BiPAP and weight 86.1 kilograms. GENERAL: The patient is completely disoriented at this point, lethargic, responsive to verbal stimul i. HEAD: Normocephalic and atraumatic. EYES: Pupils are round and reactive to light. Extraocular muscles intact. ENT: Oropharynx within normal limits, on BiPAP. NECK: Supple. No JVD, no thyromegaly, no carotid bruits. LUNGS: Bilateral wheezing and rales, more on the right side, on BiPAP. No accessory muscles of resp iration in use. CARDIAC: S1 and S2 appears regular. No murmur, no gallop, no rub. ABDOMEN: Morbid obesity present. Bowel sounds present. Nontender and nondistended. No organomegal y, no mass, no suprapubic tenderness. BACK: Unremarkable. No CVA tenderness. EXTREMITIES: Upper extremity passive movement of all joints are normal. Lower extremity bilateral + 2 pitting edema noted up to the knee. NEUROLOGIC: She moves all 4 limbs. Grossly nonfocal neurological examination. Detailed neurologica l examination is not possible at this point. SKIN: No skin rash. SIGNIFICANT LABORATORY AND IMAGING DATA: 1. Chest x-ray showing cardiomegaly, pulmonary vascular congestion and patchy opacity in the median and right lower lungs zones. 2. EKG showing left axis deviation, low voltage QRS complex. 3. CBC: WBC 12.2, hemoglobin 7.9, MCV 101.0 and platelet 235. 4. ABG: PH 7.30, CO2 of 62.2, O2 of 88.6 and bicarbonate 30.3. 5. BMP: Sodium 139, potassium 5.7, chloride 104, carbon dioxide 28, anion gap 13, BUN 41, creatinin e 2.02, glucose 123, calcium 8.3, lactic acid 0.6 and magnesium 2.2. 6. LFT: AST 9, ALT less than 7, alkaline phosphatase 111, albumin 3.3 and BNP 595.2. 7. Cardiac enzymes negative. 8. Urinalysis unremarkable. ASSESSMENT, PLAN AND IMPRESSION: 1. Acute metabolic encephalopathy, most likely related with CO2 narcosis and renal insufficiency. U nderlying sepsis is also a possibility, but patient does not have any focal neurological deficit. Sh e does have underlying Parkinson disease without any acute disturbance. 2. Acute on chronic respiratory failure with hypoxia and hypercapnia. This patient does have morbid obesity; we are suspecting she has underlying CO2 retention secondary to chronic pain medication as well as sedatives. She might have underlying sleep apnea as well. She will need outpatient sleep [facility]. At this point, we are trying BiPAP to remove carbon dioxide, so she can improve from her altere d mental status. The patient will require IMCU admission. Pulmonary will be consulted. 3. Chronic obstructive pulmonary disease exacerbation. We will continue with DuoNeb q.4 hourly and Pulmicort nebulization twice daily. 4. Acute on chronic diastolic congestive heart failure. We will start Lasix 40 mg IV b.i.d. We tutu l monitor input output chart, daily weight and electrolyte replacement as needed. 5. Healthcare-associated bacterial pneumonia. We will continue cefepime and Levaquin as per renally adjusted dose. 6. Chronic respiratory acidosis with metabolic compensation acute exacerbation. The patient is on B iPAP at this point. 7. Hyperkalemia, likely related with acidosis. We will avoid potassium supplementation and we are c ontinuing with the diuretic therapy and that is why we will repeat BMP tomorrow. At this point, the patient does not have any EKG changes. 8. Parkinson disease. The patient is on several anti-Parkinson's medicine in which we will continue including amantadine, carbidopa and levodopa, entacapone and ropinirole. 9. Diabetes type 2. We will continue Levemir 10 units subcutaneous daily along with insulin as per sliding scale per protocol. 10. Chronic low back pain. We will continue Zanaflex 4 mg p.o. b.i.d. p.r.n. pain and medication as tolerated. We will also continue gabapentin 600 mg p.o. t.i.d. All this pain medication and sedati ve medication, we will wait until the patient recovers from current drowsiness. 11. Anxiety, depression, bipolar disorder and schizophrenia. We will continue clonazepam and Depako te once patient's drowsiness resolves. 12. Gastroesophageal reflux disease. Continue Pepcid 20 mg IV daily for now. 13. Hypertension. Continue amlodipine 10 mg p.o. daily, nitropatch q.8 hourly, Coreg 25 mg p.o. b.i .d. and hydralazine 25 mg p.o. t.i.d. 14. Deep venous thrombosis prophylaxis. Heparin 5000 units subcutaneous twice daily. 15. Gastrointestinal prophylaxis. Pepcid 20 mg IV daily. 16. CODE STATUS: The patient has a DNR status at group home as well as in previous admission. We will keep as a DNR. Disposition plan based on clinical course. We are expecting patient's stay in the hospital more than 2 midnights. Plan of care discussed with the patient in detail. Prognosis is guarded.
[2017-11-14] MEDS ORDERED: FLU VACC TS2017-18 (>65YR) 0.5 ML SYRINGE IM ONE (15:00)
[2017-11-14] MEDS ORDERED: Carbidopa/Levodopa 25-100 mg Tablet PO SCH (15:00)
--- NOTE | 2017-11-14 15:19 | CON ---
DATE OF CONSULTATION: 11/14/2017 This is 40 minutes of critical care time. CONSULTING PHYSICIAN: Dr. Awad. REASON FOR CONSULTATION: Respiratory failure. HISTORY OF PRESENT ILLNESS: This is a 72-year-old female, who is well known to me from multiple previous admissions. History is obtained by talking with the patient, reviewing notes in the chart, and reviewing old records. Patient was just admitted to our facility between 10/31/2017 and 11/07/2017. She has chronic diastolic heart failure. She lives in a fdc. She cannot stay out of heart failure. She came in today with lethargy and elevated pCO2. She cannot give me much in the way of history at this time. REVIEW OF SYSTEMS: Unable to obtain, because the patient is lethargic and cannot review the systems with me. ALLERGIES: LIPITOR, NALBUPHINE, PREGABALIN. HOME MEDICATIONS: Amantadine, amlodipine, aspirin, Tessalon, Tums, carbidopa/ levodopa, Coreg, cetirizine, clonazepam, Depakote, Colace, entacapone, Flonase, Lasix, Neurontin, hydralazine, Lantus insulin, Humulin R insulin, Lamictal, magnesium oxide, Percocet, Protonix, MiraLax, prednisone, Phenergan, ropinirole , Zanaflex, Florastor. PAST MEDICAL HISTORY: 1. Multiple episodes of respiratory failure related to congestive heart failure from diastolic heart dysfunction. 2. Parkinson's disease. 3. Irritable bowel syndrome. 4. Diabetes mellitus, type 2. 5. Hyperlipidemia. 6. Gastroesophageal reflux. PAST SURGICAL HISTORY: Hysterectomy, spinal surgery, appendectomy, cholecystectomy, lumbar laminectomy, cervical neck fusion, tonsillectomy, tubal ligation, cataract surgery. SOCIAL HISTORY: Quit smoking over 10 years ago. Does not use illicit drugs. She does not consume alcohol. PHYSICAL EXAMINATION: VITAL SIGNS: Temperature 98.0, pulse 75, respirations 15, O2 saturation 98% on BiPAP, blood pressure 156/89. GENERAL: The patient is lethargic, difficult to arouse, but does mutter some words. HEENT: Pupils react. Sclerae are anicteric. Oropharynx clear. NECK: No JVD. CARDIOVASCULAR: S1, S2, slightly tachycardic. No murmur. LUNGS: Coarse breath sounds bilaterally. ABDOMEN: Soft, obese, nontender, nondistended. EXTREMITIES: No clubbing or cyanosis. She has edema in both arms. She has no obvious skin lesions. NEUROLOGIC: Difficult to assess, because she cannot follow commands well. She is not alert or oriented. LABORATORY AND X-RAY FINDINGS: ABG: pH 7.30, pCO2 of 62, PO2 of 88 on BiPAP 40 %, inspiratory pressure of 12, expiratory pressure 6. White blood cell count 12.2, hematocrit 24.9, platelet count 235. Sodium 139, potassium 5.7, chloride 104, CO2 28, BUN 41, creatinine 2.0, glucose 123. BNP 595. Chest x-ray shows bilateral infiltrative changes consistent with heart failure. ASSESSMENT: 1. Recurrent congestive heart failure secondary to diastolic cardiac dysfunction 2. Renal insufficiency. 3. Acute respiratory failure. 4. Doubt that this is pneumonia. RECOMMENDATIONS: I think the best recommendation I would have is to consult the palliative care service. Ms. Holt is at the end of her life and repeated hospitalizations or terrible prognostic factor. It is reasonable to continue the diuretics, antibiotics, and BiPAP for the time being. There is a DNR on the chart, which I agree with. 70 minutes of time was spent performing this consultation. Of that 70 min, greater than 50% of the time was spent with the patient and/or on the patient's floor MTDD
[2017-11-14] MEDS: hydrALAZINE 25 MG TAB PO SCH ×2 (15:25→20:43)
[2017-11-14] MEDS: Entacapone 200 mg Tablet PO SCH ×2 (15:25→20:43)
[2017-11-14] MEDS: Carbidopa/Levodopa 25-100 mg Tablet PO SCH ×2 (15:26→20:50)
[2017-11-14] MEDS: Furosemide 40 MG/4 ML VIAL SLOW IVP SCH (15:46)
[2017-11-14] MEDS: Cefepime 1 GM, Admixture Fee 1 EACH in Sterile Water 10 ML SLOW IVP SCH (15:46)
[2017-11-14] MEDS: Carvedilol 25 MG TAB PO SCH (15:56)
[2017-11-14] MEDS: Calcium Carbonate 500 MG ChewTAB PO SCH (15:56)
[2017-11-14] MEDS: Budesonide 0.5 MG/2 ML NEB INH SCH (19:28)
[2017-11-14] MEDS: Hydroxychloroquine Sulfate 200 MG TAB PO SCH (20:43)
[2017-11-14] MEDS: rOPINIRole HCl 0.5 MG TAB PO SCH (20:43)
[2017-11-14] MEDS: Divalproex Sodium 250 MG (DR) TAB PO SCH (20:43)
[2017-11-14] MEDS: Heparin 5,000 UNITS/ML VIAL SC SCH (20:44)
[2017-11-14] MEDS: Insulin Detemir 100 UNITS/ML 10 UNITS in Pre-Filled Syringe 1 EACH SC SCH (20:44)
[2017-11-14] MEDS ORDERED: Non-Formulary Item 1 EACH (Insulin Glargine,Hum.Rec.Anlog 10 UNIT) SQ SCH (21:00)
[2017-11-14] MEDS ORDERED: Cefepime 1 GM in Sodium Chloride 0.9% 100 ML IVPB SCH (21:00)
[2017-11-15 04:26] LABS: #Lymphocytes 0.3 thou/uL (1.20-3.40); #Monocytes 0.2 thou/uL (0.11-0.59); %Eosinophils 0.2 % (0.0-10.0); %Lymphocytes 3.2 % (21.0-51.0); %Monocytes 2.8 % (0.0-10.0); %Neutrophils 93.9 % (42.0-75.0); Hemoglobin 7.3 g/dL (12.0-16.0); Mean Corpuscular Hemoglobin 31.9 pg (27.0-31.0); Mean Corpuscular Volume 99.5 fl (81.0-99.0); Mean Platelet Volume 8.5 fL (7.4-10.4); Platelet Count 233 thou/uL (130-400); RBC Distribution Width 13.3 % (11.5-14.5); Red Blood Cell (RBC) Count 2.29 mill/uL (4.20-5.40); White Blood Cell (WBC) Count 8.5 thou/uL (4.8-10.8)
[2017-11-15 04:34] LABS: ALT (SGPT) Less than 7 U/L (8-55); AST (SGOT) 10 U/L (5-34); Alkaline Phosphatase 104 U/L (40-150); Anion Gap 12 mmol/L (10-20); BUN (Urea Nitrogen) 55 mg/dL (9.8-20.1); Bilirubin, Total 0.3 mg/dL (0.2-1.2); Calc. Creatinine Clearance 39 mL/min (70-130); Calcium 8.2 mg/dL (7.8-10.44); Carbon Dioxide 29 mmol/L (23-31); Chloride 101 mmol/L (98-107); Estimated GFR-MDRD 20; Globulin 2.9 g/dL (2.4-3.5); Glucose 323 mg/dL (80-115); Potassium 6.1 mmol/L (3.5-5.1); Protein, Total 5.9 g/dL (6.0-8.3); Sodium 136 mmol/L (136-145)
[2017-11-15] MEDS: Cefepime 1 GM, Admixture Fee 1 EACH in Sterile Water 10 ML SLOW IVP SCH ×2 (05:00→16:38)
[2017-11-15] MEDS: Furosemide 40 MG/4 ML VIAL SLOW IVP SCH ×2 (05:00→12:14)
[2017-11-15] MEDS: Budesonide 0.5 MG/2 ML NEB INH SCH ×2 (06:24→19:05)
[2017-11-15] MEDS: Saccharomyces boulardii 250 MG CAP PO SCH (07:55)
[2017-11-15] MEDS: Hydroxychloroquine Sulfate 200 MG TAB PO SCH ×2 (07:55→20:45)
[2017-11-15] MEDS: Amlodipine 10 MG TAB PO SCH (07:56)
[2017-11-15] MEDS: Cyanocobalamin (Vitamin B-12) 1,000 MCG TAB PO SCH (07:56)
[2017-11-15] MEDS: Folic Acid 1 MG TAB PO SCH (07:56)
[2017-11-15] MEDS: Carvedilol 25 MG TAB PO SCH ×2 (07:56→16:37)
[2017-11-15] MEDS: hydrALAZINE 25 MG TAB PO SCH ×3 (07:56→20:45)
[2017-11-15] MEDS: Heparin 5,000 UNITS/ML VIAL SC SCH ×2 (07:58→20:45)
[2017-11-15] MEDS: Famotidine/PF 20 mg/2ml Vial SLOW IVP SCH (07:58)
[2017-11-15] MEDS: Divalproex Sodium 250 MG (DR) TAB PO SCH ×2 (07:59→20:44)
[2017-11-15] MEDS: Entacapone 200 mg Tablet PO SCH ×4 (08:00→20:45)
[2017-11-15] MEDS: Amantadine HCl 100 mg Capsule PO SCH (08:00)
[2017-11-15] MEDS: Calcium Carbonate 500 MG ChewTAB PO SCH ×2 (08:01→16:36)
[2017-11-15] MEDS: Carbidopa/Levodopa 25-100 mg Tablet PO SCH ×3 (08:04→20:44)
[2017-11-15] MEDS: HumaLOG 300 UNITS/3 ML VIAL SC PRN ×4 (08:05→20:46)
--- NOTE | 2017-11-15 08:48 | PDOC.PN ---
- Subjective Encounter Start Date: 11/15/17 Encounter Start Time: 08:46 Subjective: Seen and examined still feeling short of breath - Objective Resuscitation Status: Resuscitation Status DNR:Do Not Resuscitate Vital Signs & Weight: Vital Signs (12 hours) Temp Pulse Resp BP BP Pulse Ox 11/15/17 07:56 88 159/59 H 11/15/17 07:12 99.1 F 88 23 H 159/59 H 94 L 11/15/17 06:24 75 16 93 L 11/15/17 03:51 99.1 F 88 24 H 158/67 H 94 L 11/15/17 02:28 71 11/15/17 02:27 94 L 11/14/17 23:47 98.8 F 87 16 151/72 H 98 11/14/17 23:20 89 18 92 L Weight Weight 248 lb 14.4 oz I&O: 11/14/17 11/15/17 11/16/17 06:59 06:59 06:59 Intake Total 960 Output Total 1650 Balance -690 Result Diagrams: 11/15/17 04:00 11/15/17 04:00 Additional Labs: Accuchecks 11/15/17 11/14/17 11/14/17 05:47 19:40 16:38 POC Glucose 356 H 166 H 137 H Phys Exam - Physical Examination Constitutional: NAD HEENT: PERRLA, moist MMs, sclera anicteric, TM's clear Neck: no nodes, no JVD, supple, full ROM Respiratory: wheezing present Cardiovascular: RRR, no significant murmur, no rub Gastrointestinal: soft, non-tender, no distention, positive bowel sounds Musculoskeletal: pulses present Dx/Plan (1) ANNA (acute kidney injury) Code(s): N17.9 - ACUTE KIDNEY FAILURE, UNSPECIFIED Status: Acute (2) Acute on chronic diastolic heart failure Code(s): I50.33 - ACUTE ON CHRONIC DIASTOLIC (CONGESTIVE) HEART FAILURE Status : Acute (3) CHF exacerbation Code(s): I50.9 - HEART FAILURE, UNSPECIFIED Status: Acute Qualifiers: Comment: acute on chronic diastolic CHF: improved. continue diuresis. (4) COPD exacerbation Code(s): J44.1 - CHRONIC OBSTRUCTIVE PULMONARY DISEASE W (ACUTE) EXACERBATION Status: Acute (5) Renal failure (ARF), acute on chronic Code(s): N17.9 - ACUTE KIDNEY FAILURE, UNSPECIFIED; N18.9 - CHRONIC KIDNEY DISEASE, UNSPECIFIED Status: Acute (6) CKD (chronic kidney disease) stage 3, GFR 30-59 ml/min Code(s): N18.3 - CHRONIC KIDNEY DISEASE, STAGE 3 (MODERATE) Status: Chronic Comment: plan as above. (7) Chronic pain disorder Code(s): G89.4 - CHRONIC PAIN SYNDROME Status: Chronic (8) DM2 (diabetes mellitus, type 2) Status: Chronic Qualifiers: Comment: Will restart her home meds. Will continue with SSI. keep BG 140-180 (9) Hypertension Code(s): I10 - ESSENTIAL (PRIMARY) HYPERTENSION Status: Chronic Qualifiers: (10) Diastolic CHF Code(s): I50.30 - UNSPECIFIED DIASTOLIC (CONGESTIVE) HEART FAILURE Status: Resolved Qualifiers: Comment: ef 60-65% acute on chronic (11) Hyperkalemia Code(s): E87.5 - HYPERKALEMIA Status: Acute - Plan plan discussed w/ family, continue antibiotics, PT/OT, social economist, respiratory therapy Diuresis -: kayexalete--low potassium diet * .
--- NOTE | 2017-11-15 11:48 | PRG ---
DATE OF SERVICE: 11/15/2017. SUBJECTIVE: The patient is better. She is awake. She is off the BiPAP this morning. OBJECTIVE: VITAL SIGNS: Temperature 98.9, pulse 85, respiration rate 18, O2 sat 95% on 5 L, blood pressure 163/ 73. HEENT: Unremarkable. NECK: No JVD. CHEST: Diminished breath sounds both bases. CARDIAC: S1 and S2 regular. ABDOMEN: Soft. EXTREMITIES: Edematous throughout. LABORATORY DATA: White blood cell count 8.5, hematocrit 22.8, platelet count 233. Sodium 136, potas sium 6.1, chloride 101, CO2 29, BUN 55, creatinine 2.4, glucose 323. ASSESSMENT: Congestive heart failure with profound fluid overload - the patient is basically noncomp liant with fluid restriction in the senior living. RECOMMENDATIONS: I would recommend discontinuing her antibiotics as I do not think she has pneumonia . She has been referred for hospice care. I think she is comfortable with this plan. I do not expe ct her to do well in the short term.
[2017-11-15] MEDS: rOPINIRole HCl 0.5 MG TAB PO SCH (20:45)
[2017-11-15] MEDS: Insulin Detemir 100 UNITS/ML 10 UNITS in Pre-Filled Syringe 1 EACH SC SCH (20:45)
[2017-11-16] MEDS: Cefepime 1 GM, Admixture Fee 1 EACH in Sterile Water 10 ML SLOW IVP SCH (03:52)
[2017-11-16] MEDS: oxyCODONE/Acetaminophen 5 mg/325 mg Tablet PO PRN ×4 (03:52→21:15)
[2017-11-16] MEDS: HumaLOG 300 UNITS/3 ML VIAL SC PRN ×4 (06:27→21:16)
[2017-11-16] MEDS: Furosemide 40 MG/4 ML VIAL SLOW IVP SCH ×2 (06:27→15:12)
[2017-11-16] MEDS: Budesonide 0.5 MG/2 ML NEB INH SCH ×2 (06:47→18:54)
[2017-11-16] MEDS: Calcium Carbonate 500 MG ChewTAB PO SCH ×2 (09:34→17:48)
[2017-11-16] MEDS: hydrALAZINE 25 MG TAB PO SCH ×3 (09:35→21:15)
[2017-11-16] MEDS: Amlodipine 10 MG TAB PO SCH (09:35)
[2017-11-16] MEDS: Entacapone 200 mg Tablet PO SCH ×3 (09:35→21:15)
[2017-11-16] MEDS: Saccharomyces boulardii 250 MG CAP PO SCH (09:35)
[2017-11-16] MEDS: Cyanocobalamin (Vitamin B-12) 1,000 MCG TAB PO SCH (09:35)
[2017-11-16] MEDS: Carbidopa/Levodopa 25-100 mg Tablet PO SCH ×3 (09:35→21:14)
[2017-11-16] MEDS: Folic Acid 1 MG TAB PO SCH (09:36)
[2017-11-16] MEDS: Amantadine HCl 100 mg Capsule PO SCH (09:36)
[2017-11-16] MEDS: Carvedilol 25 MG TAB PO SCH ×2 (09:36→17:48)
[2017-11-16] MEDS: Famotidine/PF 20 mg/2ml Vial SLOW IVP SCH (09:36)
[2017-11-16] MEDS: Divalproex Sodium 250 MG (DR) TAB PO SCH ×2 (09:37→21:14)
[2017-11-16] MEDS: Hydroxychloroquine Sulfate 200 MG TAB PO SCH ×2 (09:37→21:15)
[2017-11-16] MEDS: Heparin 5,000 UNITS/ML VIAL SC SCH ×2 (09:37→21:14)
[2017-11-16 10:24] LABS: Anion Gap 12 mmol/L (10-20); BUN (Urea Nitrogen) 51 mg/dL (9.8-20.1); Calc. Creatinine Clearance 41 mL/min (70-130); Calcium 8.2 mg/dL (7.8-10.44); Carbon Dioxide 30 mmol/L (23-31); Chloride 104 mmol/L (98-107); Estimated GFR-MDRD 22; Glucose 196 mg/dL (80-115); Potassium 4.8 mmol/L (3.5-5.1); Sodium 141 mmol/L (136-145)
--- NOTE | 2017-11-16 11:44 | PRG ---
DATE OF SERVICE: 11/16/2017 SUBJECTIVE: The patient is doing recently well. She did have BiPAP this morning. OBJECTIVE: VITAL SIGNS: Temperature is 98.6, pulse 86, blood pressure 157/55, O2 sat is in the low 90s on nasal cannula. HEENT: Unremarkable. NECK: No JVD. CHEST: Clear. CARDIAC: S1, S2 regular. ABDOMEN: Soft. EXTREMITIES: Edematous. LABORATORY DATA: Sodium 141, potassium 4.8, chloride 104, CO2 30, BUN 51, creatinine 2.2, glucose 19 6. ASSESSMENT: Recurrent congestive heart failure with complication of pulmonary edema and acute respir atory failure. RECOMMENDATIONS: 1. Hospice is being set up. In the meantime, we are continuing present care. There is no indicatio n that the patient is infected. Therefore, I think we should go ahead and stop her antibiotics. 2. Continue diuresis. 3. Hyperkalemia, improved with Kayexalate.
--- NOTE | 2017-11-16 15:40 | PRG ---
DATE OF SERVICE: 11/16/2017 SUBJECTIVE: The patient is still having a lot of cough, which is nonproductive, and she is short of breath. Yesterday, she decided to agree for hospice care. OBJECTIVE: VITAL SIGNS: Blood pressure is 183/75, pulse is 87, temperature is 98.0, respiratory rate is 24. Sh e is 92% on 5 liters by nasal cannula. GENERAL: She is obese. HEENT: Head is atraumatic. Eyes: PERRLA. Sclerae is nonicteric. Oral mucosa is moist. NECK: Thyroid is not palpable. JVD plus bilaterally, 1+. LUNGS: Breath sounds diminished at both bases with some dullness by percussion in both bases. ABDOMEN: Soft. Nontender. EXTREMITIES: A 1-2+ peripheral edema, similar bilaterally. LABORATORY DATA: Labs showed normal electrolytes, BUN of 51, creatinine 2.23. Glycemia is ranging f rom 178-299. IMPRESSION: 1. Congestive heart failure. 2. Acute on chronic respiratory failure with hypoxia and hypercapnia. 3. Chronic obstructive pulmonary disease. 4. Hyperkalemia, improved. 5. Diabetes mellitus, type 2. 6. Parkinson's disease. 7. Hypertension. PLAN: To send the patient back to the long-term with hospice care if she qualifies for hospice se rvices while waiting for the consultation to be done. In the meantime, we will continue current toshia men.
[2017-11-16] MEDS: Insulin Detemir 100 UNITS/ML 10 UNITS in Pre-Filled Syringe 1 EACH SC SCH (21:14)
[2017-11-16] MEDS: rOPINIRole HCl 0.5 MG TAB PO SCH (21:15)
[2017-11-17] MEDS: oxyCODONE/Acetaminophen 5 mg/325 mg Tablet PO PRN ×4 (02:04→14:17)
[2017-11-17] MEDS: Furosemide 40 MG/4 ML VIAL SLOW IVP SCH ×2 (06:09→14:05)
--- NOTE | 2017-11-17 06:39 | PRG ---
DATE OF SERVICE: 11/17/2017 The patient is awake and alert. She is supposed to go home on hospice today. PHYSICAL EXAMINATION: VITAL SIGNS: Temperature is 98.7, pulse 87, respiration 20, O2 sat 91% on 4.5 liters, blood pressure 176/71. HEENT: Unremarkable. NECK: No JVD. LUNGS: Coarse breath sounds. CARDIAC: S1 and S2 regular. ABDOMEN: Soft. EXTREMITIES: No edema. LABORATORY DATA: No labs were done today. ASSESSMENT: Congestive heart failure with recurrent pulmonary edema. PLAN: We are expecting her to go home with hospice today. The patient seems comfortable with that p loc. No new recommendations.
[2017-11-17] MEDS: Budesonide 0.5 MG/2 ML NEB INH SCH (07:32)
[2017-11-17] MEDS: Calcium Carbonate 500 MG ChewTAB PO SCH ×2 (08:33→17:14)
[2017-11-17] MEDS: Amantadine HCl 100 mg Capsule PO SCH (08:34)
[2017-11-17] MEDS: Divalproex Sodium 250 MG (DR) TAB PO SCH (08:34)
[2017-11-17] MEDS: Hydroxychloroquine Sulfate 200 MG TAB PO SCH (08:34)
[2017-11-17] MEDS: Entacapone 200 mg Tablet PO SCH ×2 (08:34→14:14)
[2017-11-17] MEDS: Carbidopa/Levodopa 25-100 mg Tablet PO SCH ×2 (08:35→14:14)
[2017-11-17] MEDS: Amlodipine 10 MG TAB PO SCH (08:35)
[2017-11-17] MEDS: Saccharomyces boulardii 250 MG CAP PO SCH (08:35)
[2017-11-17] MEDS: Cyanocobalamin (Vitamin B-12) 1,000 MCG TAB PO SCH (08:36)
[2017-11-17] MEDS: Carvedilol 25 MG TAB PO SCH ×2 (08:36→17:14)
[2017-11-17] MEDS: hydrALAZINE 25 MG TAB PO SCH ×2 (08:36→14:14)
[2017-11-17] MEDS: Folic Acid 1 MG TAB PO SCH (08:36)
[2017-11-17] MEDS: Famotidine/PF 20 mg/2ml Vial SLOW IVP SCH (08:37)
[2017-11-17] MEDS: Heparin 5,000 UNITS/ML VIAL SC SCH (08:37)
--- NOTE | 2017-11-17 11:44 | PQF ---
DATE: 11-17-17 ATTN: DR REEMA JAIMES Please exercise your independent, professional judgment in responding to the clarification form. Clinical indicators are provided on the bottom of this form for your review Please check appropriate box(s) to clarify if the following diagnosis has been ruled in our ruled out: HEALTHCARE-ASSOCIATED BACTERIAL PNEUMONIA (CDI/Coding list diagnosis here) [ ] Ruled in diagnosis [ ] Continue to treat [ ] Resolved [ ] Ruled out diagnosis [ ] Unable to determine In addition, please specify: Present on Admission (POA): [ ] Yes [ ] No [ ] Unable to determine For continuity of documentation, please document condition throughout progress notes and discharge summary. Thank You. CLINICAL INDICATORS - SIGNS / SYMPTOMS / LABS H&P: HEALTHCARE-ASSOCIATED BACTERIAL PNEUMONIA. WE WILL CONTINUE CEFEPIME AND LEVAQUIN PER RENALLY ADJUSTED DOSE. ER DIAGNOSIS: PNEUMONIA, CHF, COPD EXACERBATION CONSULT NOTE DR. OLIVAREZ 11-14-17: DOUBT THAT THIS IS PNEUMONIA. RISK FACTORS: H&P: COPD EXACERBATION, CHRONIC RESPIRATORY ACIDOSIS, HX OF PARKINSONS TREATMENTS: H&P: HEALTHCARE-ASSOCIATED BACTERIAL PNEUMONIA. WE WILL CONTINUE CEFEPIME AND LEVAQUIN PER RENALLY ADJUSTED DOSE. (This form is maintained as a part of the permanent medical record) 2014 [employer]. All Rights Reserved BRIA [email or web address] Office: [phone] ZEE
[2017-11-17 12:52] VITALS: TEMP 98.6
--- NOTE | 2017-11-17 13:29 | DIS ---
DISCHARGE DISPOSITION: detention ([facility] with hospice). CODE STATUS: DO NOT RESUSCITATE. DISCHARGE MEDICATIONS: Amantadine 100 mg daily, amlodipine 10 mg daily, aspirin 81 mg daily, Tessalo n Perles as needed, Tums as needed, Stalevo 50 mg 3 times a day, carvedilol 25 mg b.i.d., Zyrtec 10 m g daily, Depakote 250 mg b.i.d., Benadryl as needed, Klonopin 0.25 mg b.i.d., Colace as needed, Lasix 40 mg daily, Neurontin 600 mg three times daily, hydralazine 25 mg three times daily, Plaquenil 200 mg b.i.d., Lantus insulin 10 units q.p.m., insulin regular sliding scale, Lamictal 75 mg daily, Tal nix 40 mg daily, Requip 0.5 mg q.p.m., Zanaflex 4 mg b.i.d., pain medication per hospice. ALLERGIES: The patient is allergic to LIPITOR, PREGABALIN, and NALBUPHINE. The patient was seen and examined on the day of discharge. Denies any new complaints. No chest pain , shortness of breath or palpitations. SIGNIFICANT LABORATORIES: 1. ABGs on admission showed pH 7.3 with pCO2 62.2 with bicarbonate 30.3. 2. WBC on admission 12.2. Repeat next day was 8.5. 3. Hemoglobin 7.3 on 24th. 4. Urine cultures and blood cultures negative at 48 hours. 5. Chest x-ray on admission showed pulmonary vascular congestion with some patchy opacities in the r ight mid and lower lung zones. 6. Creatinine on admission was 2.06. Maximum creatinine 2.41. BNP was 595. INPATIENT CONSULTANTS: Critical Care. BRIEF HOSPITAL COURSE: The patient is a 72-year-old female with chronic diastolic heart failure, INFORMATION TECHNOLOGY SECURITY MANAGER D, and chronic respiratory failure with hypoxemia, presented to the emergency room on 11/14/2017 with shortness of breath. Please refer to the history and physical dated 11/14/2017 for further details. The patient was admitted to the Intensive Care Unit with a diagnosis of acute hypoxic and hypercapnic respiratory failure along with metabolic encephalopathy. She was started on diuretics along with em piric antibiotics for suspected pneumonia. She will be discharged to [facility] o n hospice. Pneumonia has been ruled out per Pulmonary. She is currently off antibiotics per vinnie alston. She will continue Lasix. Plan of care was discussed with the patient in detail. She stated understanding. FINAL DIAGNOSES: 1. Acute hypoxic and hypercapnic respiratory failure. 2. Acute on chronic diastolic heart failure. 3. Chronic obstructive pulmonary disease exacerbation. 4. Diabetes mellitus type 2. 5. Acute kidney injury on chronic kidney disease stage 3. 6. Hypertension. 7. Toxic metabolic encephalopathy secondary to CO2 narcosis and renal insufficiency on admission. 8. Hyperkalemia on admission with potassium of 6.1 secondary to metabolic acidosis, resolved. 9. Mild protein calorie malnutrition. 10. Chronic anemia. Total time coordinating the discharge of this patient was 38 minutes.
[2017-11-17 14:15] VITALS: BP 158/70
--- NOTE | 2017-11-29 17:06 | EKG ---
Test Reason : Blood Pressure : / mmHG Vent. Rate : 087 BPM Atrial Rate : 087 BPM P-R Int : 144 ms QRS Dur : 092 ms QT Int : 376 ms P-R-T Axes : 040 -35 037 degrees QTc Int : 452 ms Normal sinus rhythm Left axis deviation Low voltage QRS Cannot rule out Anterior infarct , age undetermined Abnormal ECG Confirmed by DERIC PENA ([id number]), assignment editor PEG BOLAND ([id number]) on 11/29/2017 5:05:52 PM Referred By: Confirmed By:DERIC PENA
== END 2017-11-17 17:28 | disposition hospice, inpatient (51) | DRG 291 ==
LOC: ERS 09:32 → IMCU/EMU 12:38
PROVIDERS: ADMIT Internal Medicine; ATTEND Internal Medicine
PROC: 5A09357 Assistance with Respiratory Ventilation, Less than 24 Consecutive Hours, Continuous Positive Airway Pressure (ICD-10-PCS; principal; 2017-11-14)
DX: I13.0 Hypertensive heart and chronic kidney disease with heart failure and stage 1 through stage 4 chronic kidney disease, or unspecified chronic kidney disease (principal); J96.21 Acute and chronic respiratory failure with hypoxia; E87.4 Mixed disorder of acid-base balance; G93.41 Metabolic encephalopathy; J96.22 Acute and chronic respiratory failure with hypercapnia; I50.33 Acute on chronic diastolic (congestive) heart failure; J44.1 Chronic obstructive pulmonary disease with (acute) exacerbation; N17.9 Acute kidney failure, unspecified; E44.1 Mild protein-calorie malnutrition; Z51.5 Encounter for palliative care; E87.5 Hyperkalemia; G20 Parkinson's disease; Z66 Do not resuscitate; Z88.8 Allergy status to other drugs, medicaments and biological substances; Z79.4 Long term (current) use of insulin; K58.9 Irritable bowel syndrome, unspecified; E66.01 Morbid (severe) obesity due to excess calories; Z68.38 Body mass index [BMI] 38.0-38.9, adult; E78.5 Hyperlipidemia, unspecified; K21.9 Gastro-esophageal reflux disease without esophagitis; F41.9 Anxiety disorder, unspecified; F32.9 Major depressive disorder, single episode, unspecified; F31.9 Bipolar disorder, unspecified; G89.29 Other chronic pain; M54.5 Low back pain; F20.9 Schizophrenia, unspecified; Z91.11 Patient's noncompliance with dietary regimen; Z79.82 Long term (current) use of aspirin; E11.22 Type 2 diabetes mellitus with diabetic chronic kidney disease; N18.3 Chronic kidney disease, stage 3 (moderate); D64.9 Anemia, unspecified
CPT/HCPCS: 36415; 36416; 51702; 70450; 71045; 80048; 80053; 80061; 80164; 81003; 81015; 82553; 82805; 83036; 83605; 83735; 83880; 84484; 85025; 87040; 87086; 90471; 90682; 93005; 94640; 94660; 94760; 96365; 96366; 96375; A4216; G0008; J0692; J1815; J1956; J2543; J2930; J7050; J7620; J7626; Q2036